=== PATIENT | female | born 1945 | race Caucasian/White ===

== ENCOUNTER 2021-01-19 08:58 | Outpatient (REF) | payer MEDICARE, SELFPAY ==
[2021-01-19 11:37] LABS: Alanine Aminotransferase 19 U/L (0-31); Anion Gap 16 (12-20); Aspartate Amino Transferase 21 U/L (5-31); Blood Urea Nitrogen 33 mg/dL (9-16); Calcium 9.5 mg/dL (8.4-10.2); Carbon Dioxide 26 mmol/L (22-29); Chloride 104 mmol/L (96-108); Cholesterol 214 mg/dL; Estimated Glomerular Filt Rate 30; Glucose Fasting 103 mg/dL (60-99); HDL Cholesterol 69 mg/dL; LDL Cholesterol Calculated 123 mg/dl; Phosphorus 3.3 mg/dL (2.7-4.5); Potassium 4.9 mmol/L (3.3-5.1); Sodium 141 mmol/L (135-145); Triglycerides 113 mg/dL
[2021-01-19 11:58] LABS: Vitamin D 25-OH Total 41.7 ng/mL (>30)
== END 2021-01-19 08:59 | disposition home or self-care (01) ==
LOC: HO.HMGCLDS 08:58
PROVIDERS: Absent Provider Internal Medicine; Visit Provider Internal Medicine Nephrology
DX: E78.5 Hyperlipidemia, unspecified (principal); I10 Essential (primary) hypertension; Z78.0 Asymptomatic menopausal state
CPT/HCPCS: 36415; 80048; 80061; 82306; 84100; 84450; 84460

== ENCOUNTER 2021-03-31 12:32 | Outpatient (REF) | payer MEDICARE, SELFPAY ==
--- NOTE | ~2021-03-31 | MM_ITS ---
EXAMINATION: BONE DENSITOMETRY CLINICAL INDICATION: Other specified disorders of bone density and structure. COMPARISON: Baseline BD dated 02/19/2019. Lumbar radiographs 02/06/2019. TECHNIQUE: Using a [employer] DXA System (software version: 13.1) manufactured by [employer], dual-energy x-ray absorptiometry was performed of the lumbar spine and left hip. The images are of good technical quality. Summary results are attached. FINDINGS: AP SPINE L1-L4: There are degenerative changes lumbar spine which may cause overestimation lumbar bone mineral density. Current: BMD 1.558 g/cm2, Z-score 3.8, T-score 3.1, normal, 5.6% increase from baseline (<5% change is not significant). Baseline: BMD 1.476 g/cm2. LEFT FEMUR, NECK: Current: BMD 0.756 g/cm2, Z-score -0.8, T-score -2.0, osteopenia. Baseline: BMD 0.815 g/cm2. LEFT FEMUR, TOTAL: Current: BMD 0.922 g/cm2, Z-score 0.3, T-score -0.7, normal, 5.1% decrease from baseline (<5% change is not significant). Baseline: BMD 0.972 g/cm2. IDENTIFIED RISK FACTORS: Height loss, menopause, renal. HISTORY OF FRACTURE: None listed. MEDICATIONS: Calcium supplements or multivitamin, vitamin D. MM/XR DEXA axial skeleton IMPRESSION: 1. DIAGNOSIS: Osteopenia based on the lowest T-score value of -2.0 in the femoral neck applying World Health Organization criteria. 2. 10-YEAR FRACTURE RISK PREDICTION, FRAX: Major osteoporotic fracture (clinical spine, forearm, hip or shoulder) 11.6%. Hip fracture 2.8%. 3. Treatment Recommendations: NOF guidelines recommend consideration for treatment in postmenopausal women and men age 50 and older presenting with the following: -A hip or vertebral (clinical or morphometric) fracture. -T-score less than or equal to -2.5 at the femoral neck or spine after appropriate evaluation to exclude secondary causes. -Low bone mass at the hip or spine and a 10-year fracture probability by FRAX of greater than or equal to 3% for hip fracture or greater than or equal to 20% for major osteoporotic fracture based on the [place] adapted WHO algorithm. 4. Other Recommendations: All treatment decisions require clinical judgment and consideration of individual patient factors, including patient preferences, comorbidities, previous drug use, risk factors not captured in the FRAX model (e.g. frailty, falls, vitamin D deficiency, increased bone turnover, interval significant decline in bone density) and possible under or overestimation of fracture risk by FRAX. Additional medical evaluation for secondary cause of low bone mineral density may be appropriate. FUTURE SCAN RECOMMENDATION: People with diagnosed cases of osteoporosis or at high risk for fracture should have regular bone mineral density tests. For patients eligible for Medicare, routine testing is allowed once every 2 years. The testing frequency can be increased to one year for patients who have rapidly progressing disease, those who are receiving or discontinuing medical therapy to restore bone mass, or have additional risk factors.
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
== END 2021-03-31 12:33 | disposition home or self-care (01) ==
LOC: HO.MAMMO 12:32
PROVIDERS: Visit Provider Internal Medicine
DX: Z12.31 Encounter for screening mammogram for malignant neoplasm of breast (principal); Z13.820 Encounter for screening for osteoporosis; M85.852 Other specified disorders of bone density and structure, left thigh; R29.890 Loss of height; Z78.0 Asymptomatic menopausal state
CPT/HCPCS: 77063; 77067; 77080

== ENCOUNTER 2021-08-03 09:15 | Outpatient (REF) | payer MEDICARE, SELFPAY ==
[2021-08-03 11:43] LABS: MANUAL DIFF FLAG NO
[2021-08-03 11:51] LABS: Basophils Absolute Auto 0.1 X10*3/uL (0.0-0.2); Basophils Percent Auto 1.1 % (0-2); Eosinophils Absolute Auto 0.2 X10*3/uL (0.0-0.4); Eosinophils Percent Auto 3.3 % (0-4); Hematocrit 39.8 % (37-47); Hemoglobin 12.7 g/dl (12.0-16.0); Imm Gran Abs Auto 0.02 X10*3/uL (0.00-0.03); Imm Gran Pct Auto 0.3 % (0.0-0.4); Lymphocytes Absolute Auto 1.2 X10*3/uL (1.2-4.9); Lymphocytes Percent Auto 17.1 % (20-40); Mean Corpuscular HGB Conc 31.9 g/dl (31.0-35.0); Mean Corpuscular Hemoglobin 30.5 pg (27.0-33.0); Mean Corpuscular Volume 95.4 fL (80-98); Mean Platelet Volume 11.3 fL (9.4-12.3); Monocytes Absolute Auto 0.5 X10*3/uL (0.1-1.2); Monocytes Percent Auto 7.2 % (2-11); Platelet Count 172 X10*3/uL (160-400); Red Blood Count 4.17 X10*6/uL (4.20-5.50); Red Cell Distribution Width 13.4 % (11.0-16.0); White Blood Count 7.1 X10*3/uL (4.8-10.8)
[2021-08-03 12:15] LABS: Anion Gap 17 (12-20); Blood Urea Nitrogen 30 mg/dL (9-16); Calcium 9.6 mg/dL (8.4-10.2); Carbon Dioxide 22 mmol/L (22-29); Chloride 106 mmol/L (96-108); Estimated Glomerular Filt Rate 35; Phosphorus 3.2 mg/dL (2.7-4.5); Potassium 4.6 mmol/L (3.3-5.1); Sodium 140 mmol/L (135-145)
[2021-08-03 12:18] LABS: Vitamin D 25-OH Total 44.7 ng/mL (>30)
[2021-08-03 12:21] LABS: Alanine Aminotransferase 12 U/L (0-31); Anion Gap 15 (12-20); Aspartate Amino Transferase 17 U/L (5-31); Blood Urea Nitrogen 30 mg/dL (9-16); Calcium 9.9 mg/dL (8.4-10.2); Carbon Dioxide 24 mmol/L (22-29); Chloride 107 mmol/L (96-108); Cholesterol 191 mg/dL; Estimated Glomerular Filt Rate 34; Glucose Fasting 102 mg/dL (60-99); HDL Cholesterol 61 mg/dL; LDL Cholesterol Calculated 109 mg/dl; Potassium 4.9 mmol/L (3.3-5.1); Sodium 141 mmol/L (135-145); Triglycerides 106 mg/dL
[2021-08-03 12:42] LABS: Vitamin D 25-OH Total 45.2 ng/mL (>30)
[2021-08-03 14:35] LABS: Creatinine Urine 275.58 mg/dL; Protein/Creatinine Ratio, Ur 0.19 (<0.2); Total Protein Urine Random 52 mg/dL (<12)
[2021-08-05 15:37] LABS: Calcium (PTHI) 9.7 mg/dL (8.6-10.4); PTHI 89 pg/mL (14-64)
== END 2021-08-03 09:16 | disposition home or self-care (01) ==
LOC: HO.HMGCLDS 09:15
PROVIDERS: PCP Internal Medicine; Visit Provider Internal Medicine Nephrology
DX: E78.5 Hyperlipidemia, unspecified (principal); M85.852 Other specified disorders of bone density and structure, left thigh; R73.01 Impaired fasting glucose; I12.9 Hypertensive chronic kidney disease with stage 1 through stage 4 chronic kidney disease, or unspecified chronic kidney disease; N18.31 Chronic kidney disease, stage 3a; R42 Dizziness and giddiness; Z78.0 Asymptomatic menopausal state
CPT/HCPCS: 36415; 80048; 80051; 80061; 82306; 82310; 82565; 83970; 84100; 84156; 84450; 84460; 84520; 84550; 85025

== ENCOUNTER → 2021-08-30 08:48 | Outpatient (BNVA) | payer MEDICARE, SELFPAY | PROVIDERS: PCP Internal Medicine; Visit Provider Nurse Practitioner Family | DX: M17.0 Bilateral primary osteoarthritis of knee (principal); M47.816 Spondylosis without myelopathy or radiculopathy, lumbar region | CPT/HCPCS: 99212 ==

== ENCOUNTER 2021-10-21 11:00 | Outpatient (RCR) | payer MEDICARE, SELFPAY ==
--- NOTE | 2021-09-20 16:41 | MHC.PT.EP ---
[facility] [place] [facility] [place] [facility] [place] [facility] [address] Norman Lund [address] [phone] F: [phone] F: [phone] F: [phone] F: [phone] Physical Therapy Plan of Care Date of Evaluation: Date of Surgery: Diagnosis: Lumbago, B knee pain. Assessment: Pt is a 76 y/o female referred to PT for eval and treat of lumbar spondylosis and B knee OA pain who presents with lumbar and LE dysfinction resulting in decreased tolerance for walking even short distances, standing short duration, performing heavy HH chores, negotiating stairs and curbs as well as performing squatting activities and HH chores secondary to decreased B hip and knee strength, decreased core strength, increased lumbar tissue tension, decreased posture, gait abnormality, and pain. Pt is deemed an appropriate candidate to receive skilled PT in order to address her physical limitations to improve her functional ability. Frequency and Duration: The patient will be seen 2 x/ wk x 5 wks. Short Term Goals: Initiate HEP with evidence of compliance. Improve baseline pain to < 3/10; initial 5/10. 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 Pt will be able to walk 2 blocks with at most moderate difficulty; initial: extreme difficulty or unable (LEFI) Pt will be able to stand > 30 min with managed back pain; initial: I avoid standing because it increased my pain right away. Treatment Plan: Modalities to reduce pain, spasms and effusion. Manual therapy to restore motion and function. Therapeutic exercise to improve strength and flexibility. Neuromuscular re-education for posture and balance. Therapeutic activities to return to functional activities of daily living. Electronically signed by: Jong Lagunas PT. Please sign and return to therapist. Thank you for your referral.
--- NOTE | 2021-10-21 15:55 | MHC.PT.DC ---
[facility] [place] Office [place] Office [place] Office [address] Norman Lund [address] [phone] F: [phone] F: [phone] F: [phone] F: [phone] Physical Therapy Discharge Report Diagnosis: Lumbago, B knee pain. Date of Surgery: Date of Evaluation: 09/20/21 Date of Discharge: 10/21/21 Treatments to Date: 8 Cancellations to Date: No Shows to Date: Discharge Status: Independent with HEP Recommend MD Follow-up Discharge Summary: [place] has been an active participant in her therapy in and out of the clinic, She is I with a basic home program which she reports does not cause her pain though reports she is not much improving with exercise though reports she will continue her program which she has been compliant in. In her last 3 sessions [place] has reported significant LBP relief with E-stim and states she is going to purchase one for self management and was encouraged to f/u with her MD. Electronically signed by: Jong Lagunas PT. Please sign and return to therapist. Thank you for your referral.
== END 2021-10-21 15:55 | disposition home or self-care (01) ==
LOC: HO.PTCHIC 11:00
PROVIDERS: PCP Internal Medicine; Visit Provider Nurse Practitioner Family
DX: M47.816 Spondylosis without myelopathy or radiculopathy, lumbar region (principal); M17.0 Bilateral primary osteoarthritis of knee
CPT/HCPCS: 97014; 97110; 97162

== ENCOUNTER 2022-02-03 08:33 | Outpatient (REF) | payer MEDICARE, SELFPAY ==
[2022-02-03 11:33] LABS: Anion Gap 14 (12-20); Blood Urea Nitrogen 28 mg/dL (9-16); Calcium 9.6 mg/dL (8.4-10.2); Carbon Dioxide 25 mmol/L (22-29); Chloride 104 mmol/L (96-108); Estimated Glomerular Filt Rate 37; Potassium 4.7 mmol/L (3.3-5.1); Sodium 138 mmol/L (135-145)
== END 2022-02-03 08:34 | disposition home or self-care (01) ==
LOC: HO.HMGCLDS 08:33
PROVIDERS: PCP Internal Medicine; Visit Provider Internal Medicine Nephrology
DX: I12.9 Hypertensive chronic kidney disease with stage 1 through stage 4 chronic kidney disease, or unspecified chronic kidney disease (principal); N18.31 Chronic kidney disease, stage 3a
CPT/HCPCS: 36415; 80051; 82310; 82565; 84520

== ENCOUNTER 2022-02-16 07:46 | Outpatient (REF) | payer MEDICARE, SELFPAY ==
[2022-02-16 11:15] LABS: MANUAL DIFF FLAG NO
[2022-02-16 11:28] LABS: Basophils Absolute Auto 0.1 X10*3/uL (0.0-0.2); Basophils Percent Auto 0.8 % (0-2); Eosinophils Absolute Auto 0.2 X10*3/uL (0.0-0.4); Eosinophils Percent Auto 2.5 % (0-4); Hematocrit 39.7 % (37.0-47.0); Hemoglobin 12.5 g/dl (12.0-16.0); Imm Gran Abs Auto 0.02 X10*3/uL (0.00-0.03); Imm Gran Pct Auto 0.3 % (0.0-0.4); Lymphocytes Absolute Auto 1.5 X10*3/uL (1.2-4.9); Lymphocytes Percent Auto 19.6 % (20-40); Mean Corpuscular HGB Conc 31.5 g/dl (31.0-35.0); Mean Corpuscular Volume 98.5 fL (80.0-98.0); Mean Platelet Volume 9.5 fL (9.4-12.3); Monocytes Absolute Auto 0.7 X10*3/uL (0.1-1.2); Monocytes Percent Auto 8.8 % (2-11); Neutrophils Absolute Auto 5.2 x10*3/uL (2.0-8.3); Platelet Count 272 X10*3/uL (160-400); Red Blood Count 4.03 X10*6/uL (4.20-5.50); Red Cell Distribution Width 13.2 % (11.0-16.0); White Blood Count 7.6 X10*3/uL (4.8-10.8)
[2022-02-16 11:41] LABS: Alanine Aminotransferase 12 U/L (0-31); Aspartate Amino Transferase 20 U/L (5-31); Cholesterol 215 mg/dL; Glucose Fasting 103 mg/dL (60-99); HDL Cholesterol 71 mg/dL; LDL Cholesterol Calculated 129 mg/dl; Triglycerides 76 mg/dL
[2022-02-16 12:07] LABS: Vitamin D 25-OH Total 45.5 ng/mL (>30)
[2022-02-16 12:15] LABS: Folate 4.8 ng/mL (> or = 4.0); Vitamin B12 547 pg/mL (200-900)
[2022-02-16 13:09] LABS: Free T4 (Free Thyroxine) 1.16 ng/dL (0.71-1.85)
== END 2022-02-16 07:47 | disposition home or self-care (01) ==
LOC: HO.HMGCLDS 07:46
PROVIDERS: Visit Provider Internal Medicine
DX: E78.5 Hyperlipidemia, unspecified (principal); M85.852 Other specified disorders of bone density and structure, left thigh; I10 Essential (primary) hypertension; R42 Dizziness and giddiness; Z78.0 Asymptomatic menopausal state
CPT/HCPCS: 36415; 80061; 82306; 82607; 82746; 82947; 84439; 84443; 84450; 84460; 85025

== ENCOUNTER → 2022-04-11 13:18 | Outpatient (BNVA) | payer MEDICARE, SELFPAY | PROVIDERS: PCP Internal Medicine; Visit Provider Nurse Practitioner Family | DX: M17.0 Bilateral primary osteoarthritis of knee (principal); M47.816 Spondylosis without myelopathy or radiculopathy, lumbar region; M54.50 Low back pain, unspecified | CPT/HCPCS: 99212 ==

== ENCOUNTER 2022-04-21 09:59 | Outpatient (REF) | payer MEDICARE, SELFPAY ==
--- NOTE | ~2022-04-21 | XR_ITS ---
EXAMINATION: XR LUMBAR SPINE XR BILATERAL KNEE, RIGHT XR BILATERAL KNEE LEFT CLINICAL INFORMATION: Primary osteoarthritis. Bilateral knee pain and low back pain. COMPARISON: None. TECHNIQUE: 3 views each knee. Lumbar spine 3 views. FINDINGS: LUMBAR SPINE: There is normal lumbar lordosis. Grade 1 anterolisthesis L5 n S1 and grade 1 retrolisthesis L2 on L3 is noted. There is mild loss of L1-L2, L2-L3 and L5-S1 disc heights with mild ventral spondylosis. There is bilateral L4-L5 and L5-S1 moderate facet joint arthropathy. The paravertebral soft tissues are normal. RIGHT KNEE: There is severe loss of medial and patellofemoral compartment joint space with moderate periarticular spurring. No acute fracture or lytic process seen. The soft tissues are normal. LEFT KNEE: There is severe loss of medial and moderate loss of patellofemoral and lateral compartment joint space. There is moderate periarticular spurring medial compartment. There are no loose bodies or bony erosive changes. There is mild suprapatellar joint effusion. There is moderate soft tissue calcification anterior and medial to the left knee joint likely varicose veins. XR/XR knee RT 3V IMPRESSION: Degenerative disc disease L1-L2 and L2-L3 disc level with ventral spondylosis. Grade 1 anterolisthesis L4-L5 and grade 1 retrolisthesis L2 on L3. No acute fracture seen. There is facet joint arthropathy as described above. Severe degenerative changes essentially involving the medial and patellofemoral compartments of both knees and lateral compartment of the left knee. There is mild suprapatellar joint effusion in the left knee but no visible acute fracture or dislocation seen in either knee joints. There is moderate soft tissue calcification anterior to the left knee joint.
--- NOTE | ~2022-04-21 | XR_ITS ---
EXAMINATION: XR LUMBAR SPINE XR BILATERAL KNEE, RIGHT XR BILATERAL KNEE LEFT CLINICAL INFORMATION: Primary osteoarthritis. Bilateral knee pain and low back pain. COMPARISON: None. TECHNIQUE: 3 views each knee. Lumbar spine 3 views. FINDINGS: LUMBAR SPINE: There is normal lumbar lordosis. Grade 1 anterolisthesis L5 n S1 and grade 1 retrolisthesis L2 on L3 is noted. There is mild loss of L1-L2, L2-L3 and L5-S1 disc heights with mild ventral spondylosis. There is bilateral L4-L5 and L5-S1 moderate facet joint arthropathy. The paravertebral soft tissues are normal. RIGHT KNEE: There is severe loss of medial and patellofemoral compartment joint space with moderate periarticular spurring. No acute fracture or lytic process seen. The soft tissues are normal. LEFT KNEE: There is severe loss of medial and moderate loss of patellofemoral and lateral compartment joint space. There is moderate periarticular spurring medial compartment. There are no loose bodies or bony erosive changes. There is mild suprapatellar joint effusion. There is moderate soft tissue calcification anterior and medial to the left knee joint likely varicose veins. XR/XR lumbar spine 2-3V IMPRESSION: Degenerative disc disease L1-L2 and L2-L3 disc level with ventral spondylosis. Grade 1 anterolisthesis L4-L5 and grade 1 retrolisthesis L2 on L3. No acute fracture seen. There is facet joint arthropathy as described above. Severe degenerative changes essentially involving the medial and patellofemoral compartments of both knees and lateral compartment of the left knee. There is mild suprapatellar joint effusion in the left knee but no visible acute fracture or dislocation seen in either knee joints. There is moderate soft tissue calcification anterior to the left knee joint.
--- NOTE | ~2022-04-21 | XR_ITS ---
EXAMINATION: XR LUMBAR SPINE XR BILATERAL KNEE, RIGHT XR BILATERAL KNEE LEFT CLINICAL INFORMATION: Primary osteoarthritis. Bilateral knee pain and low back pain. COMPARISON: None. TECHNIQUE: 3 views each knee. Lumbar spine 3 views. FINDINGS: LUMBAR SPINE: There is normal lumbar lordosis. Grade 1 anterolisthesis L5 n S1 and grade 1 retrolisthesis L2 on L3 is noted. There is mild loss of L1-L2, L2-L3 and L5-S1 disc heights with mild ventral spondylosis. There is bilateral L4-L5 and L5-S1 moderate facet joint arthropathy. The paravertebral soft tissues are normal. RIGHT KNEE: There is severe loss of medial and patellofemoral compartment joint space with moderate periarticular spurring. No acute fracture or lytic process seen. The soft tissues are normal. LEFT KNEE: There is severe loss of medial and moderate loss of patellofemoral and lateral compartment joint space. There is moderate periarticular spurring medial compartment. There are no loose bodies or bony erosive changes. There is mild suprapatellar joint effusion. There is moderate soft tissue calcification anterior and medial to the left knee joint likely varicose veins. XR/XR knee LT 3V IMPRESSION: Degenerative disc disease L1-L2 and L2-L3 disc level with ventral spondylosis. Grade 1 anterolisthesis L4-L5 and grade 1 retrolisthesis L2 on L3. No acute fracture seen. There is facet joint arthropathy as described above. Severe degenerative changes essentially involving the medial and patellofemoral compartments of both knees and lateral compartment of the left knee. There is mild suprapatellar joint effusion in the left knee but no visible acute fracture or dislocation seen in either knee joints. There is moderate soft tissue calcification anterior to the left knee joint.
== END 2022-04-21 10:00 | disposition home or self-care (01) ==
LOC: HO.XRAY 09:59
PROVIDERS: PCP Internal Medicine; Visit Provider Nurse Practitioner Family
DX: M54.50 Low back pain, unspecified (principal); M17.0 Bilateral primary osteoarthritis of knee
CPT/HCPCS: 72100; 73562

== ENCOUNTER → 2022-05-24 08:54 | Outpatient (BNVA) | payer MEDICARE, SELFPAY | PROVIDERS: PCP Internal Medicine; Visit Provider Nurse Practitioner Family | DX: M47.26 Other spondylosis with radiculopathy, lumbar region (principal); M17.0 Bilateral primary osteoarthritis of knee; M25.561 Pain in right knee; M25.562 Pain in left knee | CPT/HCPCS: 99202 ==

== ENCOUNTER 2022-05-26 08:33 | Outpatient (REF) | payer MEDICARE, SELFPAY ==
--- NOTE | ~2022-05-26 | XR_ITS ---
EXAMINATION: XR knee standing BI CLINICAL INFORMATION: Reason for Exam M25.569 - Pain in unspecified knee COMPARISON: Knee radiographs 04/21/2022 TECHNIQUE: One view of the bilateral knees standing XR/XR knee standing BI FINDINGS/IMPRESSION: * No acute fracture or dislocation. * Advanced degenerative changes of the right knee with [id number] articulation involving the medial compartment and large medial compartment osteophytes and with valgus angulation of the knee. * Advanced degenerative changes of the left knee involving the medial and lateral compartments with complete or near complete loss of joint space and large osteophytes with varus angulation of the knee. 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
== END 2022-05-26 08:34 | disposition home or self-care (01) ==
LOC: HO.HOSX 08:33
PROVIDERS: Visit Provider Orthopaedic Surgery
DX: M17.0 Bilateral primary osteoarthritis of knee (principal)
CPT/HCPCS: 20610; 73565; 99202; J1100

== ENCOUNTER 2022-08-11 08:10 | Outpatient (REF) | payer MEDICARE, SELFPAY ==
[2022-08-11 11:33] LABS: Anion Gap 16 (12-20); Blood Urea Nitrogen 30 mg/dL (9-16); Calcium 9.6 mg/dL (8.4-10.2); Carbon Dioxide 23 mmol/L (22-29); Chloride 104 mmol/L (96-108); Estimated Glomerular Filt Rate 32; Potassium 4.4 mmol/L (3.3-5.1); Sodium 139 mmol/L (135-145)
== END 2022-08-11 08:11 | disposition home or self-care (01) ==
LOC: HO.HMGCLDS 08:10
PROVIDERS: PCP Internal Medicine; Visit Provider Internal Medicine Nephrology
DX: I12.9 Hypertensive chronic kidney disease with stage 1 through stage 4 chronic kidney disease, or unspecified chronic kidney disease (principal); N18.31 Chronic kidney disease, stage 3a
CPT/HCPCS: 36415; 80051; 82310; 82565; 84520

== ENCOUNTER → 2022-09-12 08:58 | Outpatient (BNVA) | payer MEDICARE, SELFPAY | PROVIDERS: PCP Internal Medicine; Referring Provider Internal Medicine; Visit Provider Nurse Practitioner Family | DX: M17.11 Unilateral primary osteoarthritis, right knee (principal); M17.12 Unilateral primary osteoarthritis, left knee; M47.816 Spondylosis without myelopathy or radiculopathy, lumbar region | CPT/HCPCS: 99212 ==

== ENCOUNTER 2022-12-23 08:04 | Outpatient (REF) | payer MEDICARE, SELFPAY ==
[2022-12-23 12:24] LABS: Estimated Average Glucose 111 mg/dL; Hemoglobin A1c % 5.5 %
[2022-12-23 12:39] LABS: Alanine Aminotransferase 16 U/L (0-31); Aspartate Amino Transferase 20 U/L (5-31); Cholesterol 185 mg/dL; Glucose Fasting 98 mg/dL (60-99); HDL Cholesterol 69 mg/dL; LDL Cholesterol Calculated 99 mg/dl; Triglycerides 88 mg/dL; Vitamin D 25-OH Total 39.5 ng/mL (>30)
== END 2022-12-23 08:05 | disposition home or self-care (01) ==
LOC: HO.HMGCLDS 08:04
PROVIDERS: PCP Internal Medicine; Visit Provider Internal Medicine
DX: E78.5 Hyperlipidemia, unspecified (principal); M85.852 Other specified disorders of bone density and structure, left thigh; I12.9 Hypertensive chronic kidney disease with stage 1 through stage 4 chronic kidney disease, or unspecified chronic kidney disease; N18.9 Chronic kidney disease, unspecified; R73.01 Impaired fasting glucose; Z53.20 Procedure and treatment not carried out because of patient's decision for unspecified reasons
CPT/HCPCS: 36415; 80061; 82306; 82947; 83036; 84450; 84460

== ENCOUNTER → 2023-01-10 07:26 | Outpatient (BNVA) | payer MEDICARE, SELFPAY | PROVIDERS: PCP Internal Medicine; Visit Provider Nurse Practitioner Family | DX: M17.11 Unilateral primary osteoarthritis, right knee (principal); M17.12 Unilateral primary osteoarthritis, left knee; M47.816 Spondylosis without myelopathy or radiculopathy, lumbar region | CPT/HCPCS: 99212 ==

== ENCOUNTER 2023-04-11 12:46 | Outpatient (REF) | payer MEDICARE, SELFPAY ==
--- NOTE | ~2023-04-11 | MM_ITS ---
EXAMINATION: BONE DENSITOMETRY CLINICAL INDICATION: Screening. COMPARISON: Previous BD dated 03/31/2021 and baseline BD dated 02/19/2019. TECHNIQUE: Using a [employer] DXA System (software version: 13.1) manufactured by [employer], dual-energy x-ray absorptiometry was performed of the lumbar spine and left hip. The images are of good technical quality. Summary results are attached. FINDINGS: LEFT FEMUR, NECK: Current: BMD 0.813 g/cm2, Z-score -0.2, T-score -1.6, osteopenia. Prior: BMD 0.756 g/cm2. Baseline: BMD 0.815 g/cm2. LEFT FEMUR, TOTAL: Current: BMD 0.887 g/cm2, Z-score 0.2, T-score -1.0, normal, 3.8% decrease from previous, 8.7% decrease from baseline (<5% change is not significant). Prior: BMD 0.922 g/cm2. Baseline: BMD 0.972 g/cm2. AP SPINE L1-L4 (excluding L2): The data of L1-L4 has been changed to exclude the L2 vertebral body, because degenerative changes at this level may cause overestimation of lumbar spine density. Current: BMD 1.488 g/cm2, Z-score 3.5, T-score 2.6, normal, 1.2% decrease from previous, 2.1% increase from baseline (<5% change is not significant). Prior: BMD 1.506 g/cm2. Baseline: BMD 1.458 g/cm2. IDENTIFIED RISK FACTORS: Menopause, height loss, renal. HISTORY OF FRACTURE: None listed. MEDICATIONS: Calcium, vitamin D. MM/XR DEXA axial skeleton IMPRESSION: 1. DIAGNOSIS: Osteopenia based on the lowest T-score value of -1.6 in the femoral neck applying World Health Organization criteria. 2. 10-YEAR FRACTURE RISK PREDICTION, FRAX: Major osteoporotic fracture (clinical spine, forearm, hip or shoulder) 11.3%. Hip fracture 2.4%. 3. Treatment Recommendations: NOF guidelines recommend consideration for treatment in postmenopausal women and men age 50 and older presenting with the following: -A hip or vertebral (clinical or morphometric) fracture. -T-score less than or equal to -2.5 at the femoral neck or spine after appropriate evaluation to exclude secondary causes. -Low bone mass at the hip or spine and a 10-year fracture probability by FRAX of greater than or equal to 3% for hip fracture or greater than or equal to 20% for major osteoporotic fracture based on the [place] adapted WHO algorithm. 4. Other Recommendations: All treatment decisions require clinical judgment and consideration of individual patient factors, including patient preferences, comorbidities, previous drug use, risk factors not captured in the FRAX model (e.g. frailty, falls, vitamin D deficiency, increased bone turnover, interval significant decline in bone density) and possible under or overestimation of fracture risk by FRAX. Additional medical evaluation for secondary cause of low bone mineral density may be appropriate. FUTURE SCAN RECOMMENDATION: People with diagnosed cases of osteoporosis or at high risk for fracture should have regular bone mineral density tests. For patients eligible for Medicare, routine testing is allowed once every 2 years. The testing frequency can be increased to one year for patients who have rapidly progressing disease, those who are receiving or discontinuing medical therapy to restore bone mass, or have additional risk factors.
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
== END 2023-04-11 12:47 | disposition home or self-care (01) ==
LOC: HO.MAMMO 12:46
PROVIDERS: PCP Internal Medicine; Visit Provider Internal Medicine
DX: Z12.31 Encounter for screening mammogram for malignant neoplasm of breast (principal); Z13.820 Encounter for screening for osteoporosis; Z78.0 Asymptomatic menopausal state; M85.852 Other specified disorders of bone density and structure, left thigh
CPT/HCPCS: 77063; 77067; 77080

== ENCOUNTER 2023-05-01 09:07 | Outpatient (REF) | payer MEDICARE, SELFPAY ==
[2023-05-01 12:38] LABS: Anion Gap 15 (12-20); Blood Urea Nitrogen 28 mg/dL (9-16); Calcium 9.6 mg/dL (8.4-10.2); Carbon Dioxide 24 mmol/L (22-29); Chloride 105 mmol/L (96-108); Estimated Glomerular Filt Rate 36; Potassium 4.7 mmol/L (3.3-5.1); Sodium 139 mmol/L (135-145)
[2023-05-01 13:35] LABS: Creatinine Urine 119.44 mg/dL; Protein/Creatinine Ratio, Ur 0.24 (<0.2); Total Protein Urine Random 29 mg/dL (<12)
== END 2023-05-01 09:08 | disposition home or self-care (01) ==
LOC: HO.HMGCLDS 09:07
PROVIDERS: PCP Internal Medicine; Visit Provider Internal Medicine Nephrology
DX: I12.9 Hypertensive chronic kidney disease with stage 1 through stage 4 chronic kidney disease, or unspecified chronic kidney disease (principal); N18.31 Chronic kidney disease, stage 3a
CPT/HCPCS: 36415; 80051; 82310; 82565; 84156; 84520

== ENCOUNTER 2023-06-15 10:14 | Outpatient (AMB) | payer MEDICARE, SELFPAY ==
[2023-06-15 10:16] VITALS: BMI 40.2
--- NOTE | 2023-06-15 10:16 | MHC.OFFVIS ---
Intake Vital Signs 06/15/23 10:16 Height 5 ft Weight 206 lb BMI 40.2 Intake Visit Reasons: ov- Bilateral Knee OA Intake Note: [place] is a 78 year old female who presents today for a follow up of her bilateral knee pain. Last seen for bilateral knee injections that were done on 05/26/22. Patient reports that she is unsure if these injections were helpful. She explains that the knees have been killing her. She has been taking tylenol for her pain which helps mildly. She has kidney disease so she must avoid NSAIDS. She used topical creams which also give mild relief. Allergies GALILEO Inhibitors Allergy (Severe, Verified 06/15/23 10:19) Cough HPI ov- Bilateral Knee OA HPI Details [place] is a 78 year old woman with bilateral knee OA. She was last seen, and injected, on 05/26/22, and is unsure if this helped her. She says her knees have been very painful recently with daily activity, worse with prolonged walking or using stairs. She walks using a cane and occasionally uses a walker when out for prolonged periods. Her right knee gives way on her occasionally. She also has some pain in her hips and lower back. She says her LBP is her primary pain generator and limiting factor at this time. She does not want to consider surgery as she feels too limited by her LBP and is worried she will not recover well. She uses a topical cream and Tylenol, with mild relief. She reports having CKD and says she is unable to take NSAIDs. She has lumbar DDD & spondylosis and follows with Rheumatology. She denies any numbness or tingling. [facility] Medical History Bifascicular block Bilateral knee pain Chronic kidney disease (CKD) Colonoscopy refused Dyslipidemia Essential hypertension Impaired fasting glucose Intermittent lightheadedness Osteoarthritis Osteopenia of left femoral neck Postmenopausal Sinus bradycardia Surgical History History of cataract surgery Family History Father HTN (hypertension) Mother CKD (chronic kidney disease) HTN (hypertension) Heart disease Family/Other Hialey's thyroiditis Social History Housing: House Alcohol intake: never Patient Tobacco Use Status: Former Tobacco user Years Smoked: 35 yrs e-Cigarette/Vaping Use: Never Used Current occupational status: retired Cognitive needs: No Hearing needs: No Vision needs: Yes Review of Systems Const All systems reviewed & are unremarkable except as noted in HPI and below Physical Exam Vital Signs: BMI result Body Mass Index 40.2 Const General: no acute distress, alert and awake Orientation/consciousness: patient oriented x3 HEENT Head: Yes normocephalic and Yes atraumatic Eyes EOM: EOMs intact bilaterally Resp Effort & Inspection: normal respiratory effort and able to speak in complete sentences Cardio Jugular venous distension: no JVD Skin General skin exam: turgor normal Rashes: no rashes Neuro General: patient oriented x3 Extrem Other: Bilateral Knees: Severe gait antalgia Varus thrust bilaterally, R>L Psych Appearance: grossly normal Affect: normal affect Attitude: cooperative Office Procedures Joint Injection/Drain Joint Injection/Drain Details: Injected 1 mL of Decadron and 3 mL 1% lidocaine and 3 mL of 0.25% Marcaine. Site was prepped using aseptic technique. Patient tolerated the procedure well. Primary Site: right knee Secondary Site: left knee Approach Used: anterolateral Coding - Large joint - Glenohumeral/Tronchanteric Bursa/Intraarticular Procedure code (CPT) selection complete Results Reviewed Results Reviewed: 06/15/23 10:33 BUPivacaine MPF 0.25 % [Sensorcaine-MPF 0.25% 10 ML] 10 ml .ROUTE .STK-MED ONE Lidocaine HCl 1 % [Xylocaine 1 %] 2 ml .ROUTE .STK-MED ONE Lidocaine HCl 2 % MPF [Xylocaine 2 % MPF] 5 ml .ROUTE .STK-MED ONE dexAMETHasone sod phosphate [Decadron] 4 mg .ROUTE .STK-MED ONE I personally reviewed relevant radiographs. Severe tricompartmental OA bilaterally. Severe varus on the right Assessment & Plan Assessment & Plan (1) Arthritis of both knees: Code(s): M17.0 - Bilateral primary osteoarthritis of knee Plan: [place] is a 78 year old woman with severe tricompartmental bilateral knee OA, with varus thrust, R>L. She has pain with daily activity, worse with using stairs or prolonged ambulation. She ambulates with assistive devices and feels her right knee give way on her occasionally. She was last injected bilaterally on 05/26/22 and is unsure if this helped her. She is unable to use NSAIDs due to CKD and finds minimal relief from Tylenol and OTC topical creams. I discussed her diagnosis and treatment options, including a referral to our colleagues in pain management. She is very opposed to the idea of surgical intervention due to her comorbidities. I injected her bilateral knees today, which she tolerated well. She can follow up prn. If her symptoms persist or worsen we can discuss a referral to Pain Management. Plan Scribed for Celestine Ramos MD by Van Keith, director of medical services, on 06/15/23 at 10:35 AM, EST. Coding Level of Care Code Est Pt Level 4 (70458) Diagnoses Arthritis of both knees M17.0 CPT Codes Coding - 12514 Large joint: 55879 - Large joint ([id number]) Coding - Joint 7: 39715 - Glenohumeral/Tronchanteric Bursa/Intraarticular ([id number])
== END 2023-06-15 11:01 | disposition home or self-care (01) ==
PROVIDERS: PCP Internal Medicine; Visit Provider Orthopaedic Surgery
DX: M17.0 Bilateral primary osteoarthritis of knee (principal)
CPT/HCPCS: 20610; 99214

== ENCOUNTER → 2023-06-15 10:14 | Outpatient (BNVA) | payer MEDICARE, SELFPAY | PROVIDERS: PCP Internal Medicine; Visit Provider Orthopaedic Surgery | DX: M17.0 Bilateral primary osteoarthritis of knee (principal) | CPT/HCPCS: 20610; 99212; J1100 ==

== ENCOUNTER 2023-07-03 09:12 | Outpatient (AMB) | payer MEDICARE, SELFPAY ==
[2023-07-03 09:23] VITALS: BP 114/62; PULSE 66; TEMP 36.2; O2SAT 97; BMI 41.8
--- NOTE | 2023-07-03 09:23 | A.OFFVIS_ITS ---
Intake Vital Signs 07/03/23 09:23 Height 5 ft Weight 214 lb 4.629 oz BMI 41.8 BP 114/62 Blood Pressure Location Lt brachial Position Sitting Pulse 66 Pulse Source Pulse Oximeter Temp 97.2 F Temp Source Skin Pulse Oximetry (%) 97 Oxygen Delivery Method Room Air Intake Visit Reasons: OA Online Facilitator Required: No Accompanied by: Self / Same As Patient Allergies GALILEO Inhibitors Allergy (Severe, Verified 07/03/23 09:32) Cough Medication List - Last Reconciled 07/03/23 by Gomez Arredondo MD acetaminophen ER (Tylenol Arthritis Pain) 650 mg PO Q8H amlodipine 5 mg PO DAILY aspirin (Adult Aspirin Regimen) 81 mg PO DAILY atorvastatin 10 mg PO DAILY [id number] 600 mg calcium- 800 unit-50 mg (Caltrate 600-D Plus Minerals) 1 tab PO BID losartan 50 mg PO DAILY metoprolol tartrate 50 mg PO DAILY HPI HPI Comments History of Present Illness Details The patient presents for evaluation of multiple areas of pain. This primarily includes the shoulders, lower back, and knees. Last week she received bilateral knee injections with corticosteroids for osteoarthritis but she does not think it has helped much. The patient also has back pain that comes on with standing up from bed. This causes so much discomfort that she chooses to sleep in a recliner most nights. There has been some ankle swelling because of that recently. She gets neck pain that is worse when she 1st gets up in the mornings. She had a recent bone density test as well. She takes acetaminophen for symptoms, up to about 2 g a day but does not think it helps a whole lot. Her daughter lives in her neighborhood so helps out with housekeeping and grocery shopping. The patient says she has not been in a grocery store now for 3 years. She has no history of fractures. She does have a walker and cane at home but often chooses not to use them. Today she is here with her walker. [facility] Medical History (Updated 07/03/23 @ 10:36 by Gomez Arredondo MD) Sinus bradycardia Bifascicular block Intermittent lightheadedness Bilateral knee pain Impaired fasting glucose Osteopenia of left femoral neck Colonoscopy refused Postmenopausal Osteoarthritis Dyslipidemia Essential hypertension Chronic kidney disease (CKD) Surgical History History of cataract surgery Family History Father HTN (hypertension) Mother CKD (chronic kidney disease) HTN (hypertension) Heart disease Family/Other Hailey's thyroiditis Social History Housing: House Alcohol intake: never Patient Tobacco Use Status: Former Tobacco user Years Smoked: 35 yrs e-Cigarette/Vaping Use: Never Used Current occupational status: retired Cognitive needs: No Hearing needs: No Vision needs: Yes Review of Systems Const Details: Low stamina. Negative for appetite change, weight change, fever, chills, malaise Eyes Details: Negative for vision change, dry eyes,headaches and dizziness ENT Details: Negative for hearing change, tinnitus, oral ulcer, nose bleeds and oral dryness. Card Details: Negative chest pain, edema and syncope Resp Details: Negative for SOB, cough and wheezing GI Details: Negative indigestion/heartburn, nausea, abdominal pain, bowel changes, diarrhea, constipation and bloody stool. Neuro Details: Negative for epilepsy, palsy, stroke, changes in speech, tingling and weakness Victorino/Lymph Details: Negative for excessive bruising or bleeding. Physical Exam Vital Signs: Last Vital Signs Temp 97.2 F 07/03/23 09:23 Pulse 66 07/03/23 09:23 BP 114/62 07/03/23 09:23 Pulse Ox 97 07/03/23 09:23 Oxygen Delivery Method Room Air 07/03/23 09:23 BMI result Body Mass Index 41.8 APPEARANCE: Patient in no acute distress EYES no redness, pupils equal and reactive to light, eyelids normal. No temporal artery tenderness, redness or swelling. EXTREMITIES: Trace ankle and pedal edema. no calf tenderness, normal peripheral pulses. NEURO: Oriented and alert x3. No focal weakness. Reflexes symmetric. Gait slow in somewhat unsteady. SKIN: No inflammatory or neoplastic lesions. Normal color and turgor JOINT EXAM: Cervical Spine:? Mild to moderate pain with lateral flexion at 10 degrees or rotation at 45 degrees. There is some paraspinal muscle tenderness. Thoracic Spine: No tenderness. Lumbar Spine:? Alignment normal.? Full range of motion, mild to moderate pain with flexion beyond 45 degrees. There is some bilateral paraspinal muscle tenderness. No tenderness directly over the spinous processes. Hands:? Normal pain-free range of motion without tenderness, swelling, increased warmth or erythema. Able to make a full fist and has a good manager machine strength. Wrists: Normal pain-free range of motion without tenderness, swelling, increased warmth or erythema. Elbows: Normal pain-free range of motion without tenderness, swelling, increased warmth or erythema. Shoulders:?? Right: There is pain with abduction 120 degrees or with extremes of rotation. Mild anterior tenderness without adenopathy, swelling, or weakness. Left: Mild to moderate pain with abduction at 75 degrees or with more than 20 degrees of internal or external rotation. There is mild anterior and subacromial tenderness with questionable abductor weakness but no swelling or adenopathy. Hips: Full range of motion with lumbar pain at the extremes. No groin pain with motion. Hip bursa:? No tenderness. Knees:??LEFT: Mild pain with more than 45 degrees of flexion or extension. There is [id number]-nb-tdphraup tenderness to palpation of the medial joint line, slight tenderness to palpation of the lateral joint line. No swelling, increased warmth or erythema.? There is no effusion or crepitation. RIGHT: Mild to moderate pain with extremes of normal flexion and extension. Tenderness to palpation of the medial joint line, slight tenderness to palpation of the lateral joint line. No swelling, increased warmth or erythema.? There is no effusion or crepitation Ankles:? She has bilateral valgus deformity and mild medial tenderness. There is no redness or warmth. Feet:? There is severe flatfoot deformity bilaterally with tenderness in the instep, across the MTP joints without soft tissue swelling although she does have some edema. There is no break in the skin, redness or warmth. Tender points:.? Mild tenderness to digital palpation at the trapezius, knees, greater trochanter the l area bilaterally. ? Results Reviewed Results Reviewed: [address] [address] XRay Report Signed Patient: [place] Cline MR#: [id number] : 1945 Acct:[id number] Age/Sex: 77 / F ADM Date: 04/21/[address]: Yecenia Kaye NP Ordering Physician: Yecenia Kaye NP Date of Service: 04/21/22 Procedure(s): XR lumbar spine 2-3V Accession Number(s): [id number] cc: Yecenia Kaye NP~ EXAMINATION: XR LUMBAR SPINE XR BILATERAL KNEE, RIGHT XR BILATERAL KNEE LEFT CLINICAL INFORMATION: Primary osteoarthritis. Bilateral knee pain and low back pain. COMPARISON: None. TECHNIQUE: 3 views each knee. Lumbar spine 3 views. FINDINGS: LUMBAR SPINE: There is normal lumbar lordosis. Grade 1 anterolisthesis L5 n S1 and grade 1 retrolisthesis L2 on L3 is noted. There is mild loss of L1-L2, L2-L3 and L5-S1 disc heights with mild ventral spondylosis. There is bilateral L4-L5 and L5-S1 moderate facet joint arthropathy. The paravertebral soft tissues are normal. RIGHT KNEE: There is severe loss of medial and patellofemoral compartment joint space with moderate periarticular spurring. No acute fracture or lytic process seen. The soft tissues are normal. LEFT KNEE: There is severe loss of medial and moderate loss of patellofemoral and lateral compartment joint space. There is moderate periarticular spurring medial compartment. There are no loose bodies or bony erosive changes. There is mild suprapatellar joint effusion. There is moderate soft tissue calcification anterior and medial to the left knee joint likely varicose veins. XR/XR lumbar spine 2-3V IMPRESSION: Degenerative disc disease L1-L2 and L2-L3 disc level with ventral spondylosis. Grade 1 anterolisthesis L4-L5 and grade 1 retrolisthesis L2 on L3. No acute fracture seen. There is facet joint arthropathy as described above. Severe degenerative changes essentially involving the medial and patellofemoral compartments of both knees and lateral compartment of the left knee. There is mild suprapatellar joint effusion in the left knee but no visible acute fracture or dislocation seen in either knee joints. There is moderate soft tissue calcification anterior to the left knee joint. Dictated By: Marcelo Kruse MD [address] [place] [address] [place] [id number] Mammography Report Signed Patient: Florida Cline MR#: [id number] : 1945 Acct:[id number] Age/Sex: 78 / F ADM Date: 04/11/[address]: Shyla Fregoso MD Ordering Physician: Shyla Fregoso MD Results: Date of Service: 04/11/23 Follow Up: Procedure(s): XR DEXA axial skeleton Accession Number(s): [id number] cc: Shyla Fregoso MD~ EXAMINATION: BONE DENSITOMETRY CLINICAL INDICATION: Screening. COMPARISON: Previous BD dated 03/31/2021 and baseline BD dated 02/19/2019. TECHNIQUE: Using a [employer] DXA System (software version: 13.1) manufactured by [employer], dual-energy x-ray absorptiometry was performed of the lumbar spine and left hip. The images are of good technical quality. Summary results are attached. FINDINGS: LEFT FEMUR, NECK: Current: BMD 0.813 g/cm2, Z-score -0.2, T-score -1.6, osteopenia. Prior: BMD 0.756 g/cm2. Baseline: BMD 0.815 g/cm2. LEFT FEMUR, TOTAL: Current: BMD 0.887 g/cm2, Z-score 0.2, T-score -1.0, normal, 3.8% decrease from previous, 8.7% decrease from baseline (<5% change is not significant). Prior: BMD 0.922 g/cm2. Baseline: BMD 0.972 g/cm2. AP SPINE L1-L4 (excluding L2): The data of L1-L4 has been changed to exclude the L2 vertebral body, because degenerative changes at this level may cause overestimation of lumbar spine density. Current: BMD 1.488 g/cm2, Z-score 3.5, T-score 2.6, normal, 1.2% decrease from previous, 2.1% increase from baseline (<5% change is not significant). Prior: BMD 1.506 g/cm2. Baseline: BMD 1.458 g/cm2. IDENTIFIED RISK FACTORS: Menopause, height loss, renal. HISTORY OF FRACTURE: None listed. MEDICATIONS: Calcium, vitamin D. MM/XR DEXA axial skeleton IMPRESSION: 1. DIAGNOSIS: Osteopenia based on the lowest T-score value of -1.6 in the femoral neck applying World Health Organization criteria. 2. 10-YEAR FRACTURE RISK PREDICTION, FRAX: Major osteoporotic fracture (clinical spine, forearm, hip or shoulder) 11.3%. Hip fracture 2.4%. 3. Treatment Recommendations: NOF guidelines recommend consideration for treatment in postmenopausal women and men age 50 and older presenting with the following: -A hip or vertebral (clinical or morphometric) fracture. -T-score less than or equal to -2.5 at the femoral neck or spine after appropriate evaluation to exclude secondary causes. -Low bone mass at the hip or spine and a 10-year fracture probability by FRAX of greater than or equal to 3% for hip fracture or greater than or equal to 20% for major osteoporotic fracture based on the [place] adapted WHO algorithm. 4. Other Recommendations: All treatment decisions require clinical judgment and consideration of individual patient factors, including patient preferences, comorbidities, previous drug use, risk factors not captured in the FRAX model (e.g. frailty, falls, vitamin D deficiency, increased bone turnover, interval significant decline in bone density) and possible under or overestimation of fracture risk by FRAX. Additional medical evaluation for secondary cause of low bone mineral density may be appropriate. FUTURE SCAN RECOMMENDATION: People with diagnosed cases of osteoporosis or at high risk for fracture should have regular bone mineral density tests. For patients eligible for Medicare, routine testing is allowed once every 2 years. The testing frequency can be increased to one year for patients who have rapidly progressing disease, those who are receiving or discontinuing medical therapy to restore bone mass, or have additional risk factors. Dictated By: Jogre Parra MD Signed By: <Electronically signed by Jorge Parra MD in OV> 04/12/23 0710 Assessment & Plan Assessment & Plan (1) Osteoarthritis of knees, bilateral: Code(s): M17.0 - Bilateral primary osteoarthritis of knee (2) Osteopenia of left femoral neck: Comment: 03/2023 T scores: fem neck -1,6, femur -1.0, LS spine 2.6 Code(s): M85.852 - Other specified disorders of bone density and structure, left thigh (3) Lumbar spondylosis: Code(s): M47.816 - Spondylosis without myelopathy or radiculopathy, lumbar region (4) Cervical osteoarthritis: Code(s): M47.812 - Spondylosis without myelopathy or radiculopathy, cervical region (5) Bilateral shoulder pain: Code(s): M25.511 - Pain in right shoulder; M25.512 - Pain in left shoulder Plan Patient appears to have severe osteoarthritis in the knees limiting her walking. Unfortunately she also has severe OA in the lumbar spine which makes it difficult to maneuver, evening just getting out of a chair. She is not a candidate for NSAIDs because of CKD. There is an outside chance she could have a PMR like picture but the gradual and progressive onset of symptoms makes it more likely this is osteoarthritis. I will check some shoulder films, ESR and CRP. I think it is reasonable she pursue the course with pain management to consider some stimulator procedures that might help with pain. She might benefit from a corticosteroid injection if there is no significant inflammatory disease and not a lot of structural problems in the shoulders. I will get back to her with the results of those studies. She has osteopenia but not an unfavorable enough FRAX score recommend bisphosphonate treatment at this stage. I encouraged her to try to remain ambulatory with her walker at home as it would be safer for her. The cervical spine is also uncomfortable for her so we will check x-rays in that region. Orders: Orders Erythrocyte Sedimentation Rate Today M25.511 - Pain in right shoulder, M25.512 - Pain in left shoulder, M47.812 - Spondylosis without myelopathy or radiculopathy, cervical region C Reactive Protein Today M25.511 - Pain in right shoulder, M25.512 - Pain in left shoulder, M47.812 - Spondylosis without myelopathy or radiculopathy, cervical region XR shoulder LT min 2V Today M25.511 - Pain in right shoulder, M25.512 - Pain in left shoulder XR shoulder RT min 2V Today M25.511 - Pain in right shoulder, M25.512 - Pain in left shoulder XR cervical spine 3V Today M47.812 - Spondylosis without myelopathy or radiculopathy, cervical region Coding Level of Care Code Est Pt Level 4 (42578) Diagnoses Osteoarthritis of knees, bilateral M17.0 Osteopenia of left femoral neck M85.852 Lumbar spondylosis M47.816 Cervical osteoarthritis M47.812 Bilateral shoulder pain M25.511; M25.512
== END 2023-07-03 10:41 | disposition home or self-care (01) ==
PROVIDERS: PCP Internal Medicine; Visit Provider Internal Medicine Rheumatology
DX: M17.0 Bilateral primary osteoarthritis of knee (principal); M85.852 Other specified disorders of bone density and structure, left thigh; M47.816 Spondylosis without myelopathy or radiculopathy, lumbar region; M47.812 Spondylosis without myelopathy or radiculopathy, cervical region; M25.511 Pain in right shoulder; M25.512 Pain in left shoulder
CPT/HCPCS: 99214

== ENCOUNTER → 2023-07-03 09:12 | Outpatient (BNVA) | payer MEDICARE, SELFPAY | PROVIDERS: PCP Internal Medicine; Visit Provider Internal Medicine Rheumatology | DX: M17.0 Bilateral primary osteoarthritis of knee (principal); M85.852 Other specified disorders of bone density and structure, left thigh; M47.816 Spondylosis without myelopathy or radiculopathy, lumbar region; M47.812 Spondylosis without myelopathy or radiculopathy, cervical region; M25.511 Pain in right shoulder; M25.512 Pain in left shoulder | CPT/HCPCS: 99212 ==

== ENCOUNTER 2023-07-03 11:16 | Outpatient (REF) | payer MEDICARE, SELFPAY ==
--- NOTE | ~2023-07-03 | XR_ITS ---
EXAMINATION: XR CERVICAL SPINE XR SHOULDER, RIGHT XR SHOULDER, LEFT CLINICAL INFORMATION: Bilateral shoulder pain, neck pain, spondylosis cervical region. COMPARISON: None available. TECHNIQUE: 3 views of each shoulder. 3 views of the cervical spine. CERVICAL SPINE: The bones are diffusely demineralized. Mild anterolisthesis of C3 on C4. Multilevel cervical spondylosis with moderate loss of disc space height at C5-C6 and C6-C7. C7 obscured by overlying soft tissues. Mild loss of disc space height at C4-C5. RIGHT SHOULDER: Moderate degenerative changes in the acromioclavicular joint with joint space narrowing. The bones are diffusely demineralized. Amorphous soft tissue calcifications identified adjacent to the humeral head. There is subacromial spur formation suggesting narrowing of the subacromial space. Mild degenerative changes in the glenohumeral joint. LEFT SHOULDER: Moderate degenerative changes in the acromioclavicular joint with joint space narrowing. The bones are diffusely demineralized. Amorphous soft tissue calcifications identified adjacent to the proximal shaft of the humerus and superior to the acromion. There is subacromial spur formation suggesting narrowing of the subacromial space. Mild degenerative changes in the glenohumeral joint. XR/XR shoulder LT min 2V IMPRESSION: 1. Multilevel cervical spondylosis. 2. Moderate degenerative changes in the bilateral shoulders as detailed above. 3. Additional imaging with CT scan or MRI should be considered for better visualization as these modalities are much more sensitive for detection of fracture or other underlying pathology.
--- NOTE | ~2023-07-03 | XR_ITS ---
EXAMINATION: XR CERVICAL SPINE XR SHOULDER, RIGHT XR SHOULDER, LEFT CLINICAL INFORMATION: Bilateral shoulder pain, neck pain, spondylosis cervical region. COMPARISON: None available. TECHNIQUE: 3 views of each shoulder. 3 views of the cervical spine. CERVICAL SPINE: The bones are diffusely demineralized. Mild anterolisthesis of C3 on C4. Multilevel cervical spondylosis with moderate loss of disc space height at C5-C6 and C6-C7. C7 obscured by overlying soft tissues. Mild loss of disc space height at C4-C5. RIGHT SHOULDER: Moderate degenerative changes in the acromioclavicular joint with joint space narrowing. The bones are diffusely demineralized. Amorphous soft tissue calcifications identified adjacent to the humeral head. There is subacromial spur formation suggesting narrowing of the subacromial space. Mild degenerative changes in the glenohumeral joint. LEFT SHOULDER: Moderate degenerative changes in the acromioclavicular joint with joint space narrowing. The bones are diffusely demineralized. Amorphous soft tissue calcifications identified adjacent to the proximal shaft of the humerus and superior to the acromion. There is subacromial spur formation suggesting narrowing of the subacromial space. Mild degenerative changes in the glenohumeral joint. XR/XR shoulder RT min 2V IMPRESSION: 1. Multilevel cervical spondylosis. 2. Moderate degenerative changes in the bilateral shoulders as detailed above. 3. Additional imaging with CT scan or MRI should be considered for better visualization as these modalities are much more sensitive for detection of fracture or other underlying pathology.
--- NOTE | ~2023-07-03 | XR_ITS ---
EXAMINATION: XR CERVICAL SPINE XR SHOULDER, RIGHT XR SHOULDER, LEFT CLINICAL INFORMATION: Bilateral shoulder pain, neck pain, spondylosis cervical region. COMPARISON: None available. TECHNIQUE: 3 views of each shoulder. 3 views of the cervical spine. CERVICAL SPINE: The bones are diffusely demineralized. Mild anterolisthesis of C3 on C4. Multilevel cervical spondylosis with moderate loss of disc space height at C5-C6 and C6-C7. C7 obscured by overlying soft tissues. Mild loss of disc space height at C4-C5. RIGHT SHOULDER: Moderate degenerative changes in the acromioclavicular joint with joint space narrowing. The bones are diffusely demineralized. Amorphous soft tissue calcifications identified adjacent to the humeral head. There is subacromial spur formation suggesting narrowing of the subacromial space. Mild degenerative changes in the glenohumeral joint. LEFT SHOULDER: Moderate degenerative changes in the acromioclavicular joint with joint space narrowing. The bones are diffusely demineralized. Amorphous soft tissue calcifications identified adjacent to the proximal shaft of the humerus and superior to the acromion. There is subacromial spur formation suggesting narrowing of the subacromial space. Mild degenerative changes in the glenohumeral joint. XR/XR cervical spine 3V IMPRESSION: 1. Multilevel cervical spondylosis. 2. Moderate degenerative changes in the bilateral shoulders as detailed above. 3. Additional imaging with CT scan or MRI should be considered for better visualization as these modalities are much more sensitive for detection of fracture or other underlying pathology.
[2023-07-03 14:30] LABS: C Reactive Protein 0.33 mg/dL (< or = 0.50)
[2023-07-03 15:10] LABS: Erythrocyte Sedimentation Rate 52 MM/HR (0-20)
== END 2023-07-03 11:17 | disposition home or self-care (01) ==
LOC: HO.HMGCX 11:16
PROVIDERS: PCP Internal Medicine; Visit Provider Internal Medicine Rheumatology
DX: M25.511 Pain in right shoulder (principal); M25.512 Pain in left shoulder; M47.812 Spondylosis without myelopathy or radiculopathy, cervical region
CPT/HCPCS: 36415; 72040; 73030; 85652; 86140

== ENCOUNTER 2023-07-31 07:45 | Outpatient (AMB) | payer MEDICARE, SELFPAY ==
[2023-07-31 07:52] VITALS: BP 104/80; PULSE 55; TEMP 36.2; O2SAT 98; BMI 40.0
--- NOTE | 2023-07-31 07:52 | A.OFFVIS_ITS ---
Intake Vital Signs 07/31/23 07:52 Height 5 ft Weight 205 lb 0.478 oz BMI 40.0 BP 104/80 Blood Pressure Location Lt brachial Position Sitting Pulse 55 Pulse Source Pulse Oximeter Temp 97.2 F Temp Source Skin Pulse Oximetry (%) 98 Oxygen Delivery Method Room Air Intake Visit Reasons: Shoulder cortisone injection Intake Note: Patient presents today for shoulder injections. 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 by: Self / Same As Patient Allergies GALILEO Inhibitors Allergy (Severe, Verified 07/31/23 07:57) Cough Medication List - Last Reconciled 07/31/23 by Gomez Arredondo MD acetaminophen ER (Tylenol Arthritis Pain) 650 mg PO Q8H amlodipine 5 mg PO DAILY aspirin (Adult Aspirin Regimen) 81 mg PO DAILY atorvastatin 10 mg PO DAILY [id number] 600 mg calcium- 800 unit-50 mg (Caltrate 600-D Plus Minerals) 1 tab PO BID losartan 50 mg PO DAILY metoprolol tartrate 50 mg PO DAILY HPI HPI Comments History of Present Illness Details The patient returns today for evaluation of her neck and shoulder pains. X-rays did confirm osteoarthritis in the cervical spine. She has known lumbar osteoarthritis as well. The shoulders had mild osteoarthritis. We discussed possible corticosteroid injections as she seems interested in those today. She is on acetaminophen for pain. She says she has had physical therapy for these areas before. The OA in her knees also was treated with a corticosteroid injection but unfortunately she did get much benefit. Pain in the shoulders is worse with movement of the shoulders and at night. Pain is located over the top of the shoulders and into the deltoids. There are no hand paresthesias. [facility] Medical History (Updated 07/31/23 @ 08:01 by Gomez Arredondo MD) Sinus bradycardia Bifascicular block Intermittent lightheadedness Bilateral knee pain Impaired fasting glucose Osteopenia of left femoral neck Colonoscopy refused Postmenopausal Osteoarthritis Dyslipidemia Essential hypertension Chronic kidney disease (CKD) Surgical History History of cataract surgery Family History Father HTN (hypertension) Mother CKD (chronic kidney disease) HTN (hypertension) Heart disease Family/Other Hailey's thyroiditis Social History Housing: House Alcohol intake: never Patient Tobacco Use Status: Former Tobacco user Years Smoked: 35 yrs e-Cigarette/Vaping Use: Never Used Current occupational status: retired Cognitive needs: No Hearing needs: No Vision needs: Yes Review of Systems Const Details: Negative for appetite change, weight change, fever, chills, malaise and fatigue Card Details: Negative chest pain, edema and syncope Resp Details: Negative for SOB, cough and wheezing GI Details: Negative indigestion/heartburn, nausea, abdominal pain, bowel changes, diarrhea, constipation and bloody stool. Endo Details: Negative for polyuria and polydypsia Victorino/Lymph Details: Negative for excessive bruising or bleeding. Physical Exam Vital Signs: Last Vital Signs Temp 97.2 F 07/31/23 07:52 Pulse 55 07/31/23 07:52 BP 104/80 07/31/23 07:52 Pulse Ox 98 07/31/23 07:52 Oxygen Delivery Method Room Air 07/31/23 07:52 BMI result Body Mass Index 40.0 APPEARANCE: Patient in no acute distress EXTREMITIES: No edema, no calf tenderness, normal peripheral pulses. JOINT EXAM:?? Cervical Spine:.? Mild pain with lateral rotation at 30 degrees to either side or lateral flexion at 15 degrees. Mild cervical muscle tenderness. Thoracic Spine: No tenderness. Lumbar Spine:? Alignment normal.? Full range of motion, mild to moderate pain with flexion beyond 45 degrees. There is some bilateral paraspinal muscle tenderness. No tenderness directly over the spinous processes. Hands:? Normal pain-free range of motion without tenderness, swelling, increased warmth or erythema. Able to make a full fist and has a good student life dean strength. Wrists: Normal pain-free range of motion without tenderness, swelling, increased warmth or erythema. Elbows: Normal pain-free range of motion without tenderness, swelling, increased warmth or erythema. Shoulders:?? Right: There is pain with abduction 135 degrees or with extremes of rotation. Mild anterior tenderness without adenopathy, swelling, or weakness. Left: Mild to moderate pain with abduction at 75 degrees or with more than 20 degrees of internal or external rotation. There is mild anterior and subacromial tenderness with questionable abductor weakness but no swelling or adenopathy. Office Procedures Joint Injection/Drain Joint Injection/Drain Primary Site: left shoulder Secondary Site: right shoulder Injected: 80 mg of, with 3 mL of and 1% plain lidocaine Coding Details: The right shoulder was prepped ChloraPrep and alcohol. The subacromial space was injected with 40 mg of triamcinolone and 1 cc of lidocaine. Patient tolerated the procedure well no apparent immediate side effects. With the patient's consent the left shoulder was prepped with ChloraPrep and alcohol. Under a topical ethyl chloride spray the left subacromial space was injected with 40 mg of triamcinolone and 1 cc of 1% lidocaine. The patient t olerated the procedure without any acute adverse effects. 94613 - Large joint Procedure code (CPT) selection complete Results Reviewed Results Reviewed: [facility] [place] [address] XRay Report Signed Patient: [place] Cline MR#: [id number] : 1945 Acct:[id number] Age/Sex: 78 / F ADM Date: 07/03/[address]: Gomez Arredondo MD Ordering Physician: Gomez Arredondo MD Date of Service: 07/03/23 Procedure(s): XR shoulder LT min 2V Accession Number(s): [id number] cc: Shyla Fregoso MD; Gomez Arredondo MD~ EXAMINATION: XR CERVICAL SPINE XR SHOULDER, RIGHT XR SHOULDER, LEFT CLINICAL INFORMATION: Bilateral shoulder pain, neck pain, spondylosis cervical region. COMPARISON: None available. TECHNIQUE: 3 views of each shoulder. 3 views of the cervical spine. CERVICAL SPINE: The bones are diffusely demineralized. Mild anterolisthesis of C3 on C4. Multilevel cervical spondylosis with moderate loss of disc space height at C5-C6 and C6-C7. C7 obscured by overlying soft tissues. Mild loss of disc space height at C4-C5. RIGHT SHOULDER: Moderate degenerative changes in the acromioclavicular joint with joint space narrowing. The bones are diffusely demineralized. Amorphous soft tissue calcifications identified adjacent to the humeral head. There is subacromial spur formation suggesting narrowing of the subacromial space. Mild degenerative changes in the glenohumeral joint. LEFT SHOULDER: Moderate degenerative changes in the acromioclavicular joint with joint space narrowing. The bones are diffusely demineralized. Amorphous soft tissue calcifications identified adjacent to the proximal shaft of the humerus and superior to the acromion. There is subacromial spur formation suggesting narrowing of the subacromial space. Mild degenerative changes in the glenohumeral joint. XR/XR shoulder LT min 2V IMPRESSION: 1. Multilevel cervical spondylosis. 2. Moderate degenerative changes in the bilateral shoulders as detailed above. 3. Additional imaging with CT scan or MRI should be considered for better visualization as these modalities are much more sensitive for detection of fracture or other underlying pathology. Dictated By: Anita Swann MD Signed By: <Electronically signed by Anita Swann MD in OV> Laboratory Tests 07/03/23 11:25 ESR 52 H C-Reactive Protein 0.33 Assessment & Plan Assessment & Plan (1) Cervical osteoarthritis: Code(s): M47.812 - Spondylosis without myelopathy or radiculopathy, cervical region (2) Osteoarthritis of glenohumeral joints, bilateral: Code(s): M19.011 - Primary osteoarthritis, right shoulder; M19.012 - Primary osteoarthritis, left shoulder Plan She continues to have bilateral shoulder pain, with more limitation of motion on the left. I suspect the shoulder symptoms are due to the osteoarthritis that is visible on x-rays and that is secondary to rotator cuff damage. She is not a candidate for NSAIDs because of CKD. We could consider occasional corticost eroid injection and she wants to try them today. We reviewed potential side effects with the injections. The right shoulder was prepped ChloraPrep and alcohol. The subacromial space was injected with 40 mg of triamcinolone and 1 cc of lidocaine. With the patient's consent the left shoulder was prepped with ChloraPrep and alcohol. Under a topical ethyl chloride spray the left subacromial space was injected with 40 mg of triamcinolone and 1 cc of 1% lidocaine. The patient tolerated the procedures without any acute adverse effects. She will see how these help over the next 4-5 months. If there is some improvement then we could consider repeating them in November or December next year. She asked about the neck which of course has rather severe osteoarthritis. She might benefit from some evaluation in pain management wants to think about that option further. Orders: Orders AMB Joint Injection/Aspiration Today M19.011 - Primary osteoarthritis, right shoulder, M19.012 - Primary osteoarthritis, left shoulder Coding Level of Care Code Est Pt Level 3 (72124) Diagnoses Cervical osteoarthritis M47.812 Osteoarthritis of glenohumeral joints, bilateral M19.011; M19.012 CPT Codes Coding - 00260 Large joint: 84681 - Large joint ([id number])
== END 2023-07-31 08:21 | disposition home or self-care (01) ==
PROVIDERS: PCP Internal Medicine; Visit Provider Internal Medicine Rheumatology
DX: M47.812 Spondylosis without myelopathy or radiculopathy, cervical region (principal); M19.011 Primary osteoarthritis, right shoulder; M19.012 Primary osteoarthritis, left shoulder
CPT/HCPCS: 20610; 99213

== ENCOUNTER → 2023-07-31 07:45 | Outpatient (BNVA) | payer MEDICARE, SELFPAY | PROVIDERS: PCP Internal Medicine; Visit Provider Internal Medicine Rheumatology | DX: M47.812 Spondylosis without myelopathy or radiculopathy, cervical region (principal); M19.011 Primary osteoarthritis, right shoulder; M19.012 Primary osteoarthritis, left shoulder | CPT/HCPCS: 20610; 99212 ==

== ENCOUNTER 2023-09-04 14:19 | Outpatient (AMB) | payer MEDICARE, SELFPAY ==
--- NOTE | 2023-09-04 14:23 | MHC.OFFVIS ---
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 She also has bilateral knee pain. Denies any recent trauma, injury or falls. She ambulates slowly, in forward flexed posture, with antalgic gait and uses walker. Patient reports neck pain has been most bothersome lately and unrelieved with gentle stretching, heat therapy or Tylenol Arthritis. We discussed interventional treatments last years for neck, back and knee and she was hesitant. Patient reports she have been advertisement on TV for arthritic pain and is not sure why no one can prescribe her pain medication. I have informed patient that our office does not offer opioid medication. She is interested in arthritic pain medication for her chronic joint pain. She cannot take NSAIDs due to CKD. She reports previous cortisone injections in her shoulder or knee provided minimal pain relief. We returned to topic of undergoing diagnostic injections for potential Sprint PNS trial vs RFA. Patient reports she will consider these for neck pain but not this year. She has completed physical therapy in the past with no improvement in her function or pain symptoms. Denies any fever, weight loss, abdominal or groin pain, bladder or bowel dysfunction or saddle anesthesia. PRIOR 05/24/22: Patient is a pleasant 77 years old female who presents today for initial evaluation of chronic back pain and attributes this to arthritis and osteopenia. She also experiences neck pain at times and finds herself walking hunched over due to pain. Her back pain is mostly axial, without radiation, and no numbness or tingling. Patient also has severe tricompartmental bilateral knee osteoarthritis and has orthopedic evaluation in 2 days. She reports cortisone injections in her knees [address] Leach. Patient reports back pain is worsened with flexion and extension as well as with climbing stairs or changing her position from sitting to standing. She has trouble walking due to knee and back pain and generalized weakness. Her pain interferes with her daily activities, functioning, sleep, social activities, and quality of life. Patient has completed PT early this year with minimal improvement in her symptoms. She has been managing her pain with rest, Tylenol, Bengay, Aleve, diclofenac gel, Aspercreme, and short term on tramadol which was stopped due to its ineffectiveness. She cannot take NSAIDs due to chronic kidney disease. She rates her pain at 6/10. Denies any fever, chills, malaise, abdominal or groin pain, bowel or bladder incontinence, or saddle anesthesia. Lumbar spine xray showed on 04/21/22 degenerative disc disease L1-L2 and L2-L3 disc level with ventral spondylosis. Grade 1 anterolisthesis L4-L5 and grade 1 retrolisthesis L2 on L3 and facet joint arthropathy. Patient is hesitant towards any surgical interventions but is open to therapeutic injections. We also discussed neuromodulation, RFA and diagnostic injections. [facility] Medical History (Updated 09/04/23 @ 14:56 by VU Griffith) Sinus bradycardia Bifascicular block Intermittent lightheadedness Bilateral knee pain Impaired fasting glucose Osteopenia of left femoral neck Colonoscopy refused Postmenopausal Osteoarthritis Dyslipidemia Essential hypertension Chronic kidney disease (CKD) Surgical History History of cataract surgery Family History Father HTN (hypertension) Mother CKD (chronic kidney disease) HTN (hypertension) Heart disease Family/Other Hailey's thyroiditis Social History Housing: House Alcohol intake: never Patient Tobacco Use Status: Former Tobacco user Years Smoked: 35 yrs e-Cigarette/Vaping Use: Never Used Current occupational status: retired Cognitive needs: No Hearing needs: No Vision needs: Yes Review of Systems Const All systems reviewed & are unremarkable except as noted in HPI and below Physical Exam Vital Signs: Last Vital Signs Pulse 78 09/04/23 14:28 BP 110/54 L 09/04/23 14:28 Pulse Ox 99 09/04/23 14:28 Oxygen Delivery Method Room Air 09/04/23 14:28 BMI result Body Mass Index 40.1 General: Appears afebrile. No acute distress. Alert and oriented. Pleasant. Mood and affect appropriate. Follows and participates in conversation appropriately. Respiratory effort is unlabored. No cough. Able to transition from sit to stand unassisted. Uses walker with seat with ambulation. Ambulates with bilaterally normal heel strike and toe off. Neck Neck: Yes no lymphadenopathy, Yes supple, No anterior neck swelling, Yes no JVD and Yes prominent dorsocervical fat pad Back/Spine/Pelvis Cervical Spine: cervical muscular tenderness, pain with cervical ROM, No Cervical spine scars present and No Cervical spine tenderness Thoracic/Lumbar Spine: thoracic and lumbar spine normal to inspection, No Thoracic/lumbar spine scar(s), Lasegue's sign negative, straight leg raise negative bilaterally, pain with thoraco-lumbar ROM, paraspinal muscle tenderness, thoraco-lumbar ROM limited, No thoracic spinal tenderness and lumbar spinal tenderness at L4 and at L5 Pelvis: buttock tenderness bilaterally Sacroiliac joints: bilaterally tender to palpation Results Reviewed Results Reviewed: XR CERVICAL SPINE XR SHOULDER, RIGHT XR SHOULDER, LEFT 07/03/23 CLINICAL INFORMATION: Bilateral shoulder pain, neck pain, spondylosis cervical region. COMPARISON: None available. TECHNIQUE: 3 views of each shoulder. 3 views of the cervical spine. CERVICAL SPINE: The bones are diffusely demineralized. Mild anterolisthesis of C3 on C4. Multilevel cervical spondylosis with moderate loss of disc space height at C5-C6 and C6-C7. C7 obscured by overlying soft tissues. Mild loss of disc space height at C4-C5. RIGHT SHOULDER: Moderate degenerative changes in the acromioclavicular joint with joint space narrowing. The bones are diffusely demineralized. Amorphous soft tissue calcifications identified adjacent to the humeral head. There is subacromial spur formation suggesting narrowing of the subacromial space. Mild degenerative changes in the glenohumeral joint. LEFT SHOULDER: Moderate degenerative changes in the acromioclavicular joint with joint space narrowing. The bones are diffusely demineralized. Amorphous soft tissue calcifications identified adjacent to the proximal shaft of the humerus and superior to the acromion. There is subacromial spur formation suggesting narrowing of the subacromial space. Mild degenerative changes in the glenohumeral joint. IMPRESSION: 1. Multilevel cervical spondylosis. 2. Moderate degenerative changes in the bilateral shoulders as detailed above. 3. Additional imaging with CT scan or MRI should be considered for better visualization as these modalities are much more sensitive for detection of fracture or other underlying pathology. Assessment & Plan Assessment & Plan (1) Cervical osteoarthritis: Code(s): M47.812 - Spondylosis without myelopathy or radiculopathy, cervical region (2) Osteoarthritis of knees, bilateral: Code(s): M17.0 - Bilateral primary osteoarthritis of knee (3) Lumbar degenerative disc disease: Code(s): M51.36 - Other intervertebral disc degeneration, lumbar region (4) Lumbar spondylosis: Code(s): M47.816 - Spondylosis without myelopathy or radiculopathy, lumbar region (5) Polyarthralgia: Code(s): M25.50 - Pain in unspecified joint Plan Discussed interventional treatments for chronic neck and low back pain generators consistent with multilevel degenerative changes of the spine. Patient is willing to trial diagnostic cervical medial branch blocks at C4-C5-C6 levels with local and fluoroscopy in the early next year. She is hesitant towards injections as therapeutic injections for her shoulder and knee pain were not long-lasting. We discussed stimulative and ablative treatments if she has positive response to diagnostic injections. Informational pamphlet provided. Continue Tylenol Arthritis for pain, heating pad, lidocaine patches and topical applications. All questions and concerns have been answered and patient agreed with the plan. Follow up as needed. Coding Level of Care Code Est Pt Level 3 (79420) Diagnoses Cervical osteoarthritis M47.812 Osteoarthritis of knees, bilateral M17.0 Lumbar degenerative disc disease M51.36 Lumbar spondylosis M47.816 Polyarthralgia M25.50
[2023-09-04 14:28] VITALS: BP 110/54; PULSE 78; O2SAT 99; BMI 40.1
== END 2023-09-04 14:48 | disposition home or self-care (01) ==
PROVIDERS: PCP Internal Medicine; Visit Provider Nurse Practitioner Family
DX: M47.812 Spondylosis without myelopathy or radiculopathy, cervical region (principal); M17.0 Bilateral primary osteoarthritis of knee; M51.36 Other intervertebral disc degeneration, lumbar region; M47.816 Spondylosis without myelopathy or radiculopathy, lumbar region; M25.50 Pain in unspecified joint
CPT/HCPCS: 99213

== ENCOUNTER → 2023-09-04 14:19 | Outpatient (BNVA) | payer MEDICARE, SELFPAY | PROVIDERS: PCP Internal Medicine; Visit Provider Nurse Practitioner Family | DX: M47.812 Spondylosis without myelopathy or radiculopathy, cervical region (principal); M17.0 Bilateral primary osteoarthritis of knee; M51.36 Other intervertebral disc degeneration, lumbar region; M47.816 Spondylosis without myelopathy or radiculopathy, lumbar region; M25.50 Pain in unspecified joint | CPT/HCPCS: 99212 ==

== ENCOUNTER 2023-09-06 09:20 | Outpatient (AMB) | payer MEDICARE, SELFPAY ==
[2023-09-06 09:26] VITALS: BP 128/60; PULSE 65; O2SAT 99; BMI 40.3
--- NOTE | 2023-09-06 09:26 | HO.NEPHOV_ITS ---
HPI HPI Comments History of Present Illness Details I had the privilege of seeing [place] in follow-up for chronic kidney disease and hypertension. She has been having disabling osteoarthritis in all her joints. She had intra-articular injections in her shoulders as well as hips. She has seen grant coordinator, orthopedics daigle and pain management. She had been trying to avoid nonsteroidal anti-inflammatory medications. She takes Tylenol with no benefit. She did not find tramadol helping her. she is feeling that the pain is affecting quality of her life. She has been having mild pedal edema ever since she has been started on amlodipine. She denies any chest pain, shortness of breath, nausea, vomiting or diarrhea. She cannot lie down in her bed due to pain. She sleeps in a recliner. She feels she has overactive bladder. She has no hematuria, fever, suprapubic pain, chills or rigors. Her renal functions had been stable. [facility] Medical History (Updated 09/06/23 @ 09:47 by Emil Foote MD) Sinus bradycardia Bifascicular block Intermittent lightheadedness Bilateral knee pain Impaired fasting glucose Osteopenia of left femoral neck Colonoscopy refused Postmenopausal Osteoarthritis Dyslipidemia Essential hypertension Chronic kidney disease (CKD) Surgical History History of cataract surgery Family History Father HTN (hypertension) Mother CKD (chronic kidney disease) HTN (hypertension) Heart disease Family/Other Hailey's thyroiditis Housing: House Alcohol intake: never Patient Tobacco Use Status: Former Tobacco user Years Smoked: 35 yrs e-Cigarette/Vaping Use: Never Used Current occupational status: retired Cognitive needs: No Hearing needs: No Vision needs: Yes Vital Signs 09/06/23 09:26 Height 5 ft Weight 206 lb 8 oz BMI 40.3 BP 128/60 Blood Pressure Location Lt brachial Position Sitting Pulse 65 Pulse Source Pulse Oximeter Pulse Oximetry (%) 99 Oxygen Delivery Method Room Air Physical Exam Vital Signs: Last Vital Signs Pulse 65 09/06/23 09:26 BP 128/60 09/06/23 09:26 Pulse Ox 99 09/06/23 09:26 Oxygen Delivery Method Room Air 09/06/23 09:26 BMI result Body Mass Index 40.3 Const General: comfortable and no acute distress Orientation/consciousness: patient oriented x3 HEENT Head: Yes normocephalic Mouth: Normal oral and palatal mucosa present Eyes EOM: EOMs intact bilaterally Neck Neck: Yes supple Resp Auscultation: clear to auscultation bilaterally Cardio Jugular venous distension: no JVD Rate: regular rate GI Palpation (GI): Soft to palpation Auscultation: normal bowel sounds General: Yes no CVA tenderness Back/Spine/Pelvis Back: no CVA tenderness Skin General skin exam: no rashes or lesions noted Neuro General: patient oriented x3 and moves all extremities Extrem General: Yes edema Assessment & Plan Assessment & Plan (1) CKD (chronic kidney disease) stage 3, GFR 30-59 ml/min: Code(s): N18.30 - Chronic kidney disease, stage 3 unspecified (2) Essential hypertension: Code(s): I10 - Essential (primary) hypertension Plan [place] has stage III CKD for long time. Her blood pressure is well controlled. She is on angiotensin receptor [place] in addition to other medications. She avoids nonsteroidal anti-inflammatory medications for over 10 years. Given her joint pains are affecting her quality of life, after a long discussion, we agreed to try meloxicam at a low dose every 72 hours. She is going to repeat her blood work and urine studies. Her blood pressure is currently at goal. She should be on a low-sodium diet and should remain well hydrated. All questions were answered. She needs to follow-up with her grant coordinator and primary care physician. Time spent during encounter, documentation and retrieval of data 29 minutes. Orders: Orders Creatinine Today I10 - Essential (primary) hypertension, N18.30 - Chronic kidney disease, stage 3 unspecified Protein Creatinine Ratio, Ur Today I10 - Essential (primary) hypertension, N18.30 - Chronic kidney disease, stage 3 unspecified Electrolytes Today I10 - Essential (primary) hypertension, N18.30 - Chronic kidney disease, stage 3 unspecified Blood Urea Nitrogen Today I10 - Essential (primary) hypertension, N18.30 - Chronic kidney disease, stage 3 unspecified Calcium Today I10 - Essential (primary) hypertension, N18.30 - Chronic kidney disease, stage 3 unspecified Medications: New meloxicam 7.5 mg PO .every 72 hours 30 days 14 tabs 3RF Coding Level of Care Code Est Pt Level 4 (10574) Diagnoses CKD (chronic kidney disease) stage 3, GFR 30-59 ml/min N18.30 Essential hypertension I10
== END 2023-09-06 09:53 | disposition home or self-care (01) ==
PROVIDERS: PCP Internal Medicine; Visit Provider Internal Medicine Nephrology
DX: N18.30 Chronic kidney disease, stage 3 unspecified (principal); I12.9 Hypertensive chronic kidney disease with stage 1 through stage 4 chronic kidney disease, or unspecified chronic kidney disease
CPT/HCPCS: 99214

== ENCOUNTER → 2023-09-06 09:20 | Outpatient (BNVA) | payer MEDICARE, SELFPAY | PROVIDERS: PCP Internal Medicine; Visit Provider Internal Medicine Nephrology | DX: I12.9 Hypertensive chronic kidney disease with stage 1 through stage 4 chronic kidney disease, or unspecified chronic kidney disease (principal); N18.30 Chronic kidney disease, stage 3 unspecified | CPT/HCPCS: 99212 ==

== ENCOUNTER 2023-10-06 10:00 | Outpatient (REF) | payer MEDICARE, SELFPAY ==
[2023-10-06 13:20] LABS: MANUAL DIFF FLAG NO
[2023-10-06 13:32] LABS: Basophils Absolute Auto 0.1 X10*3/uL (0.0-0.2); Basophils Percent Auto 1.3 % (0-2); Eosinophils Absolute Auto 0.3 X10*3/uL (0.0-0.4); Eosinophils Percent Auto 3.1 % (0-4); Hematocrit 36.6 % (37.0-47.0); Hemoglobin 11.7 g/dl (12.0-16.0); Imm Gran Abs Auto 0.06 X10*3/uL (0.00-0.03); Imm Gran Pct Auto 0.6 % (0.0-0.4); Lymphocytes Absolute Auto 1.5 X10*3/uL (1.2-4.9); Lymphocytes Percent Auto 15.5 % (20-40); Mean Corpuscular Hemoglobin 32.9 pg (27.0-33.0); Mean Corpuscular Volume 102.8 fL (80.0-98.0); Mean Platelet Volume 9.7 fL (9.4-12.3); Monocytes Absolute Auto 0.8 X10*3/uL (0.1-1.2); Monocytes Percent Auto 8.2 % (2-11); Neutrophils Absolute Auto 7.1 x10*3/uL (2.0-8.3); Neutrophils Percent Auto 71.3 % (45-73); Platelet Count 286 X10*3/uL (160-400); Red Blood Count 3.56 X10*6/uL (4.20-5.50); White Blood Count 9.9 X10*3/uL (4.8-10.8)
[2023-10-06 13:54] LABS: Estimated Average Glucose 111 mg/dL; Hemoglobin A1c % 5.5 % (<6.0)
[2023-10-06 14:07] LABS: Alanine Aminotransferase 13 U/L (0-31); Anion Gap 17 (12-20); Aspartate Amino Transferase 19 U/L (5-31); Blood Urea Nitrogen 31 mg/dL (9-16); Calcium 9.8 mg/dL (8.4-10.2); Carbon Dioxide 21 mmol/L (22-29); Chloride 104 mmol/L (96-108); Cholesterol 185 mg/dL (<200); Estimated Glomerular Filt Rate 32; Glucose Fasting 110 mg/dL (60-99); HDL Cholesterol 69 mg/dL (>40); LDL Cholesterol Calculated 95 mg/dL (<100); Potassium 4.9 mmol/L (3.3-5.1); Sodium 137 mmol/L (135-145); Triglycerides 109 mg/dL (<150)
[2023-10-06 14:13] LABS: Total Protein Urine Random 87 mg/dL (<12)
[2023-10-06 14:22] LABS: Vitamin D 25-OH Total 53.8 ng/mL (>30)
== END 2023-10-06 10:01 | disposition home or self-care (01) ==
LOC: HO.HMGCLDS 10:00
PROVIDERS: PCP Internal Medicine; Referring Provider Internal Medicine Nephrology; Visit Provider Internal Medicine
DX: I12.9 Hypertensive chronic kidney disease with stage 1 through stage 4 chronic kidney disease, or unspecified chronic kidney disease (principal); N18.30 Chronic kidney disease, stage 3 unspecified; R42 Dizziness and giddiness; M17.11 Unilateral primary osteoarthritis, right knee; R73.01 Impaired fasting glucose; M85.852 Other specified disorders of bone density and structure, left thigh; E78.5 Hyperlipidemia, unspecified; Z78.0 Asymptomatic menopausal state
CPT/HCPCS: 36415; 80048; 80061; 82306; 82570; 83036; 84156; 84450; 84460; 85025

== ENCOUNTER 2023-10-13 13:22 | Outpatient (AMB) | payer MEDICARE, SELFPAY ==
--- NOTE | 2023-10-13 13:25 | A.OFFPC_ITS ---
Vital Signs 10/13/23 13:30 Height 5 ft Weight 206 lb BMI 40.2 BP 120/60 Blood Pressure Location Rt brachial Position Sitting Pulse 61 Pulse Source Pulse Oximeter Pulse Oximetry (%) 97 Oxygen Delivery Method Room Air Intake Visit Reasons: PE Intake Note: Pt is here today for her PE Allergies GALILEO Inhibitors Allergy (Severe, Verified 10/13/23 13:50) Cough Medication List - Last Reconciled 10/13/23 by Shyla Fregoso MD acetaminophen ER (Tylenol Arthritis Pain) 650 mg PO Q8H amlodipine 5 mg PO DAILY aspirin (Adult Aspirin Regimen) 81 mg PO DAILY atorvastatin 10 mg PO DAILY [id number] 600 mg calcium- 800 unit-50 mg (Caltrate 600-D Plus Minerals) 1 tab PO BID losartan 50 mg PO DAILY meloxicam 7.5 mg PO .every 72 hours 30 days metoprolol tartrate 50 mg PO DAILY Tobacco use date assessed: 10/13/23 Fall risk assessment: No Falls in past year Last assessed Fall Risk: 10/13/23 Dental Screening Dental Screen Date: 10/13/23 Did you have a dental visit in the last 12 months?: No Was dental information given to patient?: No HPI PE HPI Details 78-year-old lady with chronic kidney disease, followed by oncology, has hypertension, polyarthralgia with osteoarthritis in multiple sites followed by Rheumatology, impaired fasting glucose and osteopenia of left femoral neck, here today for physical exam. She is up-to-date with all her adult vaccinations. Up-to-date with her screening mammogram and bone density scan. No longer gets colonoscopy screenings, patient declined getting any colon cancer screening, even Cologuard. She had recent fasting labs done which showed presence of mild anemia, normal lipids, fasting glucose, and renal function is decreasing as compared to last check. Complains of feeling tired all the time and aching all over, having a hard time getting in and out of her car and getting out of bed , taking this is up from driller hand wipes her out. She was given a prescription for meloxicam 7.5 mg to take every 3 days by her derrick follower as Tylenol has not been helping anymore with her joint pain. Patient states that initially it was helping but no longer affording any relief. Complains of frequent bruising all over and has been having swelling in both lower extremities a left more than the right present now for the last week. Denies any pain, increased redness or increased warmth in lower extremities. [facility] Medical History (Updated 10/13/23 @ 15:10 by Shyla Fregoso MD) Anemia in chronic kidney disease Localized swelling of both lower legs Sinus bradycardia Bifascicular block Intermittent lightheadedness Bilateral knee pain Impaired fasting glucose Osteopenia of left femoral neck Colonoscopy refused Postmenopausal Osteoarthritis Dyslipidemia Essential hypertension Chronic kidney disease (CKD) Surgical History History of cataract surgery Family History Father HTN (hypertension) Mother CKD (chronic kidney disease) HTN (hypertension) Heart disease Family/Other Hailey's thyroiditis Social History Housing: House Alcohol intake: never Patient Tobacco Use Status: Former Tobacco user Years Smoked: 35 yrs e-Cigarette/Vaping Use: Never Used Current occupational status: retired Cognitive needs: No Hearing needs: No Vision needs: Yes Questionnaire Thrive Questionnaire Date Thrive assessed: 10/13/23 I am a: Patient What is your living situation today?: I have a steady place to live Within the past 12 months, did the food you bought not last and you didn't have the money to get more?: Never true Within the past 12 months, did you worry whether your food would run out before you got money to buy more?: Never true Do you have trouble paying for medicines?: No Do you have trouble getting transportation to medical appointments?: No Do you have trouble paying your heating and electricity bill?: No Do you have trouble taking care of your child, family member or friend?: No Do you have trouble with day-to-day activities such as bathing, preparing meals, shopping, managing finances, etc.?: No Are you currently unemployed and looking for a job?: No Are you interested in more education?: No Please select the resources that you would like help with: None AUDIT C Alcohol Use Questionnaire (AUDIT-C) 1. How often do you have a drink containing alcohol?: Never Total Score: 0 KIANA-7 AMB Questionnaire KIANA-7 Date KIANA - 7 assessed: 12/30/22 Source: Developed by Drs. Hoang Marie, [place] Pete, Jed Strauss and colleagues, with an educational esteban from [employer]. Review of Systems Const Details: Feels tired as she has not been able to rest well during the night due to joint pains. Negative for appetite change, weight change, fever, chills. Denies fever(s), Denies headache(s) and Denies weakness Eyes Details: Sees Dr. Farooq Denies change in vision ENT Denies headache(s), Denies nasal congestion, Denies nasal discharge and Denies sore throat Card Details: Negative chest pain, edema and syncope Denies chest pain, Denies palpitations and Denies dyspnea Resp Details: Negative for SOB, cough and wheezing Denies chest congestion, Denies cough, Denies dyspnea and Denies wheezing GI Details: Negative indigestion/heartburn, nausea, abdominal pain, bowel changes, diarrhea, constipation and bloody stool. Denies abdominal pain, Denies change in bowel habits and Denies heartburn Details: Negative for dysuria, hematuria. Denies urinary frequency, Denies dysuria, Reports urinary incontinence (Occasional leakage when holding urine too long) and Denies urinary urgency Musc Reports back pain (Posterior neck and lower back) and Reports arthralgias (Knees, shoulder, hip) Skin/Breast Details: Negative for itching, rash, hives, Raynaud's symptoms, sun sensitivity. Denies rash and Reports unusual bruising Neuro Details: Negative for epilepsy, palsy, stroke, changes in speech, tingling and weakness Denies headache(s) and Denies weakness Psych Reports no additional complaints Endo Denies polydipsia, Denies polyuria and Denies palpitations Victorino/Lymph Reports easy bruising Aller/Immun Denies seasonal rhinorrhea and Denies wheezing Physical exam (Primary Care) Vital Signs: Last Vital Signs Pulse 61 10/13/23 13:30 BP 120/60 10/13/23 13:30 Pulse Ox 97 10/13/23 13:30 Oxygen Delivery Method Room Air 10/13/23 13:30 BMI result Body Mass Index 40.2 Tobacco/Smoking Status: Tobacco use Status Tobacco use date assessed 10/13/23 10/13/23 13:35 Patient Tobacco Use Status Former Tobacco user 10/13/23 13:27 e-Cigarette/Vaping Use Never Used 10/13/23 13:27 Thrive Assessment: Date of Thrive Assessment Date Thrive assessed 12/30/22 10/13/23 13:27 Advance Care Planning discussion: On file, no changes Date of discussion: 10/13/23 Forms completed: Health Care Proxy and MOLST Time spent: 1-15 minutes, on File Actual minutes spent: 15 Const General: comfortable, no acute distress and alert Nutritional Appearance: obese Orientation/consciousness: patient oriented x3 Limitations: ambulation with cane HENMT Ears: external ears normal, TM's normal bilaterally and EAC's normal General nose exam: Normal external nose present and No nasal discharge present Mouth: Normal oral and palatal mucosa present, oropharynx normal and moist mucous membranes Eyes General: appearance normal, both eyes and all related structures Pupils: Equal, round and reactive pupils present Neck Neck: Yes full ROM, Yes no lymphadenopathy and Yes supple Resp Effort & Inspection: normal respiratory effort and able to speak in complete sentences Auscultation: clear to auscultation bilaterally Cardio Rhythm: regular rhythm Heart sounds: S1 normal heart sound present and S2 normal heart sound present GI Palpation (GI): Soft to palpation, nontender and no masses Auscultation: normal bowel sounds Back/Spine/Pelvis Cervical Spine: cervical muscular tenderness Thoracic/Lumbar Spine: paraspinal muscle tenderness bilaterally in the mid lumbar Skin Other: Scattered ecchymosis on forearms and lower extremity Neuro General: patient oriented x3, tone normal, moves all extremities, Normal light touch and pain sensation and no focal motor deficits Cranial nerves: Yes CN's II-XII intact bilaterally and Yes Equal, round and reactive pupils present Cognition (Neuro): normal cognition Gait exam (Neuro): Assisted gait required Gait assisted method: walking stick Extrem Other: 2+ nonpitting edema in lower extremities the left more than the right, no calf tenderness, no erythema or increased warmth in lower extremity General: Yes full ROM, Yes no joint enlargement and Yes no calf tenderness Psych Appearance: grossly normal and well kempt Mental Status: mental status grossly normal Speech and movement: Normal speech and movement present Affect: normal affect Attitude: cooperative Thought process: Normal thought process present Thought content: Normal thought content present Results Reviewed Results Reviewed: Name: [place] Cline Age/Sex: 78/F : 1945 Unit#: [id number] Attend Dr: Shyla Fregoso MD Re10/06/23 Status: DEP REF Location: [facility] Disch: SPEC : [id number] MARILYN: 10/06/23 STATUS: COMP REQ : [id number] RECD: 10/06/[address]: Shyla Fregoso MD COMP: 10/06/23 ENTERED: 10/06/[address]: ORDERED: CBC Auto Diff Test Result Flag Reference Site WBC 9.9 4.8-10.8 X10*3/uL RBC 3.56 L 4.20-5.50 X10*6/uL HGB 11.7 L 12.0-16.0 g/dl HCT 36.6 L 37.0-47.0 % MCV 102.8 H 80.0-98.0 fL MCH 32.9 27.0-33.0 pg MCHC 32.0 31.0-35.0 g/dl RDW 14.0 11.0-16.0 % PLT 286 160-400 X10*3/uL MPV 9.7 9.4-12.3 fL Neut Pct Auto 71.3 45-73 % ImGran Pct Auto 0.6 H 0.0-0.4 % Lymp Pct Auto 15.5 L 20-40 % Moffat Pct Auto 8.2 2-11 % Eos Pct Auto 3.1 0-4 % Baso Pct Auto 1.3 0-2 % Name: [place] Cline Age/Sex: 78/F : 1945 Unit#: [id number] Attend Dr: Shyla Fregoso MD Re10/06/23 Status: DEP REF Location: [facility] Disch: SPEC : [id number] MARILYN: 10/06/23 STATUS: COMP REQ : [id number] RECD: 10/06/[address]: Emil Foote MD COMP: 10/06/23 ENTERED: 10/06/23 [facility] DR: Shyla Fregoso MD ORDERED: Met Prof Fast, AST, ALT, Lipid Panel Test Result Flag Reference Site Sodium 137 135-145 mmol/L Potassium 4.9 3.3-5.1 mmol/L CL 104 96-108 mmol/L CO2 21 L 22-29 mmol/L Gap 17 12-20 BUN 31 H 9-16 mg/dL Creat 1.58 H 0.5-1.4 mg/dL EGFR 32 NOTE: For -[place] individuals, multiply the result by 1.210. Chronic Kidney Disease: Estimated GFR < 60 mL/min/1.73m2 Severe Kidney Disease: Estimated GFR < 15 mL/min/1.73m2 FBS 110 H 60-99 mg/dL A fasting glucose from 100-125 mg/dl is considered impaired (pre-diabetes). CA 9.8 8.4-10.2 mg/dL AST (GOT) 19 5-31 U/L ALT (GPT) 13 0-31 U/L Triglyceride 109 <150 mg/dL Desirable Triglyceride: less than 150 mg/dL Borderline High Triglyceride 150-199 mg/dL High Triglyceride: 200-499 mg/dL Very High Triglyceride: greater than or equal to 5OO mg/dL Cholesterol 185 <200 mg/dL Desirable Cholesterol: less than 200 mg/dL Borderline High Cholesterol: 200-239 mg/dL High Cholesterol: greater than 239 mg/dL LDL Calculated 95 <100 mg/dL Desirable LDL: less than 100 mg/dL Near Optimal/Above Optimal LDL: 110-129 mg/dL Borderline High LDL: 130-159 mg/dL High LDL: 160-189 mg/dL Very High LDL: greater than or equal to 190 mg/dL HDL 69 >40 mg/dL Desirable HDL: greater than 40 mg/dL Note: This HDL assay may give artificially low results in patients with liver disease. Assessment and Plan Assessment & Plan (1) Annual visit for general adult medical examination with abnormal findings: Code(s): Z00.01 - Encounter for general adult medical examination with abnormal findings Plan: Reviewed recent fasting labs with patient Recommended dental visit every 6 months and regular eye exams, at least every 2 years. Take adequate calcium in diet and vitamin-D 3 at 2000 IU per cap once a day, in addition to weight- bearing exercises to help maintain good muscle tone and weight control. Instructed to do self-breast exam, and recommended to get yearly mammogram, starting at age 40. Immunization information provided: Yearly flu vaccine, shingles vaccine starting at age 50, at age 65 to start getting Prevnar 13 followed 1 year later by Pneumovax 23. Colonoscopy (2) CKD (chronic kidney disease) stage 3, GFR 30-59 ml/min: Comment: ff'd by Dr Foote Code(s): N18.30 - Chronic kidney disease, stage 3 unspecified Plan: Followed by Dr. Foote has an appointment for follow-up with him 11/01/2023. (3) Polyarthralgia: Code(s): M25.50 - Pain in unspecified joint Plan: Followed by Rheumatology, advised to stop meloxicam if not helping (4) Impaired fasting glucose: Code(s): R73.01 - Impaired fasting glucose Plan: Your fasting blood sugars elevated above 100 mg/dL. Impaired glucose metabolism O2 at risk for developing diabetes mellitus type 2, as well as heart attack and stroke later on. Lifestyle changes at just weight loss, healthy eating habits, and regular exercise are important, and can prevent the progression to diabetes (5) Osteopenia of left femoral neck: Comment: 03/2023 T scores: fem neck -1,6, femur -1.0, LS spine 2.6 Code(s): M85.852 - Other specified disorders of bone density and structure, left thigh Plan: Continue taking vitamin-D 3 supplements and calcium, encouraged to stay active, up-to-date with her bone density scan (6) Colonoscopy refused: Code(s): Z53.20 - Procedure and treatment not carried out because of patient's decision for unspecified reasons (7) Dyslipidemia: Code(s): E78.5 - Hyperlipidemia, unspecified Plan: Fasting lipid panel are within normal limits, continue with atorvastatin 10 mg daily (8) Essential hypertension: Code(s): I10 - Essential (primary) hypertension Plan: Blood pressure at goal of less than 130/80. Continue with current medication. Reinforced importance of following a low sodium diet, getting regular exercise, and lowering stress levels. (9) Localized swelling of both lower legs: Code(s): R22.43 - Localized swelling, mass and lump, lower limb, bilateral Plan: Likely dependent edema, prescription sent for furosemide 20 mg per tablet to take 1 tablet in a.m. only as needed for swelling in lower extremities, do not keep taking on a regular basis, continue low-salt diet, elevate legs as much as possible. Return to the clinic if any worsening of swelling reported especially if accompanied by pain, redness, increased warmth in lower extremities (10) Lumbar degenerative disc disease: Code(s): M51.36 - Other intervertebral disc degeneration, lumbar region Plan: Currently followed by [facility] (11) Anemia in chronic kidney disease: Code(s): N18.9 - Chronic kidney disease, unspecified; D63.1 - Anemia in chronic kidney disease (12) Abnormal bruising: Code(s): R23.3 - Spontaneous ecchymoses Plan: Discontinue aspirin 81 mg daily Medications: New furosemide 20 mg PO QAM PRN 5 tabs 0RF LEG SWELLING Coding Level of Care Code Est Pt Prev Care >65y(25070) Diagnoses Annual visit for general adult medical examination with abnormal findings Z00.01 CKD (chronic kidney disease) stage 3, GFR 30-59 ml/min N18.30 Polyarthralgia M25.50 Impaired fasting glucose R73.01 Osteopenia of left femoral neck M85.852 Colonoscopy refused Z53.20 Dyslipidemia E78.5 Essential hypertension I10 Localized swelling of both lower legs R22.43 Lumbar degenerative disc disease M51.36 Anemia in chronic kidney disease N18.9; D63.1 Abnormal bruising R23.3 Additional Codes Vital Signs *Quality* - Advance Care Planning discussion: On file, no changes ([id number]) Vital Signs *Quality* - Time spent: 1-15 minutes, on File ([id number])
[2023-10-13 13:30] VITALS: BP 120/60; PULSE 61; O2SAT 97; BMI 40.2
== END 2023-10-13 14:58 | disposition home or self-care (01) ==
LOC: HO.HMGC 13:22
PROVIDERS: PCP Internal Medicine; Visit Provider Internal Medicine
DX: Z00.00 Encounter for general adult medical examination without abnormal findings (principal)
CPT/HCPCS: 1123F; 99397

== ENCOUNTER 2023-11-01 13:33 | Outpatient (AMB) | payer MEDICARE, SELFPAY ==
[2023-11-01 13:47] VITALS: BP 110/60; PULSE 69; O2SAT 98; BMI 39.7
--- NOTE | 2023-11-01 13:47 | HO.NEPHOV ---
HPI HPI Comments History of Present Illness Details I had the privilege of seeing [place] in follow-up for chronic kidney disease and hypertension. She has been having disabling osteoarthritis in all her joints. She had intra-articular injections in her shoulders as well as hips. She has seen net technical architect, orthopedics [place] and pain management. She has taken some meloxicam but has been having some swelling in her lower extremities after that. Her primary care physician also felt that her serum creatinine showed some fluctuations with meloxicam and hence it was discontinued. She takes Tylenol with no benefit. She did not find tramadol helping her. she is feeling that the pain is affecting quality of her life. She has been having mild pedal edema ever since she has been started on amlodipine. She denies any chest pain, shortness of breath, nausea, vomiting or diarrhea. She cannot lie down in her bed due to pain. She sleeps in a recliner. She feels she has overactive bladder. She has no hematuria, fever, suprapubic pain, chills or rigors. [facility] Medical History (Updated 11/01/23 @ 14:05 by Emil Foote MD) Anemia in chronic kidney disease Localized swelling of both lower legs Sinus bradycardia Bifascicular block Intermittent lightheadedness Bilateral knee pain Impaired fasting glucose Osteopenia of left femoral neck Colonoscopy refused Postmenopausal Osteoarthritis Dyslipidemia Essential hypertension Chronic kidney disease (CKD) Surgical History History of cataract surgery Family History Father HTN (hypertension) Mother CKD (chronic kidney disease) HTN (hypertension) Heart disease Family/Other Hailey's thyroiditis Social History Housing: House Alcohol intake: never Patient Tobacco Use Status: Former Tobacco user Years Smoked: 35 yrs e-Cigarette/Vaping Use: Never Used Current occupational status: retired Cognitive needs: No Hearing needs: No Vision needs: Yes Vital Signs 11/01/23 13:47 Height 5 ft Weight 203 lb 4 oz BMI 39.7 BP 110/60 Blood Pressure Location Lt brachial Position Sitting Pulse 69 Pulse Source Pulse Oximeter Pulse Oximetry (%) 98 Oxygen Delivery Method Room Air Physical Exam Vital Signs: Last Vital Signs Pulse 69 11/01/23 13:47 BP 110/60 11/01/23 13:47 Pulse Ox 98 11/01/23 13:47 Oxygen Delivery Method Room Air 11/01/23 13:47 BMI result Body Mass Index 39.7 Const General: comfortable and no acute distress Orientation/consciousness: patient oriented x3 HEENT Head: Yes normocephalic Mouth: Normal oral and palatal mucosa present Eyes EOM: EOMs intact bilaterally Neck Neck: Yes supple Resp Auscultation: clear to auscultation bilaterally Cardio Jugular venous distension: no JVD Rate: regular rate GI Palpation (GI): Soft to palpation Auscultation: normal bowel sounds General: Yes no CVA tenderness Back/Spine/Pelvis Back: no CVA tenderness Skin General skin exam: no rashes or lesions noted Neuro General: patient oriented x3 and moves all extremities Extrem General: Yes edema Assessment & Plan Assessment & Plan (1) CKD (chronic kidney disease) stage 3, GFR 30-59 ml/min: Comment: ff'd by Dr Foote Code(s): N18.30 - Chronic kidney disease, stage 3 unspecified Qualifiers: Chronic kidney disease stage 3 subtype: stage 3a (GFR 45-59) Qualified Code(s): N18.31 - Chronic kidney disease, stage 3a (2) Localized swelling of both lower legs: Code(s): R22.43 - Localized swelling, mass and lump, lower limb, bilateral (3) Essential hypertension: Code(s): I10 - Essential (primary) hypertension Plan [place] has stage III CKD for long time. Her blood pressure is well controlled. She is on angiotensin receptor [place] in addition to other medications. She avoids nonsteroidal anti-inflammatory medications for over 10 years. She is off meloxicam now. I have prescribed her furosemide 40 mg to take every other day for 14 days. She is going to repeat her blood work and urine studies including proBNP, serum albumin, liver function and repeat renal function. Her blood pressure is currently at goal. She should be on a low-sodium diet and should remain well hydrated. All questions were answered. She needs to follow-up with her net technical architect. Follow-up given Orders: Orders Electrolytes Today N18.30 - Chronic kidney disease, stage 3 unspecified, R22.43 - Localized swelling, mass and lump, lower limb, bilateral Creatinine Today N18.30 - Chronic kidney disease, stage 3 unspecified, R22.43 - Localized swelling, mass and lump, lower limb, bilateral Protein Creatinine Ratio, Ur Today N18.30 - Chronic kidney disease, stage 3 unspecified, R22.43 - Localized swelling, mass and lump, lower limb, bilateral Albumin Level Today N18.30 - Chronic kidney disease, stage 3 unspecified, R22.43 - Localized swelling, mass and lump, lower limb, bilateral Blood Urea Nitrogen Today N18.30 - Chronic kidney disease, stage 3 unspecified, R22.43 - Localized swelling, mass and lump, lower limb, bilateral NT-proBNP Today N18.30 - Chronic kidney disease, stage 3 unspecified, R22.43 - Localized swelling, mass and lump, lower limb, bilateral Alanine Aminotransferase Today N18.30 - Chronic kidney disease, stage 3 unspecified, R22.43 - Localized swelling, mass and lump, lower limb, bilateral Aspartate Amino Transferase Today N18.30 - Chronic kidney disease, stage 3 unspecified, R22.43 - Localized swelling, mass and lump, lower limb, bilateral Medications: New furosemide 40 mg PO Q OTHER DAY 14 tabs 0RF Coding Level of Care Code Est Pt Level 4 (60633) Diagnoses Stage 3a chronic kidney disease N18.31 Chronic kidney disease stage 3 subtype: stage 3a (GFR 45-59) Localized swelling of both lower legs R22.43 Essential hypertension I10 Results Reviewed Nephrology Results: Hgb 11.7 g/dl (12.0-16.0) L 10/06/23 WBC 9.9 X10*3/uL (4.8-10.8) 10/06/23 Plt Count 286 X10*3/uL (160-400) 10/06/23 Sodium 137 mmol/L (135-145) 10/06/23 Potassium 4.9 mmol/L (3.3-5.1) 10/06/23 Chloride 104 mmol/L (96-108) 10/06/23 Carbon Dioxide 21 mmol/L (22-29) L 10/06/23 BUN 31 mg/dL (9-16) H 10/06/23 Creatinine 1.58 mg/dL (0.5-1.4) H 10/06/23 Calcium 9.8 mg/dL (8.4-10.2) 10/06/23 Urine Creatinine 175.20 mg/dL 10/06/23 Protein/Creatinin Ratio 0.50 (<0.2) H 10/06/23
== END 2023-11-01 14:13 | disposition home or self-care (01) ==
PROVIDERS: PCP Internal Medicine; Visit Provider Internal Medicine Nephrology
DX: N18.31 Chronic kidney disease, stage 3a (principal); R22.43 Localized swelling, mass and lump, lower limb, bilateral; I10 Essential (primary) hypertension
CPT/HCPCS: 99214

== ENCOUNTER → 2023-11-01 13:33 | Outpatient (BNVA) | payer MEDICARE, SELFPAY | PROVIDERS: PCP Internal Medicine; Visit Provider Internal Medicine Nephrology | DX: I12.9 Hypertensive chronic kidney disease with stage 1 through stage 4 chronic kidney disease, or unspecified chronic kidney disease (principal); N18.31 Chronic kidney disease, stage 3a; R22.43 Localized swelling, mass and lump, lower limb, bilateral | CPT/HCPCS: 99212 ==

== ENCOUNTER 2023-11-30 10:36 | Outpatient (REF) | payer MEDICARE, SELFPAY ==
[2023-11-30 13:38] LABS: Alanine Aminotransferase 12 U/L (0-31); Albumin Level 3.8 g/dL (3.5-5.0); Anion Gap 17 (12-20); Aspartate Amino Transferase 19 U/L (5-31); Blood Urea Nitrogen 24 mg/dL (9-16); Calcium 9.7 mg/dL (8.4-10.2); Carbon Dioxide 20 mmol/L (22-29); Chloride 106 mmol/L (96-108); Estimated Glomerular Filt Rate 32; Sodium 139 mmol/L (135-145)
[2023-11-30 13:56] LABS: Creatinine Urine 144.54 mg/dL; Protein/Creatinine Ratio, Ur 0.19 (<0.2); Total Protein Urine Random 28 mg/dL (<12)
[2023-12-06 15:07] LABS: NT-proBNP 16542 pg/mL (<450)
== END 2023-11-30 10:37 | disposition home or self-care (01) ==
LOC: HO.HMGCLDS 10:36
PROVIDERS: PCP Internal Medicine; Visit Provider Internal Medicine Nephrology
DX: R22.43 Localized swelling, mass and lump, lower limb, bilateral (principal); I12.9 Hypertensive chronic kidney disease with stage 1 through stage 4 chronic kidney disease, or unspecified chronic kidney disease; N18.30 Chronic kidney disease, stage 3 unspecified
CPT/HCPCS: 36415; 80051; 82040; 82310; 82565; 82570; 83880; 84156; 84450; 84460; 84520

== ENCOUNTER 2023-12-06 10:13 | Outpatient (AMB) | payer MEDICARE, SELFPAY ==
[2023-12-06 10:30] VITALS: BP 90/50; PULSE 61; O2SAT 98; BMI 39.3
--- NOTE | 2023-12-06 10:30 | HO.NEPHOV ---
HPI HPI Comments History of Present Illness Details I had the privilege of seeing [place] in follow-up for chronic kidney disease and hypertension. She has been having disabling osteoarthritis in all her joints. She had intra-articular injections in her shoulders as well as hips. She has seen hod carrier, orthopedics daigle and pain management. She has taken some meloxicam but has been having some swelling in her lower extremities after that. Her primary care physician also felt that her serum creatinine showed some fluctuations with meloxicam and hence it was discontinued. She takes Tylenol with no benefit. She did not find tramadol helping her. she is feeling that the pain is affecting quality of her life. She has been having mild pedal edema ever since she has been started on amlodipine. She was started on lasix with improvement in swelling. She denies any chest pain, shortness of breath, nausea, vomiting or diarrhea. She cannot lie down in her bed due to pain. She sleeps in a recliner. She feels she has overactive bladder. She has no hematuria, fever, suprapubic pain, chills or rigors. [facility] Medical History (Updated 12/06/23 @ 10:42 by Emil Foote MD) Anemia in chronic kidney disease Localized swelling of both lower legs Sinus bradycardia Bifascicular block Intermittent lightheadedness Bilateral knee pain Impaired fasting glucose Osteopenia of left femoral neck Colonoscopy refused Postmenopausal Osteoarthritis Dyslipidemia Essential hypertension Chronic kidney disease (CKD) Surgical History History of cataract surgery Family History Father HTN (hypertension) Mother CKD (chronic kidney disease) HTN (hypertension) Heart disease Family/Other Hailey's thyroiditis Social History Housing: House Alcohol intake: never Patient Tobacco Use Status: Former Tobacco user Years Smoked: 35 yrs e-Cigarette/Vaping Use: Never Used Current occupational status: retired Cognitive needs: No Hearing needs: No Vision needs: Yes Vital Signs 12/06/23 10:30 Height 5 ft Weight 201 lb BMI 39.3 BP 90/50 L Blood Pressure Location Rt brachial Position Sitting Pulse 61 Pulse Source Pulse Oximeter Pulse Oximetry (%) 98 Oxygen Delivery Method Room Air Physical Exam Vital Signs: Last Vital Signs Pulse 61 12/06/23 10:30 BP 90/50 L 12/06/23 10:30 Pulse Ox 98 12/06/23 10:30 Oxygen Delivery Method Room Air 12/06/23 10:30 BMI result Body Mass Index 39.3 Const General: comfortable and no acute distress Orientation/consciousness: patient oriented x3 HEENT Head: Yes normocephalic Mouth: Normal oral and palatal mucosa present Eyes EOM: EOMs intact bilaterally Neck Neck: Yes supple Resp Auscultation: clear to auscultation bilaterally Cardio Jugular venous distension: no JVD Rate: regular rate GI Palpation (GI): Soft to palpation Auscultation: normal bowel sounds General: Yes no CVA tenderness Back/Spine/Pelvis Back: no CVA tenderness Skin General skin exam: no rashes or lesions noted Neuro General: patient oriented x3 and moves all extremities Extrem General: Yes edema Assessment & Plan Assessment & Plan (1) Anemia in chronic kidney disease: Code(s): N18.9 - Chronic kidney disease, unspecified; D63.1 - Anemia in chronic kidney disease Qualifiers: Chronic kidney disease stage: stage 3 (moderate) Chronic kidney disease stage 3 subtype: stage 3a (GFR 45-59) Qualified Code(s): N18.31 - Chronic kidney disease, stage 3a; D63.1 - Anemia in chronic kidney disease (2) CKD (chronic kidney disease) stage 3, GFR 30-59 ml/min: Comment: ff'd by Dr Foote Code(s): N18.30 - Chronic kidney disease, stage 3 unspecified Qualifiers: Chronic kidney disease stage 3 subtype: stage 3a (GFR 45-59) Qualified Code(s): N18.31 - Chronic kidney disease, stage 3a (3) Localized swelling of both lower legs: Code(s): R22.43 - Localized swelling, mass and lump, lower limb, bilateral (4) Essential hypertension: Code(s): I10 - Essential (primary) hypertension Plan [place] has stage III CKD for long time. Her blood pressure is well controlled. She is on angiotensin receptor [place] in addition to other medications. She avoids nonsteroidal anti-inflammatory medications for over 10 years. She is off meloxicam now. I have prescribed her furosemide 40 mg daily until edema resolves and then cut it to every other day . She is going to repeat renal function. Her blood pressure is currently at goal. She should be on a low-sodium diet and should remain well hydrated. All questions were answered. She needs to follow-up with her hod carrier. Follow-up given Orders: Orders Blood Urea Nitrogen Today D63.1 - Anemia in chronic kidney disease, N18.30 - Chronic kidney disease, stage 3 unspecified, N18.9 - Chronic kidney disease, unspecified, R22.43 - Localized swelling, mass and lump, lower limb, bilateral Electrolytes Today D63.1 - Anemia in chronic kidney disease, N18.30 - Chronic kidney disease, stage 3 unspecified, N18.9 - Chronic kidney disease, unspecified, R22.43 - Localized swelling, mass and lump, lower limb, bilateral Creatinine Today D63.1 - Anemia in chronic kidney disease, N18.30 - Chronic kidney disease, stage 3 unspecified, N18.9 - Chronic kidney disease, unspecified, R22.43 - Localized swelling, mass and lump, lower limb, bilateral Medications: Changed From furosemide 40 mg PO Q OTHER DAY 14 tabs 0RF To furosemide 40 mg PO DAILY 30 tabs 3RF 30 days Discontinued furosemide Discontinued Reason: Duplicate 20 mg PO QAM PRN 5 tabs 0RF LEG SWELLING Coding Level of Care Code Est Pt Level 4 (46046) Diagnoses Anemia in stage 3a chronic kidney disease N18.31; D63.1 Chronic kidney disease stage: stage 3 (moderate) Chronic kidney disease stage 3 subtype: stage 3a (GFR 45-59) Stage 3a chronic kidney disease N18.31 Chronic kidney disease stage 3 subtype: stage 3a (GFR 45-59) Localized swelling of both lower legs R22.43 Essential hypertension I10 Results Reviewed Nephrology Results: Hgb 11.7 g/dl (12.0-16.0) L 10/06/23 WBC 9.9 X10*3/uL (4.8-10.8) 10/06/23 Plt Count 286 X10*3/uL (160-400) 10/06/23 Sodium 139 mmol/L (135-145) 11/30/23 Potassium 4.0 mmol/L (3.3-5.1) 11/30/23 Chloride 106 mmol/L (96-108) 11/30/23 Carbon Dioxide 20 mmol/L (22-29) L 11/30/23 BUN 24 mg/dL (9-16) H 11/30/23 Creatinine 1.58 mg/dL (0.5-1.4) H 11/30/23 Calcium 9.7 mg/dL (8.4-10.2) 11/30/23 Urine Creatinine 144.54 mg/dL 11/30/23 Protein/Creatinin Ratio 0.19 (<0.2) 11/30/23
== END 2023-12-06 10:52 | disposition home or self-care (01) ==
PROVIDERS: PCP Internal Medicine; Visit Provider Internal Medicine Nephrology
DX: N18.31 Chronic kidney disease, stage 3a (principal); D63.1 Anemia in chronic kidney disease; R22.43 Localized swelling, mass and lump, lower limb, bilateral; I10 Essential (primary) hypertension
CPT/HCPCS: 99214

== ENCOUNTER → 2023-12-06 10:13 | Outpatient (BNVA) | payer MEDICARE, SELFPAY | PROVIDERS: PCP Internal Medicine; Visit Provider Internal Medicine Nephrology | DX: I12.9 Hypertensive chronic kidney disease with stage 1 through stage 4 chronic kidney disease, or unspecified chronic kidney disease (principal); N18.31 Chronic kidney disease, stage 3a; D63.1 Anemia in chronic kidney disease; R22.43 Localized swelling, mass and lump, lower limb, bilateral | CPT/HCPCS: 99212 ==

== ENCOUNTER 2024-02-09 07:53 | Outpatient (REF) | payer MEDICARE, SELFPAY ==
[2024-02-09 10:51] LABS: Anion Gap 16 (12-20); Blood Urea Nitrogen 32 mg/dL (9-16); Carbon Dioxide 19 mmol/L (22-29); Chloride 106 mmol/L (96-108); Estimated Glomerular Filt Rate 37; Potassium 4.2 mmol/L (3.3-5.1); Sodium 137 mmol/L (135-145)
== END 2024-02-09 07:54 | disposition home or self-care (01) ==
LOC: HO.HMGCLDS 07:53
PROVIDERS: PCP Internal Medicine; Visit Provider Internal Medicine Nephrology
DX: I12.9 Hypertensive chronic kidney disease with stage 1 through stage 4 chronic kidney disease, or unspecified chronic kidney disease (principal); R22.43 Localized swelling, mass and lump, lower limb, bilateral; N18.30 Chronic kidney disease, stage 3 unspecified; D63.1 Anemia in chronic kidney disease
CPT/HCPCS: 36415; 80051; 82565; 84520

== ENCOUNTER 2024-02-13 13:40 | Outpatient (AMB) | payer MEDICARE, SELFPAY ==
--- NOTE | 2024-02-13 13:45 | HO.NEPHOV ---
Vital Signs 02/13/24 13:46 Height 5 ft Weight 191 lb 2 oz BMI 37.3 BP 130/68 Blood Pressure Location Rt brachial Position Sitting Pulse 61 Pulse Source Pulse Oximeter Pulse Oximetry (%) 99 Oxygen Delivery Method Room Air Intake Visit Reasons: CKD/ 2 MO FU/ Confirmed Automotive Product Specialist Required: No Accompanied by: Self / Same As Patient Allergies GALILEO Inhibitors Allergy (Severe, Verified 02/13/24 13:50) Cough HPI Comments Details: I had the privilege of seeing [place] in follow-up for chronic kidney disease and hypertension. She has been having disabling osteoarthritis in all her joints. She had intra-articular injections in her shoulders as well as hips. She has seen sand mill operator, orthopedics daigle and pain management. She has taken some meloxicam but has been having some swelling in her lower extremities after that. Her primary care physician also felt that her serum creatinine showed some fluctuations with meloxicam and hence it was discontinued. She takes Tylenol with no benefit. She did not find tramadol helping her. she is feeling that the pain is affecting quality of her life. She has been having mild pedal edema ever since she has been started on amlodipine. She was started on lasix with improvement in swelling. She denies any chest pain, shortness of breath, nausea, vomiting or diarrhea. She cannot lie down in her bed due to pain. She sleeps in a recliner. She feels she has overactive bladder. She has no hematuria, fever, suprapubic pain, chills or rigors [facility] Medical History (Updated 12/06/23 @ 10:42 by Emil Foote MD) Anemia in chronic kidney disease Localized swelling of both lower legs Sinus bradycardia Bifascicular block Intermittent lightheadedness Bilateral knee pain Impaired fasting glucose Osteopenia of left femoral neck Colonoscopy refused Postmenopausal Osteoarthritis Dyslipidemia Essential hypertension Chronic kidney disease (CKD) Surgical History History of cataract surgery Family History Father HTN (hypertension) Mother CKD (chronic kidney disease) HTN (hypertension) Heart disease Family/Other Hailey's thyroiditis Social History Housing: House Alcohol intake: never Patient Tobacco Use Status: Former Tobacco user Years Smoked: 35 yrs e-Cigarette/Vaping Use: Never Used Current occupational status: retired Cognitive needs: No Hearing needs: No Vision needs: Yes Physical Exam Vital Signs: Last Vital Signs Pulse 61 02/13/24 13:46 BP 130/68 02/13/24 13:46 Pulse Ox 99 02/13/24 13:46 Oxygen Delivery Method Room Air 02/13/24 13:46 BMI result Body Mass Index 37.3 Const General: comfortable and no acute distress Orientation/consciousness: patient oriented x3 HEENT Head: Yes normocephalic Mouth: Normal oral and palatal mucosa present Eyes EOM: EOMs intact bilaterally Neck Neck: Yes supple Resp Auscultation: clear to auscultation bilaterally Cardio Jugular venous distension: no JVD Rate: regular rate GI Palpation (GI): Soft to palpation Auscultation: normal bowel sounds General: Yes no CVA tenderness Back/Spine/Pelvis Back: no CVA tenderness Skin General skin exam: no rashes or lesions noted Neuro General: patient oriented x3 and moves all extremities Extrem General: Yes no pedal edema Results Reviewed Nephrology Results: Hgb 11.7 g/dl (12.0-16.0) L 10/06/23 WBC 9.9 X10*3/uL (4.8-10.8) 10/06/23 Plt Count 286 X10*3/uL (160-400) 10/06/23 Sodium 137 mmol/L (135-145) 02/09/24 Potassium 4.2 mmol/L (3.3-5.1) 02/09/24 Chloride 106 mmol/L (96-108) 02/09/24 Carbon Dioxide 19 mmol/L (22-29) L 02/09/24 BUN 32 mg/dL (9-16) H 02/09/24 Creatinine 1.38 mg/dL (0.5-1.4) 02/09/24 Calcium 9.7 mg/dL (8.4-10.2) 11/30/23 Urine Creatinine 144.54 mg/dL 11/30/23 Protein/Creatinin Ratio 0.19 (<0.2) 11/30/23 Assessment & Plan Assessment & Plan (1) CKD (chronic kidney disease) stage 3, GFR 30-59 ml/min: Comment: ff'd by Dr Foote Code(s): N18.30 - Chronic kidney disease, stage 3 unspecified Category: Medical Qualifiers: Chronic kidney disease stage 3 subtype: stage 3a (GFR 45-59) Qualified Code(s): N18.31 - Chronic kidney disease, stage 3a (2) Anemia in chronic kidney disease: Code(s): N18.9 - Chronic kidney disease, unspecified; D63.1 - Anemia in chronic kidney disease Category: Medical Qualifiers: Chronic kidney disease stage: stage 3 (moderate) Chronic kidney disease stage 3 subtype: stage 3a (GFR 45-59) Qualified Code(s): N18.31 - Chronic kidney disease, stage 3a; D63.1 - Anemia in chronic kidney disease (3) Essential hypertension: Code(s): I10 - Essential (primary) hypertension Category: Medical Plan [place] has stage III CKD for long time. Her blood pressure is well controlled. She is on angiotensin receptor [place] in addition to other medications. She avoids nonsteroidal anti-inflammatory medications for over 10 years. She is off meloxicam now. She can continue furosemide 40 mg daily as on a needed basis . I discontinued her Amlodipine. Her blood pressure is currently at goal. She should be on a low-sodium diet and should remain well hydrated. All questions were answered. She needs to follow-up with her sand mill operator. Follow-up given Orders: Orders Creatinine Today D63.1 - Anemia in chronic kidney disease, I10 - Essential (primary) hypertension, N18.31 - Chronic kidney disease, stage 3a Blood Urea Nitrogen Today D63.1 - Anemia in chronic kidney disease, I10 - Essential (primary) hypertension, N18.31 - Chronic kidney disease, stage 3a Electrolytes Today D63.1 - Anemia in chronic kidney disease, I10 - Essential (primary) hypertension, N18.31 - Chronic kidney disease, stage 3a Calcium Today D63.1 - Anemia in chronic kidney disease, I10 - Essential (primary) hypertension, N18.31 - Chronic kidney disease, stage 3a Medications: Discontinued amlodipine Discontinued Reason: Doctor's Order 5 mg PO DAILY 30 tabs 1RF Coding Level of Care Code Est Pt Level 4 (84414) Diagnoses Stage 3a chronic kidney disease N18.31 Chronic kidney disease stage 3 subtype: stage 3a (GFR 45-59) Anemia in stage 3a chronic kidney disease N18.31; D63.1 Chronic kidney disease stage: stage 3 (moderate) Chronic kidney disease stage 3 subtype: stage 3a (GFR 45-59) Essential hypertension I10
[2024-02-13 13:46] VITALS: BP 130/68; PULSE 61; O2SAT 99; BMI 37.3
== END 2024-02-13 14:04 | disposition home or self-care (01) ==
PROVIDERS: PCP Internal Medicine; Visit Provider Internal Medicine Nephrology
DX: N18.31 Chronic kidney disease, stage 3a (principal); D63.1 Anemia in chronic kidney disease; I10 Essential (primary) hypertension
CPT/HCPCS: 99214

== ENCOUNTER → 2024-02-13 13:40 | Outpatient (BNVA) | payer MEDICARE, SELFPAY | PROVIDERS: PCP Internal Medicine; Visit Provider Internal Medicine Nephrology | DX: I12.9 Hypertensive chronic kidney disease with stage 1 through stage 4 chronic kidney disease, or unspecified chronic kidney disease (principal); N18.31 Chronic kidney disease, stage 3a; D63.1 Anemia in chronic kidney disease | CPT/HCPCS: 99212 ==

== ENCOUNTER 2024-02-21 12:21 | Inpatient (IN) | payer MEDICARE, SELFPAY ==
[2024-02-21] VITALS (7 sets, daily range): BP systolic 105–147; BP diastolic 48–72; PULSE 54–75; RESP 14–16; TEMP 36.1–36.5; O2SAT 94–100; BMI 35.2
--- NOTE | ~2024-02-21 | CT_ITS ---
EXAMINATION: CT HEAD WITHOUT CONTRAST CLINICAL INFORMATION: Pain post fall. COMPARISON: None available. TECHNIQUE: Contiguous axial imaging was performed from the skull base to vertex without intravenous administration of contrast. This CT examination was performed using dose optimization techniques as appropriate, variously including the following: *Automated exposure control *Adjustment of mA and/or kV according to patient size (this includes techniques or standardized protocols for targeted exams where dose is matched to indication/reason for exam; i.e. extremities or head) *Use of iterative reconstruction technique DLP: 664 mGy-cm FINDINGS: There is no evidence of an extra-axial collection. There is no evidence of intra-axial or extra-axial hemorrhage. The ventricles and extra-axial CSF spaces are prominent suggestive of generalized atrophy. There is nonspecific periventricular white matter disease. No mass, mass effect or infarct is seen. No skull fracture is seen. There is a large scalp hematoma over the posterior vertex. CT/CT head/brain wo IV con IMPRESSION: No acute findings. Generalized atrophy and nonspecific periventricular white matter disease. Large scalp hematoma over the posterior vertex.
--- NOTE | ~2024-02-21 | CT_ITS ---
EXAMINATION: CT CERVICAL SPINE WITHOUT CONTRAST CLINICAL INFORMATION: Head trauma COMPARISON: Previous cervical spine x-ray June 2023 TECHNIQUE: Axial images through the cervical spine without IV contrast. Sagittal and coronal reconstructions. This CT examination was performed using dose optimization techniques as appropriate, variously including the following: *Automated exposure control *Adjustment of mA and/or kV according to patient size (this includes techniques or standardized protocols for targeted exams where dose is matched to indication/reason for exam; i.e. extremities or head) *Use of iterative reconstruction technique DLP: 255 mGy-cm FINDINGS: Bone alignment is normal. No fracture or dislocation. There is multilevel degenerative spondylosis and degenerative disc disease greatest at C5-C6 and C6-C7. There is bilateral facet arthritis. Prevertebral soft tissues are normal. Bilateral carotid calcification. Visualized lung apices are clear. CT/CT cervical spine wo IV con IMPRESSION: Degenerative changes. No fracture or dislocation. Fleischner guidelines were followed.
--- NOTE | 2024-02-21 12:45 | ECG_ITS ---
Test Reason : FALL Blood Pressure : / mmHG Vent. Rate : 056 BPM Atrial Rate : 056 BPM P-R Int : 174 ms QRS Dur : 150 ms QT Int : 484 ms P-R-T Axes : 029 -61 108 degrees QTc Int : 467 ms Sinus bradycardia Right bundle branch block Left anterior fascicular block Bifascicular block Left ventricular hypertrophy with repolarization abnormality ( R in aVL , Romhilt-Briseno ) Cannot rule out Anterolateral infarct (cited on or before 21-FEB-2024) Abnormal ECG When compared with ECG of 26-JUL-2013 10:19, Serial changes of Anterolateral infarct Present Referred By: Angélica Luis Electronically Signed By:Jason Her
[2024-02-21 13:13] LABS: MANUAL DIFF FLAG NO
[2024-02-21 13:18] LABS: Basophils Absolute Auto 0.1 X10*3/uL (0.0-0.2); Basophils Percent Auto 0.6 % (0-2); Eosinophils Absolute Auto 0.2 X10*3/uL (0.0-0.4); Eosinophils Percent Auto 1.5 % (0-4); Hemoglobin 11.2 g/dl (12.0-16.0); Imm Gran Abs Auto 0.08 X10*3/uL (0.00-0.03); Imm Gran Pct Auto 0.6 % (0.0-0.4); Lymphocytes Absolute Auto 0.9 X10*3/uL (1.2-4.9); Lymphocytes Percent Auto 6.8 % (20-40); Mean Corpuscular HGB Conc 32.9 g/dl (31.0-35.0); Mean Corpuscular Hemoglobin 32.2 pg (27.0-33.0); Mean Corpuscular Volume 97.7 fL (80.0-98.0); Mean Platelet Volume 9.7 fL (9.4-12.3); Monocytes Absolute Auto 0.9 X10*3/uL (0.1-1.2); Monocytes Percent Auto 6.7 % (2-11); Neutrophils Absolute Auto 11.1 x10*3/uL (2.0-8.3); Neutrophils Percent Auto 83.8 % (45-73); Platelet Count 193 X10*3/uL (160-400); Red Blood Count 3.48 X10*6/uL (4.20-5.50); Red Cell Distribution Width 13.5 % (11.0-16.0); White Blood Count 13.2 X10*3/uL (4.8-10.8)
--- NOTE | 2024-02-21 13:22 | ED_ITS ---
HPI - Fall General Chief Complaint: Fall Stated Complaint: FALL,HEAD LACS,BLEEDING CONTROLLED,+CCOLLA PER EMS Time Seen by Provider: 02/21/24 12:23 Source: patient and family Mode of arrival: EMS Limitations: no limitations History of Present Illness HPI Narrative: 79 yo female with PMH significant for but not limited to HTN, CKD, dyslipidemia, osteoarthritis, and anemia in CKD, who presents via EMS post-fall, with head pain and laceration. The patient explains she was getting her hair done at home by her chpdlzme-bj-qgu, sitting for a prolonged period of time. After her vfpfgqvn-ge-rng left, she states she stood up and was walking to her kitchen to turn the light off when she felt lightheaded and fell, hitting her head on the tile floor of her kitchen. She denies tripping over any objects. She is unable to recall specific details of the event and if she lost consciousness or not. She was unable to stand after fall, but reached the phone to call her [id number] for help. Patient ambulates with cane at baseline for short distances and walker for longer distances. Was using cane at the time of fall. She denies blurred vision, chest pain, SOB, abdominal pain, N/V/D, and extremity pain. Rates her head pain as a 7/10. She is not on blood thinners. The patient's daughter is at bedside, who provided additional information that patient frequently feels dizzy when getting her hair done, which is why she now does it at home. They report 2 recent falls at the end of 2022, unable to recall dates. She recalls feeling lightheaded prior to these falls as well. The patient lives alone. MD complaint: fall Onset (ago): hour(s) Fall from: standing Fall witnessed: no Place fall occurred: home Loss of consciousness: unsure Symptoms prior to fall: lightheadedness Location of injury: head Associated symptoms (after fall): denies (Denies dizziness ) and headache Related Data Home Medications ?Medication ?Instructions ?Recorded ?Confirmed acetaminophen 650 mg 650 mg PO Q8H 08/03/20 07/31/23 tablet,extended release (Tylenol Arthritis Pain) calcium 600 mg-D3 800 unit-mag11 1 tab PO BID 08/03/20 07/31/23 50 ez-caly-xnbfmm-oksana-s.borat tablet (Caltrate 600-D Plus Minerals) metoprolol tartrate 50 mg tablet 50 mg PO DAILY 08/03/20 07/31/23 meloxicam 7.5 mg tablet 7.5 mg PO DAILY PRN 02/13/24 Previous Rx's ?Medication ?Instructions ?Recorded atorvastatin 10 mg tablet 10 mg PO DAILY #90 tabs 09/02/23 furosemide 40 mg tablet 40 mg PO DAILY 30 days #30 tabs 12/06/23 losartan 50 mg tablet 50 mg PO DAILY #90 tabs 01/24/24 cefuroxime axetil 250 mg tablet 250 mg PO BID 7 days #14 tabs 02/21/24 Allergies Allergy/AdvReac Type Severity Reaction Status Date / Time GALILEO Inhibitors Allergy Severe Cough Verified 02/21/24 12:35 Review of Systems 2 Review of Systems: Yes all other systems are reviewed and are negative [facility] Past Medical History Medical History (Updated 02/21/24 @ 16:19 by IVONNE Gómez) Anemia in chronic kidney disease Localized swelling of both lower legs Sinus bradycardia Bifascicular block Intermittent lightheadedness Bilateral knee pain Impaired fasting glucose Osteopenia of left femoral neck Colonoscopy refused Postmenopausal Osteoarthritis Dyslipidemia Essential hypertension Chronic kidney disease (CKD) Surgical History History of cataract surgery Family History Family History Father HTN (hypertension) Mother CKD (chronic kidney disease) HTN (hypertension) Heart disease Family/Other Hailey's thyroiditis Social History Social History Housing: House Alcohol intake: never Patient Tobacco Use Status: Former Tobacco user Years Smoked: 35 yrs Smoked in Last 30 Days: No e-Cigarette/Vaping Use: Never Used Use of substances other than those prescribed or required for medical reasons: No Advance Directives: Yes Advance Directives on File: Yes Advance Directives Date on File: 08/19/22 Current occupational status: retired Cognitive needs: No Hearing needs: No Vision needs: Yes Physical Exam 2 Vital Signs: Vital Signs: Last Vital Signs Temp 97.7 F 02/21/24 15:36 Pulse 63 02/21/24 16:00 Resp 16 05/08/24 15:36 BP 136/49 L 05/08/24 16:00 Pulse Ox 98 02/21/24 15:36 O2 Del Method Room Air 02/21/24 15:36 BMI result Body Mass Index 35.2 Appearance: Alert. Oriented X3. No acute distress. Head: Large traumatic, laceration to posterior portion of head. see photos Eyes: Pupils equal, round and reactive to light. No raccoon eyes ENT: Pharynx normal. Neck: Normal inspection. Neck supple. No midline tenderness CVS: Regular rhythm, bradycardic rate. Pulses normal. Respiratory: No respiratory distress. Lungs CTAB Abdomen: Soft and nontender. Skin: Skin warm and dry. Normal skin color. Normal skin turgor. No rashes. Large amount of blood from posterior head laceration. Extremities: Bilateral lower extremity edema. Neuro/psych: Oriented X 3. No motor deficit. No sensory deficit. Normal speech and cognition. Course Reevaluation(s) Reevaluation #1: Orthostatic vital signs lying and sitting were stable. However when patient was standing she felt very dizzy, was visibly weak and unable to stand. She was sat back down in bed by the tech. She feels weak and dizzy, very sore. will plan to admit for further management. Time: 16:10 Medications Administered Discontinued Medications Generic Name Dose Route Start Last Admin Trade Name Catarina PRN Reason Stop Dose Admin Acetaminophen 975 mg 02/21/24 13:47 02/21/24 14:36 Acetaminophen 325 Mg Tablet PO 02/21/24 13:48 975 mg ONCE ONE Administration Lidocaine/Epinephrine 10 ml 02/21/24 14:32 02/21/24 14:38 Lidocaine Hcl 1%/Epi 1:100,000 10 Ml Vial INFILTRATI 02/21/24 14:33 10 ml ONCE ONE Administration Procedures Laceration Laceration 1: Site: scalp Size (cm): 13 Description: flap and irregular Depth: involves muscle layer Local Anesthetic: lidocaine 1% and with epi Amount of anesthesia used (mL): 8 Pre-repair: wound explored, irrigated extensively and extensive debridement Skin layer closed with: other (lauren x23) Medical Decision Making Medical Decision Making MDM Narrative: 79 yo female with PMH significant for but not limited to HTN, CKD, dyslipidemia, osteoarthritis, and anemia in CKD, who presents via EMS post-fall, with head pain and posterior head laceration. Describes lightheadedness prior to fall. Lightheadedness has since resolved. ROS largely unremarkable, except for 7/10 posterior head pain. Labs reveal leukocytosis of 13.2 and worsening anemia. BUN 35 and Cr 1.64. Random glucose 122. High sensitivity troponin elevated 41.6. Repeat troponin pending. UA remarkable for UTI. Urine culture pending. EKG revealed sinus bradycardia, RBBB, and left anterior fascicular block. Anterolateral infarct cannot be ruled out based on EKG. Appears largely unchanged from prior EKG in 2013. Orthostatics unable to be performed due to significant dizziness and weakness upon standing. Patient is not safe for discharge home. Head CT revealed no acute findings, large scalp hematoma over the posterior vertex. Cervical spine CT revealed degenerative changes, but no fracture or dislocation. Wound closed using lauren. See procedure section for more detail. Patient dizzy and weak. She has a UTI. Will plan to admit the patient for further evaluation and treatment. Differential Diagnosis Differential Diagnoses: The differential diagnosis associated with the presentation includes Myocardial infarction, intracranial hemorrhage, c-spine fracture, syncope, UTI, anemia of chronic disease, bradycardia, CVA Admission/Observation Consideration of admission/observation: Escalation of care including admission/observation considered Consult Healthcare Provider Management of the patient was discussed with: Hospitalist Dr. De Jesus accepts admission Lab Data MDM Lab Attestation statement: I reviewed the patient's lab results. Leukocytosis, mildly worsening anemia, mildly worsening renal function from baseline. Elevated high-sensitivity troponin. +UTI. 02/21/24 13:09 02/21/24 13:09 Labs: Lab Results 02/21/24 02/21/24 02/21/24 Range/Units 13:09 14:17 15:51 WBC 13.2 H (4.8-10.8) X10*3/uL RBC 3.48 L (4.20-5.50) X10*6/uL Hgb 11.2 L (12.0-16.0) g/dl Hct 34.0 L (37.0-47.0) % MCV 97.7 (80.0-98.0) fL MCH 32.2 (27.0-33.0) pg MCHC 32.9 (31.0-35.0) g/dl RDW 13.5 (11.0-16.0) % Plt Count 193 D (160-400) X10*3/uL MPV 9.7 (9.4-12.3) fL Immature Gran % (Auto) 0.6 H (0.0-0.4) % Neut % (Auto) 83.8 H (45-73) % Lymph % (Auto) 6.8 L (20-40) % [place] % (Auto) 6.7 (2-11) % Eos % (Auto) 1.5 (0-4) % Baso % (Auto) 0.6 (0-2) % Lymph # (Auto) 0.9 L (1.2-4.9) X10*3/uL [place] # (Auto) 0.9 (0.1-1.2) X10*3/uL Eos # (Auto) 0.2 (0.0-0.4) X10*3/uL Baso # (Auto) 0.1 (0.0-0.2) X10*3/uL Abs Immat Gran (auto) 0.08 H (0.00-0.03) X10*3/uL Absolute Neuts (auto) 11.1 H (2.0-8.3) x10*3/uL Absolute Nucleated RBC 0.000 (0.0-0.012) X10*3/uL Nucleated RBC % (auto) 0.0 (0.0-0.2) /100WBC Sodium 137 (135-145) mmol/L Potassium 4.6 (3.3-5.1) mmol/L Chloride 107 (96-108) mmol/L Carbon Dioxide 19 L (22-29) mmol/L Anion Gap 16 (12-20) BUN 35 H (9-16) mg/dL Creatinine 1.64 H (0.5-1.4) mg/dL Estim Creat Clear Calc 26.7 Estimated GFR 30 Random Glucose 122 H (60-115) mg/dL Calcium 9.9 (8.4-10.2) mg/dL Magnesium 2.0 (1.6-2.6) mg/dL Total Bilirubin 0.8 (0.0-1.0) mg/dL Direct Bilirubin 0.3 (0.0-0.5) mg/dL AST 20 (5-31) U/L ALT 15 (0-31) U/L Alkaline Phosphatase 47 (39-117) U/L Troponin I High Sens 41.6 H 43.2 H (<3.5-17.0) ng/L Total Protein 6.9 (6.5-8.0) g/dL Albumin 3.7 (3.5-5.0) g/dL Urine Color Yellow Urine Appearance Cloudy Urine pH 5.0 (5.0-9.0) Ur Specific [place] 1.025 (1.005-1.025) Urine Protein 30 (1+) H (Neg-Trace) mg/dL Urine Glucose (UA) Negative (Negative) mg/dL Urine Ketones Negative (Negative) mg/dL Urine Blood Moderate (2+) H (Negative) Urine Nitrite Positive H (Negative) Ur Leukocyte Esterase Moderate (2+) H (Negative) Urine RBC 6-10 H (0-2) /HPF Urine WBC >50 H (0-5) /HPF Ur Squamous Epith Cells 6-10 (0-2) /HPF Urine Bacteria 4+ (None Seen) Hyaline Casts 3-5 (0-2) /LPF Independent Interpretation I performed an independent interpretation of an: EKG and CT Scan Interpretation: EKG showed sinus bradycardia, RBBB, and left anterior fascicular block. Rate of 56 bpm. RI interval 174 ms. QT interval [address] scan without any acute intracranial bleed or edema, agree with radiology read Radiology Impression Discussion of test interpretation with radiology: I have reviewed the radiologist's reading. Radiologist Impression: EXAMINATION: CT HEAD WITHOUT CONTRAST CLINICAL INFORMATION: Pain post fall. COMPARISON: None available. TECHNIQUE: Contiguous axial imaging was performed from the skull base to vertex without intravenous administration of contrast. This CT examination was performed using dose optimization techniques as appropriate, variously including the following: *Automated exposure control *Adjustment of mA and/or kV according to patient size (this includes techniques or standardized protocols for targeted exams where dose is matched to indication/reason for exam; i.e. extremities or head) *Use of iterative reconstruction technique DLP: 664 mGy-cm FINDINGS: There is no evidence of an extra-axial collection. There is no evidence of intra-axial or extra-axial hemorrhage. The ventricles and extra-axial CSF spaces are prominent suggestive of generalized atrophy. There is nonspecific periventricular white matter disease. No mass, mass effect or infarct is seen. No skull fracture is seen. There is a large scalp hematoma over the posterior vertex. CT/CT head/brain wo IV con IMPRESSION: No acute findings. Generalized atrophy and nonspecific periventricular white matter disease. Large scalp hematoma over the posterior vertex. EXAMINATION: CT CERVICAL SPINE WITHOUT CONTRAST CLINICAL INFORMATION: Head trauma COMPARISON: Previous cervical spine x-ray June 2023 TECHNIQUE: Axial images through the cervical spine without IV contrast. Sagittal and coronal reconstructions. This CT examination was performed using dose optimization techniques as appropriate, variously including the following: *Automated exposure control *Adjustment of mA and/or kV according to patient size (this includes techniques or standardized protocols for targeted exams where dose is matched to indication/reason for exam; i.e. extremities or head) *Use of iterative reconstruction technique DLP: 255 mGy-cm FINDINGS: Bone alignment is normal. No fracture or dislocation. There is multilevel degenerative spondylosis and degenerative disc disease greatest at C5-C6 and C6-C7. There is bilateral facet arthritis. Prevertebral soft tissues are normal. Bilateral carotid calcification. Visualized lung apices are clear. CT/CT cervical spine wo IV con IMPRESSION: Degenerative changes. No fracture or dislocation. Fleischner guidelines were followed. Independent Historian Clinical information obtained from an independent historian. History obtained from or confirmed by: Other (Daughter) External Record Review External record reviewed: Inpatient record, Outpatient record and Prior outpatient labs Prescription Management I considered prescription management with: Pain Medication Chronic Conditions Patient?s care impacted by: Hypertension and Other (CKD, anemia in CKD, osteoarthritis, sinus bradycardia, dyslipidemia ) Critical Care Time Critical Care Time Critical Care Time: Yes Total Critical Care Time: 36 Attestation: I have personally provided critical care time exclusive of time spent on separately billable procedures. Time includes review of lab data, radiology results, discussion with consultants, and monitoring for potential decompensation. Intervention performed as documented. Discharge Plan Discharge Clinical Impression: Complex laceration of scalp, Acute UTI, Dizziness Patient Disposition: Admitted As Inpatient Additional Instructions: Your CT scan today did not show any fractures or bleeding in the brain. There was a large hematoma Print Language: British
[2024-02-21 13:36] LABS: Alanine Aminotransferase 15 U/L (0-31); Albumin Level 3.7 g/dL (3.5-5.0); Alkaline Phosphatase 47 U/L (39-117); Anion Gap 16 (12-20); Aspartate Amino Transferase 20 U/L (5-31); Bilirubin Direct 0.3 mg/dL (0.0-0.5); Bilirubin Total 0.8 mg/dL (0.0-1.0); Blood Urea Nitrogen 35 mg/dL (9-16); Calcium 9.9 mg/dL (8.4-10.2); Carbon Dioxide 19 mmol/L (22-29); Chloride 107 mmol/L (96-108); Creatinine Clr Calc Pharmacy 26.7; Estimated Glomerular Filt Rate 30; Glucose Random 122 mg/dL (60-115); Potassium 4.6 mmol/L (3.3-5.1); Sodium 137 mmol/L (135-145); Total Protein 6.9 g/dL (6.5-8.0)
[2024-02-21 13:45] LABS: Troponin-I High Sensitivity 41.6 ng/L (<3.5-17.0)
[2024-02-21 14:28] LABS: Appearance Urine Cloudy; Color Urine Yellow; Glucose Urine UA Negative (Negative); Leukocyte Esterase Urine Moderate (2+) (Negative); Nitrite Urine Positive (Negative); Specific Gravity - Urine 1.025 (1.005-1.025); UMIC TRIGGER UACC YES; Urine Blood Moderate (2+) (Negative); Urine Ketones Negative (Negative); Urine Protein 30 (1+) mg/dL (Neg-Trace)
[2024-02-21 14:33] LABS: Bacteria Urine 4+ (None Seen); UACC Culture Trigger YES; WBC Urine >50 /HPF (0-5)
[2024-02-21] MEDS: Acetaminophen 325 MG TABLET 975 MG PO (14:36)
[2024-02-21] MEDS: Lidocaine HCl 1%/Epi 1:100,000 10 ML VIAL INFILTRATI (14:38)
--- NOTE | 2024-02-21 15:26 | MHC.EDTECH ---
Pt cleaned up post procedure with [employer]ICE PRESIDENT UNDERWRITING, warm blanket give, bottom sheets will be changed after [employer]IT[employer] reassesses in 15 min
[2024-02-21 16:21] LABS: Troponin-I High Sensitivity 43.2 ng/L (<3.5-17.0)
--- NOTE | 2024-02-21 16:43 | PC.NURSE ---
iv antibiotics ordered by nain roe. this rn confirmed need for blood cultures with yamil. per yamil no cultures needed
--- NOTE | 2024-02-21 16:50 | P.HPHOSP_ITS ---
History of Present Illness Date of Service: 02/21/24 Chief Complaint: syncope, head strike 79F H htn, CKD III, hyperlipidemia, presented with syncope and fall. Patient reports feeling dizzy and lightheaded and falling back and hitting her head, unclear if she fully lost consciousness. In ED had large laceration to posterior scalp, had clots evacuated, stapled, CT trauma workup unremarkable otherwise. Patient recently taken off amlodipine for low normal blood pressures, has been recently started on furosemide for lower extremity edema, currently taking as needed. Creatinine significant at 1.64, elevated from previous of 1.38. Was unable to tolerate orthostatics. Noted to have positive UA, denies symptoms other than weakness. Review of Systems 2 Review of Systems: Yes all other systems are reviewed and are negative [facility], [facility] Medical History Anemia in chronic kidney disease Localized swelling of both lower legs Sinus bradycardia Bifascicular block Intermittent lightheadedness Bilateral knee pain Impaired fasting glucose Osteopenia of left femoral neck Colonoscopy refused Postmenopausal Osteoarthritis Dyslipidemia Essential hypertension Chronic kidney disease (CKD) Family History Father HTN (hypertension) Mother CKD (chronic kidney disease) HTN (hypertension) Heart disease Family/Other Hailey's thyroiditis Surgical History History of cataract surgery Social History Housing: House Alcohol intake: never Patient Tobacco Use Status: Former Tobacco user Years Smoked: 35 yrs Smoked in Last 30 Days: No e-Cigarette/Vaping Use: Never Used Use of substances other than those prescribed or required for medical reasons: No Advance Directives: Yes Advance Directives on File: Yes Advance Directives Date on File: 08/19/22 Current occupational status: retired Cognitive needs: No Hearing needs: No Vision needs: Yes Meds Allergies Allergy/AdvReac Type Severity Reaction Status Date / Time GALILEO Inhibitors Allergy Severe Cough Verified 02/21/24 12:35 Home Medications ?Medication ?Instructions ?Recorded ?Confirmed ?Last Taken ?Type acetaminophen 650 mg 650 mg PO Q8H 08/03/20 07/31/23 Unknown History tablet,extended release (Tylenol Arthritis Pain) calcium 600 mg-D3 800 unit-mag11 1 tab PO BID 08/03/20 07/31/23 Unknown History 50 ol-goyg-tuhbnr-oksana-s.borat tablet (Caltrate 600-D Plus Minerals) metoprolol tartrate 50 mg tablet 50 mg PO DAILY 08/03/20 07/31/23 Unknown History meloxicam 7.5 mg tablet 7.5 mg PO DAILY PRN 02/13/24 Unknown History Physical Exam 2 Vital Signs and Narrative: Vital Signs: Last Vital Signs Temp 97.7 F 02/21/24 15:36 Pulse 63 02/21/24 16:00 Resp 16 02/21/24 15:36 BP 136/49 L 02/21/24 16:00 Pulse Ox 98 02/21/24 15:36 O2 Del Method Room Air 02/21/24 15:36 BMI result Body Mass Index 35.2 General: AO X 3, no acute distress posterior head laceration lauren Resp: CTA bilateral, no accessory muscles used CVS: S1,S2,RRR, murmur, 3+ bilateral edema GI: soft, non tender, non distended Neuro: motor grossly intact, alert Psych: appropriate affect, appropriate insight Results Labs 02/21/24 13:09 02/21/24 13:09 Labs: Laboratory Results - last 24 hr 02/21/24 02/21/24 02/21/24 13:09 14:17 15:51 MCV 97.7 MCH 32.2 MCHC 32.9 RDW 13.5 Plt Count 193 D MPV 9.7 Immature Gran % (Auto) 0.6 H Neut % (Auto) 83.8 H Lymph % (Auto) 6.8 L [place] % (Auto) 6.7 Eos % (Auto) 1.5 Baso % (Auto) 0.6 Lymph # (Auto) 0.9 L [place] # (Auto) 0.9 Eos # (Auto) 0.2 Baso # (Auto) 0.1 Abs Immat Gran (auto) 0.08 H Absolute Neuts (auto) 11.1 H Absolute Nucleated RBC 0.000 Nucleated RBC % (auto) 0.0 Anion Gap 16 Estim Creat Clear Calc 26.7 Estimated GFR 30 Random Glucose 122 H Calcium 9.9 Magnesium 2.0 Total Bilirubin 0.8 Direct Bilirubin 0.3 AST 20 ALT 15 Alkaline Phosphatase 47 Troponin I High Sens 41.6 H 43.2 H Total Protein 6.9 Albumin 3.7 Urine Color Yellow Urine Appearance Cloudy Urine pH 5.0 Ur Specific [place] 1.025 Urine Protein 30 (1+) H Urine Glucose (UA) Negative Urine Ketones Negative Urine Blood Moderate (2+) H Urine Nitrite Positive H Ur Leukocyte Esterase Moderate (2+) H Urine RBC 6-10 H Urine WBC >50 H Ur Squamous Epith Cells 6-10 Urine Bacteria 4+ Hyaline Casts 3-5 Imaging Radiologist's Impressions: Impressions Cervical Spine CT 02/21/24 13:09 IMPRESSION: Degenerative changes. No fracture or dislocation. Fleischner guidelines were followed. Head CT 02/21/24 13:09 IMPRESSION: No acute findings. Generalized atrophy and nonspecific periventricular white matter disease. Large scalp hematoma over the posterior vertex. Assessment and Plan (1) Dizziness: Status: Acute Plan 79F PMH htn, CKD III, hyperlipidemia, presented with syncope and fall, found to have arnold on ckd 3, positive ua Syncope Likely orthostatic Check orthostatics when able Monitor on telemetry Check echo Will hold antihypertensives for now, gentle hydration PT eval Posterior scalp laceration Status post stapling in ED Can remove lauren in 10 days Urinary tract infection Ceftriaxone, follow-up cultures ARNOLD on CKD 3 Gentle hydration, monitor BMP DVT prophylaxis-mechanical for now due to large laceration Full code Patient with acute kidney injury on CKD 3 requiring IV hydration close monitoring, given advanced age and frailty at risk for further decompensation, likely require at least 2 midnights inpatient Quality Stroke Does the patient have a stroke diagnosis?: No VTE Prior VTE?: No VTE Risk Level:: Medical - moderate - high VTE Device Contraindication: N/A - Device Ordered VTE Drug Contraindication: Treatment Not Tolerated
[2024-02-21] MEDS: cefTRIAXone sodium 1 GM in 0.9 % Sodium Chloride 50 ML IV (17:00)
--- NOTE | 2024-02-21 17:24 | PHA.MEDREC ---
Pharmacy Consult ? Medication Reconciliation Pharmacy has completed the medication reconciliation. Spoke to patient and confirmed medication list. She takes 2 tablets of tylenol arthritis daily, only takes furosemide prn edema and rarely takes meloxicam prn pain (doctor says it's not good for her kidney). She stopped taking amlodipine on 02/14/24.
[2024-02-21] MEDS: 0.9 % Sodium Chloride 1,000 ML 75 ML IVCONT (17:33)
[2024-02-21] MEDS: Acetaminophen 325 MG TABLET 650 MG PO (22:30)
[2024-02-22] VITALS (7 sets, daily range): BP systolic 87–121; BP diastolic 41–69; PULSE 69–87; RESP 16–18; TEMP 36–36.6; O2SAT 96–99; BMI 37.8
[2024-02-22] MEDS: Acetaminophen 325 MG TABLET 650 MG PO (06:16)
[2024-02-22] MEDS: 0.9 % Sodium Chloride 1,000 ML 75 ML IVCONT (06:18)
--- NOTE | 2024-02-22 07:00 | CA_ITS ---
Transthoracic Echocardiogram Patient (Last, First, Middle): [place] Cline D Gender: Female Date of : 1945 Age: 79 Procedure Date: 02/22/2024 Procedure Type: Transthoracic Echocardiogram Location: [place] Height: 152. cm Weight: 81.65 kg BSA: 1.78 m2 Heart Rate: bpm BP: 120 / 56 mmHg Traffic Signal Technician: JOVANA Referring MD: Lacho De Jesus MD Symptoms: sycnope, mumur Study Quality: Technically Difficult Conclusions: - Mildly increased left ventricular cavity size. There is mildly increased left ventricular wall thickness. The left ventricular systolic function is severely decreased. The visually estimated ejection fraction is between 20-25%. - The inferior wall and mid anterior segment are hypokinetic. - The apex, apical anterior, apical lateral, apical septum, mid anterolateral, mid inferoseptal, and mid anteroseptal segments are akinetic. - LV apical thrombus present. - The left atrium is moderately dilated. Findings Procedure Information Contrast agent, definity, is being given per protocol without apparent complications. Left Ventricle Mildly increased left ventricular cavity size. There is mildly increased left ventricular wall thickness. The left ventricular systolic function is severely decreased. The visually estimated ejection fraction is between 20 25%. There is evidence of regional wall motion abnormalities. Abnormal diastolic function is noted. Spectral Doppler is indicative of an impaired relaxation filling pattern. Elevated filling pressures. LV apical thrombus present. Wall Motion Rest Echo Findings The inferior wall and mid anterior segment are hypokinetic. The apex, apical anterior, apical lateral, apical septum, mid anterolateral, mid inferoseptal, and mid anteroseptal segments are akinetic. Right Ventricle Normal right ventricular cavity size and systolic function. Atria The left atrium is moderately dilated. The right atrium is normal in size. Aortic Valve The aortic valve was not well visualized. There is mild thickening of the aortic valve. There is no aortic valve stenosis. There is no aortic valve regurgitation. Mitral Valve The mitral valve appears normal. There is trace mitral valve regurgitation. There is no mitral valve stenosis. Pulmonic Valve The pulmonic valve is likely normal. Tricuspid Valve Normal tricuspid valve structure. There is no tricuspid valve regurgitation. Normal right atrial pressure. There is no evidence of pulmonary hypertension. Great Vessels All visible segments of the aorta are normal in size. Venous The inferior vena cava is normal in size and collapses greater than 50% with inspiration. Pericardium/Pleural There is no evidence of pericardial effusion. Prior Study Comparison No prior study available for comparison. Measurements 2D Linear Measurements IVSd: 1.25 0.6-0.9/0.6-1.0 cm LVIDd: 5.77 3.9-5.3/4.2-5.9 cm LVIDd Index: 3.24 2.4-3.2/2.2-3.1 cm/m2 LVIDs: 4.48 2.0-3.6 cm LVPWd: 1.13 0.7-1.1 cm Ao Root: 3.20 2.1-3.5 cm LA Diam: 3.20 2.7-3.8/3.0-4.0 cm LAIDs Index: 1.80 1.5-2.3 cm/m2 LV Mass: 363.21 67-162/88-224 g LV Mass Index: 204.05 43-95/49-115 g/m2 LVOT Diam: 2.10 3.0+(-)1.3 cm 2D Systolic Function EF 4C: 23.00 >55% EF 2C: 17.50 >55% EF BiP: 21.70 >55% Mitral Valve MV Pk E: 0.84 MV PK A: 1.27 MV Decel Time: 218.00 E/A: 0.70 E'Lateral: 4.24 E'Medial: 5.22 E/E' Med: 16.10 E/E' Lat: 19.90 PHT: 64.00 MVA PHT: 3.44 Decel Coal: 3.87 Aortic Valve AoV Pk Raul: 1.78 AoV Mn Raul: 1.16 AoV VTI: 0.36 AoV Pk Grad: 13.00 Aov Mn Grad: 6.00 HELADIO Cont.VTI: 3.01 LVOT LVOT Pk Raul: 1.56 LVOT Mn Raul: 1.06 LVOT VTI: 0.31 LVOT Pk Grad: 10.00 LVOT Mn Grad: 5.00 LVOT Diam: 2.10 LVOT Area: 3.46 Diastolic Function MV Pk E: 0.84 MV Pk A: 1.27 E/A: 0.70 E'Medial: 5.22 E/E' Med: 16.10 E' Laterial: 4.24 E/E' Lat: 19.90 Right Ventricle TAPSE (mm): 17.30 TVS' Raul: 10.40 Tricuspid Valve TR Pk Raul: 2.52 TR Pk Grad: 25.00 RA Press: 3.00 RVSP: 28.00 Great Vessels Aorta Ao Root-2D: 3.20 2.0-3.7 cm Ao Asc: 3.10 2.1-3.4 cm Pulmonary Valve PV Pk Raul: 1.03 Peak PV Grad: 4.00 Updated in Other Vendor System with Status of Final Jason Her MD electronically signed on 02/22/2024 3:59:23 PM with status of Final
[2024-02-22 07:42] LABS: Hematocrit 27.1 % (37.0-47.0); Hemoglobin 8.9 g/dl (12.0-16.0); Mean Corpuscular HGB Conc 32.8 g/dl (31.0-35.0); Mean Corpuscular Hemoglobin 31.8 pg (27.0-33.0); Mean Corpuscular Volume 96.8 fL (80.0-98.0); Mean Platelet Volume 9.8 fL (9.4-12.3); Platelet Count 178 X10*3/uL (160-400); Red Cell Distribution Width 13.3 % (11.0-16.0); White Blood Count 8.1 X10*3/uL (4.8-10.8)
[2024-02-22 07:51] LABS: Anion Gap 15 (12-20); Blood Urea Nitrogen 29 mg/dL (9-16); Calcium 9.1 mg/dL (8.4-10.2); Carbon Dioxide 20 mmol/L (22-29); Chloride 106 mmol/L (96-108); Estimated Glomerular Filt Rate 40; Glucose Fasting 97 mg/dL (60-99); Magnesium 1.9 mg/dL (1.6-2.6); Potassium 4.4 mmol/L (3.3-5.1); Sodium 137 mmol/L (135-145)
[2024-02-22] MEDS: 0.9 % Sodium Chloride Flush 3 ML SYRINGE IVFLUSH ×3 (09:24→20:34)
--- NOTE | 2024-02-22 09:25 | MHC.CM.PN ---
CM met with Patient at bedside and addressed IMM with her, providing Patient with the original and a copy has been placed on the chart. Patient lives alone in a house and she uses a cane & walker to assist with mobility. Patient may benefit from a PT Eval to assist with disposition. CM has initiated and will follow for dc planning. PCP is Dr. Shyla Fregoso and the HCP is Daughter/Triny.
[2024-02-22] MEDS: Atorvastatin Calcium 10 MG TABLET PO (09:28)
--- NOTE | 2024-02-22 10:16 | P.PNIM_ITS ---
Subjective Subjective Date of Service: 02/22/24 Interval History: headahche Physical Exam 2 Vital Signs: Vital Signs: Last Vital Signs Temp 97.4 F 02/22/24 07:09 Pulse 83 02/22/24 07:09 Resp 18 02/22/24 07:09 BP 120/56 L 02/22/24 07:09 Pulse Ox 99 02/22/24 07:09 O2 Del Method Room Air 02/22/24 07:09 O2 Flow Rate 2 02/22/24 04:00 BMI result Body Mass Index 35.2 General: AO X 3, no acute distress, clean laceration with lauren on back of head Resp: CTA bilateral, no accessory muscles used CVS: S1,S2,RRR, murmur GI: soft, non tender, non distended Neuro: motor grossly intact, alert Psych: appropriate affect, appropriate insight Objective Data Active Medications Acetaminophen (Acetaminophen 325 Mg Tablet) 650 mg PO Q6H PRN PRN Reason: Pain, Mild (Pain Scale 1-3) Last Admin: 02/22/24 06:16 Dose: 650 mg Documented By: TERRA Atorvastatin Calcium (Atorvastatin Calcium 10 Mg Tablet) 10 mg PO DAILY [facility] Last Admin: 02/22/24 09:28 Dose: 10 mg Documented By: VISH Ceftriaxone Sodium 1 gm/ (Sodium Chloride) 50 mls @ 100 mls/hr IV Q24H [facility] Sodium Chloride (Ns) 1,000 mls @ 75 mls/hr IVCONT .[id number] [facility] Last Admin: 02/22/24 06:18 Dose: 75 mls/hr Documented By: TERRA Melatonin (Melatonin 3 Mg Tablet) 3 mg PO BEDTIME PRN PRN Reason: Insomnia Oxycodone HCl (Oxycodone Hcl Immed Release 5 Mg Tablet) 5 mg PO Q6H PRN PRN Reason: moderate pain Sodium Chloride (0.9 % Sodium Chloride Flush 3 Ml Syringe) 3 ml IVFLUSH QSHIFT [facility] Last Admin: 02/22/24 09:24 Dose: 3 ml Documented By: VISH Labs 02/22/24 07:05 02/22/24 07:05 Labs: Laboratory Results - last 24 hr 02/21/24 02/21/24 02/21/24 13:09 14:17 15:51 MCV 97.7 MCH 32.2 MCHC 32.9 RDW 13.5 Plt Count 193 D MPV 9.7 Immature Gran % (Auto) 0.6 H Neut % (Auto) 83.8 H Lymph % (Auto) 6.8 L [place] % (Auto) 6.7 Eos % (Auto) 1.5 Baso % (Auto) 0.6 Lymph # (Auto) 0.9 L [place] # (Auto) 0.9 Eos # (Auto) 0.2 Baso # (Auto) 0.1 Abs Immat Gran (auto) 0.08 H Absolute Neuts (auto) 11.1 H Absolute Nucleated RBC 0.000 Nucleated RBC % (auto) 0.0 Anion Gap 16 Estim Creat Clear Calc 26.7 Estimated GFR 30 Random Glucose 122 H Fasting Glucose Calcium 9.9 Magnesium 2.0 Total Bilirubin 0.8 Direct Bilirubin 0.3 AST 20 ALT 15 Alkaline Phosphatase 47 Troponin I High Sens 41.6 H 43.2 H Total Protein 6.9 Albumin 3.7 Urine Color Yellow Urine Appearance Cloudy Urine pH 5.0 Ur Specific [place] 1.025 Urine Protein 30 (1+) H Urine Glucose (UA) Negative Urine Ketones Negative Urine Blood Moderate (2+) H Urine Nitrite Positive H Ur Leukocyte Esterase Moderate (2+) H Urine RBC 6-10 H Urine WBC >50 H Ur Squamous Epith Cells 6-10 Urine Bacteria 4+ Hyaline Casts 3-5 02/22/24 07:05 MCV 96.8 MCH 31.8 MCHC 32.8 RDW 13.3 Plt Count 178 MPV 9.8 Immature Gran % (Auto) Neut % (Auto) Lymph % (Auto) [place] % (Auto) Eos % (Auto) Baso % (Auto) Lymph # (Auto) [place] # (Auto) Eos # (Auto) Baso # (Auto) Abs Immat Gran (auto) Absolute Neuts (auto) Absolute Nucleated RBC 0.000 Nucleated RBC % (auto) 0.0 Anion Gap 15 Estim Creat Clear Calc 34.0 Estimated GFR 40 Random Glucose Fasting Glucose 97 Calcium 9.1 D Magnesium 1.9 Total Bilirubin Direct Bilirubin AST ALT Alkaline Phosphatase Troponin I High Sens Total Protein Albumin Urine Color Urine Appearance Urine pH Ur Specific [place] Urine Protein Urine Glucose (UA) Urine Ketones Urine Blood Urine Nitrite Ur Leukocyte Esterase Urine RBC Urine WBC Ur Squamous Epith Cells Urine Bacteria Hyaline Casts Microbiology Microbiology Results: Microbiology 02/21/24 Unknown Urine Culture - Final Urine clean catch - Urine christiansen top Assessment and Plan (1) Acute UTI: Status: Acute Plan 79F PMH htn, CKD III, hyperlipidemia, presented with syncope and fall, found to have stephen on ckd 3, positive ua Syncope Likely orthostatic Check orthostatics when able Monitor on telemetry - no events, old bifasicular block Check echo Will hold antihypertensives for now, gentle hydration PT eval Posterior scalp laceration Status post stapling in ED Can remove lauren in 10 days Urinary tract infection Ceftriaxone, culture with mixed arnaldo STEPHEN on CKD 3 Gentle hydration, back to baseline DVT prophylaxis-mechanical for now due to large laceration Full code reason for continued hospitalization: awaiting echo, pt eval Quality Stroke Does the patient have a stroke diagnosis?: No VTE Prior VTE?: No VTE Risk Level:: Medical - moderate - high VTE Device Contraindication: N/A - Device Ordered VTE Drug Contraindication: Treatment Not Tolerated
[2024-02-22] MEDS: oxyCODONE HCl Immed Release 5 MG TABLET PO ×2 (10:34→20:29)
--- NOTE | 2024-02-22 11:40 | HO.WOUND ---
Wound Consult: Initial 79yr old?female admitted to [facility] on 02[place]21/24 - See progress notes and H&P for detailed history.? Wound consult placed for Buttock wound POA.? Patient agreeable to assessment and photo documentation.? The patient reports she has had this wound for some time she is not able to quantify a timeline. She reports they are from sitting at home . She denies incontinence but there is evident to suggest she has chronic MASD (Moisture Associated Skin Damage ) - she current;y is using the Purewick for incontinence. When pressed she reports she does not always make it to the bathroom and does wear brief at home. We dicsussed barrier cream and changing briefs when home once wet - she reports understanding. Of note the purewick was not capturing all of the urine - I assessed placement and adjusted. If Purewick is not concisitently working consider discontinuing and use dry flow pads and or commode next to bed. Sacrum Etiology: Right Buttock Stage 2 Pressure Injury ??Present on Admission Wound Bed: red moist clean wound bed - partial thickness tissue loss Drainage / Odor: none Edges: ? attached Salma wound: MASD?red pink macerated blanchable tissue - No Induration, Fluctuance or Warmth noted - Bruising noted to right upper sacrum - not consistent with DTI Pain: tenderness reported Goals of Treatment: ? Off Load Pressure and Triad to protect from friction and moisture Etiology: Left Buttock Deep Tissue Injury ??Present on Admission Wound Bed: intact light purple nonblanchable / slow to john tissue - evidence of previous injury some scar tissue noted Drainage / Odor: none Edges: ? attached Salma wound: MASD?red pink macerated blanchable tissue - No Induration, Fluctuance or Warmth noted Pain: tenderness reported Goals of Treatment: ? Off Load Pressure and Triad to protect from friction and moisture Of note with the patients fall at home she hit her head and the occiput laceration was stabled closed in the ED - on her pillow there is a considerable amount of red pink oozing that remains. Assessed - staple line intact and well approximated - no active oozing noted - likely related to wound being on pillow with friction and movement. I recommend gently cleansing hair to remove dried blood and debris then covering with ABD pad and dry gauze wrap while the site continues to ooze. Recommendations: 1. Turn and Reposition every 2 hours and as needed for patient comfort.? Use pillows or wedges to support off loading positions. 2. Off Load all bony prominences with use of pillows and heel boots if needed.? Apply Preventative foams where needed. ? 3. Monitor for incontinence and moisture control, use barrier creams when needed for prevention and treatment. 4. Provide adequate and supplemental nutrition.? 5. Order or Continue low air loss mattress. 6. When applicable maintain blood glucose levels per Providers order. 7. Back of Head - Gently cleanse, pat dry. Cover staple line with ABd pad and dry gauze wrap. Change every other day and PRN. 8. Buttock - Cleanse with PH balance spray or wipes, pat dry. ?Apply thin layer of Triad to wound bed. Do not remove all of paste between applications as this may cause further skin damage.? Cover with foam dressing to aid in off loading and protection from friction. Re-consult wound care Nurse for wound deterioration or wound changes.
--- NOTE | 2024-02-22 11:54 | PM.EVENT ---
Event Note Date of Service: 02/22/24 Event Note: echo reports with reduced EF, lv dysfunction and apical thrombus, probably infarcted lad recently. cardio eval will start iv heparin and monitor closely for bleeding, at this point risks of stroke outweigh risks of bleed Time Spent With Patient Time: Total time managing care of this patient today ____ minutes.
[2024-02-22 12:32] LABS: Hematocrit 28.4 % (37.0-47.0); Hemoglobin 9.4 g/dl (12.0-16.0); Mean Corpuscular HGB Conc 33.1 g/dl (31.0-35.0); Mean Corpuscular Hemoglobin 32.2 pg (27.0-33.0); Mean Corpuscular Volume 97.3 fL (80.0-98.0); Mean Platelet Volume 9.7 fL (9.4-12.3); Platelet Count 174 X10*3/uL (160-400); Red Blood Count 2.92 X10*6/uL (4.20-5.50); Red Cell Distribution Width 13.4 % (11.0-16.0)
[2024-02-22 12:38] LABS: INTERNATIONAL NORM RATIO 0.9 (0.9-1.1); Prothrombin Time 11.2 SEC (11.1-13.3)
[2024-02-22 12:41] LABS: PTT Heparin Drip 24.6 SEC (53-77.9)
[2024-02-22] MEDS: Heparin Sodium,Porcine/1/2NS 25,000 UNIT/250 ML IV.SOLN 12.29 UNIT IVCONT (13:15)
--- NOTE | 2024-02-22 14:35 | P.CONCA_ITS ---
History of Present Illness History of Present Illness Date of Service: 02/22/24 Requesting physician: Lacho De Jesus Chief complaint: Cardiomyopathy, apical thrombus Narrative: 79-year-old female who had echocardiography done for syncope/dizziness which showed cardiomyopathy and apical mural thrombus. We have been asked to see her for this indication. She said she was feeling dizzy and fell hitting her head. She had no palpitations, chest discomfort shortness of breath. Denies any similar symptoms in the past. No sweating episodes or indigestion like discomfort in her chest or abdomen at any stage. She had a complex laceration which was staged and is stable. Given syncope she had an echocardiogram performed which is showing severe LV dysfunction with LAD territory wall motion/akinesis with apical thrombus. Other than the laceration site no other bleeding in the past. In particular no GI or blood loss. She was not taking any anticoagulation at home. She was taking losartan 50 mg and metoprolol tartrate 50 mg daily. Currently denying any other issues. Detailed discussion done with the patient and her daughter at bedside and echocardiography findings were discussed with them. [facility] Past Medical History Medical History Anemia in chronic kidney disease Localized swelling of both lower legs Sinus bradycardia Bifascicular block Intermittent lightheadedness Bilateral knee pain Impaired fasting glucose Osteopenia of left femoral neck Colonoscopy refused Postmenopausal Osteoarthritis Dyslipidemia Essential hypertension Chronic kidney disease (CKD) Family History Family History Father HTN (hypertension) Mother CKD (chronic kidney disease) HTN (hypertension) Heart disease Family/Other Hailey's thyroiditis Surgical History Surgical History History of cataract surgery Social History Social History Household Members: None Housing: House Alcohol intake: never Patient Tobacco Use Status: Former Tobacco user Years Smoked: 35 yrs e-Cigarette/Vaping Use: Never Used Advance Directives Date on File: 08/19/22 service: No Current occupational status: retired Cognitive needs: No Hearing needs: No Vision needs: Yes Meds Allergies Allergy/AdvReac Type Severity Reaction Status Date / Time GALILEO Inhibitors Allergy Severe Cough Verified 02/21/24 12:35 Active Medications: Current Medications Acetaminophen (Acetaminophen 325 Mg Tablet) 650 mg PO Q6H PRN PRN Reason: Pain, Mild (Pain Scale 1-3) Last Admin: 02/22/24 06:16 Dose: 650 mg Atorvastatin Calcium (Atorvastatin Calcium 10 Mg Tablet) 10 mg PO DAILY [facility] Last Admin: 02/22/24 09:28 Dose: 10 mg Heparin Sodium (Porcine) (Heparin Sodium,Porcine 5,000 Unit/Ml Vial) 3,500 unit 40 unit/kg (3500 unit) IVPUSH PROTOCOL BOLUS PRN; Protocol PRN Reason: 40 unit/kg - Heparin Protocol Heparin Sodium (Porcine) (Heparin Sodium,Porcine 5,000 Unit/Ml Vial) 7,000 unit 80 unit/kg (7000 unit) IVPUSH PROTOCOL BOLUS PRN; Protocol PRN Reason: 80 unit/kg - Heparin Protocol Ceftriaxone Sodium 1 gm/ (Sodium Chloride) 50 mls @ 100 mls/hr IV Q24H [facility] Heparin Sodium/Sodium Chloride (Heparin Sodium,Porcine/1/2ns) 25,000 unit in 250 mls @ 0 mls/hr IVCONT .Q0M [facility]; Protocol Last Admin: 02/22/24 13:15 Dose: 14 units/kg/hr, 12.29 mls/hr Losartan Potassium (Losartan Potassium 50 Mg Tablet) 50 mg PO DAILY [facility]; Protocol Melatonin (Melatonin 3 Mg Tablet) 3 mg PO BEDTIME PRN PRN Reason: Insomnia Oxycodone HCl (Oxycodone Hcl Immed Release 5 Mg Tablet) 5 mg PO Q6H PRN PRN Reason: moderate pain Last Admin: 02/22/24 10:34 Dose: 5 mg Sodium Chloride (0.9 % Sodium Chloride Flush 3 Ml Syringe) 3 ml IVFLUSH QSHIFT [facility] Last Admin: 02/22/24 09:24 Dose: 3 ml Home Medications ?Medication ?Instructions ?Recorded ?Confirmed ?Last Taken ?Type acetaminophen 650 mg 1,300 mg PO DAILY 08/03/20 02/21/24 02/21/24 History tablet,extended release (Tylenol Arthritis Pain) calcium 600 mg-D3 800 unit-mag11 1 tab PO BID 08/03/20 02/21/24 02/21/24 History 50 [id number]-qfdicz-oksana-s.borat tablet (Caltrate 600-D Plus Minerals) metoprolol tartrate 50 mg tablet 50 mg PO DAILY 08/03/20 02/21/24 02/21/24 History furosemide 40 mg tablet 40 mg PO DAILY PRN Edema 02/21/24 02/21/24 Unknown History Physical Exam 2 Vital Signs: Vital Signs: Last Vital Signs Temp 97.0 F 02/22/24 11:07 Pulse 74 02/22/24 11:07 Resp 18 02/22/24 11:07 BP 111/56 L 02/22/24 11:07 Pulse Ox 99 02/22/24 11:07 O2 Del Method Room Air 02/22/24 11:07 O2 Flow Rate 2 02/22/24 04:00 BMI result Body Mass Index 37.8 GENERAL APPEARANCE: in no acute distress, pleasant. NECK: no carotid bruit, no jugular venous distention. SKIN: Right-sided scalp laceration, dressed. HEART: no murmurs, regular rate and rhythm. LUNGS: clear to auscultation bilaterally. ABDOMEN: soft, nontender. EXTREMITIES: no edema. PERIPHERAL PULSES: equal. NEUROLOGIC: No gross deficits, AAO X 3 Objective Labs and Meds 02/22/24 12:19 02/22/24 07:05 Lab results: Laboratory Results - last 24 hr 02/21/24 02/21/24 02/22/24 14:17 15:51 07:05 WBC 8.1 RBC 2.80 L Hgb 8.9 L D Hct 27.1 L D MCV 96.8 MCH 31.8 MCHC 32.8 RDW 13.3 Plt Count 178 MPV 9.8 Absolute Nucleated RBC 0.000 Nucleated RBC % (auto) 0.0 PT INR aPTT Heparin Protocol Sodium 137 Potassium 4.4 Chloride 106 Carbon Dioxide 20 L Anion Gap 15 BUN 29 H Creatinine 1.29 Estim Creat Clear Calc 34.0 Estimated GFR 40 Fasting Glucose 97 Calcium 9.1 D Magnesium 1.9 Troponin I High Sens 43.2 H Urine Color Yellow Urine Appearance Cloudy Urine pH 5.0 Ur Specific [place] 1.025 Urine Protein 30 (1+) H Urine Glucose (UA) Negative Urine Ketones Negative Urine Blood Moderate (2+) H Urine Nitrite Positive H Ur Leukocyte Esterase Moderate (2+) H Urine RBC 6-10 H Urine WBC >50 H Ur Squamous Epith Cells 6-10 Urine Bacteria 4+ Hyaline Casts 3-5 02/22/24 12:19 WBC 10.0 RBC 2.92 L Hgb 9.4 L Hct 28.4 L MCV 97.3 MCH 32.2 MCHC 33.1 RDW 13.4 Plt Count 174 MPV 9.7 Absolute Nucleated RBC 0.000 Nucleated RBC % (auto) 0.0 PT 11.2 INR 0.9 aPTT Heparin Protocol 24.6 L Sodium Potassium Chloride Carbon Dioxide Anion Gap BUN Creatinine Estim Creat Clear Calc Estimated GFR Fasting Glucose Calcium Magnesium Troponin I High Sens Urine Color Urine Appearance Urine pH Ur Specific [place] Urine Protein Urine Glucose (UA) Urine Ketones Urine Blood Urine Nitrite Ur Leukocyte Esterase Urine RBC Urine WBC Ur Squamous Epith Cells Urine Bacteria Hyaline Casts Assessment and Plan (1) CKD (chronic kidney disease) stage 3, GFR 30-59 ml/min: Qualifiers: Chronic kidney disease stage 3 subtype: stage 3a (GFR 45-59) Qualified Code(s): N18.31 - Chronic kidney disease, stage 3a Status: Acute (2) Anemia in chronic kidney disease: Qualifiers: Chronic kidney disease stage: stage 3 (moderate) Chronic kidney disease stage 3 subtype: stage 3a (GFR 45-59) Qualified Code(s): N18.31 - Chronic kidney disease, stage 3a; D63.1 - Anemia in chronic kidney disease Status: Acute (3) Ischemic cardiomyopathy: Status: Acute (4) Apical mural thrombus following OK: Status: Acute Plan Pleasant 79-year-old female who presented for dizziness and fall hitting her head with scalp laceration which was staged and is stable. She had echocardiography performed for same indication which has shown severe cardiomyopathy with LAD territory wall motion abnormality and apical mural thrombus. EKGs showing evolved anterolateral OK. No symptoms recently and denying any symptoms in the past. Clinically compensated. Troponin 41.6 and 43.2. Starting her on anticoagulation for the mural thrombus. She is on heparin drip. If no significant ooze from the scalp side then we will transitioned to Eliquis. She had STPEHEN and losartan is held and probably can be resumed as creatinine improves. She has bifascicular block and was on metoprolol tartrate 50 mg daily. I think she can be resumed at Toprol-XL 25 mg daily. We will follow along with you. Thank you for allowing me to participate in the care of your patient. Please feel free to contact me if you have any questions. Procedures Date of Service Date of Service: 02/22/24
[2024-02-22] MEDS: cefTRIAXone sodium 1 GM in 0.9 % Sodium Chloride 50 ML IV (17:33)
[2024-02-22 19:45] LABS: PTT Heparin Drip 84.8 SEC (53-77.9)
[2024-02-22] MEDS: ondansetron HCL 4 MG/2 ML VIAL IVPUSH (20:28)
[2024-02-22] MEDS: Melatonin 3 MG TABLET PO (20:29)
[2024-02-23 02:37] LABS: PTT Heparin Drip 95.4 SEC (53-77.9)
[2024-02-23 03:17] VITALS: BP 92/53; PULSE 89; RESP 19; TEMP 36.7
[2024-02-23] MEDS: oxyCODONE HCl Immed Release 5 MG TABLET PO (03:26)
[2024-02-23 05:50] LABS: Hematocrit 25.2 % (37.0-47.0); Hemoglobin 8.3 g/dl (12.0-16.0); Mean Corpuscular HGB Conc 32.9 g/dl (31.0-35.0); Mean Corpuscular Hemoglobin 32.5 pg (27.0-33.0); Mean Corpuscular Volume 98.8 fL (80.0-98.0); Mean Platelet Volume 10.1 fL (9.4-12.3); Platelet Count 159 X10*3/uL (160-400); Red Blood Count 2.55 X10*6/uL (4.20-5.50); Red Cell Distribution Width 13.5 % (11.0-16.0); White Blood Count 9.6 X10*3/uL (4.8-10.8)
[2024-02-23 06:16] LABS: Anion Gap 13 (12-20); Blood Urea Nitrogen 22 mg/dL (9-16); Calcium 8.9 mg/dL (8.4-10.2); Carbon Dioxide 19 mmol/L (22-29); Chloride 108 mmol/L (96-108); Creatinine Clr Calc Pharmacy 31.3; Estimated Glomerular Filt Rate 35; Glucose Fasting 100 mg/dL (60-99); Potassium 4.1 mmol/L (3.3-5.1); Sodium 136 mmol/L (135-145)
[2024-02-23 07:28] VITALS: BP 112/56; PULSE 88; RESP 18; TEMP 36.4; O2SAT 99
[2024-02-23] MEDS: Atorvastatin Calcium 10 MG TABLET PO (09:07)
[2024-02-23] MEDS: 0.9 % Sodium Chloride Flush 3 ML SYRINGE IVFLUSH (09:07)
--- NOTE | 2024-02-23 09:49 | P.DS_ITS ---
DS: Providers Provider Date of Service: 02/23/24 Date of admission: 02/21/24 16:49 Primary care physician: Shyla Fregoso MD Consults: 02/21/24 21:27 Consult to Wound Care Routine Reason for consultation: small open area to right buttocks 02/22/24 14:26 Consult to Cardiology Routine Consulting Provider: [facility] Cardiovascular Services Reason for consultation: lv dysfunction DS: Diagnosis Discharge Diagnosis (1) CKD (chronic kidney disease) stage 3, GFR 30-59 ml/min: Status: Acute (2) Anemia in chronic kidney disease: Status: Acute (3) Ischemic cardiomyopathy: Status: Acute (4) Apical mural thrombus following [place]: Status: Acute DS: Summary Hospital Course Hospital Course: from initial hpi: 79F PMH htn, CKD III, hyperlipidemia, presented with syncope and fall. Patient reports feeling dizzy and lightheaded and falling back and hitting her head, unclear if she fully lost consciousness. In ED had large laceration to posterior scalp, had clots evacuated, stapled, CT trauma workup unremarkable otherwise. Patient recently taken off amlodipine for low normal blood pressures, has been recently started on furosemide for lower extremity edema, currently taking as needed. Creatinine significant at 1.64, elevated from previous of 1.38. Was unable to tolerate orthostatics. Noted to have positive UA, denies symptoms other than weakness. hospital course: Patient was admitted for syncope. Likely due to hypotension. Echocardiogram was done which revealed ischemic cardiomyopathy and LV thrombus which likely contributed to the hypotension. She was started on IV heparin and tolerated well despite her large laceration. Cardiology recommended transfer to [facility] for cardiac catheterization. Due to hypotension patient was not able to tolerate any neural hormonal Center antihypertensives were discontinued. For her posterior scalp laceration complicated by acute blood loss anemia she underwent stapling in the ER, bleeding has mostly subsided. Ya can be removed in about 10 days. For urinary tract infection patient received 3 days of ceftriaxone, culture grew mixed arnaldo. For STEPHEN on CKD 3 her creatinine improved with gentle hydration. Time Attestation Discharge Coordination Time (in mins): 35 Quality: Safe Use of Opioids Does Pt have an Active Cancer Diagnosis on the Problem List?: No Quality: Stroke Does the patient have a stroke diagnosis?: No Physical Exam Vital Signs: Vital Signs: Last Vital Signs Temp 97.6 F 02/23/24 07:28 Pulse 88 02/23/24 07:28 Resp 18 02/23/24 07:28 BP 112/56 L 02/23/24 07:28 Pulse Ox 99 02/23/24 07:28 O2 Del Method Room Air 02/23/24 07:28 O2 Flow Rate 2 02/22/24 04:00 FiO2 96 02/23/24 03:17 BMI result Body Mass Index 37.8 GENERAL APPEARANCE: in no acute distress, pleasant. NECK: no carotid bruit, no jugular venous distention. SKIN: Right-sided scalp laceration, dressed. HEART: no murmurs, regular rate and rhythm. LUNGS: clear to auscultation bilaterally. ABDOMEN: soft, nontender. EXTREMITIES: no edema. PERIPHERAL PULSES: equal. NEUROLOGIC: No gross deficits, AAO X 3 DS: Data Data Completed and Pending Labs on day of discharge: Laboratory Results - last 24 hr 02/22/24 02/22/24 02/23/24 12:19 19:18 02:24 WBC 10.0 RBC 2.92 L Hgb 9.4 L Hct 28.4 L MCV 97.3 MCH 32.2 MCHC 33.1 RDW 13.4 Plt Count 174 MPV 9.7 Absolute Nucleated RBC 0.000 Nucleated RBC % (auto) 0.0 PT 11.2 INR 0.9 aPTT Heparin Protocol 24.6 L 84.8 H D 95.4 H Sodium Potassium Chloride Carbon Dioxide Anion Gap BUN Creatinine Estim Creat Clear Calc Estimated GFR Fasting Glucose Calcium 02/23/24 05:24 WBC 9.6 RBC 2.55 L Hgb 8.3 L Hct 25.2 L MCV 98.8 H MCH 32.5 MCHC 32.9 RDW 13.5 Plt Count 159 L MPV 10.1 Absolute Nucleated RBC 0.000 Nucleated RBC % (auto) 0.0 PT 12.0 INR 1.0 aPTT Heparin Protocol Sodium 136 Potassium 4.1 Chloride 108 Carbon Dioxide 19 L Anion Gap 13 BUN 22 H Creatinine 1.46 H Estim Creat Clear Calc 31.3 Estimated GFR 35 Fasting Glucose 100 H Calcium 8.9 Discharge Plan Discharge Anticipated Discharge Date/Time: 02/23/24 09:42 Patient Disposition: Xfer Acute Care Hospital Discharge Diagnosis: fall, laceration, cardiomyopathy, lv thrombus Referrals: Shyla Fregoso MD [Primary Care Provider] - 1 Week Discharge Medications: New heparin(porcine) in 0.45% NaCl 25,000 unit/250 mL Parenteral Solution 25,000 unit continuous IV infusion .Q0M Qty: 0 0RF heparin (porcine) 5,000 unit/mL Solution 3,500 unit IVPUSH PROTOCOL BOLUS PRN (Reason: 40 Unit/Kg - Heparin Protocol) Qty: 0 0RF heparin (porcine) 5,000 unit/mL Solution 7,000 unit IVPUSH PROTOCOL BOLUS PRN (Reason: 80 Unit/Kg - Heparin Protocol) Qty: 0 0RF Continued meloxicam 7.5 mg tablet 7.5 mg PO Q3D Qty: 10 5RF atorvastatin 10 mg tablet 10 mg PO DAILY Qty: 90 1RF furosemide 40 mg tablet 40 mg PO DAILY PRN (Reason: Edema) acetaminophen [Tylenol Arthritis Pain] 650 mg tablet extended release 1,300 mg PO DAILY Caltrate 600-D Plus Minerals 600 mg calcium- 800 unit-50 mg tablet 1 tab PO BID Rx Instructions: give with meal/snack Discontinued losartan 50 mg tablet 50 mg PO DAILY Qty: 90 4RF metoprolol tartrate 50 mg tablet 50 mg PO DAILY Discharge Orders: Discharge Order (Routine); Ordered 02/23/24 Ordered By: Lacho De Jesus Diet: Advance to usual diet Activity on Discharge: As tolerated Stand Alone Forms: Patient Portal Discharge page Print Language: Romanian Care Plan Goals: manage cardiomyopathy, laceration Health Concerns: cardiomyopathy, lv thrombus, laceration Plan of Treatment: transfer to [facility] for cardiac cath, ya to be removed in about 10 days, continue anticoagulation for lv thrombus, bp meds/neurohormonals held for low bps Assessment: see above
--- NOTE | 2024-02-23 10:11 | MHC.CM.PN ---
Patient will be transferred to [facility].
[2024-02-23 10:40] LABS: PTT Heparin Drip 60.1 SEC (53-77.9)
--- NOTE | 2024-02-23 11:05 | PM.PNCARD ---
Subjective Subjective Date of Service: 02/23/24 Interval history: Seen examined at bedside. No bleeding from scalp. On heparin drip. Detailed discussion with the patient and daughter about potential transfer for cardiac catheterization and maybe assessment by electrophysiology for pacemaker given bifascicular block and syncope. The patient is agreeable. Physical Exam Vital Signs: Last Vital Signs Temp 97.6 F 02/23/24 07:28 Pulse 88 02/23/24 07:28 Resp 18 02/23/24 07:28 BP 112/56 L 02/23/24 07:28 Pulse Ox 99 02/23/24 07:28 O2 Del Method Room Air 02/23/24 07:28 O2 Flow Rate 2 02/22/24 04:00 FiO2 96 02/23/24 03:17 BMI result Body Mass Index 37.8 GENERAL APPEARANCE: in no acute distress, pleasant. NECK: no carotid bruit, no jugular venous distention. SKIN: Right-sided scalp laceration, dressed. HEART: no murmurs, regular rate and rhythm. LUNGS: clear to auscultation bilaterally. ABDOMEN: soft, nontender. EXTREMITIES: no edema. PERIPHERAL PULSES: equal. NEUROLOGIC: No gross deficits, AAO X 3 Objective Labs and Meds 02/23/24 05:24 02/23/24 05:24 Lab results: Laboratory Results - last 24 hr 02/22/24 02/22/24 02/23/24 12:19 19:18 02:24 WBC 10.0 RBC 2.92 L Hgb 9.4 L Hct 28.4 L MCV 97.3 MCH 32.2 MCHC 33.1 RDW 13.4 Plt Count 174 MPV 9.7 Absolute Nucleated RBC 0.000 Nucleated RBC % (auto) 0.0 PT 11.2 INR 0.9 aPTT Heparin Protocol 24.6 L 84.8 H D 95.4 H Sodium Potassium Chloride Carbon Dioxide Anion Gap BUN Creatinine Estim Creat Clear Calc Estimated GFR Fasting Glucose Calcium 02/23/24 02/23/24 05:24 10:11 WBC 9.6 RBC 2.55 L Hgb 8.3 L Hct 25.2 L MCV 98.8 H MCH 32.5 MCHC 32.9 RDW 13.5 Plt Count 159 L MPV 10.1 Absolute Nucleated RBC 0.000 Nucleated RBC % (auto) 0.0 PT 12.0 INR 1.0 aPTT Heparin Protocol 60.1 D Sodium 136 Potassium 4.1 Chloride 108 Carbon Dioxide 19 L Anion Gap 13 BUN 22 H Creatinine 1.46 H Estim Creat Clear Calc 31.3 Estimated GFR 35 Fasting Glucose 100 H Calcium 8.9 Progress Note: A&P Assessment and plan (1) Apical mural thrombus following [place]: Status: Acute (2) Ischemic cardiomyopathy: Status: Acute (3) Syncope: Status: Acute Plan Pleasant 79-year-old female who is presenting with syncope. EKG showed anterolateral infarct and ECHO has shown severe LV dysfunction with apical thrombus. She has been started on heparin drip. EKG previously has shown bifascicular block and given the fact that she became dizzy and passed out question about advanced heart block versus arrhythmia from LV dysfunction are potential causes for syncope. We discussed yesterday about angiography but she was not clear but today after discussion she is agreeable. We will transferred to [facility] and do diagnostic angiogram. Based on that revascularization strategy will be decided. She will probably need viability assessment and based on echocardiography and overall assessment I think she had infarct and likely nonviable myocardium is there. Given bifascicular block on EKG and syncope, she needs discussion for pacemaker-we will involve electrophysiology at [facility]. Keep NPO. Thank you for allowing me to participate in the care of your patient. Please feel free to contact me if you have any questions. Time Spent With Patient Time: Total time managing care of this patient today ____ minutes. Progress Note: Quality Stroke Does the patient have a stroke diagnosis?: No Procedures Date of Service Date of Service: 02/23/24
[2024-02-23 11:19] VITALS: BP 117/60; PULSE 78; RESP 18; TEMP 36.7
[2024-02-23] MEDS: Heparin Sodium,Porcine/1/2NS 25,000 UNIT/250 ML IV.SOLN 7.9 UNIT IVCONT (12:34)
[2024-02-23 15:26] VITALS: BP 119/56; PULSE 88; RESP 18; TEMP 36.4; O2SAT 96
== END 2024-02-23 16:51 | disposition short-term general hospital (02) | DRG 312 ==
LOC: HO.ED 16:32 → HO.EDOVER 16:52 → HO.IMC 18:12
PROVIDERS: Physician Assistant; Student in an Organized Health Care Education/Training Program; Admitting Provider Internal Medicine; Emergency Provider Emergency Medicine; PCP Internal Medicine; Visit Provider Internal Medicine
DX: I95.1 Orthostatic hypotension (principal); I23.6 Thrombosis of atrium, auricular appendage, 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; N17.9 Acute kidney failure, unspecified; N39.0 Urinary tract infection, site not specified; I45.2 Bifascicular block; I25.5 Ischemic cardiomyopathy; N18.31 Chronic kidney disease, stage 3a; I12.9 Hypertensive chronic kidney disease with stage 1 through stage 4 chronic kidney disease, or unspecified chronic kidney disease; S01.01XA Laceration without foreign body of scalp, initial encounter; W19.XXXA Unspecified fall, initial encounter; E78.5 Hyperlipidemia, unspecified; D64.9 Anemia, unspecified; Z87.891 Personal history of nicotine dependence; Z79.899 Other long term (current) drug therapy
CPT/HCPCS: 36415; 70450; 72125; 80048; 80076; 81001; 83735; 84484; 85025; 85027; 85610; 85730; 87086; 93005; 93306; 97162; 99285; J0696; J1644; J2405; Q9957

== ENCOUNTER → 2024-02-21 12:45 | Outpatient (BNV) | payer MEDICARE, SELFPAY | PROVIDERS: Emergency Provider Emergency Medicine; PCP Internal Medicine; Visit Provider Internal Medicine Cardiovascular Disease | DX: I45.2 Bifascicular block (principal) | CPT/HCPCS: 93010 ==

== ENCOUNTER 2024-02-21 16:49 | Outpatient (BNV) | payer MEDICARE, SELFPAY | END 2024-02-22 07:00 | PROVIDERS: Admitting Provider Internal Medicine; Emergency Provider Emergency Medicine; PCP Internal Medicine; Visit Provider Internal Medicine Cardiovascular Disease | DX: I42.9 Cardiomyopathy, unspecified (principal) | CPT/HCPCS: 93306 ==

== ENCOUNTER → 2024-02-21 16:49 | Outpatient (BNV) | payer MEDICARE, SELFPAY | PROVIDERS: Admitting Provider Internal Medicine; Emergency Provider Emergency Medicine; PCP Internal Medicine; Visit Provider Internal Medicine Cardiovascular Disease | DX: I23.6 Thrombosis of atrium, auricular appendage, 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 (principal); I25.5 Ischemic cardiomyopathy; R55 Syncope and collapse | CPT/HCPCS: 99223; 99233 ==

== ENCOUNTER → 2024-02-21 16:49 | Outpatient (BNV) | payer MEDICARE, SELFPAY | PROVIDERS: Admitting Provider Internal Medicine; Emergency Provider Emergency Medicine; PCP Internal Medicine; Visit Provider Internal Medicine | DX: N18.31 Chronic kidney disease, stage 3a (principal); I23.6 Thrombosis of atrium, auricular appendage, 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; D63.1 Anemia in chronic kidney disease; I25.5 Ischemic cardiomyopathy | CPT/HCPCS: 99223; 99232; 99239; 99499 ==

== ENCOUNTER → 2024-02-26 23:59 | Outpatient (BNV) | payer MEDICARE, SELFPAY | PROVIDERS: PCP Internal Medicine; Visit Provider Internal Medicine Cardiovascular Disease | DX: I42.9 Cardiomyopathy, unspecified (principal) | CPT/HCPCS: 93454; 99152 ==

== ENCOUNTER 2024-03-18 13:38 | Outpatient (AMB) | payer MEDICARE, SELFPAY ==
[2024-03-18 13:43] VITALS: BP 110/52; PULSE 70; O2SAT 98; BMI 37.3
--- NOTE | 2024-03-18 13:43 | MHC.OFFVIS ---
Vital Signs 03/18/24 13:43 Height 5 ft Weight 191 lb BMI 37.3 BP 110/52 L Blood Pressure Location Rt brachial Position Sitting Pulse 70 Pulse Source Pulse Oximeter Pulse Oximetry (%) 98 Intake Visit Reasons: bmc dc/ cath fu appt re: meds Honey Producer Required: No Accompanied by: Daughter Allergies GALILEO Inhibitors Allergy (Severe, Verified 02/21/24 12:35) Cough Medication List - Last Reconciled 03/18/24 by Jason Her MD acetaminophen ER (Tylenol Arthritis Pain) 325 mg PO DAILY apixaban 5 mg PO BID ascorbic acid (vitamin C) 250 mg PO DAILY atorvastatin 40 mg PO DAILY 90 days [id number] 600 mg calcium- 800 unit-50 mg (Caltrate 600-D Plus Minerals) 1 tab PO BID ferrous sulfate (FeroSul) 325 mg PO DAILY furosemide 20 mg PO DAILY metoprolol tartrate 12.5 mg PO BID pantoprazole DR (Protonix) 40 mg PO DAILY valsartan 20 mg (1/2 x 40 mg) PO DAILY warfarin 1 mg PO DAILY HPI Comments Details: 79-year-old female who is here for follow-up. She was seen while she was inpatient in 03/04/2024 at [facility]. She came with syncope and hit her head. She had a big scalp laceration which was staged and subsequent echocardiography showed LV dysfunction with apical thrombus. She did have bifascicular block on the EKG. She was transferred to [facility] after discussion underwent cardiac catheterization which showed severe right coronary artery stenosis with heavy calcification with [id number] collaterals as well as mid LAD 95% stenosis with ART 2 flow as well as heavy calcification and calcific nodule proximally. Given lack of symptoms we decided to treat her medically and referred her for pacemaker placement given bifascicular block and syncope. She had a dual-chamber Clark, MRI conditional ICD placement. She was subsequently discharged home. 03/18/24: She is here for follow-up. She was in rehab after hospital admission and came home 1 week ago. She is saying she is feeling little weak but otherwise no other complaints. No chest discomfort shortness of breath. No orthopnea or PND. She has peripheral edema which the daughter is saying has been chronic. Interestingly she is on Coumadin currently and is following with Coumadin clinic. Our plan was to give her NOAC due to ease of use but she was started on Coumadin at [facility]. [facility] Medical History (Updated 03/18/24 @ 13:52 by Hannah Mendez [facility]) Cardiac defibrillator in place Anemia in chronic kidney disease Localized swelling of both lower legs Sinus bradycardia Bifascicular block Intermittent lightheadedness Bilateral knee pain Impaired fasting glucose Osteopenia of left femoral neck Colonoscopy refused Postmenopausal Osteoarthritis Dyslipidemia Essential hypertension Chronic kidney disease (CKD) Surgical History History of cataract surgery Family History Father HTN (hypertension) Mother CKD (chronic kidney disease) HTN (hypertension) Heart disease Family/Other Hailey's thyroiditis Social History Household Members: None Housing: House Alcohol intake: never Patient Tobacco Use Status: Former Tobacco user Years Smoked: 35 yrs e-Cigarette/Vaping Use: Never Used Advance Directives Date on File: 08/19/22 service: No Current occupational status: retired Cognitive needs: No Hearing needs: No Vision needs: Yes Review of Systems Const Denies chills, Denies fatigue, Denies fever(s), Denies frequent falls, Denies weakness, Denies weight gain and Denies weight loss ENT Denies dizziness Card Denies chest pain, Denies leg edema, Denies lightheadedness, Denies palpitations, Denies dyspnea and Denies dyspnea on exertion Resp Denies cough, Denies dyspnea and Denies dyspnea on exertion GI Denies hematochezia Musc Denies abnormal gait, Denies muscle weakness, Denies numbness, Denies radiating pain into limb and Denies tingling Neuro Denies abnormal gait, Denies dizziness, Denies frequent falls, Denies numbness, Denies tingling and Denies weakness Endo Denies fatigue and Denies palpitations Physical Exam Vital Signs: Last Vital Signs Pulse 70 03/18/24 13:43 BP 110/52 L 03/18/24 13:43 Pulse Ox 98 03/18/24 13:43 BMI result Body Mass Index 37.3 GENERAL APPEARANCE: in no acute distress, pleasant. NECK: no carotid bruit, no significant jugular venous distention. SKIN: no suspicious lesions, warm and dry. HEART: Holosystolic murmur at the apex, regular rate and rhythm. LUNGS: clear to auscultation bilaterally. ABDOMEN: soft, nontender. EXTREMITIES: 2+ edema. PERIPHERAL PULSES: equal. NEUROLOGIC: No gross deficits, AAO X 3 Results Reviewed Results Reviewed: 02/22/24: - Mildly increased left ventricular cavity size. There is mildly increased left ventricular wall thickness. The left ventricular systolic function is severely decreased. The visually estimated ejection fraction is between 20-25%. - The inferior wall and mid anterior segment are hypokinetic. - The apex, apical anterior, apical lateral, apical septum, mid anterolateral, mid inferoseptal, and mid anteroseptal segments are akinetic. - LV apical thrombus present. - The left atrium is moderately dilated. Assessment & Plan Assessment & Plan (1) Syncope: Code(s): R55 - Syncope and collapse Category: Medical (2) Apical mural thrombus following [place]: Code(s): I23.6 - Thrombosis of atrium, auricular appendage, 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 Category: Medical (3) Ischemic cardiomyopathy: Code(s): I25.5 - Ischemic cardiomyopathy Category: Medical Plan Pleasant 79-year-old female with complex medical issues. She recently got admitted to [facility] with syncope an EKG showed bifascicular block and evolved anterior infarct. Troponins were negative. Echo showed EF 20 25% with LAD territory wall motion and apical thrombus. She was started on a heparin drip and after discussion she was transferred to [facility] to undergo cardiac catheterization. Cardiac catheterization showed 95% mid LAD stenosis as well as proximal 70-80% heavily calcified stenosis as well as subtotally occluded right coronary artery with heavy calcification. Given lack of symptoms from coronary disease and presented with syncope and bifascicular block we discussed with electrophysiology and she underwent dual-chamber ICD placement. She was subsequently discharged back home. She has been doing okay since then and has no symptoms as before. She has some peripheral edema but the daughter is saying this is chronic. Would transition her to Eliquis. I am sending a script and they will check whether it is affordable. If it is affordable then will transition to Eliquis and stop the Coumadin. Adding low-dose valsartan 20 mg once a day. She does have apical systolic murmur which sounds like mitral regurgitation which was not present before. We will repeat echocardiography before next visit. In terms of revascularization we had a detailed discussion. She has heavily calcified vessels and will require atherectomy and has currently no symptoms and it is questionable whether the apical LAD is or alive. I have explained to the patient that we may have to consider MRI to assess viability in case she wishes to undergo any revascularization. She has options of PCI versus coronary artery bypass surgery but has no significant symptoms currently. We shall we discussed this on follow-up. She is anemic after significant blood loss from head laceration. Hemoglobin should be monitor closely. Thank you for allowing me to participate in the care of your patient. Please feel free to contact me if you have any questions. Orders: Orders CA echo transthoracic complete 1 Month I23.6 - Thrombosis of atrium, auricular appendage, 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 Medications: New apixaban 5 mg PO BID 60 tabs 6RF I23.6 - Thrombosis of atrium, auricular appendage, 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 valsartan 20 mg (1/2 x 40 mg) PO DAILY 60 tabs 3RF I23.6 - Thrombosis of atrium, auricular appendage, 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 Coding Level of Care Code Est Pt Level 5 (98759) Diagnoses Syncope R55 Apical mural thrombus following [place] I23.6 Ischemic cardiomyopathy I25.5
== END 2024-03-18 14:53 | disposition home or self-care (01) ==
PROVIDERS: PCP Internal Medicine; Visit Provider Internal Medicine Cardiovascular Disease
DX: R55 Syncope and collapse (principal); I23.6 Thrombosis of atrium, auricular appendage, 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; I25.5 Ischemic cardiomyopathy
CPT/HCPCS: 99214

== ENCOUNTER → 2024-03-18 13:38 | Outpatient (BNVA) | payer MEDICARE, SELFPAY | PROVIDERS: PCP Internal Medicine; Visit Provider Internal Medicine Cardiovascular Disease | DX: R55 Syncope and collapse (principal); I45.2 Bifascicular block; I25.5 Ischemic cardiomyopathy; I23.6 Thrombosis of atrium, auricular appendage, 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; Z95.810 Presence of automatic (implantable) cardiac defibrillator | CPT/HCPCS: 99212 ==

== ENCOUNTER 2024-03-27 09:22 | Outpatient (AMB) | payer MEDICARE, SELFPAY ==
[2024-03-27 09:52] VITALS: BP 96/64; PULSE 65; O2SAT 97; BMI 36.9
--- NOTE | 2024-03-27 09:52 | MHC.PC.OV ---
Vital Signs 03/27/24 09:52 Height 5 ft Weight 189 lb BMI 36.9 BP 96/64 Blood Pressure Location Rt brachial Position Sitting Pulse 65 Pulse Source Pulse Oximeter Pulse Oximetry (%) 97 Oxygen Delivery Method Room Air Intake Visit Reasons: HDF ~ Post hospital discharge FU Intake Note: Pt is here today for hospital follow up visit. Allergies GALILEO Inhibitors Allergy (Severe, Verified 04/11/24 00:43) Cough Medication List - Last Reconciled 04/11/24 by Shyla Fregoso MD acetaminophen ER (Tylenol Arthritis Pain) 325 mg PO DAILY ascorbic acid (vitamin C) 250 mg PO DAILY atorvastatin 40 mg PO DAILY 90 days [id number] 600 mg calcium- 800 unit-50 mg (Caltrate 600-D Plus Minerals) 1 tab PO BID ferrous sulfate (FeroSul) 325 mg PO DAILY furosemide (Lasix) 20 mg PO DAILY metoprolol tartrate 25 mg PO BID pantoprazole DR (Protonix) 40 mg PO DAILY torsemide 5 mg PO QAM valsartan 20 mg (1/2 x 40 mg) PO DAILY warfarin 2 mg PO DAILY Tobacco use date assessed: 03/27/24 Fall risk assessment: 1 Fall in past year Last assessed Fall Risk: 03/27/24 Dental Screening Dental Screen Date: 10/13/23 Did you have a dental visit in the last 12 months?: No Did you have a dental problem in the last 6 months where you did not have access to dental care?: No Was dental information given to patient?: Patient declined HPI HDF ~ Post hospital discharge FU HPI Details 79-year-old lady with chronic kidney disease stage 3, osteoarthritis, lumbar degenerative disc disease, impaired fasting glucose, osteopenia, dyslipidemia, hypertension, here today for hospital discharge follow-up. She initially presented to the ER complaining of syncope, hit her head and sustained a big scalp laceration . She had an echocardiogram, which showed LV dysfunction with apical thrombus, and a bifascicular block on the EKG. She was transferred to [facility], had cardiac catheterization which showed severe 95% mid LAD stenosis as well as proximal 70-80% heavily calcified stenosis as well as subtotally occluded right coronary artery with heavy calcification. . Given lack of symptoms, she was treated medically and dual-chamber ICD pacemaker placed. Underwent rehab, after discharge. She states feeling a little weak, but otherwise no other complaints. Denies chest discomfort , shortness of breath, lightheadedness, nausea, She has some swelling in her lower extremity, more than usual. She is currently on Coumadin, to be followed at the Coumadin clinic and supposed to be switched to NOAC due to ease of use, but patient states that the medication was very expensive and is staying on Coumadin. [facility] Medical History (Updated 03/27/24 @ 11:02 by Shyla Fregoso MD) History of syncope Cardiac defibrillator in place Anemia in chronic kidney disease Localized swelling of both lower legs Sinus bradycardia Bifascicular block Intermittent lightheadedness Bilateral knee pain Impaired fasting glucose Osteopenia of left femoral neck Colonoscopy refused Postmenopausal Osteoarthritis Dyslipidemia Essential hypertension Chronic kidney disease (CKD) Surgical History History of cataract surgery Family History Father HTN (hypertension) Mother CKD (chronic kidney disease) HTN (hypertension) Heart disease Family/Other Hailey's thyroiditis Social History Household Members: None Housing: House Alcohol intake: never Patient Tobacco Use Status: Former Tobacco user Years Smoked: 35 yrs e-Cigarette/Vaping Use: Never Used Advance Directives Date on File: 08/19/22 service: No Current occupational status: retired Cognitive needs: No Hearing needs: No Vision needs: Yes Questionnaire PHQ-9 Over the last 2 weeks, how often have you been bothered by any of the following problems? 1. Little interest or pleasure in doing things: not at all 2. Feeling down, depressed, or hopeless: not at all 3. Trouble falling or staying asleep, or sleeping too much: several days 4. Feeling tired or having little energy: several days 5. Poor appetite or overeating: not at all 6. Feeling bad about yourself - or that you are a failure or have let yourself or your family down: not at all 7. Trouble concentrating on things, such as reading the newspaper or watching television: not at all 8. Moving or speaking so slowly that other people could have noticed. Or the opposite - being so fidgety or restless that you have been moving around a lot more than usual: not at all 9. Thoughts that you would be better off or of hurting yourself in some way: not at all Total score: 2 Depression Screening Interpretation: Negative Depression Screening Done: Yes 42694 - PHQ-9 Billing: Yes Source: Developed by Drs. Hoang Marie, [place] Pete, Jed Strauss and colleagues, with an educational esteban from [employer]. Thrive Questionnaire Date Thrive assessed: 02/22/24 AUDIT C Alcohol Use Questionnaire (AUDIT-C) 1. How often do you have a drink containing alcohol?: Never 3. How often do you have six or more drinks on one occasion?: Never Total Score: 0 KIANA-7 AMB Questionnaire KIANA-7 Date KIANA - 7 assessed: 03/27/24 Feeling nervous, anxious, or on edge: 0 = Not at all Not being able to stop or control worryin = Not at all Worrying too much about different things: 0 = Not at all Trouble relaxin = Not at all Being so restless that it is hard to sit still: 0 = Not at all Becoming easily annoyed or irritable: 0 = Not at all Feeling afraid as if something awful might happen: 0 = Not at all Total KIANA-7 score (0-4 normal; 5-9 mild; 10-14 moderate; 15-21 severe): 0 Source: Developed by Drs. Hoang Marie, [place] Pete, Jed Strauss and colleagues, with an educational esteban from [employer]. KIANA-7 Assessment Billing KIANA-7 Assessment Tool: KIANA-7 Assessment 89364 Review of Systems Const Reports as per HPI, Denies chills, Denies fever(s), Denies frequent falls, Denies headache(s) and Denies weight gain Eyes Denies change in vision ENT Denies dizziness and Denies headache(s) Card Denies chest pain, Denies lightheadedness, Denies palpitations, Denies dyspnea and Denies dyspnea on exertion Resp Denies cough, Denies dyspnea and Denies dyspnea on exertion GI Denies abdominal pain, Denies hematochezia, Denies change in bowel habits, Denies change in stool character and Denies heartburn Reports no additional complaints Musc Denies abnormal gait, Denies muscle weakness, Denies numbness, Denies radiating pain into limb and Denies tingling Skin/Breast Denies rash Neuro Denies abnormal gait, Denies dizziness, Denies frequent falls, Denies headache(s), Denies numbness and Denies tingling Psych Reports no additional complaints Endo Denies palpitations Victorino/Lymph Denies easy bleeding and Denies easy bruising Aller/Immun Reports no additional complaints Physical exam (Primary Care) Vital Signs: Last Vital Signs Pulse 65 03/27/24 09:52 BP 96/64 03/27/24 09:52 Pulse Ox 97 03/27/24 09:52 Oxygen Delivery Method Room Air 03/27/24 09:52 BMI result Body Mass Index 36.9 Tobacco/Smoking Status: Tobacco use Status Tobacco use date assessed 03/27/24 03/27/24 10:11 Patient Tobacco Use Status Former Tobacco user 03/27/24 09:52 e-Cigarette/Vaping Use Never Used 03/27/24 09:52 Depression Screening Interpretation: Negative Thrive Assessment: Date of Thrive Assessment Date Thrive assessed 02/22/24 03/27/24 09:52 Const General: comfortable, no acute distress and alert Nutritional Appearance: obese Orientation/consciousness: patient oriented x3 Limitations: ambulation with cane HENMT Ears: external ears normal, TM's normal bilaterally and EAC's normal General nose exam: Normal external nose present and No nasal discharge present Mouth: Normal oral and palatal mucosa present, oropharynx normal and moist mucous membranes Eyes General: appearance normal, both eyes and all related structures Pupils: Equal, round and reactive pupils present Neck Neck: Yes full ROM, Yes no lymphadenopathy and Yes supple Resp Effort & Inspection: normal respiratory effort and able to speak in complete sentences Auscultation: clear to auscultation bilaterally Cardio Rhythm: regular rhythm Heart sounds: S1 normal heart sound present and S2 normal heart sound present GI Palpation (GI): Soft to palpation, nontender and no masses Auscultation: normal bowel sounds Skin General skin exam: no rashes or lesions noted Neuro General: patient oriented x3, tone normal, moves all extremities, Normal light touch and pain sensation and no focal motor deficits Cranial nerves: Yes CN's II-XII intact bilaterally and Yes Equal, round and reactive pupils present Cognition (Neuro): normal cognition Gait exam (Neuro): Assisted gait required Gait assisted method: walking stick Extrem Other: 2+ nonpitting edema in lower extremities the left more than the right, no calf tenderness, no erythema or increased warmth in lower extremity General: Yes full ROM, Yes no joint enlargement and Yes no calf tenderness Psych Appearance: grossly normal and well kempt Mental Status: mental status grossly normal Speech and movement: Normal speech and movement present Affect: normal affect Attitude: cooperative Thought process: Normal thought process present Assessment and Plan Assessment & Plan (1) Anemia in chronic kidney disease: Code(s): N18.9 - Chronic kidney disease, unspecified; D63.1 - Anemia in chronic kidney disease Qualifiers: Chronic kidney disease stage: stage 3 (moderate) Chronic kidney disease stage 3 subtype: stage 3a (GFR 45-59) Qualified Code(s): N18.31 - Chronic kidney disease, stage 3a; D63.1 - Anemia in chronic kidney disease Plan: had significant blood loss from head laceration. Ordered CBC and iron profile level, currently on ferrous sulfate supplements (2) Elevated brain natriuretic peptide (BNP) level: Code(s): R79.89 - Other specified abnormal findings of blood chemistry (3) Apical mural thrombus following OH: Code(s): I23.6 - Thrombosis of atrium, auricular appendage, 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 Plan: A followed by cardiology, currently on Coumadin , referred to [facility]madin Clinic (4) CKD (chronic kidney disease) stage 3, GFR 30-59 ml/min: Comment: ff'd by Dr Foote Code(s): N18.30 - Chronic kidney disease, stage 3 unspecified Qualifiers: Chronic kidney disease stage 3 subtype: stage 3a (GFR 45-59) Qualified Code(s): N18.31 - Chronic kidney disease, stage 3a Plan: Followed by Nephrology, currently on valsartan (5) Ischemic cardiomyopathy: Code(s): I25.5 - Ischemic cardiomyopathy Plan: Followed by cardiology currently on valsartan, furosemide and metoprolol tartrate, repeat echocardiogram ordered by Cardiology Orders: Orders Vitamin D 25-OH Total 03/27/24 N18.31 - Chronic kidney disease, stage 3a, D63.1 - Anemia in chronic kidney disease, R53.83 - Other fatigue, R79.89 - Other specified abnormal findings of blood chemistry IRON PROFILE 03/27/24 N18.31 - Chronic kidney disease, stage 3a, D63.1 - Anemia in chronic kidney disease, R53.83 - Other fatigue, R79.89 - Other specified abnormal findings of blood chemistry Vitamin B12 and Folate 03/27/24 N18.31 - Chronic kidney disease, stage 3a, D63.1 - Anemia in chronic kidney disease, R53.83 - Other fatigue, R79.89 - Other specified abnormal findings of blood chemistry Coding Level of Care Code Est Pt Level 4 (41618) Complex EM visit Add On G2211 Diagnoses Anemia in stage 3a chronic kidney disease N18.31; D63.1 Chronic kidney disease stage: stage 3 (moderate) Chronic kidney disease stage 3 subtype: stage 3a (GFR 45-59) Elevated brain natriuretic peptide (BNP) level R79.89 Apical mural thrombus following OH I23.6 Stage 3a chronic kidney disease N18.31 Chronic kidney disease stage 3 subtype: stage 3a (GFR 45-59) Ischemic cardiomyopathy I25.5 Additional Codes KIANA-7 Assessment Billing - KIANA-7 Assessment Tool: KIANA-7 Assessment 64609 ([id number])
== END 2024-03-27 13:23 | disposition home or self-care (01) ==
PROVIDERS: PCP Internal Medicine; Visit Provider Internal Medicine
DX: N18.31 Chronic kidney disease, stage 3a (principal); I23.6 Thrombosis of atrium, auricular appendage, 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; D63.1 Anemia in chronic kidney disease; R79.89 Other specified abnormal findings of blood chemistry; I25.5 Ischemic cardiomyopathy
CPT/HCPCS: 99214; G2211

== ENCOUNTER 2024-03-27 10:52 | Outpatient (REF) | payer MEDICARE, SELFPAY ==
[2024-03-27 13:57] LABS: Anion Gap 13 (12-20); Blood Urea Nitrogen 36 mg/dL (9-16); Calcium 9.7 mg/dL (8.4-10.2); Carbon Dioxide 26 mmol/L (22-29); Chloride 106 mmol/L (96-108); Estimated Glomerular Filt Rate 26; Iron 78 mcg/dL (30-160); Percent Iron Saturation 33 % (15-50); Potassium 4.7 mmol/L (3.3-5.1); Sodium 140 mmol/L (135-145); Total Iron Binding Capacity 234 mcg/dL (228-428); Unsaturated Iron Binding 156 ug/dL
[2024-03-27 14:22] LABS: Folate 4.9 ng/mL (> or = 4.0); Vitamin B12 423 pg/mL (200-900)
[2024-03-27 14:29] LABS: B Type Natriuretic Peptide 1706 pg/mL (<100)
== END 2024-03-27 10:53 | disposition home or self-care (01) ==
LOC: HO.HMGCLDS 10:52
PROVIDERS: Internal Medicine Nephrology; PCP Internal Medicine; Visit Provider Internal Medicine
DX: R22.43 Localized swelling, mass and lump, lower limb, bilateral (principal); I12.9 Hypertensive chronic kidney disease with stage 1 through stage 4 chronic kidney disease, or unspecified chronic kidney disease; N18.31 Chronic kidney disease, stage 3a; D63.1 Anemia in chronic kidney disease; R53.83 Other fatigue; R79.89 Other specified abnormal findings of blood chemistry
CPT/HCPCS: 36415; 80051; 82306; 82310; 82565; 82607; 82746; 83540; 83880; 84520

== ENCOUNTER → 2024-04-09 23:59 | Outpatient (BNV) | payer MEDICARE, SELFPAY ==
--- NOTE | 2024-04-13 21:21 | MHC.OFFVIS ---
Intake Visit Reasons: Remote ICD device ck-[facility] Allergies GALILEO Inhibitors Allergy (Severe, Verified 04/11/24 00:43) Cough PFSH Medical History (Updated 03/27/24 @ 11:02 by Shyla Fregoso MD) History of syncope Cardiac defibrillator in place Anemia in chronic kidney disease Localized swelling of both lower legs Sinus bradycardia Bifascicular block Intermittent lightheadedness Bilateral knee pain Impaired fasting glucose Osteopenia of left femoral neck Colonoscopy refused Postmenopausal Osteoarthritis Dyslipidemia Essential hypertension Chronic kidney disease (CKD) Surgical History History of cataract surgery Family History Father HTN (hypertension) Mother CKD (chronic kidney disease) HTN (hypertension) Heart disease Family/Other Hailey's thyroiditis Social History Household Members: None Housing: House Alcohol intake: never Patient Tobacco Use Status: Former Tobacco user Years Smoked: 35 yrs e-Cigarette/Vaping Use: Never Used Advance Directives Date on File: 08/19/22 service: No Current occupational status: retired Cognitive needs: No Hearing needs: No Vision needs: Yes Office Procedures Cardiac Device Check Cardiac Device Check Details: ICD Good battery FIRER DIESEL LOCOMOTIVE <1% No VT/VF Episode of atrial tachycardia. 06266-GG Cardiac Device Check, multi lead implantable defibrillator Procedure code (CPT) selection complete Assessment & Plan Assessment & Plan (1) Ischemic cardiomyopathy: Code(s): I25.5 - Ischemic cardiomyopathy Category: Medical Plan Orders: Orders AMB Cardiac Device Follow-up 04/09/24 I25.5 - Ischemic cardiomyopathy Medications: Discontinued torsemide Discontinued Reason: Patient no longer taking 5 mg PO QAM 14 tabs 0RF valsartan Discontinued Reason: Patient no longer taking 20 mg (1/2 x 40 mg) PO DAILY 60 tabs 3RF I23.6 - Thrombosis of atrium, auricular appendage, 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 Coding Level of Care Code Procedure Only Diagnoses Ischemic cardiomyopathy I25.5 CPT Codes Cardiac Device Check - Cardiac Device 6: 05283-DP Cardiac Device Check, multi lead implantable defibrillator ([id number])
== END ==
PROVIDERS: PCP Internal Medicine; Visit Provider Internal Medicine Cardiovascular Disease
DX: I25.5 Ischemic cardiomyopathy (principal); Z95.810 Presence of automatic (implantable) cardiac defibrillator
CPT/HCPCS: 93295

== ENCOUNTER → 2024-04-10 12:38 | Outpatient (REF) | payer MEDICARE, SELFPAY ==
--- NOTE | 2024-04-10 12:42 | CA_ITS ---
Transthoracic Echocardiogram Patient (Last, First, Middle): [place] Cline D Gender: Female Date of : 1945 Age: 79 Procedure Date: 04/10/2024 Procedure Type: Transthoracic Echocardiogram Location: OP Height: 152.4 cm Weight: 87.09 kg BSA: 1.83 m2 Heart Rate: bpm BP: 115 / 70 mmHg Chronic Care Nurse: YAZMIN Referring MD: Jason Her MD Sound Technician Supervisor: Jason Her MD Symptoms: I23.6 - Thrombosis of atrium, auricular appendage, and ventricle as curr... Study Quality: Adequate w contrast Conclusions: - Normal left ventricular cavity size. There is mildly increased left ventricular wall thickness. The left ventricular systolic function is severely decreased. The visually estimated ejection fraction is between 20-25%. - There is a small apical thrombus in the left ventricle. - Normal right ventricular cavity size and systolic function. There is a pacemaker wire seen in the right ventricle. - The left atrium is severely dilated. - Significantly elevated right atrial pressure. Severe pulmonary hypertension is present. - The inferior vena cava is dilated and does not collapse with inspiration. Findings Procedure Information Contrast agent, definity, is being given per protocol without apparent complications. Left Ventricle Normal left ventricular cavity size. There is mildly increased left ventricular wall thickness. The left ventricular systolic function is severely decreased. The visually estimated ejection fraction is between 20 25%. There is evidence of regional wall motion abnormalities. Diastolic function is indeterminate on the basis of available data. There is a small apical thrombus in the left ventricle. Wall Motion Rest Echo Findings The mid anterior and apical lateral segments are hypokinetic. The apex, apical anterior, apical septum, and mid anteroseptal segments are akinetic. Right Ventricle Normal right ventricular cavity size and systolic function. There is a pacemaker wire seen in the right ventricle. Atria The left atrium is severely dilated. Aortic Valve There is a normal trileaflet aortic valve. There is mild thickening of the aortic valve. There is no aortic valve stenosis. There is no aortic valve regurgitation. Mitral Valve Likely normal mitral valve structure and function. There is trace mitral valve regurgitation. There is no mitral valve stenosis. Pulmonic Valve The pulmonic valve is likely normal. Tricuspid Valve Normal tricuspid valve structure. There is mild tricuspid valve regurgitation. The right ventricular systolic pressure is 70 mmHg. Significantly elevated right atrial pressure. Severe pulmonary hypertension is present. Venous The inferior vena cava is dilated and does not collapse with inspiration. Pericardium/Pleural There is no evidence of pericardial effusion. Prior Study Comparison Changes noted compared to prior study dated: 02/22/2024. Severe LA dilation, severe pulm HTN and severely elevated RA pressure. Measurements 2D Linear Measurements IVSd: 1.26 0.6-0.9/0.6-1.0 cm LVIDd: 4.95 3.9-5.3/4.2-5.9 cm LVIDd Index: 2.70 2.4-3.2/2.2-3.1 cm/m2 LVIDs: 4.39 2.0-3.6 cm LVPWd: 1.13 0.7-1.1 cm LA Diam: 4.50 2.7-3.8/3.0-4.0 cm LAIDs Index: 2.46 1.5-2.3 cm/m2 LV Mass: 285.13 67-162/88-224 g LV Mass Index: 155.81 43-95/49-115 g/m2 LVOT Diam: 2.00 3.0+(-)1.3 cm 2D Systolic Function EF 4C: 27.70 >55% EF 2C: 12.90 >55% EF BiP: 22.80 >55% Mitral Valve MV Pk E: 1.07 MV PK A: 0.87 MV Decel Time: 154.00 E/A: 1.20 E'Lateral: 5.00 E'Medial: 4.79 E/E' Med: 22.30 E/E' Lat: 21.40 PHT: 45.00 MVA PHT: 4.89 Decel Wilcox: 6.94 Aortic Valve AoV Pk Raul: 1.48 AoV Mn Raul: 1.05 AoV VTI: 0.35 AoV Pk Grad: 9.00 Aov Mn Grad: 5.00 HELADIO Cont.VTI: 1.95 LVOT LVOT Pk Raul: 0.89 LVOT Mn Raul: 0.58 LVOT VTI: 0.22 LVOT Pk Grad: 3.00 LVOT Mn Grad: 2.00 LVOT Diam: 2.00 LVOT Area: 3.14 Diastolic Function MV Pk E: 1.07 MV Pk A: 0.87 E/A: 1.20 E'Medial: 4.79 E/E' Med: 22.30 E' Laterial: 5.00 E/E' Lat: 21.40 Right Ventricle TAPSE (mm): 23.40 TVS' Ralu: 11.00 Tricuspid Valve TR Pk Raul: 3.70 TR Pk Grad: 55.00 RA Press: 15.00 RVSP: 70.00 Great Vessels Aorta Sinus of Valsalva: 3.06 2.0-3.5 cm Ao Asc: 3.20 2.1-3.4 cm Updated in Other Vendor System with Status of Final Jason Her MD electronically signed on 04/10/2024 9:44:48 PM with status of Final
== END ==
LOC: HO.CARD 12:38
PROVIDERS: PCP Internal Medicine; Visit Provider Internal Medicine Cardiovascular Disease
DX: I23.6 Thrombosis of atrium, auricular appendage, 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 (principal)
CPT/HCPCS: 93306; Q9957

== ENCOUNTER → 2024-04-10 12:42 | Outpatient (BNV) | payer MEDICARE, SELFPAY | PROVIDERS: PCP Internal Medicine; Visit Provider Internal Medicine Cardiovascular Disease | DX: I36.1 Nonrheumatic tricuspid (valve) insufficiency (principal); I23.6 Thrombosis of atrium, auricular appendage, 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 | CPT/HCPCS: 93306 ==

== ENCOUNTER 2024-04-15 14:48 | Outpatient (AMB) | payer MEDICARE, SELFPAY ==
[2024-04-15 15:14] VITALS: BP 130/64; PULSE 68; BMI 37.9
--- NOTE | 2024-04-15 15:14 | MHC.OFFVIS ---
Vital Signs 04/15/24 15:14 Height 5 ft Weight 194 lb BMI 37.9 BP 130/64 Blood Pressure Location Rt brachial Position Sitting Pulse 68 Pulse Source Pulse Oximeter Intake Visit Reasons: 6 wk w/ [facility] ck Culture Manager Required: No Accompanied by: Self / Same As Patient Allergies GALILEO Inhibitors Allergy (Severe, Verified 04/11/24 00:43) Cough Medication List - Last Reconciled 04/15/24 by Jason Her MD acetaminophen ER (Tylenol Arthritis Pain) 325 mg PO DAILY ascorbic acid (vitamin C) 250 mg PO DAILY atorvastatin 40 mg PO DAILY 90 days [id number] 600 mg calcium- 800 unit-50 mg (Caltrate 600-D Plus Minerals) 1 tab PO BID cholecalciferol (vitamin D3) 50 mcg PO DAILY furosemide (Lasix) 40 mg PO DAILY mecobalamin (vitamin B12) 1,000 mcg PO DAILY metoprolol tartrate 25 mg PO BID valsartan 20 mg (1/2 x 40 mg) PO DAILY warfarin 2 mg PO DAILY HPI Comments Details: 79-year-old female who is here for follow-up. She was seen while she was inpatient in 03/04/2024 at [facility]. She came with syncope and hit her head. She had a big scalp laceration which was staged and subsequent echocardiography showed LV dysfunction with apical thrombus. She did have bifascicular block on the EKG. She was transferred to [facility] after discussion underwent cardiac catheterization which showed severe right coronary artery stenosis with heavy calcification with [id number] collaterals as well as mid LAD 95% stenosis with ART 2 flow as well as heavy calcification and calcific nodule proximally. Given lack of symptoms we decided to treat her medically and referred her for pacemaker placement given bifascicular block and syncope. She had a dual-chamber Clark, MRI conditional ICD placement. She was subsequently discharged home. 03/18/24: She is here for follow-up. She was in rehab after hospital admission and came home 1 week ago. She is saying she is feeling little weak but otherwise no other complaints. No chest discomfort shortness of breath. No orthopnea or PND. She has peripheral edema which the daughter is saying has been chronic. Interestingly she is on Coumadin currently and is following with Coumadin clinic. Our plan was to give her NOAC due to ease of use but she was started on Coumadin at [facility]. 04/15/2024: She is here for follow-up. On 04/10/2024 she had repeat echocardiography performed which is showing EF of 20 25% with small apical thrombus in the left ventricle, significantly elevated right atrial and pulmonary pressures were also noted. She was advised to increase the Lasix to 40 mg daily from 20 mg. She returns today and has significant peripheral edema. She has been sleeping in recliner chronically so it is hard to know whether she has any orthopnea or PND episodes but she has noticed that her weight has been going ups consistently over the last week. She has gained approximately 3-5 lb. She is denying any chest discomfort or shortness of breath but is not active in day-to-day life. [facility] Medical History (Updated 04/15/24 @ 15:19 by Hannah Mendez, [facility]) Pacemaker History of syncope Cardiac defibrillator in place Anemia in chronic kidney disease Localized swelling of both lower legs Sinus bradycardia Bifascicular block Intermittent lightheadedness Bilateral knee pain Impaired fasting glucose Osteopenia of left femoral neck Colonoscopy refused Postmenopausal Osteoarthritis Dyslipidemia Essential hypertension Chronic kidney disease (CKD) Surgical History History of cataract surgery Family History Father HTN (hypertension) Mother CKD (chronic kidney disease) HTN (hypertension) Heart disease Family/Other Hailey's thyroiditis Social History Household Members: None Housing: House Alcohol intake: never Patient Tobacco Use Status: Former Tobacco user Years Smoked: 35 yrs e-Cigarette/Vaping Use: Never Used Advance Directives Date on File: 08/19/22 service: No Current occupational status: retired Cognitive needs: No Hearing needs: No Vision needs: Yes Review of Systems Const Denies chills, Denies fatigue, Denies fever(s), Denies frequent falls, Denies weakness, Denies weight gain and Denies weight loss ENT Denies dizziness Card Denies chest pain, Denies leg edema, Denies lightheadedness, Denies palpitations, Denies dyspnea and Denies dyspnea on exertion Resp Denies cough, Denies dyspnea and Denies dyspnea on exertion GI Denies hematochezia Musc Denies abnormal gait, Denies muscle weakness, Denies numbness, Denies radiating pain into limb and Denies tingling Neuro Denies abnormal gait, Denies dizziness, Denies frequent falls, Denies numbness, Denies tingling and Denies weakness Endo Denies fatigue and Denies palpitations Physical Exam Vital Signs: BMI result Body Mass Index 37.9 GENERAL APPEARANCE: in no acute distress, pleasant. NECK: no carotid bruit, + jugular venous distention. SKIN: Bruising around the eyes and forehead. HEART: Holosystolic murmur at the apex and left sternal border, regular rate and rhythm. LUNGS: clear to auscultation bilaterally. ABDOMEN: soft, nontender. EXTREMITIES: 2+ edema. PERIPHERAL PULSES: equal. NEUROLOGIC: No gross deficits, AAO X 3 Office Procedures Cardiac Device Check Cardiac Device Check Details: [employer] ICD, DDD mode. Battery life 7.28.6 years. One episode of acute mode switching lasting 12 seconds. Likely due to atrial fibrillation. 20715-TE Cardiac Device Check, dual lead implantable defibrillator Procedure code (CPT) selection complete Assessment & Plan Assessment & Plan (1) Ischemic cardiomyopathy: Code(s): I25.5 - Ischemic cardiomyopathy Category: Medical Plan 79-year-old female who recently presented to [facility] with syncope and was found to have apical thrombus on echocardiography with LAD territory wall motion abnormality. She underwent cardiac catheterization which showed subtotally occluded LAD with heavy calcification in the proximal LAD as well as severe mid right coronary artery stenosis. She is quite frail and deconditioned and does not do any significant activities. She also unfortunately fell last night after tripping and hit her face and has significant bruising on her forehead and around her eyes. Echocardiography has shown that her PA pressures are significantly elevated with significantly elevated right atrial pressure. She has peripheral edema which is worsening and she has been gaining weight. I have advised him to increase the Lasix to 40 mg twice a day. She will check her weight over the next few days and then reach out to us if she has not losing weight. In that instance I would recommend increasing the Lasix to 80 mg twice a day. I have also discussed with the patient and her daughter that we may have to revascularize her heart to hope for some recovery in the future. Given her frailty and deconditioning I feel that surgery may not be a good option for her from postop recovery viewpoint. I have discussed with them that as she improves with diuretics we will discuss further whether we should consider taking her back for cardiac catheterization to treat the LAD. She will see us back next week. Thank you for allowing me to participate in the care of your patient. Please feel free to contact me if you have any questions. Orders: Orders AMB Cardiac Device Follow-up Today I25.5 - Ischemic cardiomyopathy Medications: New furosemide (Lasix) 40 mg PO BID 180 tabs 3RF edema Coding Level of Care Code Est Pt Level 5 (15514) Diagnoses Ischemic cardiomyopathy I25.5 CPT Codes Cardiac Device Check - Cardiac Device 5: 63830-UZ Cardiac Device Check, dual lead implantable defibrillator ([id number])
== END 2024-04-15 15:53 | disposition home or self-care (01) ==
PROVIDERS: PCP Internal Medicine; Visit Provider Internal Medicine Cardiovascular Disease
DX: I25.5 Ischemic cardiomyopathy (principal)
CPT/HCPCS: 93283; 99214

== ENCOUNTER → 2024-04-15 14:48 | Outpatient (BNVA) | payer MEDICARE, SELFPAY | PROVIDERS: PCP Internal Medicine; Visit Provider Internal Medicine Cardiovascular Disease | DX: I25.5 Ischemic cardiomyopathy (principal); R60.9 Edema, unspecified; Z45.02 Encounter for adjustment and management of automatic implantable cardiac defibrillator; Z79.899 Other long term (current) drug therapy | CPT/HCPCS: 99212 ==

== ENCOUNTER 2024-05-01 14:42 | Outpatient (REF) | payer MEDICARE, SELFPAY ==
[2024-05-01 16:28] LABS: MANUAL DIFF FLAG NO
[2024-05-01 17:31] LABS: Basophils Absolute Auto 0.1 X10*3/uL (0.0-0.2); Eosinophils Absolute Auto 0.3 X10*3/uL (0.0-0.4); Eosinophils Percent Auto 2.6 % (0-4); Hematocrit 34.6 % (37.0-47.0); Hemoglobin 11.1 g/dl (12.0-16.0); Imm Gran Abs Auto 0.04 X10*3/uL (0.00-0.03); Imm Gran Pct Auto 0.4 % (0.0-0.4); Lymphocytes Absolute Auto 1.1 X10*3/uL (1.2-4.9); Lymphocytes Percent Auto 11.3 % (20-40); Mean Corpuscular HGB Conc 32.1 g/dl (31.0-35.0); Mean Corpuscular Hemoglobin 32.3 pg (27.0-33.0); Mean Corpuscular Volume 100.6 fL (80.0-98.0); Mean Platelet Volume 10.2 fL (9.4-12.3); Monocytes Absolute Auto 1.1 X10*3/uL (0.1-1.2); Monocytes Percent Auto 10.6 % (2-11); Neutrophils Absolute Auto 7.3 x10*3/uL (2.0-8.3); Neutrophils Percent Auto 74.1 % (45-73); Platelet Count 247 X10*3/uL (160-400); Red Blood Count 3.44 X10*6/uL (4.20-5.50); Red Cell Distribution Width 13.2 % (11.0-16.0); White Blood Count 9.9 X10*3/uL (4.8-10.8)
[2024-05-01 17:34] LABS: Hematocrit 34.5 % (37.0-47.0); Hemoglobin 11.2 g/dl (12.0-16.0); Mean Corpuscular HGB Conc 32.5 g/dl (31.0-35.0); Mean Corpuscular Hemoglobin 32.7 pg (27.0-33.0); Mean Corpuscular Volume 100.6 fL (80.0-98.0); Platelet Count 245 X10*3/uL (160-400); Red Blood Count 3.43 X10*6/uL (4.20-5.50); Red Cell Distribution Width 13.2 % (11.0-16.0); White Blood Count 9.9 X10*3/uL (4.8-10.8)
[2024-05-01 18:12] LABS: B Type Natriuretic Peptide 873 pg/mL (<100)
[2024-05-01 18:17] LABS: Anion Gap 18 (12-20); Anion Gap 20 (12-20); Blood Urea Nitrogen 48 mg/dL (9-16); Blood Urea Nitrogen 49 mg/dL (9-16); Calcium 10.3 mg/dL (8.4-10.2); Carbon Dioxide 22 mmol/L (22-29); Carbon Dioxide 24 mmol/L (22-29); Chloride 99 mmol/L (96-108); Estimated Glomerular Filt Rate 28; Glucose Random 103 mg/dL (60-115); Iron 41 mcg/dL (30-160); Percent Iron Saturation 17 % (15-50); Potassium 3.9 mmol/L (3.3-5.1); Potassium 4.3 mmol/L (3.3-5.1); Sodium 137 mmol/L (135-145); Total Iron Binding Capacity 235 mcg/dL (228-428); Total Iron Binding Capacity 236 mcg/dL (228-428); Unsaturated Iron Binding 194 ug/dL; Unsaturated Iron Binding 195 ug/dL
[2024-05-01 18:27] LABS: Ferritin 299 ng/mL (10-250)
[2024-05-02 17:18] LABS: Transferrin 217 mg/dL (188-341)
== END 2024-05-01 14:43 | disposition home or self-care (01) ==
LOC: HO.LAB 14:42
PROVIDERS: Internal Medicine Nephrology; PCP Internal Medicine; Visit Provider Internal Medicine Cardiovascular Disease
DX: I25.5 Ischemic cardiomyopathy (principal); I12.9 Hypertensive chronic kidney disease with stage 1 through stage 4 chronic kidney disease, or unspecified chronic kidney disease; N18.31 Chronic kidney disease, stage 3a; D63.1 Anemia in chronic kidney disease; R22.43 Localized swelling, mass and lump, lower limb, bilateral; I23.6 Thrombosis of atrium, auricular appendage, 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; I45.2 Bifascicular block
CPT/HCPCS: 36415; 80048; 80051; 82565; 82728; 83540; 83880; 84466; 84520; 85025; 85027; 99212

== ENCOUNTER 2024-05-01 14:42 | Outpatient (AMB) | payer MEDICARE, SELFPAY ==
[2024-05-01 15:01] VITALS: BP 124/70; PULSE 71; BMI 35.2
--- NOTE | 2024-05-01 15:01 | MHC.OFFVIS ---
Vital Signs 05/01/24 15:01 Height 5 ft Weight 180 lb BMI 35.2 BP 124/70 Blood Pressure Location Rt brachial Position Sitting Pulse 71 Pulse Source Pulse Oximeter Intake Visit Reasons: 2 wk f/up per KM Intake Note: 2wk f/up pt is feeling fine. Trimming Machine Set Up Operator Required: No Accompanied by: Daughter Allergies GALILEO Inhibitors Allergy (Severe, Verified 04/11/24 00:43) Cough Medication List - Last Reconciled 05/01/24 by Jason eHr MD acetaminophen ER (Tylenol Arthritis Pain) 325 mg PO DAILY ascorbic acid (vitamin C) 250 mg PO DAILY atorvastatin 40 mg PO DAILY 90 days [id number] 600 mg calcium- 800 unit-50 mg (Caltrate 600-D Plus Minerals) 1 tab PO BID cholecalciferol (vitamin D3) 50 mcg PO DAILY furosemide (Lasix) 40 mg PO BID mecobalamin (vitamin B12) 1,000 mcg PO DAILY metoprolol tartrate 25 mg PO BID warfarin 2 mg PO DAILY HPI Comments Details: 79-year-old female who is here for follow-up. She was seen while she was inpatient in 03/04/2024 at [facility]. She came with syncope and hit her head. She had a big scalp laceration which was staged and subsequent echocardiography showed LV dysfunction with apical thrombus. She did have bifascicular block on the EKG. She was transferred to [facility] after discussion underwent cardiac catheterization which showed severe right coronary artery stenosis with heavy calcification with [id number]-vy-[id number] collaterals as well as mid LAD 95% stenosis with ART 2 flow as well as heavy calcification and calcific nodule proximally. Given lack of symptoms we decided to treat her medically and referred her for pacemaker placement given bifascicular block and syncope. She had a dual-chamber Clark, MRI conditional ICD placement. She was subsequently discharged home. 03/18/24: She is here for follow-up. She was in rehab after hospital admission and came home 1 week ago. She is saying she is feeling little weak but otherwise no other complaints. No chest discomfort shortness of breath. No orthopnea or PND. She has peripheral edema which the daughter is saying has been chronic. Interestingly she is on Coumadin currently and is following with Coumadin clinic. Our plan was to give her NOAC due to ease of use but she was started on Coumadin at [facility]. 04/15/2024: She is here for follow-up. On 04/10/2024 she had repeat echocardiography performed which is showing EF of 20 25% with small apical thrombus in the left ventricle, significantly elevated right atrial and pulmonary pressures were also noted. She was advised to increase the Lasix to 40 mg daily from 20 mg. She returns today and has significant peripheral edema. She has been sleeping in recliner chronically so it is hard to know whether she has any orthopnea or PND episodes but she has noticed that her weight has been going ups consistently over the last week. She has gained approximately 3-5 lb. She is denying any chest discomfort or shortness of breath but is not active in day-to-day life. 05/01/24: She is here for follow-up. She was started on higher dose Lasix 40 mg twice a day because she has significant peripheral edema and shortness of breath on last visit. She has done significantly well since then and appears to be more or less euvolemic at this point. She has some chronic lower extremity edema. Blood pressure is 140/70 today. I am starting her on losartan 25 mg daily. Denying any chest discomfort as before. She continues to have significant bruising on her face and forehead hematoma from mechanical fall a few weeks ago. [facility] Medical History (Updated 05/01/24 @ 15:31 by Jason Her MD) Pacemaker History of syncope Cardiac defibrillator in place Anemia in chronic kidney disease Localized swelling of both lower legs Sinus bradycardia Bifascicular block Intermittent lightheadedness Bilateral knee pain Impaired fasting glucose Osteopenia of left femoral neck Colonoscopy refused Postmenopausal Osteoarthritis Dyslipidemia Essential hypertension Chronic kidney disease (CKD) Surgical History History of cataract surgery Family History Father HTN (hypertension) Mother CKD (chronic kidney disease) HTN (hypertension) Heart disease Family/Other Hailey's thyroiditis Social History Household Members: None Housing: House Alcohol intake: never Patient Tobacco Use Status: Former Tobacco user Years Smoked: 35 yrs e-Cigarette/Vaping Use: Never Used Advance Directives Date on File: 08/19/22 service: No Current occupational status: retired Cognitive needs: No Hearing needs: No Vision needs: Yes Review of Systems Const Denies chills, Denies fatigue, Denies fever(s), Denies frequent falls, Denies weakness, Denies weight gain and Denies weight loss ENT Denies dizziness Card Denies chest pain, Denies leg edema, Denies lightheadedness, Denies palpitations, Denies dyspnea and Denies dyspnea on exertion Resp Denies cough, Denies dyspnea and Denies dyspnea on exertion GI Denies hematochezia Musc Denies abnormal gait, Denies muscle weakness, Denies numbness, Denies radiating pain into limb and Denies tingling Neuro Denies abnormal gait, Denies dizziness, Denies frequent falls, Denies numbness, Denies tingling and Denies weakness Endo Denies fatigue and Denies palpitations Physical Exam Vital Signs: Last Vital Signs Pulse 71 05/01/24 15:01 BP 124/70 05/01/24 15:01 BMI result Body Mass Index 35.2 GENERAL APPEARANCE: in no acute distress, pleasant. NECK: no carotid bruit,no jugular venous distention. SKIN: Bruising over the forehead, hematoma right side of forehead. HEART: No murmur/gallop, regular rate and rhythm. LUNGS: clear to auscultation bilaterally. ABDOMEN: soft, nontender. EXTREMITIES: 1+ edema. PERIPHERAL PULSES: equal. NEUROLOGIC: No gross deficits, AAO X 3 Assessment & Plan Assessment & Plan (1) Apical mural thrombus following DE: Code(s): I23.6 - Thrombosis of atrium, auricular appendage, 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 Category: Medical (2) Ischemic cardiomyopathy: Code(s): I25.5 - Ischemic cardiomyopathy Category: Medical (3) Bifascicular block: Code(s): I45.2 - Bifascicular block Category: Medical (4) CKD (chronic kidney disease) stage 3, GFR 30-59 ml/min: Code(s): N18.30 - Chronic kidney disease, stage 3 unspecified Category: Medical Qualifiers: Chronic kidney disease stage 3 subtype: stage 3a (GFR 45-59) Qualified Code(s): N18.31 - Chronic kidney disease, stage 3a Plan Very pleasant 79-year-old female here for follow-up. She recently was at [facility] with syncope and was transferred to [facility] for cardiac catheterization. Her echocardiogram showed apical thrombus with LAD territory wall motion abnormality and severe LV dysfunction. She has a bifascicular block and given the fact that she had a bifascicular block and syncope she had an indication for pacing and underwent device placement. Cardiac catheterization shows severe LAD and RCA stenosis with heavy calcification. Given fact that she had apical thrombus with significant wall motion abnormality or initial plan was to do viability study but due to delays during hospitalization she underwent device placement by EP and was discharged home. Subsequently was seen in the office and appeared quite decompensated and Lasix was doubled. She returns now and is looking much better. I think she can continue Lasix at the same dose of 40 mg twice a day. Blood pressure is 140/70 manually-add losartan 25 mg daily. She is on metoprolol tartrate 25 mg twice a day. If she tolerates this dose well then we will change her to Toprol-XL 50 on next visit. Adding empagliflozin 10 mg daily. The daughter will check whether this is something affordable for them long-term. If they can not afford then the stroke can not be continued going forward. I discussed with the patient and daughter about revascularization and she wishes to try medications to see if she improves. She does not have any anginal symptoms. Overall she is responding to treatment. We will continue discussions in the future. I am also concerned about falls and risk of bleeding as she already fell while on Coumadin and if she got revascularized she will be also on Plavix induration to Coumadin. We will check some blood workup today including iron panel to see if she is anemic due to iron-deficiency because she lost lot of blood from scalp injury when she originally presented with syncope. Thank you for allowing me to participate in the care of your patient. Please feel free to contact me if you have any questions. Orders: Orders Basic Metabolic Panel Today I25.5 - Ischemic cardiomyopathy B Type Natriuretic Peptide Today I25.5 - Ischemic cardiomyopathy Transferrin Today I25.5 - Ischemic cardiomyopathy Complete Blood Count no Diff Today I25.5 - Ischemic cardiomyopathy IRON PROFILE Today I25.5 - Ischemic cardiomyopathy Ferritin Today I25.5 - Ischemic cardiomyopathy Medications: New losartan 25 mg PO DAILY 60 tabs 4RF I25.5 - Ischemic cardiomyopathy empagliflozin 10 mg PO DAILY 30 tabs 6RF I25.5 - Ischemic cardiomyopathy Coding Level of Care Code Est Pt Level 5 (05089) Diagnoses Apical mural thrombus following DE I23.6 Ischemic cardiomyopathy I25.5 Bifascicular block I45.2 Stage 3a chronic kidney disease N18.31 Chronic kidney disease stage 3 subtype: stage 3a (GFR 45-59)
== END 2024-05-01 15:35 | disposition home or self-care (01) ==
PROVIDERS: PCP Internal Medicine; Visit Provider Internal Medicine Cardiovascular Disease
DX: I23.6 Thrombosis of atrium, auricular appendage, 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 (principal); I25.5 Ischemic cardiomyopathy; I45.2 Bifascicular block; N18.31 Chronic kidney disease, stage 3a
CPT/HCPCS: 99214

== ENCOUNTER 2024-05-16 09:31 | Outpatient (AMB) | payer MEDICARE, SELFPAY ==
[2024-05-16 09:44] VITALS: BP 120/60; PULSE 64; O2SAT 98; BMI 34.6
--- NOTE | 2024-05-16 09:44 | HO.NEPHOV_ITS ---
Vital Signs 05/16/24 09:44 Height 5 ft Weight 177 lb 2 oz BMI 34.6 BP 120/60 Blood Pressure Location Lt brachial Position Sitting Pulse 64 Pulse Source Pulse Oximeter Pulse Oximetry (%) 98 Oxygen Delivery Method Room Air Intake Visit Reasons: 3 MO FU / Conf Voice Systems Engineer Required: No Accompanied by: Daughter Allergies GALILEO Inhibitors Allergy (Severe, Verified 05/16/24 09:46) Cough HPI Comments Details: I had the privilege of seeing [place] in follow-up for chronic kidney disease and hypertension. She has been having disabling osteoarthritis in all her joints. She had intra-articular injections in her shoulders as well as hips. She has seen reading intervention teacher, orthopedics daigle and pain management. She has taken some meloxicam but has been having some swelling in her lower extremities after that. Her primary care physician also felt that her serum creatinine showed some fluctuations with meloxicam and hence it was discontinued. She takes Tylenol with no benefit. She did not find tramadol helping her. she is feeling that the pain is affecting quality of her life. She had mild pedal edema on amlodipine which improved on lasix. She denies any chest pain, shortness of breath, nausea, vomiting or diarrhea. She sleeps in a recliner. She feels she has overactive bladder. She has no hematuria, fever, suprapubic pain, chills or rigors. She recently had a fall and further work up including echocardiography showed LV dysfunction with apical thrombus. She did have bifascicular block on the EKG. She was transferred to [facility] after discussion underwent cardiac catheterization which showed severe right coronary artery stenosis with heavy calcification with phdo-ol-kxcuc collaterals as well as mid LAD 95% stenosis with ART 2 flow as well as heavy calcification and calcific nodule proximally. Given lack of symptoms we decided to treat her medically and referred her for pacemaker placement given bifascicular block and syncope. She had a dual-chamber Clark, MRI conditional ICD placement. Her diuretics has been increased and was initiated on losartan by cardiology. [facility] Medical History (Updated 05/16/24 @ 10:21 by Emil Foote MD) Pacemaker History of syncope Cardiac defibrillator in place Anemia in chronic kidney disease Localized swelling of both lower legs Sinus bradycardia Bifascicular block Intermittent lightheadedness Bilateral knee pain Impaired fasting glucose Osteopenia of left femoral neck Colonoscopy refused Postmenopausal Osteoarthritis Dyslipidemia Essential hypertension Chronic kidney disease (CKD) Surgical History History of cataract surgery Family History Father HTN (hypertension) Mother CKD (chronic kidney disease) HTN (hypertension) Heart disease Family/Other Hailey's thyroiditis Social History Household Members: None Housing: House Alcohol intake: never Patient Tobacco Use Status: Former Tobacco user Years Smoked: 35 yrs e-Cigarette/Vaping Use: Never Used Advance Directives Date on File: 08/19/22 service: No Current occupational status: retired Cognitive needs: No Hearing needs: No Vision needs: Yes Review of Systems Const All systems reviewed & are unremarkable except as noted in HPI and below Physical Exam Const General: comfortable and no acute distress Orientation/consciousness: patient oriented x3 HEENT Head: Yes normocephalic Mouth: Normal oral and palatal mucosa present Eyes EOM: EOMs intact bilaterally Neck Neck: Yes supple Resp Auscultation: diminished lung sounds Cardio Jugular venous distension: no JVD Rate: regular rate GI Palpation (GI): Soft to palpation Auscultation: normal bowel sounds General: Yes no CVA tenderness Back/Spine/Pelvis Back: no CVA tenderness Skin General skin exam: no rashes or lesions noted Neuro General: patient oriented x3 and moves all extremities Results Reviewed Nephrology Results: Hgb 11.1 g/dl (12.0-16.0) L 05/01/24 WBC 9.9 X10*3/uL (4.8-10.8) 05/01/24 Plt Count 247 X10*3/uL (160-400) 05/01/24 Sodium 137 mmol/L (135-145) 05/01/24 Potassium 4.3 mmol/L (3.3-5.1) 05/01/24 Chloride 99 mmol/L (96-108) 05/01/24 Carbon Dioxide 24 mmol/L (22-29) 05/01/24 BUN 49 mg/dL (9-16) H 05/01/24 Creatinine 1.76 mg/dL (0.5-1.4) H 05/01/24 Calcium 10.3 mg/dL (8.4-10.2) H 05/01/24 Assessment & Plan Assessment & Plan (1) CKD (chronic kidney disease) stage 3, GFR 30-59 ml/min: Code(s): N18.30 - Chronic kidney disease, stage 3 unspecified Category: Medical Qualifiers: Chronic kidney disease stage 3 subtype: stage 3a (GFR 45-59) Qualified Code(s): N18.31 - Chronic kidney disease, stage 3a (2) STEPHEN (acute kidney injury): Code(s): N17.9 - Acute kidney failure, unspecified Category: Medical (3) Ischemic cardiomyopathy: Code(s): I25.5 - Ischemic cardiomyopathy Category: Medical (4) Hypercalcemia: Code(s): E83.52 - Hypercalcemia Category: Medical Plan [place] has stage III CKD for long time. 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 She can continue current medications but we need to consider switching metoprolol to carvedilol , addition of Imdur and Farxiga. We need to watch her renal function given introduction of ARB. Her blood pressure is well controlled. She avoids nonsteroidal anti-inflammatory medications for over 10 years. She is off meloxicam now. Her blood pressure is currently at goal. She should be on a low- sodium diet and should remain well hydrated. All questions were answered. I also stopped her Vitamin D given hypercalcemia. Time spent for retrieveing data, encounter, documentation 43 mts. Follow-up given Orders: Orders Electrolytes Today E83.52 - Hypercalcemia, I25.5 - Ischemic cardiomyopathy, N17.9 - Acute kidney failure, unspecified, N18.31 - Chronic kidney disease, stage 3a Calcium Today E83.52 - Hypercalcemia, I25.5 - Ischemic cardiomyopathy, N17.9 - Acute kidney failure, unspecified, N18.31 - Chronic kidney disease, stage 3a Creatinine Today E83.52 - Hypercalcemia, I25.5 - Ischemic cardiomyopathy, N17.9 - Acute kidney failure, unspecified, N18.31 - Chronic kidney disease, stage 3a Blood Urea Nitrogen Today E83.52 - Hypercalcemia, I25.5 - Ischemic cardiomyopathy, N17.9 - Acute kidney failure, unspecified, N18.31 - Chronic kidney disease, stage 3a Coding Level of Care Code Est Pt Level 5 (11902) Diagnoses Stage 3a chronic kidney disease N18.31 Chronic kidney disease stage 3 subtype: stage 3a (GFR 45-59) STEPHEN (acute kidney injury) N17.9 Ischemic cardiomyopathy I25.5 Hypercalcemia E83.52
== END 2024-05-16 10:32 | disposition home or self-care (01) ==
PROVIDERS: PCP Internal Medicine; Visit Provider Internal Medicine Nephrology
DX: N17.9 Acute kidney failure, unspecified (principal); N18.31 Chronic kidney disease, stage 3a; I25.5 Ischemic cardiomyopathy; E83.52 Hypercalcemia
CPT/HCPCS: 99215

== ENCOUNTER → 2024-05-16 09:31 | Outpatient (BNVA) | payer MEDICARE, SELFPAY | PROVIDERS: PCP Internal Medicine; Visit Provider Internal Medicine Nephrology | DX: N18.31 Chronic kidney disease, stage 3a (principal); N17.9 Acute kidney failure, unspecified; E83.52 Hypercalcemia; I25.5 Ischemic cardiomyopathy | CPT/HCPCS: 99212 ==

== ENCOUNTER 2024-06-18 09:21 | Outpatient (REF) | payer MEDICARE, SELFPAY ==
[2024-06-18 10:07] LABS: MANUAL DIFF FLAG NO
[2024-06-18 10:17] LABS: Basophils Absolute Auto 0.1 X10*3/uL (0.0-0.2); Basophils Percent Auto 1.2 % (0-2); Eosinophils Absolute Auto 0.4 X10*3/uL (0.0-0.4); Eosinophils Percent Auto 3.8 % (0-4); Hematocrit 35.8 % (37.0-47.0); Hemoglobin 11.4 g/dl (12.0-16.0); Imm Gran Abs Auto 0.04 X10*3/uL (0.00-0.03); Imm Gran Pct Auto 0.4 % (0.0-0.4); Lymphocytes Absolute Auto 1.4 X10*3/uL (1.2-4.9); Lymphocytes Percent Auto 13.6 % (20-40); Mean Corpuscular HGB Conc 31.8 g/dl (31.0-35.0); Mean Corpuscular Hemoglobin 31.7 pg (27.0-33.0); Mean Corpuscular Volume 99.4 fL (80.0-98.0); Mean Platelet Volume 9.7 fL (9.4-12.3); Monocytes Absolute Auto 1.1 X10*3/uL (0.1-1.2); Monocytes Percent Auto 10.4 % (2-11); Neutrophils Absolute Auto 7.2 x10*3/uL (2.0-8.3); Neutrophils Percent Auto 70.6 % (45-73); Platelet Count 261 X10*3/uL (160-400); Red Cell Distribution Width 13.2 % (11.0-16.0); White Blood Count 10.2 X10*3/uL (4.8-10.8)
[2024-06-18 10:26] LABS: Estimated Average Glucose 123 mg/dL; Hemoglobin A1c % 5.9 % (<6.0)
[2024-06-18 10:30] LABS: B Type Natriuretic Peptide 403 pg/mL (<100)
[2024-06-18 10:32] LABS: Alanine Aminotransferase 20 U/L (0-31); Anion Gap 14 (12-20); Aspartate Amino Transferase 24 U/L (5-31); Blood Urea Nitrogen 44 mg/dL (9-16); Carbon Dioxide 22 mmol/L (22-29); Chloride 108 mmol/L (96-108); Cholesterol 164 mg/dL (<200); Estimated Glomerular Filt Rate 22; Glucose Fasting 98 mg/dL (60-99); HDL Cholesterol 51 mg/dL (>40); LDL Cholesterol Calculated 90 mg/dL (<100); Potassium 4.8 mmol/L (3.3-5.1); Sodium 139 mmol/L (135-145); Triglycerides 118 mg/dL (<150)
[2024-06-19 13:43] LABS: Calcium, Ionized 5.3 mg/dL (4.7-5.5)
== END 2024-06-18 09:22 | disposition home or self-care (01) ==
LOC: HO.HMGCLDS 09:21
PROVIDERS: PCP Internal Medicine; Visit Provider Internal Medicine Nephrology
DX: I12.9 Hypertensive chronic kidney disease with stage 1 through stage 4 chronic kidney disease, or unspecified chronic kidney disease (principal); N18.31 Chronic kidney disease, stage 3a; R73.01 Impaired fasting glucose; E83.52 Hypercalcemia; R79.89 Other specified abnormal findings of blood chemistry; I25.5 Ischemic cardiomyopathy; I23.6 Thrombosis of atrium, auricular appendage, 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; D63.1 Anemia in chronic kidney disease; M85.852 Other specified disorders of bone density and structure, left thigh; E78.5 Hyperlipidemia, unspecified
CPT/HCPCS: 36415; 80048; 80061; 82330; 83036; 83880; 84450; 84460; 85025

== ENCOUNTER 2024-06-25 14:33 | Outpatient (AMB) | payer MEDICARE, SELFPAY ==
[2024-06-25 15:07] VITALS: BP 110/62; PULSE 81; O2SAT 97; BMI 33.6
--- NOTE | 2024-06-25 15:07 | HO.NEPHOV ---
Vital Signs 06/25/24 15:07 Height 5 ft Weight 172 lb BMI 33.6 BP 110/62 Blood Pressure Location Lt brachial Position Sitting Pulse 81 Pulse Source Pulse Oximeter Pulse Oximetry (%) 97 Oxygen Delivery Method Room Air Intake Visit Reasons: 5 wks follow up- Conf Library Services Coordinator Required: No Accompanied by: Daughter Allergies GALILEO Inhibitors Allergy (Severe, Verified 06/25/24 15:09) Cough Medication List - Last Reconciled 06/25/24 by Emil Foote MD acetaminophen ER (Tylenol Arthritis Pain) 325 mg PO DAILY ascorbic acid (vitamin C) 250 mg PO DAILY atorvastatin 40 mg PO DAILY 90 days carvedilol 6.25 mg PO BID 90 days cholecalciferol (vitamin D3) 50 mcg PO DAILY cyanocobalamin (vitamin B-12) 1,000 mcg PO DAILY furosemide (Lasix) 40 mg PO BID metoprolol tartrate 25 mg PO DAILY warfarin 2 mg PO DAILY HPI Comments Details: I had the privilege of seeing [place] in follow-up for chronic kidney disease and hypertension. She had mild pedal edema on amlodipine which improved on lasix. She denies any chest pain, shortness of breath, nausea, vomiting or diarrhea. She feels she has overactive bladder. She has no hematuria, fever, suprapubic pain, chills or rigors. She was recently found to have LV dysfunction with apical thrombus. She did have bifascicular block on the EKG. She recently underwent cardiac catheterization which showed severe right coronary artery stenosis with heavy calcification with [id number] collaterals as well as mid LAD 95% stenosis with ART 2 flow as well as heavy calcification and calcific nodule proximally. She had pacemaker placement given bifascicular block and syncope. She had a dual-chamber Clark, MRI conditional ICD placement. Her diuretics were increased and was initiated on losartan by cardiology. Her serum creatinine has gone up significantly. She has been having orthostatic symptoms and reduced metoprolol tartarte to once a day( by herself) [facility] Medical History (Updated 05/16/24 @ 10:21 by Emil Foote MD) Pacemaker History of syncope Cardiac defibrillator in place Anemia in chronic kidney disease Localized swelling of both lower legs Sinus bradycardia Bifascicular block Intermittent lightheadedness Bilateral knee pain Impaired fasting glucose Osteopenia of left femoral neck Colonoscopy refused Postmenopausal Osteoarthritis Dyslipidemia Essential hypertension Chronic kidney disease (CKD) Surgical History History of cataract surgery Family History Father HTN (hypertension) Mother CKD (chronic kidney disease) HTN (hypertension) Heart disease Family/Other Hailey's thyroiditis Social History Household Members: None Housing: House Alcohol intake: never Patient Tobacco Use Status: Former Tobacco user Years Smoked: 35 yrs e-Cigarette/Vaping Use: Never Used Advance Directives Date on File: 08/19/22 service: No Current occupational status: retired Cognitive needs: No Hearing needs: No Vision needs: Yes Review of Systems Const All systems reviewed & are unremarkable except as noted in HPI and below Physical Exam Vital Signs: Last Vital Signs Pulse 81 06/25/24 15:07 BP 110/62 06/25/24 15:07 Pulse Ox 97 06/25/24 15:07 Oxygen Delivery Method Room Air 06/25/24 15:07 BMI result Body Mass Index 33.6 Const General: comfortable and no acute distress Orientation/consciousness: patient oriented x3 HEENT Head: Yes normocephalic Mouth: Normal oral and palatal mucosa present Eyes EOM: EOMs intact bilaterally Neck Neck: Yes supple Resp Auscultation: clear to auscultation bilaterally Cardio Jugular venous distension: no JVD Rate: regular rate GI Palpation (GI): Soft to palpation Auscultation: normal bowel sounds General: Yes no CVA tenderness Back/Spine/Pelvis Back: no CVA tenderness Skin General skin exam: no rashes or lesions noted Neuro General: patient oriented x3 and moves all extremities Extrem General: Yes no pedal edema Results Reviewed Nephrology Results: Hgb 11.4 g/dl (12.0-16.0) L 06/18/24 WBC 10.2 X10*3/uL (4.8-10.8) 06/18/24 Plt Count 261 X10*3/uL (160-400) 06/18/24 Sodium 139 mmol/L (135-145) 06/18/24 Potassium 4.8 mmol/L (3.3-5.1) 06/18/24 Chloride 108 mmol/L (96-108) 06/18/24 Carbon Dioxide 22 mmol/L (22-29) 06/18/24 BUN 44 mg/dL (9-16) H 06/18/24 Creatinine 2.17 mg/dL (0.5-1.4) H 06/18/24 Calcium 10.0 mg/dL (8.4-10.2) 06/18/24 Assessment & Plan Assessment & Plan (1) CKD (chronic kidney disease) stage 3, GFR 30-59 ml/min: Code(s): N18.30 - Chronic kidney disease, stage 3 unspecified Category: Medical Qualifiers: Chronic kidney disease stage 3 subtype: stage 3a (GFR 45-59) Qualified Code(s): N18.31 - Chronic kidney disease, stage 3a (2) STEPHEN (acute kidney injury): Code(s): N17.9 - Acute kidney failure, unspecified Category: Medical (3) Essential hypertension: Code(s): I10 - Essential (primary) hypertension Category: Medical Plan [place] has stage III CKD for long time. She had STEPHEN due to tubular injury. I switched her metoprolol to carvedilol and discontinued her ARB given STEPHEN. We likely need to add Imdur and Farxiga. Her blood pressure is well controlled. She avoids nonsteroidal anti-inflammatory medications for over 10 years. She is off meloxicam now. Her blood pressure is currently at goal. She should be on a low-sodium diet and should remain well hydrated. All questions were answered. Her Vitamin D is on hold given hypercalcemia. Follow-up given Orders: Orders Creatinine Today N17.9 - Acute kidney failure, unspecified, N18.31 - Chronic kidney disease, stage 3a Blood Urea Nitrogen Today N17.9 - Acute kidney failure, unspecified, N18.31 - Chronic kidney disease, stage 3a Electrolytes Today N17.9 - Acute kidney failure, unspecified, N18.31 - Chronic kidney disease, stage 3a Medications: New carvedilol must administer with a meal/food 6.25 mg PO BID 90 days 180 tabs 3RF Discontinued losartan Discontinued Reason: Doctor's Order 25 mg PO DAILY 60 tabs 4RF I25.5 - Ischemic cardiomyopathy metoprolol tartrate Discontinued Reason: Doctor's Order 25 mg PO DAILY Coding Level of Care Code Est Pt Level 4 (19899) Diagnoses Stage 3a chronic kidney disease N18.31 Chronic kidney disease stage 3 subtype: stage 3a (GFR 45-59) STEPHEN (acute kidney injury) N17.9 Essential hypertension I10
== END 2024-06-25 15:46 | disposition home or self-care (01) ==
PROVIDERS: PCP Internal Medicine; Visit Provider Internal Medicine Nephrology
DX: N18.31 Chronic kidney disease, stage 3a (principal); N17.9 Acute kidney failure, unspecified; I10 Essential (primary) hypertension
CPT/HCPCS: 99214

== ENCOUNTER → 2024-06-25 14:33 | Outpatient (BNVA) | payer MEDICARE, SELFPAY | PROVIDERS: PCP Internal Medicine; Visit Provider Internal Medicine Nephrology | DX: I12.9 Hypertensive chronic kidney disease with stage 1 through stage 4 chronic kidney disease, or unspecified chronic kidney disease (principal); N18.31 Chronic kidney disease, stage 3a; N17.9 Acute kidney failure, unspecified | CPT/HCPCS: 99212 ==

== ENCOUNTER 2024-07-01 14:31 | Outpatient (AMB) | payer MEDICARE, SELFPAY ==
[2024-07-01 14:48] VITALS: BP 138/61
--- NOTE | 2024-07-01 14:48 | MHC.OFFVIS ---
Vital Signs 07/01/24 14:48 07/01/24 15:00 Height 5 ft BP 138/61 87/50 L Blood Pressure Location Rt brachial Rt brachial Position Sitting Standing Pulse 74 Intake Visit Reasons: per DC Injection Molder Required: No Talent Acquisition Partner: Talent Acquisition Partner Present Allergies GALILEO Inhibitors Allergy (Severe, Verified 07/01/24 14:52) Cough Medication List - Last Reconciled 07/01/24 by Yazmin Churchill NP-C acetaminophen ER (Tylenol Arthritis Pain) 325 mg PO DAILY ascorbic acid (vitamin C) 250 mg PO DAILY atorvastatin 40 mg PO DAILY 90 days cholecalciferol (vitamin D3) 50 mcg PO DAILY cyanocobalamin (vitamin B-12) 1,000 mcg PO DAILY furosemide (Lasix) 40 mg PO BID warfarin 2 mg PO DAILY HPI HPI per DC: Details: [place] is a 79-year-old female past medical history of hyperlipidemia, hypertension who had admission with syncope with scalp laceration 02/2024. Her EKG showed bifascicular block. She ultimately underwent a dual-chamber ICD placement. Her echocardiogram showed LV dysfunction with apical thrombus, lad territory wall motion abnormality. Cardiac catheterization was done showing severe LAD and RCA stenosis with heavy calcification. She was put on anticoagulation. She initially was on metoprolol then on last visit losartan was added. Today she reports that she was recently seen by Nephrology and her losartan was stopped. Her metoprolol was changed to carvedilol. Last she took the 2 doses of carvedilol and had a fall that evening. Since then she has had 4 more falls. The last 1 was witnessed by her daughter and she states patient was not fully responsive. All of her falls have occurred with her in an upright position. She will notice a feeling of lightheadedness prior to the episodes. She has not had any lightheadedness when she is sitting or laying down. She has been taking the Lasix 40 mg b.i.d. for the last 6 weeks. She is drinking about 30 oz a day. No chest discomfort at rest or with activity. No shortness of breath, PND, orthopnea. She has multiple bruises from her falls but declines ER evaluation at this time. [facility] Medical History (Updated 07/01/24 @ 17:42 by MARISOL KhanC) Pacemaker History of syncope Cardiac defibrillator in place Anemia in chronic kidney disease Localized swelling of both lower legs Sinus bradycardia Bifascicular block Intermittent lightheadedness Bilateral knee pain Impaired fasting glucose Osteopenia of left femoral neck Colonoscopy refused Postmenopausal Osteoarthritis Dyslipidemia Essential hypertension Chronic kidney disease (CKD) Surgical History History of cataract surgery Family History Father HTN (hypertension) Mother CKD (chronic kidney disease) HTN (hypertension) Heart disease Family/Other Hailey's thyroiditis Social History Household Members: None Housing: House Alcohol intake: never Patient Tobacco Use Status: Former Tobacco user Years Smoked: 35 yrs e-Cigarette/Vaping Use: Never Used Advance Directives Date on File: 08/19/22 service: No Current occupational status: retired Cognitive needs: No Hearing needs: No Vision needs: Yes Review of Systems Const All systems reviewed & are unremarkable except as noted in HPI and below Reports frequent falls ENT Details: fainting and falling Reports dizziness Card Denies chest pain, Denies chest pain at rest, Denies chest pain with activity, Denies rapid heart rate, Denies pedal edema, Denies edema, Denies leg edema, Reports lightheadedness, Denies palpitations, Denies dyspnea, Denies dyspnea on exertion and Denies orthopnea Resp Denies cough, Denies dyspnea and Denies dyspnea on exertion GI Denies hematochezia and Denies change in stool character Musc Denies abnormal gait, Denies limited range of motion, Denies muscle cramps, Denies muscle weakness, Denies numbness, Denies radiating pain into limb, Denies stiffness and Denies tingling Neuro Denies abnormal gait, Reports dizziness, Reports frequent falls, Denies numbness and Denies tingling Endo Denies palpitations Physical Exam Vital Signs: Last Vital Signs Pulse 74 07/01/24 15:00 BP 87/50 L 07/01/24 15:00 Const General: cooperative, healthy appearing, comfortable and no acute distress Orientation/consciousness: patient oriented x3 Neck Neck: Yes normal visual inspection Resp Effort & Inspection: normal respiratory effort Auscultation: clear to auscultation bilaterally, no rales, no rhonchi and no wheezes Cardio Jugular venous distension: no JVD Rate: regular rate Rhythm: regular rhythm Heart sounds: S1 normal heart sound present, S2 normal heart sound present, no murmurs and no rubs Skin Other: bruises noted to left side of forehead, bilateral forearms and large ecchimotic area to left upper arm Neuro General: patient oriented x3 Extrem General: Yes normal to inspection, No no pedal edema and No calf tenderness Psych Appearance: grossly normal Mental Status: mental status grossly normal Speech and movement: Normal speech and movement present Office Procedures EKG Details: Today, read by me, normal sinus rhythm, bifascicular block, LVH with repolarization abnormality, rate 72, QTC 479 milliseconds [id number], Complete Assessment & Plan Assessment & Plan (1) Orthostatic hypotension: Code(s): I95.1 - Orthostatic hypotension Category: Medical Plan: Patient reports 4 falls in the last 4 days. Each follows preceded by lightheadedness. Daughter witnessed the last episode and states patient was not responsive. She has bruises on her forehead, arms and a large ecchymotic area to her left humerus region. She denies bruising on her torso or legs. At this time she refuses ER evaluation. EKG done today shows normal sinus rhythm with bifascicular block, no significant change from prior, rate 72. She is connected to remote monitoring and no ICD alerts have come through. Orthostatic vital signs checked today and she is significantly orthostatic in a standing position. Spent time reviewing this finding with her. Will have her reduce Lasix down to once daily. Increase her fluid intake by 8 oz daily. Her daughter has already stopped carvedilol and put her back on metoprolol yesterday. Continue metoprolol at present. Compression stocking use, gave her a pair from our office stock. Use much caution when going sitting to standing. Ambulate with assistive device. Sit down immediately if she feels lightheaded. Emergency care if needed for any fall with injury. She agrees to get a x-ray of her left humerus due to the large ecchymosis that is present. Cardiology follow-up in 1-2 weeks, sooner if needed. (2) Frequent falls: Code(s): R29.6 - Repeated falls Category: Medical Plan: As above (3) Apical mural thrombus following [place]: Code(s): I23.6 - Thrombosis of atrium, auricular appendage, 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 Category: Medical Plan: Noted on echocardiogram. She is on Coumadin for anticoagulation. No recent INRs in our record. This note being completed after patient left the office. Will need to reach out to her to see where her INRs are being checked. INR goal 2-3. She does have an ecchymotic area on the left side of her forehead. She declines ER evaluation. She is fully intact with no neurological deficits, no headaches or vision changes. Bleeding risk with anticoagulation use and falls reviewed with her. She says she will go to the ER if she falls again. (4) Localized swelling of both lower legs: Code(s): R22.43 - Localized swelling, mass and lump, lower limb, bilateral Category: Medical Plan: Edema has improved with the use of Lasix 40 mg b.i.d.. She now has orthostatic hypotension. Will need to cut back the diuretic at least for the time being. (5) Essential hypertension: Code(s): I10 - Essential (primary) hypertension Category: Medical Plan: As above (6) Chronic kidney disease (CKD): Comment: followed by Dr. Foote Code(s): N18.9 - Chronic kidney disease, unspecified Category: Medical Plan: Follows with Nephrology. Last labs done 06/18/2024 showed creatinine 2.17. (7) Cardiac defibrillator in place: Code(s): Z95.810 - Presence of automatic (implantable) cardiac defibrillator Category: Medical Plan: [place] ICD in place. Remote monitoring in use. No recent alerts. (8) Contusion: Code(s): T14.8XXA - Other injury of unspecified body region, initial encounter Category: Medical Plan: As above Plan Time spent on chart review, documentation, interview and assessment Orders: Orders XR humerus LT 07/01/24 R29.6 - Repeated falls, T14.8XXA - Other injury of unspecified body region, initial encounter Coding Level of Care Code Est Pt Level 4 (77379) Diagnoses Orthostatic hypotension I95.1 Frequent falls R29.6 Apical mural thrombus following [place] I23.6 Localized swelling of both lower legs R22.43 Essential hypertension I10 Chronic kidney disease (CKD) N18.[address] Z95.810 Contusion T14.8XXA CPT Codes EKG - CPT: 15593-[id number], Complete ([id number]) Time Spent (min) 30
[2024-07-01 15:00] VITALS: BP 87/50; PULSE 74
== END 2024-07-01 15:40 | disposition home or self-care (01) ==
PROVIDERS: PCP Internal Medicine; Visit Provider Nurse Practitioner Family
DX: I45.2 Bifascicular block (principal)
CPT/HCPCS: 93010; 99214

== ENCOUNTER → 2024-07-01 14:31 | Outpatient (BNVA) | payer MEDICARE, SELFPAY | PROVIDERS: PCP Internal Medicine; Visit Provider Nurse Practitioner Family | DX: I45.2 Bifascicular block (principal); I95.1 Orthostatic hypotension; R29.6 Repeated falls; I23.6 Thrombosis of atrium, auricular appendage, 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; R22.43 Localized swelling, mass and lump, lower limb, bilateral; I12.9 Hypertensive chronic kidney disease with stage 1 through stage 4 chronic kidney disease, or unspecified chronic kidney disease; N18.9 Chronic kidney disease, unspecified; Z95.810 Presence of automatic (implantable) cardiac defibrillator; Z79.01 Long term (current) use of anticoagulants | CPT/HCPCS: 93005; 99212 ==

== ENCOUNTER 2024-07-02 12:34 | Outpatient (REF) | payer MEDICARE, SELFPAY ==
--- NOTE | ~2024-07-02 | XR_ITS ---
EXAMINATION: XR HUMERUS, LEFT CLINICAL INFORMATION: T14.8XXA - Other injury of unspecified body region, initial encounter COMPARISON: Left shoulder radiographs 07/03/2023. TECHNIQUE: AP and lateral views of the left humerus. FINDINGS: No fracture, dislocation, or suspicious focal bony abnormality. Glenohumeral joint appears normally aligned. Mild arthritic spurring of the AC joint noted. Subacromial narrowing. Mild enthesopathy of the medial epicondyles noted. Soft tissues demonstrate a partially imaged pacemaker device. Soft tissues otherwise normal. XR/XR humerus LT IMPRESSION: No acute findings left humerus. Electronically signed by: Porter Epps MD 09/11/2024 01:16 PM [facility]
== END 2024-07-02 12:35 | disposition home or self-care (01) ==
LOC: HO.HMGCX 12:34
PROVIDERS: PCP Internal Medicine; Visit Provider Nurse Practitioner Family
DX: S49.92XD Unspecified injury of left shoulder and upper arm, subsequent encounter (principal); R29.6 Repeated falls
CPT/HCPCS: 73060

== ENCOUNTER → 2024-07-02 13:02 | Outpatient (BNV) | payer MEDICARE, SELFPAY | PROVIDERS: PCP Internal Medicine; Visit Provider Radiology Diagnostic Radiology | DX: M25.512 Pain in left shoulder (principal) | CPT/HCPCS: 73060 ==

== ENCOUNTER → 2024-07-09 23:59 | Outpatient (BNV) | payer MEDICARE, SELFPAY ==
--- NOTE | 2024-07-12 18:08 | MHC.OFFVIS ---
Intake Visit Reasons: Remote ICD device ck-[facility] Allergies GALILEO Inhibitors Allergy (Severe, Verified 07/01/24 14:52) Cough PFSH Medical History (Updated 07/01/24 @ 17:42 by Yazmin Churchill NP-C) Pacemaker History of syncope Cardiac defibrillator in place Anemia in chronic kidney disease Localized swelling of both lower legs Sinus bradycardia Bifascicular block Intermittent lightheadedness Bilateral knee pain Impaired fasting glucose Osteopenia of left femoral neck Colonoscopy refused Postmenopausal Osteoarthritis Dyslipidemia Essential hypertension Chronic kidney disease (CKD) Surgical History History of cataract surgery Family History Father HTN (hypertension) Mother CKD (chronic kidney disease) HTN (hypertension) Heart disease Family/Other Hailey's thyroiditis Social History Household Members: None Housing: House Alcohol intake: never Patient Tobacco Use Status: Former Tobacco user Years Smoked: 35 yrs e-Cigarette/Vaping Use: Never Used Advance Directives Date on File: 08/19/22 service: No Current occupational status: retired Cognitive needs: No Hearing needs: No Vision needs: Yes Office Procedures Cardiac Device Check Cardiac Device Check Details: ICD No new alerts Good battery. [id number] Cardiac Device Check, dual lead implantable defibrillator Procedure code (CPT) selection complete Assessment & Plan Assessment & Plan (1) Cardiac defibrillator in place: Code(s): Z95.810 - Presence of automatic (implantable) cardiac defibrillator Category: Medical Plan: Orders: Orders AMB Cardiac Device Follow-up 07/09/24 Z95.810 - Presence of automatic (implantable) cardiac defibrillator Coding Level of Care Code Procedure Only Diagnoses Cardiac defibrillator in place Z95.810 CPT Codes Cardiac Device Check - Cardiac Device 5: [id number] Cardiac Device Check, dual lead implantable defibrillator ([id number])
== END ==
PROVIDERS: PCP Internal Medicine; Visit Provider Internal Medicine Cardiovascular Disease
DX: Z45.02 Encounter for adjustment and management of automatic implantable cardiac defibrillator (principal)
CPT/HCPCS: 93295

== ENCOUNTER 2024-07-16 13:58 | Outpatient (AMB) | payer MEDICARE, SELFPAY ==
[2024-07-16 14:13] VITALS: BP 120/66; PULSE 66; BMI 33.2
--- NOTE | 2024-07-16 14:13 | MHC.OFFVIS ---
Vital Signs 07/16/24 14:13 Height 5 ft Weight 170 lb BMI 33.2 BP 120/66 Blood Pressure Location Lt brachial Position Sitting Pulse 66 Pulse Source Pulse Oximeter Intake Visit Reasons: 2 wk f/up per DC Intake Note: 2 wk f/up-pt is feeling fine. 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 Accompanied by: Daughter Allergies GALILEO Inhibitors Allergy (Severe, Verified 07/01/24 14:52) Cough Medication List - Last Reconciled 07/16/24 by ABIGAIL Khan acetaminophen ER (Tylenol Arthritis Pain) 325 mg PO DAILY ascorbic acid (vitamin C) 250 mg PO DAILY atorvastatin 40 mg PO DAILY 90 days cholecalciferol (vitamin D3) 50 mcg PO DAILY cyanocobalamin (vitamin B-12) 1,000 mcg PO DAILY furosemide (Lasix) 40 mg PO BID warfarin 2 mg PO DAILY HPI HPI 2 wk f/up per DC: Details: [place] is a 79-year-old female past medical history of hyperlipidemia, hypertension who had admission with syncope with scalp laceration 02/2024. Her EKG showed bifascicular block. She ultimately underwent a dual-chamber ICD placement. Her echocardiogram showed LV dysfunction with apical thrombus, lad territory wall motion abnormality. She was put on anticoagulation. Cardiac catheterization was done showing severe LAD and RCA stenosis with heavy calcification. She was managed medically with plan for viability assessment. She initially was on metoprolol then losartan was added. Nephrology change her metoprolol to carvedilol. She was then having issues with recurrent falls and found to be quite orthostatic on last visit. She was changed back to metoprolol and her diuretic was cut back. She now presents for follow-up. Today she reports that she has been doing much better since her last visit. She has had no recurrent falls since that time. She is using much caution going from sitting to standing and when moving around her house. She uses assistive devices. She continues on metoprolol. She has increased her fluids by 8 oz as directed and is currently drinking less than 48 oz daily. She denies issues with shortness of breath, PND, orthopnea or edema. Her prior leg edema has resolved. She is not having chest discomfort at rest or with activity. No lightheadedness, presyncope or syncope. Daughter is present. She is sitting in a wheelchair. Her prior ecchymotic areas continue to resolve. [facility] Medical History Pacemaker History of syncope Cardiac defibrillator in place Anemia in chronic kidney disease Localized swelling of both lower legs Sinus bradycardia Bifascicular block Intermittent lightheadedness Bilateral knee pain Impaired fasting glucose Osteopenia of left femoral neck Colonoscopy refused Postmenopausal Osteoarthritis Dyslipidemia Essential hypertension Chronic kidney disease (CKD) Surgical History (Updated 07/16/24 @ 16:09 by Yazmin Churchill NP-C) S/P cardiac cath History of cataract surgery Family History Father HTN (hypertension) Mother CKD (chronic kidney disease) HTN (hypertension) Heart disease Family/Other Hailey's thyroiditis Social History Household Members: None Housing: House Alcohol intake: never Patient Tobacco Use Status: Former Tobacco user Years Smoked: 35 yrs e-Cigarette/Vaping Use: Never Used Advance Directives Date on File: 08/19/22 service: No Current occupational status: retired Cognitive needs: No Hearing needs: No Vision needs: Yes Review of Systems Const All systems reviewed & are unremarkable except as noted in HPI and below Denies chills, Denies fatigue, Denies fever(s), Denies frequent falls, Denies weakness, Denies weight gain and Denies weight loss ENT Denies dizziness Card Denies chest pain, Denies leg edema, Denies lightheadedness, Denies palpitations, Denies dyspnea and Denies dyspnea on exertion Resp Denies cough, Denies dyspnea and Denies dyspnea on exertion GI Denies hematochezia Musc Reports abnormal gait (uses assistive device), Denies muscle weakness, Denies numbness, Denies radiating pain into limb and Denies tingling Neuro Reports abnormal gait (uses assistive device), Denies dizziness, Denies frequent falls, Denies numbness, Denies tingling and Denies weakness Endo Denies fatigue and Denies palpitations Physical Exam Vital Signs: Last Vital Signs Pulse 66 07/16/24 14:13 BP 120/66 07/16/24 14:13 BMI result Body Mass Index 33.2 Const Other: sitting in wheelchair General: cooperative, healthy appearing, comfortable and no acute distress Orientation/consciousness: patient oriented x3 Neck Neck: Yes normal visual inspection Resp Effort & Inspection: normal respiratory effort Auscultation: clear to auscultation bilaterally, no rales, no rhonchi and no wheezes Cardio Jugular venous distension: no JVD Rate: regular rate Rhythm: regular rhythm Heart sounds: S1 normal heart sound present, S2 normal heart sound present, no murmurs and no rubs Skin Other: resolving bruises noted to left side of forehead, bilateral forearms and large resolving ecchimotic area to left upper arm Neuro General: patient oriented x3 Extrem General: Yes normal to inspection, No no pedal edema and No calf tenderness Psych Appearance: grossly normal Mental Status: mental status grossly normal Speech and movement: Normal speech and movement present Assessment & Plan Assessment & Plan (1) Orthostatic hypotension: Code(s): I95.1 - Orthostatic hypotension Category: Medical Plan: On last visit she reported 4 falls in the previous 4 days. Each follows preceded by lightheadedness. Daughter witnessed the last episode and states patient was not responsive. She had bruises on her forehead, arms and a large ecchymotic area to her left humerus region. At that time she refused ER evaluation. EKG done last visit shows normal sinus rhythm with bifascicular block, no significant change from prior, rate 72. She is connected to remote monitoring and no ICD alerts have come through. Orthostatic vital signs confirmed significant orthostatic blood pressure drop in a standing position. Her Lasix was reduced to 40 mg daily from b.i.d.. She was instructed to increase her fluid intake by 8 oz daily. Her daughter had already stopped carvedilol and put her back on metoprolol. Today she reports much improvement in how she is feeling. She has not had recurrent falls since last visit. She is still orthostatic on exam today however asymptomatic. Blood pressure/pulse sitting 130/60, 68. Blood pressure/pulse standing, 102/54, 75. She does not want medication changes at this time. She is fearful of having recurrent leg edema. Instructed to continue to use caution when going sitting to standing. Wear compression stockings. Ambulate with assistive device. Sit down immediately if she feels lightheaded. Emergency care if needed for any fall with injury. Cardiology follow-up in 2-3 months, sooner if needed. (2) Apical mural thrombus following NC: Code(s): I23.6 - Thrombosis of atrium, auricular appendage, 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 Category: Medical Plan: Echocardiogram done on 02/22/2024 following syncope. Showed EF 20-25%, evidence of regional wall motion abnormality, LV apical thrombus present. She was put on Coumadin for anticoagulation. She checks her INRs at home and calls them in to her PCP office. She has had no visible bleeding she has ecchymotic areas that are resolving from her recent falls. No falls since last visit. INR goal 2-3. Bleeding risk with anticoagulation use and falls reviewed with her. She says she will go to the ER if she falls again. (3) S/P cardiac cath: Comment: 02/26/24 right dominant circulation, mid RCA 99% stenosis, [id number] collaterals, proximal LAD 99% stenosis with ART 2 flow, calcific nodule proximal to the area of stenosis, small size OM1 with ostial 99% stenosis. Code(s): Z98.890 - Other specified postprocedural states Category: Surgical Plan: Cardiac catheterization completed due to reduced EF and wall motion abnormality. Showing significant RCA, lad and OM1 stenosis. Catheterization notes indicate recommendation for a viability study with MRI. Unclear if this was completed at [facility] when she was admitted. Will try to obtain records. At this time she is on medical management for her CAD and ischemic cardiomyopathy. She is not on aspirin as she is on Coumadin. She is on metoprolol. Continues on Lasix 40 mg daily. She had been on losartan was stopped by Nephrology. Labs done on 06/18/2024 showed creatinine 2.17. Will check with her primary spinner frame regarding further med management and plan of care. (4) Ischemic cardiomyopathy: Code(s): I25.5 - Ischemic cardiomyopathy Category: Medical Plan: Most recent echocardiogram 04/10/2024 showing EF 20-25%, small apical thrombus in the left ventricle, left atrium severely dilated, severe pulmonary hypertension, regional wall motion abnormalities still present. She does not appear fluid overloaded on exam today. Signs and symptoms of heart failure reviewed with her. Continue Lasix. (5) Chronic kidney disease (CKD): Comment: followed by Dr. Foote Code(s): N18.9 - Chronic kidney disease, unspecified Category: Medical Plan: Follows with Nephrology. Last labs done 06/18/2024 showed creatinine 2.17. (6) Essential hypertension: Code(s): I10 - Essential (primary) hypertension Category: Medical Plan: As above (7) Cardiac defibrillator in place: Code(s): Z95.810 - Presence of automatic (implantable) cardiac defibrillator Category: Medical Plan: [place] [facility] ICD in place. Remote monitoring in use. No recent alerts. Will try to arrange for device check next visit. (8) Localized swelling of both lower legs: Code(s): R22.43 - Localized swelling, mass and lump, lower limb, bilateral Category: Medical Plan: Resolved with diuresing. Continues on Lasix once daily. (9) Contusion: Code(s): T14.8XXA - Other injury of unspecified body region, initial encounter Category: Medical Plan: As above- resolving Plan Time spent on chart review, documentation, interview and assessment Coding Level of Care Code Est Pt Level 4 (99836) Diagnoses Orthostatic hypotension I95.1 Apical mural thrombus following NC I23.6 S/P cardiac cath Z98.890 Ischemic cardiomyopathy I25.5 Chronic kidney disease (CKD) N18.9 Essential hypertension I10 Cardiac defibrillator in place Z95.810 Localized swelling of both lower legs R22.43 Contusion T14.8XXA Time Spent (min) 30
== END 2024-07-16 14:47 | disposition home or self-care (01) ==
PROVIDERS: PCP Internal Medicine; Visit Provider Nurse Practitioner Family
DX: I95.1 Orthostatic hypotension (principal); I23.6 Thrombosis of atrium, auricular appendage, 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; Z98.890 Other specified postprocedural states; I25.5 Ischemic cardiomyopathy; I12.9 Hypertensive chronic kidney disease with stage 1 through stage 4 chronic kidney disease, or unspecified chronic kidney disease; N18.9 Chronic kidney disease, unspecified; Z95.810 Presence of automatic (implantable) cardiac defibrillator; R22.43 Localized swelling, mass and lump, lower limb, bilateral; T14.8XXA Other injury of unspecified body region, initial encounter
CPT/HCPCS: 99214

== ENCOUNTER → 2024-07-16 13:58 | Outpatient (BNVA) | payer MEDICARE, SELFPAY | PROVIDERS: PCP Internal Medicine; Visit Provider Nurse Practitioner Family | DX: I95.1 Orthostatic hypotension (principal); I45.2 Bifascicular block; I23.6 Thrombosis of atrium, auricular appendage, 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; I25.5 Ischemic cardiomyopathy; I12.9 Hypertensive chronic kidney disease with stage 1 through stage 4 chronic kidney disease, or unspecified chronic kidney disease; N18.9 Chronic kidney disease, unspecified; R22.43 Localized swelling, mass and lump, lower limb, bilateral; T14.8XXA Other injury of unspecified body region, initial encounter; Z98.890 Other specified postprocedural states; Z95.810 Presence of automatic (implantable) cardiac defibrillator | CPT/HCPCS: 99212 ==

== ENCOUNTER 2024-08-06 13:51 | Outpatient (REF) | payer MEDICARE, SELFPAY ==
[2024-08-06 17:01] LABS: Anion Gap 14 (12-20); Blood Urea Nitrogen 37 mg/dL (9-16); Calcium 9.8 mg/dL (8.4-10.2); Carbon Dioxide 22 mmol/L (22-29); Chloride 110 mmol/L (96-108); Estimated Glomerular Filt Rate 26; Potassium 5.1 mmol/L (3.3-5.1); Sodium 141 mmol/L (135-145)
== END 2024-08-06 13:52 | disposition home or self-care (01) ==
LOC: HO.HMGCLDS 13:51
PROVIDERS: PCP Internal Medicine; Visit Provider Internal Medicine Nephrology
DX: E83.52 Hypercalcemia (principal); N17.9 Acute kidney failure, unspecified; I25.5 Ischemic cardiomyopathy; N18.31 Chronic kidney disease, stage 3a
CPT/HCPCS: 36415; 80051; 82310; 82565; 84520

== ENCOUNTER 2024-08-13 13:57 | Outpatient (AMB) | payer MEDICARE, SELFPAY ==
--- NOTE | 2024-08-13 14:37 | HO.NEPHOV ---
Vital Signs 08/13/24 14:39 Height 5 ft Weight 171 lb 2 oz BMI 33.4 BP 138/70 Blood Pressure Location Lt brachial Position Sitting Pulse 72 Pulse Source Pulse Oximeter Pulse Oximetry (%) 98 Oxygen Delivery Method Room Air Intake Visit Reasons: 6 wks follow up-Conf Chicken Boner Required: No Accompanied by: Daughter Allergies GALILEO Inhibitors Allergy (Severe, Verified 08/13/24 14:41) Cough HPI Comments Details: I had the privilege of seeing [place] in follow-up for chronic kidney disease and hypertension. She denies any chest pain, shortness of breath, nausea, vomiting or diarrhea. She feels she has overactive bladder. She has no hematuria, fever, suprapubic pain, chills or rigors. She was recently found to have LV dysfunction with apical thrombus. She did have bifascicular block on the EKG. She recently underwent cardiac catheterization which showed severe right coronary artery stenosis with heavy calcification with [id number] collaterals as well as mid LAD 95% stenosis with ART 2 flow as well as heavy calcification and calcific nodule proximally. She had pacemaker placement given bifascicular block and syncope. She had a dual-chamber [place], MRI conditional ICD placement. Her serum creatinine has improved. [facility] Medical History Pacemaker History of syncope Cardiac defibrillator in place Anemia in chronic kidney disease Localized swelling of both lower legs Sinus bradycardia Bifascicular block Intermittent lightheadedness Bilateral knee pain Impaired fasting glucose Osteopenia of left femoral neck Colonoscopy refused Postmenopausal Osteoarthritis Dyslipidemia Essential hypertension Chronic kidney disease (CKD) Surgical History S/P cardiac cath History of cataract surgery Family History Father HTN (hypertension) Mother CKD (chronic kidney disease) HTN (hypertension) Heart disease Family/Other Hailey's thyroiditis Social History Household Members: None Housing: House Alcohol intake: never Patient Tobacco Use Status: Former Tobacco user Years Smoked: 35 yrs e-Cigarette/Vaping Use: Never Used Advance Directives Date on File: 08/19/22 service: No Current occupational status: retired Cognitive needs: No Hearing needs: No Vision needs: Yes Review of Systems Const All systems reviewed & are unremarkable except as noted in HPI and below Physical Exam Vital Signs: Last Vital Signs Pulse 72 08/13/24 14:39 BP 138/70 08/13/24 14:39 Pulse Ox 98 08/13/24 14:39 Oxygen Delivery Method Room Air 08/13/24 14:39 BMI result Body Mass Index 33.4 Const General: comfortable and no acute distress Orientation/consciousness: patient oriented x3 HEENT Head: Yes normocephalic Mouth: Normal oral and palatal mucosa present Eyes EOM: EOMs intact bilaterally Neck Neck: Yes supple Resp Auscultation: clear to auscultation bilaterally Cardio Jugular venous distension: no JVD Rate: regular rate GI Palpation (GI): Soft to palpation Auscultation: normal bowel sounds General: Yes no CVA tenderness Back/Spine/Pelvis Back: no CVA tenderness Skin General skin exam: no rashes or lesions noted Neuro General: patient oriented x3 and moves all extremities Results Reviewed Nephrology Results: Hgb 11.4 g/dl (12.0-16.0) L 06/18/24 WBC 10.2 X10*3/uL (4.8-10.8) 06/18/24 Plt Count 261 X10*3/uL (160-400) 06/18/24 Sodium 141 mmol/L (135-145) 08/06/24 Potassium 5.1 mmol/L (3.3-5.1) 08/06/24 Chloride 110 mmol/L (96-108) H 08/06/24 Carbon Dioxide 22 mmol/L (22-29) 08/06/24 BUN 37 mg/dL (9-16) H 08/06/24 Creatinine 1.89 mg/dL (0.5-1.4) H 08/06/24 Calcium 9.8 mg/dL (8.4-10.2) 08/06/24 Assessment & Plan Assessment & Plan (1) CKD (chronic kidney disease) stage 3, GFR 30-59 ml/min: Code(s): N18.30 - Chronic kidney disease, stage 3 unspecified Category: Medical Qualifiers: Chronic kidney disease stage 3 subtype: stage 3a (GFR 45-59) Qualified Code(s): N18.31 - Chronic kidney disease, stage 3a Plan [place] has stage III CKD for long time. She had STEPHEN due to tubular injury which is improving. We likely need to add Farxiga for CKD @ next visit. Her blood pressure is well controlled. She avoids nonsteroidal anti-inflammatory medications for over 10 years. She is off meloxicam now. Her blood pressure is currently at goal. She should be on a low-sodium diet and should remain well hydrated. All questions were answered. Her Vitamin D is on hold given hypercalcemia. Follow-up given Orders: Orders Creatinine 3 Months N18.31 - Chronic kidney disease, stage 3a Electrolytes 3 Months N18.31 - Chronic kidney disease, stage 3a Blood Urea Nitrogen 3 Months N18.31 - Chronic kidney disease, stage 3a Coding Level of Care Code Est Pt Level 4 (76964) Diagnoses Stage 3a chronic kidney disease N18.31 Chronic kidney disease stage 3 subtype: stage 3a (GFR 45-59)
[2024-08-13 14:39] VITALS: BP 138/70; PULSE 72; O2SAT 98; BMI 33.4
== END 2024-08-13 15:18 | disposition home or self-care (01) ==
LOC: HO.HKAS 13:57
PROVIDERS: PCP Internal Medicine; Visit Provider Internal Medicine Nephrology
DX: N18.31 Chronic kidney disease, stage 3a (principal)
CPT/HCPCS: 99214

== ENCOUNTER → 2024-08-13 13:57 | Outpatient (BNVA) | payer MEDICARE, SELFPAY | PROVIDERS: PCP Internal Medicine; Visit Provider Internal Medicine Nephrology | DX: I12.9 Hypertensive chronic kidney disease with stage 1 through stage 4 chronic kidney disease, or unspecified chronic kidney disease (principal); N18.31 Chronic kidney disease, stage 3a | CPT/HCPCS: 99212 ==

== ENCOUNTER → 2024-10-01 13:48 | Outpatient (REF) | payer MEDICARE, SELFPAY ==
--- NOTE | 2024-10-01 13:54 | CA_ITS ---
Transthoracic Echocardiogram Patient (Last, First, Middle): [place] Cline D Gender: Female Date of : 1945 Age: 79 Procedure Date: 10/01/2024 Procedure Type: Transthoracic Echocardiogram Location: OP Height: 152.4 cm Weight: 77.57 kg BSA: 1.75 m2 Heart Rate: bpm BP: 138 / 70 mmHg Docket Specialist: YAZMIN Referring MD: Yazmin Churchill MARKETING AUTOMATION ANALYSTAlina Symptoms: I25.5 - Ischemic cardiomyopathy Study Quality: Fair, contrast ECG Rhythm: Sinus Conclusions: - The left ventricular systolic function is severely decreased. The visually estimated ejection fraction is between 20-25%. - The entire apex and mid anteroseptal segment are akinetic. - No obvious valvular pathology seen on this study. Findings Procedure Information Contrast agent, definity, is being given per protocol without apparent complications. Left Ventricle Normal left ventricular cavity size. The left ventricular systolic function is severely decreased. The visually estimated ejection fraction is between 20-25%. There is evidence of regional wall motion abnormalities. Evidence suggests grade I (mild) diastolic dysfunction. There is mild septal and mild basal asymmetric hypertrophy. Wall Motion Rest Echo Findings The entire apex and mid anteroseptal segment are akinetic. Right Ventricle Normal right ventricular cavity size. There is mildly decreased right ventricular systolic function. There is an ICD wire seen in the right ventricle. Atria The left atrium is moderately dilated. The right atrium is normal in size. Aortic Valve There is a normal trileaflet aortic valve. There is no aortic valve stenosis. There is trace (trivial) aortic valve regurgitation. Mitral Valve The mitral valve appears normal. There is mild mitral valve regurgitation. There is no mitral valve stenosis. Pulmonic Valve The pulmonic valve is likely normal. Tricuspid Valve There is mild tricuspid valve regurgitation. There is no evidence of pulmonary hypertension. Great Vessels The aorta was not well visualized. Venous The inferior vena cava is normal in size and collapses greater than 50% with inspiration. Pericardium/Pleural There is no evidence of pericardial effusion. Prior Study Comparison Changes noted compared to prior study dated: 04/10/2024. No clear evidence of LV thrombus. Recommendations, Care & Conclusions No obvious valvular pathology seen on this study. Measurements 2D Linear Measurements IVSd: 1.24 0.6-0.9/0.6-1.0 cm LVIDd: 4.18 3.9-5.3/4.2-5.9 cm LVIDd Index: 2.39 2.4-3.2/2.2-3.1 cm/m2 LVIDs: 3.78 2.0-3.6 cm LVPWd: 1.00 0.7-1.1 cm LA Diam: 2.60 2.7-3.8/3.0-4.0 cm LAIDs Index: 1.49 1.5-2.3 cm/m2 LV Mass: 199.24 67-162/88-224 g LV Mass Index: 113.85 43-95/49-115 g/m2 LVOT Diam: 2.10 3.0+(-)1.3 cm 2D Systolic Function EF 4C: 39.10 >55% EF 2C: 26.00 >55% EF BiP: 33.20 >55% Mitral Valve MV Pk E: 0.54 MV PK A: 1.37 MV Decel Time: 223.00 E/A: 0.40 E'Lateral: 5.22 E'Medial: 2.72 E/E' Med: 19.70 E/E' Lat: 10.30 PHT: 65.00 MVA PHT: 3.38 Decel Crane: 2.40 Aortic Valve AoV Pk Raul: 1.62 AoV Mn Raul: 1.03 AoV VTI: 0.36 AoV Pk Grad: 10.00 Aov Mn Grad: 5.00 HELADIO Cont.VTI: 2.39 LVOT LVOT Pk Raul: 1.03 LVOT Mn Raul: 0.73 LVOT VTI: 0.25 LVOT Pk Grad: 4.00 LVOT Mn Grad: 2.00 LVOT Diam: 2.10 LVOT Area: 3.46 Diastolic Function MV Pk E: 0.54 MV Pk A: 1.37 E/A: 0.40 E'Medial: 2.72 E/E' Med: 19.70 E' Laterial: 5.22 E/E' Lat: 10.30 Right Ventricle TAPSE (mm): 36.40 TVS' Raul: 6.53 Tricuspid Valve TR Pk Raul: 2.67 TR Pk Grad: 29.00 RA Press: 3.00 RVSP: 32.00 Updated in Other Vendor System with Status of Final Herb King MD electronically signed on 10/02/2024 4:27:47 PM with status of Final
[2024-10-01 15:26] LABS: Anion Gap 15 (12-20); Blood Urea Nitrogen 30 mg/dL (9-16); Carbon Dioxide 22 mmol/L (22-29); Chloride 107 mmol/L (96-108); Estimated Glomerular Filt Rate 27; Potassium 4.9 mmol/L (3.3-5.1); Sodium 139 mmol/L (135-145)
== END ==
LOC: HO.CARD 13:48
PROVIDERS: Absent Provider Internal Medicine Nephrology; PCP Internal Medicine; Visit Provider Nurse Practitioner Family
DX: I25.5 Ischemic cardiomyopathy (principal); E83.52 Hypercalcemia; N18.31 Chronic kidney disease, stage 3a; N17.9 Acute kidney failure, unspecified
CPT/HCPCS: 36415; 80051; 82565; 84520; 93306; Q9957

== ENCOUNTER → 2024-10-01 13:54 | Outpatient (BNV) | payer MEDICARE, SELFPAY | PROVIDERS: Absent Provider Internal Medicine Nephrology; PCP Internal Medicine; Visit Provider Internal Medicine | DX: I25.5 Ischemic cardiomyopathy (principal) | CPT/HCPCS: 93306 ==

== ENCOUNTER → 2024-10-08 23:59 | Outpatient (BNV) | payer MEDICARE, SELFPAY ==
--- NOTE | 2024-10-17 18:44 | MHC.OFFVIS ---
Intake Visit Reasons: Remote ICD device ck-[facility] Allergies GALILEO Inhibitors Allergy (Severe, Verified 08/13/24 14:41) Cough PFSH Medical History Pacemaker History of syncope Cardiac defibrillator in place Anemia in chronic kidney disease Localized swelling of both lower legs Sinus bradycardia Bifascicular block Intermittent lightheadedness Bilateral knee pain Impaired fasting glucose Osteopenia of left femoral neck Colonoscopy refused Postmenopausal Osteoarthritis Dyslipidemia Essential hypertension Chronic kidney disease (CKD) Surgical History S/P cardiac cath History of cataract surgery Family History Father HTN (hypertension) Mother CKD (chronic kidney disease) HTN (hypertension) Heart disease Family/Other Hailey's thyroiditis Social History Household Members: None Housing: House Alcohol intake: never Patient Tobacco Use Status: Former Tobacco user Years Smoked: 35 yrs e-Cigarette/Vaping Use: Never Used Advance Directives Date on File: 08/19/22 service: No Current occupational status: retired Cognitive needs: No Hearing needs: No Vision needs: Yes Office Procedures Cardiac Device Check Cardiac Device Check Details: PPM Good battery life. EDUCATION DIRECTOR<0.1% No new alerts. 10529-[id number] Cardiac Device Check, pacemaker dual lead Procedure code (CPT) selection complete Assessment & Plan Assessment & Plan (1) Ischemic cardiomyopathy: Code(s): I25.5 - Ischemic cardiomyopathy Category: Medical Plan Coding Level of Care Code Procedure Only Diagnoses Ischemic cardiomyopathy I25.5 CPT Codes Cardiac Device Check - Cardiac Device 2: 02098-FF Cardiac Device Check, pacemaker dual lead ([id number])
== END ==
PROVIDERS: PCP Internal Medicine; Visit Provider Internal Medicine Cardiovascular Disease
DX: I25.5 Ischemic cardiomyopathy (principal); Z95.810 Presence of automatic (implantable) cardiac defibrillator
CPT/HCPCS: 93295

== ENCOUNTER 2024-10-21 14:19 | Outpatient (AMB) | payer MEDICARE, SELFPAY ==
--- NOTE | 2024-10-21 14:44 | A.OFFVIS_ITS ---
Vital Signs 10/21/24 14:45 Height 5 ft BP 136/74 Blood Pressure Location Lt brachial Position Sitting Pulse 69 Pulse Source Pulse Oximeter Intake Visit Reasons: f/up w/ [facility] c[facility] Rug Sizer Required: No Director Of Premium Seat Sales: Director Of Premium Seat Sales Present Allergies GALILEO Inhibitors Allergy (Severe, Verified 10/21/24 14:45) Cough Medication List - Last Reconciled 10/21/24 by ABIGAIL Khan acetaminophen ER (Tylenol Arthritis Pain) 325 mg PO DAILY ascorbic acid (vitamin C) 250 mg PO DAILY atorvastatin 40 mg PO DAILY 90 days cyanocobalamin (vitamin B-12) 1,000 mcg PO DAILY furosemide (Lasix) 40 mg PO QAM 90 days metoprolol succinate ER 25 mg PO DAILY 30 days warfarin takes warfarin dose of 3 mg Monday, Monday, , and then 2 mg on monday, Monday , Monday and Monday HPI HPI f/up w/ [facility] ck: Details: [place] is a 79-year-old female past medical history of hyperlipidemia, hypertension who had admission with syncope with scalp laceration 02/2024. Her EKG showed bifascicular block. She ultimately underwent a dual-chamber ICD placement. Her echocardiogram showed LV dysfunction with apical thrombus, lad territory wall motion abnormality. She was put on anticoagulation. Cardiac catheterization was done showing severe LAD and RCA stenosis with heavy calcification. She was managed medically. She was put on Carvedilol and lo sartan. She was then having issues with recurrent falls and found to be quite orthostatic. Her carvedilol was changed to Metoprolol and diuretic reduced, losartan stopped. She recently had echocardiogram and now presents for follow- up. Today she reports that she has been doing generally well since her last visit in July. She does report some fatigue but no lightheadedness or any recurrent f alls. She denies any chest discomfort at rest or with activity. No concerning shortness of breath, PND, orthopnea. She does have leg edema which she says increases during the day. No presyncope, syncope. She tells me she is sitting 90% of the time. She ambulates short distances with her walker. She is not interested in aggressive interventions on her heart. She is asking to cut back her diuretic dose due to frequent urination. She continues on Coumadin and has no bleeding issues. Daughter is present. [facility] Medical History Pacemaker History of syncope Cardiac defibrillator in place Anemia in chronic kidney disease Localized swelling of both lower legs Sinus bradycardia Bifascicular block Intermittent lightheadedness Bilateral knee pain Impaired fasting glucose Osteopenia of left femoral neck Colonoscopy refused Postmenopausal Osteoarthritis Dyslipidemia Essential hypertension Chronic kidney disease (CKD) Surgical History S/P cardiac cath History of cataract surgery Family History Father HTN (hypertension) Mother CKD (chronic kidney disease) HTN (hypertension) Heart disease Family/Other Hailey's thyroiditis Social History Household Members: None Housing: House Alcohol intake: never Patient Tobacco Use Status: Former Tobacco user Years Smoked: 35 yrs e-Cigarette/Vaping Use: Never Used Advance Directives Date on File: 08/19/22 service: No Current occupational status: retired Cognitive needs: No Hearing needs: No Vision needs: Yes Review of Systems Const All systems reviewed & are unremarkable except as noted in HPI and below ENT Denies dizziness Card Denies chest pain, Denies chest pain at rest, Denies chest pain with activity, Denies rapid heart rate, Reports pedal edema, Denies edema, Reports leg edema, Denies lightheadedness, Denies palpitations, Denies dyspnea, Denies dyspnea on exertion and Denies orthopnea Resp Denies cough, Denies dyspnea and Denies dyspnea on exertion GI Denies hematochezia and Denies change in stool character Musc Denies abnormal gait, Denies limited range of motion, Denies muscle cramps, Denies muscle weakness, Denies numbness, Denies radiating pain into limb, Denies stiffness and Denies tingling Neuro Denies abnormal gait, Denies dizziness, Denies numbness and Denies tingling Endo Denies palpitations Physical Exam Vital Signs: Last Vital Signs Pulse 69 10/21/24 14:45 BP 136/74 10/21/24 14:45 Const General: cooperative, healthy appearing, comfortable and no acute distress Orientation/consciousness: patient oriented x3 Neck Neck: Yes normal visual inspection and Yes no JVD Resp Effort & Inspection: normal respiratory effort Auscultation: clear to auscultation bilaterally, no rales, no rhonchi and no wheezes Cardio Rate: regular rate Rhythm: regular rhythm Heart sounds: S1 normal heart sound present, S2 normal heart sound present, no murmurs and no rubs Neuro General: patient oriented x3 Extrem Other: LE with soft nonpitting edema bilaterally Psych Appearance: grossly normal Mental Status: mental status grossly normal Speech and movement: Normal speech and movement present Office Procedures Cardiac Device Check Cardiac Device Check Details: [facility] dual chamber ICD, DDD mode low rate 60, batter 8 years, no alerts, RA threshold 0.6V at 0.5ms, RV threshold 0.7V at 0.5ms 01508-BP Cardiac Device Check, dual lead implantable defibrillator Procedure code (CPT) selection complete Assessment & Plan Assessment & Plan (1) Apical mural thrombus following MA: Code(s): I23.6 - Thrombosis of atrium, auricular appendage, 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 Category: Medical Plan: Echocardiogram done on 02/22/2024 following syncope. Showed EF 20-25%, evidence of regional wall motion abnormality, LV apical thrombus present. She was put on Coumadin for anticoagulation. Repeat echocardiogram done 10/01/2024 shows EF 20-25%, entire apex and mid anterior septal segment akinetic, no clear evidence of LV thrombus. Since she continues to have reduced EF and wall motion abnormality she is at risk for recurrent LV thrombus. Will have her continue on Coumadin. She checks her INRs at home and calls them in to her PCP office. She has had no visible bleeding or falls since her last visit. INR goal 2-3. Bleeding risk with anticoagulation use and falls reviewed with her. She says she will go to the ER if she ever falls again. (2) S/P cardiac cath: Comment: 02/26/24 right dominant circulation, mid RCA 99% stenosis, [id number] collaterals, proximal LAD 99% stenosis with ART 2 flow, calcific nodule proximal to the area of stenosis, small size OM1 with ostial 99% stenosis. Code(s): Z98.890 - Other specified postprocedural states Category: Medical Plan: Cardiac catheterization completed due to reduced EF and wall motion abnormality as seen on echo 02/2024. Catheterization showed significant RCA, lad and OM1 stenosis. Catheterization notes indicate recommendation for a viability study with MRI. MRI was not completed. Case had been discussed with Dr. Her and plan is for conservative management at this time as she has no clear anginal symptoms. She is on medical management for her CAD and ischemic cardiomyopathy. She is not on aspirin as she is on Coumadin. She is on metoprolol. Continues on Lasix 40 mg daily. She had been on losartan was stopped by Nephrology. Labs done on 10/01/2024 showed creatinine 1.83 which is less than prior values. Cardiology follow-up in [address] Her to re-evaluate condition and discuss plan of care. (3) Ischemic cardiomyopathy: Code(s): I25.5 - Ischemic cardiomyopathy Category: Medical Plan: Most recent echocardiogram is still showing EF 20-25%, with wall motion abnormality. She does have some dependent edema in her ankles and lower legs. It is soft and nonpitting. Otherwise she does not appear fluid overloaded on exam. She asked about decreasing her Lasix however I informed her that she will likely have increased edema if she was to do so. Discussed reduction in salt, leg elevation and compression stocking use if able. Signs and symptoms of heart failure reviewed with her. Continue Lasix. (4) Coronary atherosclerosis: Code(s): I25.10 - Atherosclerotic heart disease of [place] coronary artery without angina pectoris Category: Medical Plan: As above (5) Chronic kidney disease (CKD): Comment: followed by Dr. Foote Code(s): N18.9 - Chronic kidney disease, unspecified Category: Medical Plan: Follows with Nephrology. (6) Essential hypertension: Code(s): I10 - Essential (primary) hypertension Category: Medical Plan: Controlled at this time. No med changes made. (7) Cardiac defibrillator in place: Code(s): Z95.810 - Presence of automatic (implantable) cardiac defibrillator Category: Medical Plan: [facility] ICD in place. Office interrogation today shows device is functioning normally. No recent alerts. Remote monitoring in use. Next office interroga tion due in 6 months. (8) Localized swelling of both lower legs: Code(s): R22.43 - Localized swelling, mass and lump, lower limb, bilateral Category: Medical Plan: As above Plan Time spent on chart review, documentation, interview and assessment Coding Level of Care Code Est Pt Level 4 (56086) Complex EM visit Add On G2211 Diagnoses Apical mural thrombus following MA I23.6 S/P cardiac cath Z98.890 Ischemic cardiomyopathy I25.5 Coronary atherosclerosis I25.10 Chronic kidney disease (CKD) N18.9 Essential hypertension I10 Cardiac defibrillator in place Z95.810 Localized swelling of both lower legs R22.43 CPT Codes Cardiac Device Check - Cardiac Device 5: [id number] Cardiac Device Check, dual lead implantable defibrillator ([id number]) Time Spent (min) 30
[2024-10-21 14:45] VITALS: BP 136/74; PULSE 69
== END 2024-10-21 15:26 | disposition home or self-care (01) ==
PROVIDERS: PCP Internal Medicine; Visit Provider Nurse Practitioner Family
DX: I23.6 Thrombosis of atrium, auricular appendage, 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 (principal); Z95.810 Presence of automatic (implantable) cardiac defibrillator
CPT/HCPCS: 93283

== ENCOUNTER → 2024-10-21 14:19 | Outpatient (BNVA) | payer MEDICARE, SELFPAY | PROVIDERS: PCP Internal Medicine; Visit Provider Nurse Practitioner Family | DX: Z45.02 Encounter for adjustment and management of automatic implantable cardiac defibrillator (principal); I23.6 Thrombosis of atrium, auricular appendage, 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; I25.5 Ischemic cardiomyopathy; I25.10 Atherosclerotic heart disease of native coronary artery without angina pectoris; I12.9 Hypertensive chronic kidney disease with stage 1 through stage 4 chronic kidney disease, or unspecified chronic kidney disease; N18.9 Chronic kidney disease, unspecified; R22.43 Localized swelling, mass and lump, lower limb, bilateral | CPT/HCPCS: 99212 ==

== ENCOUNTER 2024-10-30 12:22 | Outpatient (AMB) | payer MEDICARE, SELFPAY ==
[2024-10-30 12:34] VITALS: BP 122/76; PULSE 69; O2SAT 98; BMI 32.6
--- NOTE | 2024-10-30 12:34 | A.OFFPC_ITS ---
Vital Signs 10/30/24 12:34 Height 5 ft Weight 167 lb BMI 32.6 BP 122/76 Blood Pressure Location Lt brachial Position Sitting Pulse 69 Pulse Source Pulse Oximeter Pulse Oximetry (%) 98 Oxygen Delivery Method Room Air Intake Visit Reasons: Annual PE Intake Note: Pt is here today for her PE: Last mammogram 04/11/23, bone density scan 04/11/23 Allergies GALILEO Inhibitors Allergy (Severe, Verified 10/30/24 13:14) Cough Medication List - Last Reconciled 10/30/24 by Shyla Fregoso MD acetaminophen ER (Tylenol Arthritis Pain) 325 mg PO DAILY ascorbic acid (vitamin C) 250 mg PO DAILY atorvastatin 40 mg PO DAILY 90 days cyanocobalamin (vitamin B-12) 1,000 mcg PO DAILY furosemide (Lasix) 40 mg PO QAM 90 days metoprolol succinate ER 25 mg PO DAILY 30 days warfarin takes warfarin dose of 3 mg Monday, Monday, , and then 2 mg on monday, Monday , Monday and Monday Tobacco use date assessed: 10/30/24 Fall risk assessment: 2 + Falls in past year Last assessed Fall Risk: 10/30/24 Dental Screening Dental Screen Date: 10/30/24 Did you have a dental visit in the last 12 months?: No Did you have a dental problem in the last 6 months where you did not have access to dental care?: No Was dental information given to patient?: No HPI Annual PE HPI Details 79-year-old female with past medical hi story of hyperlipidemia, hypertension , hx of bifascicular block, s/p dual-chamber ICD placement, history of apical mural thrombus currently anticoagulated with warfarin and checks her PT INR via [employer]. Cardiac catheterization was done showing severe LAD and RCA stenosis with heavy calcification, managed medically,on Metoprolol and furosemide . Today she reports that she has been doing generally well since her last visit. She does report some fatigue but no lightheadedness or any recurrent falls. She denies any chest discomfort at rest or with activity, no syncopal or presyncopal attacks. No concerning shortness of breath, PND, orthopnea. She does have leg edema which she says increases during the day and improves with elevations of legs. She is most of the time sedentary, sitting 90% of the time. She ambulates short distances with her walker. She is not interested in aggressive interventions on her heart. Latest echocardiogram ordered by her family practice nurse practitioner is still showing EF 20-25%, with wall motion abnormality. She does have some dependent edema in her ankles and lower legs. She asked her family practice nurse practitioner about decreasing her Lasix but was informed her that she will likely have increased edema if she was to do so. Discussed reduction in salt, leg elevation and compression stocking use if able. Continued on current dose of Lasix. [facility] Medical History (Updated 10/30/24 @ 13:37 by Shyla Fregoso MD) Erythema intertrigo Pacemaker History of syncope Cardiac defibrillator in place Anemia in chronic kidney disease Localized swelling of both lower legs Sinus bradycardia Bifascicular block Intermittent lightheadedness Bilateral knee pain Impaired fasting glucose Osteopenia of left femoral neck Colonoscopy refused Postmenopausal Osteoarthritis Dyslipidemia Essential hypertension Chronic kidney disease (CKD) Surgical History S/P cardiac cath History of cataract surgery Family History Father HTN (hypertension) Mother CKD (chronic kidney disease) HTN (hypertension) Heart disease Family/Other Hailey's thyroiditis Social History Household Members: None Housing: House Alcohol intake: never Patient Tobacco Use Status: Former Tobacco user Years Smoked: 35 yrs e-Cigarette/Vaping Use: Never Used Advance Directives Date on File: 08/19/22 service: No Current occupational status: retired Cognitive needs: No Hearing needs: No Vision needs: Yes Questionnaire PHQ-9 Over the last 2 weeks, how often have you been bothered by any of the following problems? 1. Little interest or pleasure in doing things: not at all 2. Feeling down, depressed, or hopeless: not at all 3. Trouble falling or staying asleep, or sleeping too much: not at all 4. Feeling tired or having little energy: more than half the days 5. Poor appetite or overeating: not at all 6. Feeling bad about yourself - or that you are a failure or have let yourself or your family down: not at all 7. Trouble concentrating on things, such as reading the newspaper or watching television: not at all 8. Moving or speaking so slowly that other people could have noticed. Or the opposite - being so fidgety or restless that you have been moving around a lot more than usual: not at all 9. Thoughts that you would be better off or of hurting yourself in some way: not at all Total score: 2 Depression Screening Interpretation: Negative Depression Screening Done: Yes 81482 - PHQ-9 Billing: Yes Source: Developed by Drs. Hoang Marie, [place] Pete, Jed Strauss and colleagues, with an educational esteban from [employer]. Thrive Questionnaire Date Thrive assessed: 10/30/24 I am a: Patient What is your living situation today?: I have a steady place to live Within the past 12 months, did the food you bought not last and you didn't have the money to get more?: Never true Within the past 12 months, did you worry whether your food would run out before you got money to buy more?: Never true Do you have trouble paying for medicines?: No Do you have trouble getting transportation to medical appointments?: I choose not to answer this question Do you have trouble paying your heating and electricity bill?: No Do you have trouble taking care of your child, family member or friend?: No Do you have trouble with day-to-day activities such as bathing, preparing meals, shopping, managing finances, etc.?: No Are you currently unemployed and looking for a job?: No Are you interested in more education?: No Please select the resources that you would like help with: None Currently or been in a relationship where the following occur: No concerns reported THRIVE Score: 0 AUDIT C Alcohol Use Questionnaire (AUDIT-C) 1. How often do you have a drink containing alcohol?: Never Total Score: 0 KIANA-7 AMB Questionnaire KIANA-7 Date KIANA - 7 assessed: 10/30/24 Feeling nervous, anxious, or on edge: 0 = Not at all Not being able to stop or control worryin = Not at all Worrying too much about different things: 0 = Not at all Trouble relaxin = Not at all Being so restless that it is hard to sit still: 0 = Not at all Becoming easily annoyed or irritable: 0 = Not at all Feeling afraid as if something awful might happen: 0 = Not at all Total KIANA-7 score (0-4 normal; 5-9 mild; 10-14 moderate; 15-21 severe): 0 Source: Developed by Drs. Hoang Marie, [place] Pete, Jed Strauss and colleagues, with an educational esteban from [employer]. KIANA-7 Assessment Billing KIANA-7 Assessment Tool: KIANA-7 Assessment 47591 Review of Systems Const All systems reviewed & are unremarkable except as noted in HPI and below Eyes Reports no additional complaints ENT Reports no additional complaints Card Denies chest pain, Denies chest pain at rest, Denies chest pain with activity, Denies rapid heart rate, Denies lightheadedness, Denies palpitations, Denies dyspnea, Denies dyspnea on exertion and Denies orthopnea Resp Denies cough, Denies dyspnea and Denies dyspnea on exertion GI Denies hematochezia and Denies change in stool character Details: Complaining of urinary frequency due to furosemide, denies any dysuria, occasional stress incontinence Musc Denies muscle cramps, Denies muscle weakness, Denies numbness, Denies radiating pain into limb, Reports stiffness and Denies tingling Skin/Breast Denies breast pain, Denies breast mass, Denies lesions and Denies rash Neuro Denies numbness and Denies tingling Psych Reports no additional complaints Endo Denies palpitations Victorino/Lymph Reports easy bruising Aller/Immun Reports no additional complaints Physical exam (Primary Care) Vital Signs: Last Vital Signs Pulse 69 10/30/24 12:34 BP 122/76 10/30/24 12:34 Pulse Ox 98 10/30/24 12:34 Oxygen Delivery Method Room Air 10/30/24 12:34 BMI result Body Mass Index 32.6 Tobacco/Smoking Status: Tobacco use Status Tobacco use date assessed 10/30/24 10/30/24 12:36 Patient Tobacco Use Status Former Tobacco user 10/30/24 12:36 e-Cigarette/Vaping Use Never Used 10/30/24 12:36 PHQ-9: PHQ-9 Score PHQ-9: Total score 2 11/03/24 17:40 Depression Screening Interpretation: Negative Thrive Assessment: Date of Thrive Assessment Date Thrive assessed 10/30/24 10/30/24 12:36 Currently or been in a relationship where the following occur: No concerns reported Const General: comfortable, no acute distress and alert Nutritional Appearance: obese Orientation/consciousness: patient oriented x3 Limitations: ambulation with cane HENMT Ears: external ears normal, TM's normal bilaterally and EAC's normal General nose exam: Normal external nose present and No nasal discharge present Mouth: Normal oral and palatal mucosa present, oropharynx normal and moist mucous membranes Eyes General: appearance normal, both eyes and all related structures Pupils: Equal, round and reactive pupils present Neck Neck: Yes full ROM, Yes no lymphadenopathy and Yes supple Chest Breast/axilla inspection: normal inspection of the breasts Breast/axilla palpation: normal palpation of the breasts Resp Effort & Inspection: normal respiratory effort and able to speak in complete sentences Auscultation: clear to auscultation bilaterally Cardio Rhythm: regular rhythm Heart sounds: S1 normal heart sound present and S2 normal heart sound present GI Palpation (GI): Soft to palpation, nontender and no masses Auscultation: normal bowel sounds General: Yes no CVA tenderness and Yes deferred Back/Spine/Pelvis Back: no CVA tenderness and No back tenderness Skin General skin exam: no rashes or lesions noted Neuro General: patient oriented x3, tone normal, moves all extremities, Normal light touch and pain sensation and no focal motor deficits Cranial nerves: Yes CN's II-XII intact bilaterally and Yes Equal, round and reactive pupils present Cognition (Neuro): normal cognition Gait exam (Neuro): Assisted gait required Gait assisted method: walking stick Extrem Other: 1+ soft, nonpitting edema in lower extremities the left more than the right, no calf tenderness, no erythema or increased warmth in lower extremity General: Yes full ROM, Yes no joint enlargement and Yes no calf tenderness Psych Appearance: grossly normal and well kempt Mental Status: mental status grossly normal Speech and movement: Normal speech and movement present Affect: normal affect Attitude: cooperative Thought process: Normal thought process present Coding Level of Care Code Est Pt Prev Care >65y(57447) Diagnoses Annual visit for general adult medical examination with abnormal findings Z00.01 Osteopenia of left femoral neck M85.852 Essential hypertension I10 Dyslipidemia E78.5 Stage 3a chronic kidney disease N18.31 Chronic kidney disease stage 3 subtype: stage 3a (GFR 45-59) Localized swelling of both lower legs R22.43 Coronary atherosclerosis I25.10 Erythema intertrigo L30.4 Additional Codes PHQ-9 - 91862 - PHQ-9 Billing: Yes ([id number]) KIANA-7 Assessment Billing - KIANA-7 Assessment Tool: KIANA-7 Assessment 32263 ([id number]) Assessment & Plan Assessment & Plan (1) Annual visit for general adult medical examination with abnormal findings: Code(s): Z00.01 - Encounter for general adult medical examination with abnormal findings Plan: Repeat fasting labs ordered to check lipids, liver enzymes, basic metabolic panel and CBC. Ordered bone density scan and screening mammogram to be done together. Up-to-date with her pneumococcal vaccination and shingles vaccine, reminded to get an updated COVID booster and flu vaccine, both of which can be given at the pharmacy (2) Osteopenia of left femoral neck: Comment: 03/2023 T scores: fem neck -1,6, femur -1.0, LS spine 2.6 Code(s): M85.852 - Other specified disorders of bone density and structure, left thigh Category: Medical Plan: Ordered a repeat bone density scan, take [id number] vitamin-D 3 at least 2000 units daily and take adequate calcium from dietary sources (3) Essential hypertension: Code(s): I10 - Essential (primary) hypertension Category: Medical Plan: Blood pressure at goal of less than 130/80. Continue with current medication. Reinforced importance of following a low sodium diet, getting regular exercise, and lowering stress levels. (4) Dyslipidemia: Code(s): E78.5 - Hyperlipidemia, unspecified Category: Medical Plan: Currently on atorvastatin 40 mg daily (5) CKD (chronic kidney disease) stage 3, GFR 30-59 ml/min: Code(s): N18.30 - Chronic kidney disease, stage 3 unspecified Category: Medical Qualifiers: Chronic kidney disease stage 3 subtype: stage 3a (GFR 45-59) Qualified Code(s): N18.31 - Chronic kidney disease, stage 3a Plan: Followed by Nephrology (6) Localized swelling of both lower legs: Code(s): R22.43 - Localized swelling, mass and lump, lower limb, bilateral Category: Medical Plan: Currently on furosemide 40 mg daily in a.m., elevate both legs as much as possible, advised to try wearing travel socks during the day when up and about and remove at night before going to bed (7) Coronary atherosclerosis: Code(s): I25.10 - Atherosclerotic heart disease of lime coronary artery without angina pectoris Category: Medical Plan: Currently on warfarin and metoprolol succinate ER 25 mg daily (8) Erythema intertrigo: Code(s): L30.4 - Erythema intertrigo Category: Medical Plan: Prescription sent for clotrimazole-betamethasone to apply sparingly to affected area under breasts once or twice a day for no more than 10 days at a time, prescription also sent for nystatin powder apply to affected area under both breasts daily for prevention of yeast infection Orders: Orders Lipid Panel 11/16/24 D63.1 - Anemia in chronic kidney disease, E78.5 - Hyperlipidemia, unspecified, I10 - Essential (primary) hypertension, I25.10 - Atherosclerotic heart disease of lime coronary artery without angina pectoris, M85.852 - Other specified disorders of bone density and structure, left thigh, N18.31 - Chronic kidney disease, stage 3a, N18.9 - Chronic kidney disease, unspecified, R22.43 - Localized swelling, mass and lump, lower limb, bilateral, Z78.0 - Asymptomatic menopausal state Aspartate Amino Transferase 11/16/24 D63.1 - Anemia in chronic kidney disease, E78.5 - Hyperlipidemia, unspecified, I10 - Essential (primary) hypertension, I25.10 - Atherosclerotic heart disease of lime coronary artery without angina pectoris, M85.852 - Other specified disorders of bone density and structure, left thigh, N18.31 - Chronic kidney disease, stage 3a, N18.9 - Chronic kidney disease, unspecified, R22.43 - Localized swelling, mass and lump, lower limb, bilateral, Z78.0 - Asymptomatic menopausal state Alanine Aminotransferase 11/16/24 D63.1 - Anemia in chronic kidney disease, E78.5 - Hyperlipidemia, unspecified, I10 - Essential (primary) hypertension, I25.10 - Atherosclerotic heart disease of lime coronary artery without angina pectoris, M85.852 - Other specified disorders of bone density and structure, left thigh, N18.31 - Chronic kidney disease, stage 3a, N18.9 - Chronic kidney disease, unspecified, R22.43 - Localized swelling, mass and lump, lower limb, bilateral, Z78.0 - Asymptomatic menopausal state Complete Blood Count Auto Diff 11/16/24 D63.1 - Anemia in chronic kidney disease, E78.5 - Hyperlipidemia, unspecified, I10 - Essential (primary) hypertension, I25.10 - Atherosclerotic heart disease of lime coronary artery without angina pectoris, M85.852 - Other specified disorders of bone density and structure, left thigh, N18.31 - Chronic kidney disease, stage 3a, N18.9 - Chronic kidney disease, unspecified, R22.43 - Localized swelling, mass and lump, lower limb, bilateral, Z78.0 - Asymptomatic menopausal state XR DEXA axial skeleton 10/30/24 M85.852 - Other specified disorders of bone density and structure, left thigh, Z12.31 - Encounter for screening mammogram for malignant neoplasm of breast MM tomosynthesis screening BI 10/30/24 M85.852 - Other specified disorders of bone density and structure, left thigh, Z12.31 - Encounter for screening mammogram for malignant neoplasm of breast Basic Metabolic Panel Fasting 11/16/24 D63.1 - Anemia in chronic kidney disease, E78.5 - Hyperlipidemia, unspecified, I10 - Essential (primary) hypertension, I25.10 - Atherosclerotic heart disease of lime coronary artery without angina pectoris, M85.852 - Other specified disorders of bone density and structure, left thigh, N18.31 - Chronic kidney disease, stage 3a, N18.9 - Chronic kidney disease, unspecified, R22.43 - Localized swelling, mass and lump, lower limb, bilateral, Z78.0 - Asymptomatic menopausal state Medications: New nystatin 1 appl topical DAILY PRN 30 grams 1RF rash clotrimazole-betamethasone 1-0.05 % 1 appl topical BID PRN 45 grams 2RF rash under breast L30.4 - Erythema intertrigo Changed From acetaminophen ER (Tylenol Arthritis Pain) 2 tablets BID 325 mg PO DAILY To acetaminophen ER (Tylenol Arthritis Pain) 650 mg PO Q12H From warfarin takes warfarin dose of 3 mg Monday, Monday, , and then 2 mg on monday, Monday , Monday and Monday 135 tabs 0RF I23.6 - Thrombosis of atrium, auricular appendage, 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 To warfarin takes warfarin 2 mg once a day 90 tabs 5RF I23.6 - Thrombosis of atrium, auricular appendage, 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
== END 2024-10-30 13:49 | disposition home or self-care (01) ==
PROVIDERS: PCP Internal Medicine; Visit Provider Internal Medicine
DX: Z00.01 Encounter for general adult medical examination with abnormal findings (principal); M85.852 Other specified disorders of bone density and structure, left thigh; I10 Essential (primary) hypertension; E78.5 Hyperlipidemia, unspecified; N18.31 Chronic kidney disease, stage 3a; R22.43 Localized swelling, mass and lump, lower limb, bilateral; I25.10 Atherosclerotic heart disease of native coronary artery without angina pectoris; L30.4 Erythema intertrigo

== ENCOUNTER → 2024-10-30 12:22 | Outpatient (BNVA) | payer MEDICARE, SELFPAY | PROVIDERS: PCP Internal Medicine; Visit Provider Internal Medicine | DX: Z00.01 Encounter for general adult medical examination with abnormal findings (principal); E78.5 Hyperlipidemia, unspecified; M85.852 Other specified disorders of bone density and structure, left thigh; I12.9 Hypertensive chronic kidney disease with stage 1 through stage 4 chronic kidney disease, or unspecified chronic kidney disease; N18.31 Chronic kidney disease, stage 3a; R22.43 Localized swelling, mass and lump, lower limb, bilateral; I25.10 Atherosclerotic heart disease of native coronary artery without angina pectoris; L30.4 Erythema intertrigo; I23.6 Thrombosis of atrium, auricular appendage, 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; Z95.0 Presence of cardiac pacemaker | CPT/HCPCS: 96127; 99397 ==

== ENCOUNTER 2024-11-26 11:36 | Outpatient (AMB) | payer MEDICARE, SELFPAY ==
--- NOTE | 2024-11-26 12:15 | HO.NEPHOV ---
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 She denies any chest pain, shortness of breath, nausea, vomiting or diarrhea. She has no hematuria, fever, suprapubic pain, chills or rigors. She was recently found to have LV dysfunction with apical thrombus. She did have bifascicular block on the EKG. She recently underwent cardiac catheterization which showed severe right coronary artery stenosis with heavy calcification with [id number] collaterals as well as mid LAD 95% stenosis with ART 2 flow as well as heavy calcification and calcific nodule proximally. She had pacemaker placement given bifascicular block and syncope. She had a dual-chamber Clark, MRI conditional ICD placement. Her serum creatinine has improved and stable. [facility] Medical History (Updated 10/30/24 @ 13:37 by Shyla Fregoso MD) Erythema intertrigo Pacemaker History of syncope Cardiac defibrillator in place Anemia in chronic kidney disease Localized swelling of both lower legs Sinus bradycardia Bifascicular block Intermittent lightheadedness Bilateral knee pain Impaired fasting glucose Osteopenia of left femoral neck Colonoscopy refused Postmenopausal Osteoarthritis Dyslipidemia Essential hypertension Chronic kidney disease (CKD) Surgical History S/P cardiac cath History of cataract surgery Family History Father HTN (hypertension) Mother CKD (chronic kidney disease) HTN (hypertension) Heart disease Family/Other Hailey's thyroiditis Social History Household Members: None Housing: House Alcohol intake: never Patient Tobacco Use Status: Former Tobacco user Years Smoked: 35 yrs e-Cigarette/Vaping Use: Never Used Advance Directives Date on File: 08/19/22 service: No Current occupational status: retired Cognitive needs: No Hearing needs: No Vision needs: Yes Review of Systems Const All systems reviewed & are unremarkable except as noted in HPI and below Physical Exam Vital Signs: Last Vital Signs Pulse 82 11/26/24 12:16 BP 130/70 11/26/24 12:16 Pulse Ox 98 11/26/24 12:16 Oxygen Delivery Method Room Air 11/26/24 12:16 BMI result Body Mass Index 32.4 Const General: comfortable and no acute distress Orientation/consciousness: patient oriented x3 HEENT Head: Yes normocephalic Mouth: Normal oral and palatal mucosa present Eyes EOM: EOMs intact bilaterally Neck Neck: Yes supple Resp Auscultation: clear to auscultation bilaterally Cardio Jugular venous distension: no JVD Rate: regular rate GI Palpation (GI): Soft to palpation Auscultation: normal bowel sounds General: Yes no CVA tenderness Back/Spine/Pelvis Back: no CVA tenderness Skin General skin exam: no rashes or lesions noted Neuro General: patient oriented x3 and moves all extremities Extrem General: Yes no pedal edema Results Reviewed Nephrology Results: Sodium 139 mmol/L (135-145) 10/01/24 Potassium 4.9 mmol/L (3.3-5.1) 10/01/24 Chloride 107 mmol/L (96-108) 10/01/24 Carbon Dioxide 22 mmol/L (22-29) 10/01/24 BUN 30 mg/dL (9-16) H 10/01/24 Creatinine 1.83 mg/dL (0.5-1.4) H 10/01/24 Calcium 9.8 mg/dL (8.4-10.2) 08/06/24 Assessment & Plan Assessment & Plan (1) CKD (chronic kidney disease) stage 3, GFR 30-59 ml/min: Code(s): N18.30 - Chronic kidney disease, stage 3 unspecified Category: Medical Qualifiers: Chronic kidney disease stage 3 subtype: stage 3a (GFR 45-59) Qualified Code(s): N18.31 - Chronic kidney disease, stage 3a Plan [place] has stage III CKD for long time. Her renal functions are stable. We likely need to add Farxiga for CKD @ next visit. She avoids nonsteroidal anti-inflammatory medications for over 10 years. She is off meloxicam now. Her blood pressure is currently at goal. She should be on a low-sodium diet and should remain well hydrated. All questions were answered. Her Vitamin D is on hold given hypercalcemia. I did not make any medication changes today. Follow-up given Orders: Orders Creatinine 4 Months N18.31 - Chronic kidney disease, stage 3a Blood Urea Nitrogen 4 Months N18.31 - Chronic kidney disease, stage 3a Electrolytes 4 Months N18.31 - Chronic kidney disease, stage 3a Coding Level of Care Code Est Pt Level 4 (55160) Diagnoses Stage 3a chronic kidney disease N18.31 Chronic kidney disease stage 3 subtype: stage 3a (GFR 45-59)
[2024-11-26 12:16] VITALS: BP 130/70; PULSE 82; O2SAT 98; BMI 32.4
--- OUTSIDE RECORDS SUMMARY | 2024-11-26 13:13 | XMS_ITS | Encounter Summary ---
Author Organization [facility] Address [address] [place] [address] Phone Care Team Providers Care Quality Control Inspector Heading Name Role Phone Vanessa Fregoso MD Primary Care Provider [phone] Reason for Visit * Reason Comments Med Refill Encounter Details Date Type Department Care Team (Late st Contact Info) Description 06/05/2023 Refill [facility] [address] [place] [address] Emil Foote MD Social History Tobacco Use Types Packs/Day Years Used Date Smoking Tobacco: Former Smokeless Tobacco: Never Alcohol Use Standard Drinks/Week Comments No 0 (1 standard drink = 0.6 oz pur e alcohol) Comments Unknown Sex and Gender Information Value Date Recorded Sex Assigned at Not on file Legal Sex Female 5:04 PM EST Gender Identity Not on file Sexual Orientation Not on file documented as of this encounter Plan of Treatment Not on file documented as of this encounter Visit Diagnoses Not on filedocumented in this encounter Care Teams Quality Control Inspector Heading Relationship Specialty Start Date End Date Vanessa Fregoso MD [facility] [place] [address] PCP - General 10/26/20 documented as of this encounter
--- OUTSIDE RECORDS SUMMARY | 2024-11-26 13:13 | XMS_ITS | Clinical Summary ---
Author Organization [facility] Address [address] [facility] [address] [place] [address] Phone Care Team Providers Care Tub Wash Operator Name Role Phone Vanessa Fregoso MD Primary Care Provider +1- [phone] Allergies Active Allergy Reactions Criticality Noted Date Comments Adam Inhibitors Other (see comments) 03/17/2021 Medications * This document contains information received from the source organization and may not represent a complete record from that organization. aspirin (ST YOHANA) 81 MG EC tablet Take 1 tablet by mouth every morning Active atorvastatin (LIPITOR) 10 MG tablet Take 1 tablet by mouth 1 (one) time each day Active Calcium Carbonate-Vitam in D 600-200 MG-UNIT capsule Take 1 capsule by mouth 1 (one) time each day Active Acetaminophen (TYLENOL ARTHRITIS PAIN PO) Take 1 tablet by mouth if needed Active amLODIPine (NORVASC) 5 MG tablet Take 1 tablet (5 mg total) by mouth 1 (one) time each day 30 tablet 3 02/07/2023 Active metoprolol tartrate (LOPRESSOR) 50 MG tablet TAKE 1 TABLET BY MOUTH EVERY DAY 90 tablet 3 05/09/2023 Active losartan (COZAAR) 50 MG tablet Take 1 tablet (50 mg total) by mouth 1 (one) time each day 30 tablet 3 06/05/2023 Active Active Problems Problem Noted Date Diagnosed Date Hypertension 09/15/2021 Stage 3a chronic kidney disease 03/17/2021 Hypertensive chronic kidney disease, unspecified, with chronic kidney disease stage I through stage IV, or unspecified 03/17/2021 Vertigo 03/17/2021 Immunizations Name Administration Dates Next Due Pneumococcal Polysaccharide 10/22/2020 Family History Medical History Relation Comments Cancer Father Heart disease Father Hypertension Father Heart disease Mother Hypertension Mother Kidney disease Mother Relation Status Comments Father Mother Social History Tobacco Use Types Packs/Day Years Used Date Smoking Tobacco: Former Smokeless Tobacco: Never Tobacco Cessation:Counseling Given: Not Answered Alcohol Use Standard Drinks/Week Comments No 0 (1 standard drink = 0.6 oz pur e alcohol) Comments Unknown Sex and Gender Information Value Date Recorded Sex Assigned at Not on file Legal Sex Female 5:04 PM EST Gender Identity Not on file Sexual Orientation Not on file Last Filed Vital Signs Vital Sign Reading Time Taken Comments Blood Pressure 110/60 05/10/2023 3:30 PM EDT Pulse 64 05/10/2023 3:30 PM EDT Temperature - - Respiratory Rate - - Oxygen Saturation 98% 09/15/2021 1:34 PM EST Inhaled Oxygen Concentration - - Weight 95.2 kg (209 lb 12.8 oz) 05/10/2023 3:30 PM EDT Height 162.6 cm (5' 4 ) 07/29/2020 12:0 0 PM EDT Body Mass Index 36.01 07/29/2020 12:00 PM EDT Plan of Treatment Health Maintenance Due Date Last Done Comments Pneumococcal Vaccine: 65+ Ye ars (2 of 2 - PCV) 10/22/2021 10/22/2020 Influenza Vaccine (#1) 2024 Hepatitis B Vaccine Aged Out No longe r eligible based on patient's age to complete this topic Insurance [employer] Care Teams Tub Wash Operator Relationship Specialty Start Date End Date Vanessa Fregoso MD [facility] [place] [address] PCP - General 10/26/20
== END 2024-11-26 12:47 | disposition home or self-care (01) ==
PROVIDERS: PCP Internal Medicine; Visit Provider Internal Medicine Nephrology
DX: N18.31 Chronic kidney disease, stage 3a (principal)
CPT/HCPCS: 99214

== ENCOUNTER → 2024-11-26 11:36 | Outpatient (BNVA) | payer MEDICARE, SELFPAY | PROVIDERS: PCP Internal Medicine; Visit Provider Internal Medicine Nephrology | DX: I12.9 Hypertensive chronic kidney disease with stage 1 through stage 4 chronic kidney disease, or unspecified chronic kidney disease (principal); N18.31 Chronic kidney disease, stage 3a | CPT/HCPCS: 99212 ==

== ENCOUNTER 2024-12-19 08:04 | Outpatient (REF) | payer MEDICARE, SELFPAY ==
--- OUTSIDE RECORDS SUMMARY | 2024-12-19 08:12 | XMS_ITS | Clinical Summary ---
Author Organization [facility] Address [address] [facility] [address] [place] [address] Phone Care Team Providers Care Encapsulator Name Role Phone Vanessa Fregoso MD Primary Care Provider +1- [phone] Allergies Active Allergy Reactions Criticality Noted Date [...] topic Insurance [employer] Care Teams Encapsulator Relationship Specialty Start Date End Date Vanessa Fregoso MD [facility] [place] [address] PCP - General 10/26/20
--- OUTSIDE RECORDS SUMMARY | 2024-12-19 08:12 | XMS_ITS | Encounter Summary ---
Author Organization [facility] Address [address] [place] [address] Phone Care Team Providers Care Career Services Coordinator Name Role Phone Vanessa Fregoso MD Primary Care Provider +1- [phone] Reason for Visit * Reason Comments Med Refill Encounter Details Date Type Department Care Team (Late st Contact Info) Description 06/05/2023 Refill [facility] [address] [place] [address] Emil Foote MD Social History [...] on filedocumented in this encounter Care Teams Career Services Coordinator Relationship Specialty Start Date End Date Vanessa Fregoso MD [facility] [place] [address] PCP - General 10/26/20 documented as of this encounter
[2024-12-19 10:37] LABS: MANUAL DIFF FLAG NO
[2024-12-19 10:53] LABS: Basophils Absolute Auto 0.2 X10*3/uL (0.0-0.2); Basophils Percent Auto 1.4 % (0-2); Eosinophils Absolute Auto 0.4 X10*3/uL (0.0-0.4); Eosinophils Percent Auto 3.9 % (0-4); Hemoglobin 11.7 g/dl (12.0-16.0); Imm Gran Abs Auto 0.04 X10*3/uL (0.00-0.03); Imm Gran Pct Auto 0.4 % (0.0-0.4); Lymphocytes Absolute Auto 1.8 X10*3/uL (1.2-4.9); Lymphocytes Percent Auto 17.1 % (20-40); Mean Corpuscular HGB Conc 31.6 g/dl (31.0-35.0); Mean Corpuscular Volume 101.1 fL (80.0-98.0); Mean Platelet Volume 10.1 fL (9.4-12.3); Monocytes Percent Auto 9.5 % (2-11); Neutrophils Absolute Auto 7.3 x10*3/uL (2.0-8.3); Neutrophils Percent Auto 67.7 % (45-73); Platelet Count 319 X10*3/uL (160-400); Red Blood Count 3.66 X10*6/uL (4.20-5.50); Red Cell Distribution Width 12.9 % (11.0-16.0); White Blood Count 10.7 X10*3/uL (4.8-10.8)
[2024-12-19 11:08] LABS: Alanine Aminotransferase 23 U/L (0-31); Anion Gap 14 (12-20); Blood Urea Nitrogen 27 mg/dL (9-16); Calcium 9.6 mg/dL (8.4-10.2); Carbon Dioxide 22 mmol/L (22-29); Chloride 107 mmol/L (96-108); Cholesterol 150 mg/dL (<200); Estimated Glomerular Filt Rate 28; Glucose Fasting 106 mg/dL (60-99); HDL Cholesterol 60 mg/dL (>40); LDL Cholesterol Calculated 68 mg/dL (<100); Sodium 139 mmol/L (135-145); Triglycerides 114 mg/dL (<150)
[2024-12-19 11:15] LABS: Aspartate Amino Transferase 36 U/L (5-31)
== END 2024-12-19 08:05 | disposition home or self-care (01) ==
LOC: HO.HMGCLDS 08:04
PROVIDERS: PCP Internal Medicine; Referring Provider Internal Medicine Nephrology; Visit Provider Internal Medicine
DX: I12.9 Hypertensive chronic kidney disease with stage 1 through stage 4 chronic kidney disease, or unspecified chronic kidney disease (principal); E78.5 Hyperlipidemia, unspecified; N18.31 Chronic kidney disease, stage 3a; D63.1 Anemia in chronic kidney disease; I25.10 Atherosclerotic heart disease of native coronary artery without angina pectoris; R22.43 Localized swelling, mass and lump, lower limb, bilateral; M85.852 Other specified disorders of bone density and structure, left thigh; Z78.0 Asymptomatic menopausal state
CPT/HCPCS: 36415; 80048; 80061; 84450; 84460; 85025

== ENCOUNTER 2025-01-06 12:53 | Outpatient (AMB) | payer MEDICARE, SELFPAY ==
[2025-01-06 13:16] VITALS: BP 118/80; PULSE 78; TEMP 36.7; O2SAT 98; BMI 30.9
--- NOTE | 2025-01-06 13:16 | A.OFFPC_ITS ---
Vital Signs 01/06/25 13:16 01/06/25 13:54 Height 5 ft Weight 158 lb BMI 30.9 BP 118/80 88/52 L Blood Pressure Location Lt brachial Lt brachial Position Sitting Standing Pulse 78 Pulse Source Pulse Oximeter Temp 98.1 F Temp Source Oral Pulse Oximetry (%) 98 Oxygen Delivery Method Room Air Intake Visit Reasons: dizziness, lightheadiness Intake Note: Pt is here today c/o vertigo/lightheadness: b/p standing went down 88/52 Allergies GALILEO Inhibitors Allergy (Severe, Verified 01/13/25 00:57) Cough Medication List - Last Reconciled 01/13/25 by Shyla Fregoso MD acetaminophen ER (Tylenol Arthritis Pain) 650 mg PO Q12H ascorbic acid (vitamin C) 250 mg PO DAILY atorvastatin 40 mg PO DAILY 90 days clotrimazole-betamethasone 1-0.05 % 1 appl topical BID PRN cyanocobalamin (vitamin B-12) 1,000 mcg PO DAILY furosemide 40 mg PO DAILY metoprolol succinate ER 25 mg PO DAILY nystatin 1 appl topical DAILY PRN warfarin takes warfarin 2 mg once a day Tobacco use date assessed: 01/06/25 Fall risk assessment: 2 + Falls in past year Last assessed Fall Risk: 01/06/25 Dental Screening Dental Screen Date: 01/06/25 HPI dizziness, lightheadiness HPI Details 79-year-old female with past medical hi story of hyperlipidemia, hypertension , hx of bifascicular block, s/p dual-chamber ICD placement, history of apical mural thrombus currently anticoagulated with warfarin and checks her PT INR via [employer]. Cardiac catheterization was done showing severe LAD and RCA stenosis with heavy calcification, managed medically,on Metoprolol and furosemide . Latest echocardiogram ordered by her marine fuel dock attendant is still showing EF 20-25%, with wall motion abnormality. Over the last several weeks however patient has been having sudden onset of lightheadedness especially worse with changing position, and has had several falls but no loss of consciousness. Denies any chest pain or shortness of breath, no swelling in the legs, no change in bowel movements, no palpitations reported. [facility] Medical History Erythema intertrigo Pacemaker History of syncope Cardiac defibrillator in place Anemia in chronic kidney disease Localized swelling of both lower legs Sinus bradycardia Bifascicular block Intermittent lightheadedness Bilateral knee pain Impaired fasting glucose Osteopenia of left femoral neck Colonoscopy refused Postmenopausal Osteoarthritis Dyslipidemia Essential hypertension Chronic kidney disease (CKD) Surgical History S/P cardiac cath History of cataract surgery Family History Father HTN (hypertension) Mother CKD (chronic kidney disease) HTN (hypertension) Heart disease Family/Other Hailey's thyroiditis Social History Household Members: None Housing: House Alcohol intake: never Patient Tobacco Use Status: Former Tobacco user Years Smoked: 35 yrs e-Cigarette/Vaping Use: Never Used Advance Directives Date on File: 08/19/22 service: No Current occupational status: retired Cognitive needs: No Hearing needs: No Vision needs: Yes Questionnaire Thrive Questionnaire Date Thrive assessed: 10/30/24 I am a: Patient What is your living situation today?: I have a steady place to live Within the past 12 months, did the food you bought not last and you didn't have the money to get more?: Never true Within the past 12 months, did you worry whether your food would run out before you got money to buy more?: Never true Do you have trouble paying for medicines?: No Do you have trouble getting transportation to medical appointments?: I choose not to answer this question Do you have trouble paying your heating and electricity bill?: No Do you have trouble taking care of your child, family member or friend?: No Do you have trouble with day-to-day activities such as bathing, preparing meals, shopping, managing finances, etc.?: No Are you currently unemployed and looking for a job?: No Are you interested in more education?: No Please select the resources that you would like help with: None Currently or been in a relationship where the following occur: No concerns reported THRIVE Score: 0 KIANA-7 AMB Questionnaire KIANA-7 Date KIANA - 7 assessed: 10/30/24 Source: Developed by Drs. Hoang Marie, Florida Pete, Jed Strauss and colleagues, with an educational esteban from [email or web address]. Review of Systems Const All systems reviewed & are unremarkable except as noted in HPI and below Physical exam (Primary Care) Vital Signs: Last Vital Signs Temp 98.1 F 01/06/25 13:16 Pulse 78 01/06/25 13:16 BP 88/52 L 01/06/25 13:54 Pulse Ox 98 01/06/25 13:16 Oxygen Delivery Method Room Air 01/06/25 13:16 BMI result Body Mass Index 30.9 Tobacco/Smoking Status: Tobacco use Status Tobacco use date assessed 01/06/25 01/06/25 13:20 Patient Tobacco Use Status Former Tobacco user 01/06/25 13:20 e-Cigarette/Vaping Use Never Used 01/06/25 13:20 Thrive Assessment: Date of Thrive Assessment Date Thrive assessed 10/30/24 01/06/25 13:20 Currently or been in a relationship where the following occur: No concerns reported Const General: comfortable, no acute distress and alert Nutritional Appearance: obese Orientation/consciousness: patient oriented x3 Limitations: ambulation with cane HENMT Ears: external ears normal, TM's normal bilaterally and EAC's normal General nose exam: Normal external nose present and No nasal discharge present Mouth: Normal oral and palatal mucosa present, oropharynx normal and moist mucous membranes Eyes General: appearance normal, both eyes and all related structures Pupils: Equal, round and reactive pupils present Neck Neck: Yes full ROM, Yes no lymphadenopathy and Yes supple Resp Effort & Inspection: normal respiratory effort and able to speak in complete sentences Auscultation: clear to auscultation bilaterally Cardio Rhythm: regular rhythm Heart sounds: S1 normal heart sound present and S2 normal heart sound present GI Palpation (GI): Soft to palpation, nontender and no masses Auscultation: normal bowel sounds General: Yes deferred Neuro General: patient oriented x3, tone normal, moves all extremities, Normal light touch and pain sensation and no focal motor deficits Cranial nerves: Yes CN's II-XII intact bilaterally and Yes Equal, round and reactive pupils present Cognition (Neuro): normal cognition Gait exam (Neuro): Assisted gait required Gait assisted method: walking stick Extrem General: Yes full ROM, Yes no joint enlargement and Yes no calf tenderness Results Reviewed Results Reviewed: Name: Florida Cline Age/Sex: 79/F : 1945 Unit#: [id number] Attend Dr: Shyla Fregoso MD Re12/19/24 Status: DEP REF Location: [facility] Disch: SPEC : [id number] MARILYN: 12/19/24 STATUS: COMP REQ : [id number] RECD: 12/19/24-[address]: Shyla Fregoso MD COMP: 12/19/24 ENTERED: 12/19/[address] [facility] [address]: ORDERED: CBC Auto Diff Test Result Flag Reference WBC 10.7 4.8-10.8 X10*3/uL RBC 3.66 L 4.20-5.50 X10*6/uL HGB 11.7 L 12.0-16.0 g/dl HCT 37.0 37.0-47.0 % MCV 101.1 H 80.0-98.0 fL MCH 32.0 27.0-33.0 pg MCHC 31.6 31.0-35.0 g/dl RDW 12.9 11.0-16.0 % PLT 319 160-400 X10*3/uL MPV 10.1 9.4-12.3 fL Neut Pct Auto 67.7 45-73 % ImGran Pct Auto 0.4 0.0-0.4 % Lymp Pct Auto 17.1 L 20-40 % [place] Pct Auto 9.5 2-11 % Eos Pct Auto 3.9 0-4 % Baso Pct Auto 1.4 0-2 % NRBC Pct Auto 0.0 0.0-0.2 /100WBC ANC Neut Abs # 7.3 2.0-8.3 x10*3/uL ImGran Abs Auto 0.04 H 0.00-0.03 X10*3/uL Lymph Abs Auto 1.8 1.2-4.9 X10*3/uL [place] Abs Auto 1.0 0.1-1.2 X10*3/uL Eos Abs Auto 0.4 0.0-0.4 X10*3/uL Baso Abs Auto 0.2 0.0-0.2 X10*3/uL NRBC Abs Auto 0.000 0.0-0.012 X10*3/uL Name: [place] Cline Age/Sex: 79/F : 1945 Unit#: [id number] Attend Dr: Shyla Fregoso MD Re12/19/24 Status: DEP [facility] Disch: SPEC : [id number] MARILYN: 12/19/24 STATUS: COMP REQ : [id number] RECD: 12/19/24-[address]: Emil Foote MD COMP: 12/19/24 ENTERED: 12/19/[address]: Shyla Fregoso MD ORDERED: Met Prof Fast, AST, ALT, Lipid Panel Test Result Flag Reference Sodium 139 135-145 mmol/L Potassium 4.0 3.3-5.1 mmol/L CL 107 96-108 mmol/L CO2 22 22-29 mmol/L Gap 14 12-20 BUN 27 H 9-16 mg/dL Creat 1.74 H 0.5-1.4 mg/dL eGFR 28 Chronic Kidney Disease: Estimated GFR < 60 mL/min/1.73m2 Severe Kidney Disease: Estimated GFR < 15 mL/min /1.73m2 FBS 106 H 60-99 mg/dL A fasting glucose from 100-125 mg/dl is considered impaired (pre-diabetes). CA 9.6 8.4-10.2 mg/dL AST (GOT) 36 H 5-31 U/L ALT (GPT) 23 0-31 U/L Triglyceride 114 <150 mg/dL Desirable Triglyceride: less than 150 mg/dL Borderline High Triglyceride 150-199 mg/dL High Triglyceride: 200-499 mg/dL Very High Triglyceride: greater than or equal to 5OO mg/dL Cholesterol 150 <200 mg/dL Desirable Cholesterol: less than 200 mg/dL Borderline High Cholesterol: 200-239 mg/dL High Cholesterol: greater than 239 mg/dL LDL Calculated 68 <100 mg/dL Desirable LDL: less than 100 mg/dL Near Optimal/Above Optimal LDL: 110-129 mg/dL Borderline High LDL: 130-159 mg/dL High LDL: 160-189 mg/dL Very High LDL: greater than or equal to 190 mg/dL HDL 60 >40 mg/dL Desirable HDL: greater than 40 mg/dL Note: This HDL assay may give artificially low results in patients with liver disease. Coding Level of Care Code Est Pt Level 5 (18757) Complex EM visit Add On G2211 Diagnoses Orthostatic hypotension I95.1 Apical mural thrombus following GA I23.6 Dyslipidemia E78.5 Chronic kidney disease (CKD) N18.9 Assessment & Plan Assessment & Plan (1) Orthostatic hypotension: Code(s): I95.1 - Orthostatic hypotension Category: Medical Plan: Orthostatic hypotension demonstrated on this visit, with patient having had several episodes of fall at home due to sudden onset of lightheadedness with changes in position. Recent labs showed only presence of mild anemia, electrolytes within normal limits with serum creatinine stable . Patient has an appointment already scheduled today Cardiology, would likely need to be taken off furosemide due to presence of orthostatic hypotension (2) Apical mural thrombus following GA: Code(s): I23.6 - Thrombosis of atrium, auricular appendage, 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 Category: Medical Plan: Continued on warfarin (3) Dyslipidemia: Code(s): E78.5 - Hyperlipidemia, unspecified Category: Medical Plan: Reviewed recent fasting lipid profile with patient with levels within normal limits . Continue atorvastatin 40 mg daily , in addition to adherence to low-cholesterol diet and regular exercise, at least 30 minutes 3 to 4 times a week. Advised patient to make healthy food choices, eat more fruits, vegetables, whole grains, wild caught fish and low-fat dairy. Limit amount of meat and fried or fatty food products, as well as processed foods and fast foods. (4) Chronic kidney disease (CKD): Comment: followed by Dr. Foote Code(s): N18.9 - Chronic kidney disease, unspecified Category: Medical Plan: Followed by Nephrology
[2025-01-06 13:54] VITALS: BP 88/52
== END 2025-01-06 14:21 | disposition home or self-care (01) ==
LOC: HO.HMCC 12:54
PROVIDERS: PCP Internal Medicine; Visit Provider Internal Medicine
DX: I95.1 Orthostatic hypotension (principal); I23.6 Thrombosis of atrium, auricular appendage, 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; E78.5 Hyperlipidemia, unspecified; N18.9 Chronic kidney disease, unspecified

== ENCOUNTER → 2025-01-06 12:53 | Outpatient (BNVA) | payer MEDICARE, SELFPAY | PROVIDERS: PCP Internal Medicine; Visit Provider Internal Medicine | DX: I23.6 Thrombosis of atrium, auricular appendage, 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 (principal); I25.5 Ischemic cardiomyopathy; I45.2 Bifascicular block; N18.31 Chronic kidney disease, stage 3a; I95.1 Orthostatic hypotension; E78.5 Hyperlipidemia, unspecified | CPT/HCPCS: 99212 ==

== ENCOUNTER 2025-01-06 14:35 | Outpatient (AMB) | payer MEDICARE, SELFPAY ==
--- NOTE | 2025-01-06 15:51 | MHC.OFFVIS ---
Vital Signs 01/06/25 15:54 Height 5 ft Weight 157 lb 13.616 oz BMI 30.8 BP 120/64 Blood Pressure Location Rt brachial Position Sitting Pulse 65 Pulse Source Pulse Oximeter Intake Visit Reasons: 2m follow up Intake Note: 2 mmth f/up Senior Assistant Manager Required: No Accompanied by: Daughter Allergies GALILEO Inhibitors Allergy (Severe, Verified 01/06/25 13:17) Cough Medication List - Last Reconciled 01/06/25 by Jason Her MD acetaminophen ER (Tylenol Arthritis Pain) 650 mg PO Q12H ascorbic acid (vitamin C) 250 mg PO DAILY atorvastatin 40 mg PO DAILY 90 days clotrimazole-betamethasone 1-0.05 % 1 appl topical BID PRN cyanocobalamin (vitamin B-12) 1,000 mcg PO DAILY furosemide (Lasix) 40 mg PO QAM 90 days metoprolol succinate ER 25 mg PO DAILY nystatin 1 appl topical DAILY PRN warfarin takes warfarin 2 mg once a day HPI Comments Details: 79-year-old female who is here for follow-up. She was seen while she was inpatient in 03/04/2024 at [facility]. She came with syncope and hit her head. She had a big scalp laceration which was staged and subsequent echocardiography showed LV dysfunction with apical thrombus. She did have bifascicular block on the EKG. She was transferred to [facility] after discussion underwent cardiac catheterization which showed severe right coronary artery stenosis with heavy calcification with [id number] collaterals as well as mid LAD 95% stenosis with ART 2 flow as well as heavy calcification and calcific nodule proximally. Given lack of symptoms we decided to treat her medically and referred her for pacemaker placement given bifascicular block and syncope. She had a dual-chamber Clark, MRI conditional ICD placement. She was subsequently discharged home. 03/18/24: She is here for follow-up. She was in rehab after hospital admission and came home 1 week ago. She is saying she is feeling little weak but otherwise no other complaints. No chest discomfort shortness of breath. No orthopnea or PND. She has peripheral edema which the daughter is saying has been chronic. Interestingly she is on Coumadin currently and is following with Coumadin clinic. Our plan was to give her NOAC due to ease of use but she was started on Coumadin at [facility]. 04/15/2024: She is here for follow-up. On 04/10/2024 she had repeat echocardiography performed which is showing EF of 20 25% with small apical thrombus in the left ventricle, significantly elevated right atrial and pulmonary pressures were also noted. She was advised to increase the Lasix to 40 mg daily from 20 mg. She returns today and has significant peripheral edema. She has been sleeping in recliner chronically so it is hard to know whether she has any orthopnea or PND episodes but she has noticed that her weight has been going ups consistently over the last week. She has gained approximately 3-5 lb. She is denying any chest discomfort or shortness of breath but is not active in day-to-day life. 05/01/24: She is here for follow-up. She was started on higher dose Lasix 40 mg twice a day because she has significant peripheral edema and shortness of breath on last visit. She has done significantly well since then and appears to be more or less euvolemic at this point. She has some chronic lower extremity edema. Blood pressure is 140/70 today. I am starting her on losartan 25 mg daily. Denying any chest discomfort as before. She continues to have significant bruising on her face and forehead hematoma from mechanical fall a few weeks ago. 01/06/2025: she is here for follow-up. She has fallen 3 times over the last couple of months. She is saying that she gets dizzy and then can not stop herself from falling down. There is some bruising of her face. She was at primary care physician's office today way orthostatics were checked and apparently blood pressure drop. She also has lost a lot of muscle mass and has not been eating. Denying any chest discomfort shortness of breath. FORMERLY [facility], [facility]–1983 Medical History (Updated 10/30/24 @ 13:37 by Shyla Fregoso MD) Erythema intertrigo Pacemaker History of syncope Cardiac defibrillator in place Anemia in chronic kidney disease Localized swelling of both lower legs Sinus bradycardia Bifascicular block Intermittent lightheadedness Bilateral knee pain Impaired fasting glucose Osteopenia of left femoral neck Colonoscopy refused Postmenopausal Osteoarthritis Dyslipidemia Essential hypertension Chronic kidney disease (CKD) Surgical History S/P cardiac cath History of cataract surgery Family History Father HTN (hypertension) Mother CKD (chronic kidney disease) HTN (hypertension) Heart disease Family/Other Hailey's thyroiditis Social History Household Members: None Housing: House Alcohol intake: never Patient Tobacco Use Status: Former Tobacco user Years Smoked: 35 yrs e-Cigarette/Vaping Use: Never Used Advance Directives Date on File: 08/19/22 service: No Current occupational status: retired Cognitive needs: No Hearing needs: No Vision needs: Yes Review of Systems Const Denies chills, Denies fatigue, Denies fever(s), Denies frequent falls, Denies weakness, Denies weight gain and Denies weight loss ENT Denies dizziness Card Denies chest pain, Denies leg edema, Denies lightheadedness, Denies palpitations, Denies dyspnea and Denies dyspnea on exertion Resp Denies cough, Denies dyspnea and Denies dyspnea on exertion GI Denies hematochezia Musc Denies abnormal gait, Denies muscle weakness, Denies numbness, Denies radiating pain into limb and Denies tingling Neuro Denies abnormal gait, Denies dizziness, Denies frequent falls, Denies numbness, Denies tingling and Denies weakness Endo Denies fatigue and Denies palpitations Physical Exam Vital Signs: Last Vital Signs Pulse 65 01/06/25 15:54 BP 120/64 01/06/25 15:54 BMI result Body Mass Index 30.8 GENERAL APPEARANCE: in no acute distress, pleasant. NECK: no carotid bruit,no jugular venous distention. SKIN: Bruising over the forehead. HEART: No murmur/gallop, regular rate and rhythm. LUNGS: clear to auscultation bilaterally. ABDOMEN: soft, nontender. EXTREMITIES: no edema. PERIPHERAL PULSES: equal. NEUROLOGIC: No gross deficits, AAO X 3 Assessment & Plan Assessment & Plan (1) Apical mural thrombus following MA: Code(s): I23.6 - Thrombosis of atrium, auricular appendage, 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 Category: Medical (2) Ischemic cardiomyopathy: Code(s): I25.5 - Ischemic cardiomyopathy Category: Medical (3) Bifascicular block: Code(s): I45.2 - Bifascicular block Category: Medical (4) CKD (chronic kidney disease) stage 3, GFR 30-59 ml/min: Code(s): N18.30 - Chronic kidney disease, stage 3 unspecified Category: Medical Qualifiers: Chronic kidney disease stage 3 subtype: stage 3a (GFR 45-59) Qualified Code(s): N18.31 - Chronic kidney disease, stage 3a Plan Very pleasant 79-year-old female here for follow-up. She presented to [facility] with syncope and was transferred to [facility] for cardiac catheterization. Her echocardiogram showed apical thrombus with LAD territory wall motion abnormality and severe LV dysfunction. She has a bifascicular block and given the fact that she had a bifascicular block and syncope she had an indication for pacing and underwent device placement. Cardiac catheterization shows severe LAD and RCA stenosis with heavy calcification. Given fact that she had apical thrombus with significant wall motion abnormality or initial plan was to do viability study but due to delays during hospitalization she underwent device placement by EP and was discharged home. due to deconditioning and frequent falls we decided not to perform any high-risk PCI and she was conservatively managed. She also has no anginal symptoms. Repeat echocardiography has shown severe LV dysfunction. She has not been able to tolerate most of guideline directed medical therapy. She has fallen again in the last month and apparently was orthostatic in the primary care Physician's office. She appears clinically euvolemic and quite compensated. I have advised her to hold the Lasix. She will check her weight and we will monitor it closely and her daughter will send the readings to me through the portal. We will decide about Lasix if she gained significant weight. Currently she appears to be euvolemic/slightly hypovolemic. Thank you for allowing me to participate in the care of your patient. Please feel free to contact me if you have any questions. Medications: Discontinued furosemide (Lasix) Dose reduced (should not need refill yet) Discontinued Reason: Doctor's Order 40 mg PO QAM 90 days 90 tabs 1RF edema Coding Level of Care Code Est Pt Level 4 (23357) Diagnoses Apical mural thrombus following MA I23.6 Ischemic cardiomyopathy I25.5 Bifascicular block I45.2 Stage 3a chronic kidney disease N18.31 Chronic kidney disease stage 3 subtype: stage 3a (GFR 45-59)
[2025-01-06 15:54] VITALS: BP 120/64; PULSE 65; BMI 30.8
--- OUTSIDE RECORDS SUMMARY | 2025-01-06 17:30 | XMS_ITS | Encounter Summary ---
Author Organization [facility] Address [address] [place] [address] Phone Care Team Providers Care Building Equipment Operator Name Role Phone Vanessa Fregoso MD Primary Care Provider [phone]- [phone] Reason for Visit * Reason Comments Med Refill Encounter Details Date Type Department Care Team (Late st Contact Info) Description 06/05/2023 Refill [facility] [address] [place] [address] Emil Foote MD Social History [...] on filedocumented in this encounter Care Teams Building Equipment Operator Relationship Specialty Start Date End Date Vanessa Fregoso MD [facility] [place] [address] PCP - General 10/26/20 documented as of this encounter
--- OUTSIDE RECORDS SUMMARY | 2025-01-06 17:30 | XMS_ITS | Clinical Summary ---
Author Organization [facility] Address [address] [facility] [address] [place] [address] Phone Care Team Providers Care Construction Scheduler Name Role Phone Vanessa Fregoso MD Primary Care Provider +1- [phone] Allergies Active Allergy Reactions Criticality Noted Date [...] topic Insurance [employer] [facility] Care Teams Construction Scheduler Relationship Specialty Start Date End Date Vanessa Fregoso MD [facility] [place] [address] PCP - General 10/26/20
== END 2025-01-06 16:19 ==
PROVIDERS: PCP Internal Medicine; Visit Provider Internal Medicine Cardiovascular Disease
DX: I23.6 Thrombosis of atrium, auricular appendage, 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 (principal); I25.5 Ischemic cardiomyopathy; I45.2 Bifascicular block; N18.31 Chronic kidney disease, stage 3a
CPT/HCPCS: 99214

== ENCOUNTER → 2025-01-07 23:59 | Outpatient (BNV) | payer MEDICARE, SELFPAY ==
--- NOTE | 2025-01-21 12:47 | MHC.OFFVIS ---
Intake Visit Reasons: Remote ICD device ck-St Raymundo Allergies GALILEO Inhibitors Allergy (Severe, Verified 01/13/25 00:57) Cough PFSH Medical History Erythema intertrigo Pacemaker History of syncope Cardiac defibrillator in place Anemia in chronic kidney disease Localized swelling of both lower legs Sinus bradycardia Bifascicular block Intermittent lightheadedness Bilateral knee pain Impaired fasting glucose Osteopenia of left femoral neck Colonoscopy refused Postmenopausal Osteoarthritis Dyslipidemia Essential hypertension Chronic kidney disease (CKD) Surgical History S/P cardiac cath History of cataract surgery Family History Father HTN (hypertension) Mother CKD (chronic kidney disease) HTN (hypertension) Heart disease Family/Other Hailey's thyroiditis Social History Household Members: None Housing: House Alcohol intake: never Patient Tobacco Use Status: Former Tobacco user Years Smoked: 35 yrs e-Cigarette/Vaping Use: Never Used Advance Directives Date on File: 08/19/22 service: No Current occupational status: retired Cognitive needs: No Hearing needs: No Vision needs: Yes Office Procedures Cardiac Device Check Cardiac Device Check Details: Clark ICD. Battery life more than 5 years. A paced 40%. V paced less than 1%. No new alerts or device therapies. [id number] Cardiac Device Interrogation, pacemaker or defibrillator Procedure code (CPT) selection complete Assessment & Plan Assessment & Plan (1) Cardiac defibrillator in place: Code(s): Z95.810 - Presence of automatic (implantable) cardiac defibrillator Category: Medical Plan Coding Level of Care Code Procedure Only Diagnoses Cardiac defibrillator in place Z95.810 CPT Codes Cardiac Device Check - Cardiac Device 14: [id number] Cardiac Device Interrogation, pacemaker or defibrillator ([id number])
== END ==
PROVIDERS: PCP Internal Medicine; Visit Provider Internal Medicine Cardiovascular Disease
DX: Z45.02 Encounter for adjustment and management of automatic implantable cardiac defibrillator (principal)
CPT/HCPCS: 93295

== ENCOUNTER 2025-03-25 07:24 | Outpatient (REF) | payer MEDICARE, SELFPAY ==
--- OUTSIDE RECORDS SUMMARY | 2025-03-25 07:26 | XMS_ITS | Encounter Summary ---
Author Organization [facility] Address [address] [place] [address] Phone Care Team Providers Care Order Booker Name Role Phone Vanessa Fregoso MD Primary Care Provider +1- [phone] Reason for Visit * Reason Comments Med Refill Encounter Details Date Type Department Care Team (Late st Contact Info) Description 06/05/2023 Refill [facility] [address] [place] [address] Emil Foote MD Social History [...] on filedocumented in this encounter Care Teams Order Booker Relationship Specialty Start Date End Date Vanessa Fregoso MD [facility] [place] [address] PCP - General 10/26/20 documented as of this encounter
[2025-03-25 10:42] LABS: Anion Gap 13 (12-20); Blood Urea Nitrogen 21 mg/dL (9-16); Carbon Dioxide 22 mmol/L (22-29); Chloride 110 mmol/L (96-108); Estimated Glomerular Filt Rate 31; Potassium 5.1 mmol/L (3.3-5.1); Sodium 140 mmol/L (135-145)
== END 2025-03-25 07:25 | disposition home or self-care (01) ==
LOC: HO.HMGCLDS 07:24
PROVIDERS: PCP Internal Medicine; Visit Provider Internal Medicine Nephrology
DX: N18.31 Chronic kidney disease, stage 3a (principal)
CPT/HCPCS: 36415; 80051; 82565; 84520

== ENCOUNTER 2025-04-03 11:20 | Outpatient (AMB) | payer MEDICARE, SELFPAY ==
--- NOTE | 2025-04-03 11:49 | HO.NEPHOV ---
Vital Signs 04/03/25 11:50 Height 5 ft Weight 147 lb 6 oz BMI 28.8 BP 110/60 Blood Pressure Location Rt brachial Position Sitting Pulse 83 Pulse Source Pulse Oximeter Pulse Oximetry (%) 98 Oxygen Delivery Method Room Air Intake Visit Reasons: 4 mo follow up-Conf Relationship Specialist Required: No Accompanied by: Daughter Allergies GALILEO Inhibitors Allergy (Severe, Verified 04/03/25 11:50) Cough HPI Comments Details: [place] was seen in follow-up for chronic kidney disease and hypertension. She denies any chest pain, shortness of breath, nausea, vomiting or diarrhea. She has no hematuria, fever, suprapubic pain, chills or rigors. She has LV dysfunction with apical thrombus. She did have bifascicular block on the EKG. She recently underwent cardiac catheterization which showed severe right coronary artery stenosis with heavy calcification with [id number] collaterals as well as mid LAD 95% stenosis with ART 2 flow as well as heavy calcification and calcific nodule proximally. She had pacemaker placement given bifascicular block and syncope. She had a dual-chamber Clark, MRI conditional ICD placement. Her serum creatinine has improved and stable. She has been having tiredness, with poor appetite and weight loss. [facility] Medical History Erythema intertrigo Pacemaker History of syncope Cardiac defibrillator in place Anemia in chronic kidney disease Localized swelling of both lower legs Sinus bradycardia Bifascicular block Intermittent lightheadedness Bilateral knee pain Impaired fasting glucose Osteopenia of left femoral neck Colonoscopy refused Postmenopausal Osteoarthritis Dyslipidemia Essential hypertension Chronic kidney disease (CKD) Surgical History S/P cardiac cath History of cataract surgery Family History Father HTN (hypertension) Mother CKD (chronic kidney disease) HTN (hypertension) Heart disease Family/Other Hailey's thyroiditis Social History Household Members: None Housing: House Alcohol intake: never Patient Tobacco Use Status: Former Tobacco user Years Smoked: 35 yrs e-Cigarette/Vaping Use: Never Used Advance Directives Date on File: 08/19/22 service: No Current occupational status: retired Cognitive needs: No Hearing needs: No Vision needs: Yes Review of Systems Const All systems reviewed & are unremarkable except as noted in HPI and below Physical Exam Vital Signs: Last Vital Signs Pulse 83 04/03/25 11:50 BP 110/60 04/03/25 11:50 Pulse Ox 98 04/03/25 11:50 Oxygen Delivery Method Room Air 04/03/25 11:50 BMI result Body Mass Index 28.8 Const General: comfortable and no acute distress Orientation/consciousness: patient oriented x3 HEENT Head: Yes normocephalic Mouth: Normal oral and palatal mucosa present Eyes EOM: EOMs intact bilaterally Neck Neck: Yes supple Resp Auscultation: clear to auscultation bilaterally Cardio Jugular venous distension: no JVD Rate: regular rate GI Palpation (GI): Soft to palpation Auscultation: normal bowel sounds General: Yes no CVA tenderness Back/Spine/Pelvis Back: no CVA tenderness Skin General skin exam: no rashes or lesions noted Neuro General: patient oriented x3 and moves all extremities Extrem General: Yes no pedal edema Results Reviewed Nephrology Results: Hgb, (12.0-16.0) 11.7 g/dl L 12/19/24 WBC, (4.8-10.8) 10.7 X10*3/uL 12/19/24 Plt Count, (160-400) 319 X10*3/uL 12/19/24 Sodium, (135-145) 140 mmol/L 03/25/25 Potassium, (3.3-5.1) 5.1 mmol/L Δ 03/25/25 Chloride, (96-108) 110 mmol/L H 03/25/25 Carbon Dioxide, (22-29) 22 mmol/L 03/25/25 BUN, (9-16) 21 mg/dL H 03/25/25 Creatinine, (0.5-1.4) 1.61 mg/dL H 03/25/25 Calcium, (8.4-10.2) 9.6 mg/dL 12/19/24 Assessment & Plan Assessment & Plan (1) CKD (chronic kidney disease) stage 3, GFR 30-59 ml/min: Code(s): N18.30 - Chronic kidney disease, stage 3 unspecified Category: Medical Qualifiers: Chronic kidney disease stage 3 subtype: stage 3a (GFR 45-59) Qualified Code(s): N18.31 - Chronic kidney disease, stage 3a (2) Essential hypertension: Code(s): I10 - Essential (primary) hypertension Category: Medical Plan [place] has stage III CKD for long time. Her renal functions are stable. She will benefit [facility] . She avoids nonsteroidal anti-inflammatory medications for over 10 years. She is off meloxicam now. Her blood pressure is currently at goal. She should be on a low-sodium diet and should remain well hydrated. All questions were answered. I did not make any medication changes today. Follow-up given Orders: Orders Blood Urea Nitrogen 3 Months N18.31 - Chronic kidney disease, stage 3a Aspartate Amino Transferase 3 Months N18.31 - Chronic kidney disease, stage 3a Albumin Level 3 Months N18.31 - Chronic kidney disease, stage 3a Creatinine 3 Months N18.31 - Chronic kidney disease, stage 3a Electrolytes 3 Months N18.31 - Chronic kidney disease, stage 3a Alanine Aminotransferase 3 Months N18.31 - Chronic kidney disease, stage 3a Coding Level of Care Code Est Pt Level 4 (68249) Diagnoses Stage 3a chronic kidney disease N18.31 Chronic kidney disease stage 3 subtype: stage 3a (GFR 45-59) Essential hypertension I10
[2025-04-03 11:50] VITALS: BP 110/60; PULSE 83; O2SAT 98; BMI 28.8
--- OUTSIDE RECORDS SUMMARY | 2025-04-03 12:50 | XMS_ITS | Encounter Summary ---
Author Organization [facility] Address [address] [place] [address] Phone Care Team Providers Care Veterinary Assistant Name Role Phone Vanessa Fregoso MD Primary Care Provider +1- [phone] Reason for Visit * Reason Comments Med Refill Encounter Details Date Type Department Care Team (Late st Contact Info) Description 06/05/2023 Refill [facility] [address] [place] [address] Emil Foote MD Social History [...] on filedocumented in this encounter Care Teams Veterinary Assistant Relationship Specialty Start Date End Date Vanessa Fregoso MD [place] [address] PCP - General 10/26/20 documented as of this encounter
== END 2025-04-03 12:32 | disposition home or self-care (01) ==
PROVIDERS: PCP Internal Medicine; Visit Provider Internal Medicine Nephrology
DX: N18.31 Chronic kidney disease, stage 3a (principal); I10 Essential (primary) hypertension
CPT/HCPCS: 99214

== ENCOUNTER → 2025-04-03 11:20 | Outpatient (BNVA) | payer MEDICARE, SELFPAY | PROVIDERS: PCP Internal Medicine; Visit Provider Internal Medicine Nephrology | DX: N18.31 Chronic kidney disease, stage 3a (principal); I10 Essential (primary) hypertension | CPT/HCPCS: 99212 ==

== ENCOUNTER → 2025-04-08 23:59 | Outpatient (BNV) | payer MEDICARE, SELFPAY ==
--- NOTE | 2025-04-09 20:30 | MHC.OFFVIS ---
Intake Visit Reasons: Remote ICD check- [facility] Allergies GALILEO Inhibitors Allergy (Severe, Verified 04/03/25 11:50) Cough PFSH Medical History Erythema intertrigo Pacemaker History of syncope Cardiac defibrillator in place Anemia in chronic kidney disease Localized swelling of both lower legs Sinus bradycardia Bifascicular block Intermittent lightheadedness Bilateral knee pain Impaired fasting glucose Osteopenia of left femoral neck Colonoscopy refused Postmenopausal Osteoarthritis Dyslipidemia Essential hypertension Chronic kidney disease (CKD) Surgical History S/P cardiac cath History of cataract surgery Family History Father HTN (hypertension) Mother CKD (chronic kidney disease) HTN (hypertension) Heart disease Family/Other Hailey's thyroiditis Social History Household Members: None Housing: House Alcohol intake: never Patient Tobacco Use Status: Former Tobacco user Years Smoked: 35 yrs e-Cigarette/Vaping Use: Never Used Advance Directives Date on File: 08/19/22 service: No Current occupational status: retired Cognitive needs: No Hearing needs: No Vision needs: Yes Office Procedures Cardiac Device Check Cardiac Device Check Details: Dual chamber ICD Good battery life. No new alerts. [id number] Cardiac Device Interrogation, pacemaker or defibrillator Procedure code (CPT) selection complete Assessment & Plan Assessment & Plan (1) Ischemic cardiomyopathy: Code(s): I25.5 - Ischemic cardiomyopathy Category: Medical Plan: Coding Level of Care Code Procedure Only Diagnoses Ischemic cardiomyopathy I25.5 CPT Codes Cardiac Device Check - Cardiac Device 14: [id number] Cardiac Device Interrogation, pacemaker or defibrillator ([id number])
== END ==
PROVIDERS: PCP Internal Medicine; Visit Provider Internal Medicine Cardiovascular Disease
DX: I25.5 Ischemic cardiomyopathy (principal); Z95.810 Presence of automatic (implantable) cardiac defibrillator
CPT/HCPCS: 93295

== ENCOUNTER 2025-04-16 14:56 | Outpatient (AMB) | payer MEDICARE, SELFPAY ==
--- NOTE | 2025-04-16 15:17 | MHC.OFFVIS ---
Vital Signs 04/16/25 15:19 Height 5 ft Weight 143 lb BMI 27.9 BP 120/66 Blood Pressure Location Lt brachial Position Sitting Pulse 82 Pulse Source Monitor Intake Visit Reasons: 3 mth fu (rs) Intake Note: 3 mth f/up Heating And Refrigeration Inspector Required: No Accompanied by: Self / Same As Patient Allergies GALILEO Inhibitors Allergy (Severe, Verified 04/03/25 11:50) Cough Medication List - Last Reconciled 04/16/25 by Jason Her MD acetaminophen ER (Tylenol Arthritis Pain) 650 mg PO Q12H ascorbic acid (vitamin C) 250 mg PO DAILY atorvastatin 40 mg PO DAILY 90 days clotrimazole-betamethasone 1-0.05 % 1 appl topical BID PRN cyanocobalamin (vitamin B-12) 1,000 mcg PO DAILY metoprolol succinate ER 25 mg PO DAILY nystatin 1 appl topical DAILY PRN ondansetron HCl 4 mg PO Q8H PRN warfarin takes warfarin 2 mg once a day PFSH Medical History Erythema intertrigo Pacemaker History of syncope Cardiac defibrillator in place Anemia in chronic kidney disease Localized swelling of both lower legs Sinus bradycardia Bifascicular block Intermittent lightheadedness Bilateral knee pain Impaired fasting glucose Osteopenia of left femoral neck Colonoscopy refused Postmenopausal Osteoarthritis Dyslipidemia Essential hypertension Chronic kidney disease (CKD) Surgical History S/P cardiac cath History of cataract surgery Family History Father HTN (hypertension) Mother CKD (chronic kidney disease) HTN (hypertension) Heart disease Family/Other Hailey's thyroiditis Social History Household Members: None Housing: House Alcohol intake: never Patient Tobacco Use Status: Former Tobacco user Years Smoked: 35 yrs e-Cigarette/Vaping Use: Never Used Advance Directives Date on File: 08/19/22 service: No Current occupational status: retired Cognitive needs: No Hearing needs: No Vision needs: Yes Review of Systems Const Denies chills, Denies fatigue, Denies fever(s), Denies frequent falls, Denies weakness, Denies weight gain and Denies weight loss ENT Denies dizziness Card Denies chest pain, Denies leg edema, Denies lightheadedness, Denies palpitations, Denies dyspnea and Denies dyspnea on exertion Resp Denies cough, Denies dyspnea and Denies dyspnea on exertion GI Denies hematochezia Musc Denies abnormal gait, Denies muscle weakness, Denies numbness, Denies radiating pain into limb and Denies tingling Neuro Denies abnormal gait, Denies dizziness, Denies frequent falls, Denies numbness, Denies tingling and Denies weakness Endo Denies fatigue and Denies palpitations Physical Exam Vital Signs: Last Vital Signs Pulse 82 04/16/25 15:19 BP 120/66 04/16/25 15:19 BMI result Body Mass Index 27.9 Office Procedures EKG Details: Sinus rhythm 82 beats per minute, left axis deviation, left ventricular hypertrophy, right bundle-branch block and left anterior fascicular block, QTC 493 milliseconds. [id number], Complete Assessment & Plan Assessment & Plan (1) Essential hypertension: Code(s): I10 - Essential (primary) hypertension Category: Medical (2) Ischemic cardiomyopathy: Code(s): I25.5 - Ischemic cardiomyopathy Category: Medical (3) Weight loss: Code(s): R63.4 - Abnormal weight loss Category: Medical Plan [age] year female with history of syncope when she was diagnosed with cardiomyopathy with LAD territory wall motion abnormality and apical thrombus. She had bifascicular block on EKG and underwent dual lead ICD. Cardiac catheterization showed severe LAD and RCA stenosis with heavy calcification. She had no anginal symptoms. Since then she has fallen and was not doing well in general. We decided to medically treat her as she had no anginal symptoms. Also with apical thrombus present and wall motion abnormality we suspected that the LAD territory is probably infarct is in the past. She is currently not even taking aspirin. I have advised her to start baby aspirin. Her main complaint is weight loss and poor appetite. She does not want to eat anything. These are quite concerning symptoms in someone her age. She is getting a mammogram in June but has never had a colonoscopy in the past. We discussed about utility of this and seeing a director internal control. She is agreeable and we will refer to GI for further assessment. In the meantime I have advised her to hold the atorvastatin also. Thank you for allowing me to participate in the care of your patient. Please feel free to contact me if you have any questions. Orders: Referrals Gastroenterology Referral R63.4 - Abnormal weight loss Medications: New aspirin 81 mg PO DAILY 1 tab 0RF R63.4 - Abnormal weight loss On Hold atorvastatin Hold Comment: Doctor's Order 40 mg PO DAILY 90 tabs 3RF 90 days Coding Level of Care Code Est Pt Level 4 (14373) Diagnoses Essential hypertension I10 Ischemic cardiomyopathy I25.5 Weight loss R63.4 CPT Codes EKG - CPT: 98563-[id number], Complete ([id number])
--- OUTSIDE RECORDS SUMMARY | 2025-04-16 15:18 | XMS_ITS | Encounter Summary ---
Author Organization [facility] Address [address] [place] [address] Phone Care Team Providers Care Easement Man Name Role Phone Vanessa Fregoso MD Primary Care Provider [phone] Reason for Visit * Reason Comments Med Refill Encounter Details Date Type Department Care Team (Late st Contact Info) Description 06/05/2023 Refill [facility] [address] [place] [address] Emil Foote MD Social [...] on filedocumented in this encounter Care Teams Easement Man Relationship Specialty Start Date End Date Vanessa Fregoso MD [facility] [place] [address] PCP - General 10/26/20 documented as of this encounter
[2025-04-16 15:19] VITALS: BP 120/66; PULSE 82; BMI 27.9
== END 2025-04-16 16:07 | disposition home or self-care (01) ==
LOC: HO.HCS 14:56
PROVIDERS: PCP Internal Medicine; Visit Provider Internal Medicine Cardiovascular Disease
DX: I10 Essential (primary) hypertension (principal); I25.5 Ischemic cardiomyopathy; R63.4 Abnormal weight loss
CPT/HCPCS: 93010; 99214

== ENCOUNTER → 2025-04-16 14:56 | Outpatient (BNVA) | payer MEDICARE, SELFPAY | PROVIDERS: PCP Internal Medicine; Visit Provider Internal Medicine Cardiovascular Disease | DX: I10 Essential (primary) hypertension (principal); I25.5 Ischemic cardiomyopathy; R63.4 Abnormal weight loss | CPT/HCPCS: 93005; 99212 ==

== ENCOUNTER 2025-06-02 15:43 | Emergency (ER) | payer MEDICARE, SELFPAY ==
--- NOTE | ~2025-06-02 | CT_ITS ---
CLINICAL HISTORY: fall with head strike, on thinners CT Head Without Contrast: Comparison: 02/21/2024 Findings: Cortical sulci are prominent. Basal ganglia are unremarkable No shift in midline structures No intraparenchymal bleeding or abnormal extra axial blood fluid collections Normal pituitary size. Parasellar carotid athero sclerotic calcification is present. A small air-fluid level is present in the posterior right maxillary sinus. There is mild cloudiness of inferior right mastoid air cells. The middle ear cavities are clear without signs of basilar fracture. Unremarkable orbital structures No depressed fractures. Small extracranial 10 mm soft tissue hematoma over the right frontal bone . Impression: Chronic involutional volume loss, no signs of acute trauma This document has been electronically signed by: Kyle Russo MD on 06/02/2025 18:07:31
--- NOTE | ~2025-06-02 | CT_ITS ---
CLINICAL HISTORY: fall with head strke CT cervical spine without contrast Comparison: CT/CO/SR - CT CERVICAL SPINE WITHOUT IV CONTRAST - 02/21/2024 12:44 PM EDT Findings: Normal limited view of the intracranial contents. There is cloudiness of inferior right mastoid air cells may be related to recent or remote infection. Middle ear cavities are clear. Soft tissues of the neck are normal. Lung apices are clear. Normal vertebral body alignment. No fractures or dislocations. There is mild degenerative narrowing of C5-6 and C6-7 disc spaces. Disc margin osteophytes are present at these levels. There is uncovertebral joint and facet hypertrophy with moderate bilateral foraminal stenosis at C4-5 and C5-6 There is moderate foraminal stenosis at C6-7 on the right. Impression: Degenerative changes with no signs of acute trauma. This document has been electronically signed by: Kyle Russo MD on 06/02/2025 18:00:34
--- NOTE | ~2025-06-02 | XR_ITS ---
EXAMINATION: XR SHOULDER, RIGHT CLINICAL INFORMATION: fall right shoulder pain/ bruising COMPARISON: 07/03/2023. TECHNIQUE: Three views of the right shoulder. FINDINGS: Mild osteopenia. No fracture, dislocation, or suspicious bone lesion. Normal alignment. The glenohumeral joint demonstrates mild degenerative arthritis. The AC joint is intact with minimal spurring. There is no subacromial spurring. The subacromial space is moderately narrowed. Remainder of the soft tissue and bony structures appear normal. XR/XR shoulder RT min 2V IMPRESSION: 1. No acute bony abnormality of the right shoulder. 2. Narrowing of the subacromial space, likely indicating underlying rotator cuff pathology. Electronically signed by: Porter Epps MD 06/02/2025 04:52 PM EDT
--- NOTE | ~2025-06-02 | CT_ITS ---
CLINICAL HISTORY: fall with right facial strike CT maxillofacial without contrast Comparison: None Findings: No fractures. Paranasal sinuses and mastoid air cells are clear except for small air-fluid level in the right maxillary sinus. Orbits normal. No retrobulbar hematoma. Zygomatical temporal arches are unremarkable. Temporomandibular joints intact. Visualized intracranial contents are normal. Soft tissues unremarkable Impression: There is a small soft tissue hematoma over the right frontal bone. There is motion artifact of the mandible. A mandibular fracture could be overlooked on this basis. The facial bones are otherwise unremarkable. This document has been electronically signed by: Kyle Russo MD on 06/02/2025 18:11:27
--- NOTE | 2025-06-02 16:17 | ED.FALL ---
HPI - Fall General Chief Complaint: Fall Stated Complaint: sent by after aida today (on bld thinners) Time Seen by Provider: 06/02/25 21:02 Source: patient and family Mode of arrival: ambulatory Limitations: no limitations History of Present Illness ED Provider: Dr. Jocelynn Perez HPI Narrative: 80-year-old female with extensive past medical history including CKD, hypertension, CAD, CHF on Coumadin presenting with facial trauma and right shoulder pain after a fall that occurred at home 3 days ago. Patient states that she was walking in her home when she felt dizzy and fell to the ground. She hit her face on the carpeted floor. No reported loss of consciousness. She hit her right shoulder. Was able to get up with some assistance from her daughter. She walks with a walker at baseline. Her daughter took some pictures of her injuries, sent them via message to her primary care doctor who reviewed these images today, Monday, and told her to come to the hospital for evaluation. Patient admits that since she had the fall, her vision in her right eye has been more blurry due to the swelling around her eye socket. No painful movements of the eye. Has been having issues with her gait over the last 3 weeks or so. Describes worsening unsteady gait and occasional dizziness and lightheadedness. She has a history of heart failure and this is reportedly why she takes the Coumadin. Unclear if she has had any valve replacement but the goal INR is between 2 and 3. Most recent check of her INR was 2.9 on Monday last week. She denies recent illness including fevers or chills, cough or cold-type symptoms, chest pain, difficulty breathing, abdominal pain, nausea or vomiting, bowel changes or urinary complaints. Admits to decreased urine output secondary to decreased oral intake which has been an issue for her for the last several months. Related Data Home Medications ?Medication ?Instructions ?Recorded ?Confirmed cyanocobalamin (vitamin B-12) 1,000 mcg PO DAILY 05/16/24 04/16/25 1,000 mcg tablet acetaminophen 650 mg 650 mg PO Q12H 10/30/24 04/16/25 tablet,extended release (Tylenol Arthritis Pain) ascorbic acid (vitamin C) 250 mg 250 mg PO DAILY 10/30/24 04/16/25 tablet Previous Rx's ?Medication ?Instructions ?Recorded atorvastatin 40 mg tablet 40 mg PO DAILY 90 days #90 tabs 09/01/24 Held on 04/16/25. Instructions: Doctor's Order clotrimazole-betamethasone 1 1 appl topical BID PRN rash under 10/30/24 %-0.05 % topical cream breast #45 grams nystatin 100,000 unit/gram topical 1 appl topical DAILY PRN rash #30 10/30/24 powder grams warfarin 2 mg tablet 2 mg PO .COMPLEX #90 tabs 10/30/24 metoprolol succinate 25 mg 25 mg PO DAILY #30 tabs 12/23/24 tablet,extended release 24 hr aspirin 81 mg tablet 81 mg PO DAILY #1 tab 04/16/25 megestrol 20 mg tablet 20 mg PO BID #60 tabs 04/16/25 metoclopramide HCl 5 mg tablet 5 mg PO Q8H PRN nausea and 04/16/25 (Reglan) vomiting #20 tabs dronabinol 2.5 mg capsule 2.5 mg PO DAILY #30 caps 04/28/25 cephalexin 500 mg capsule 500 mg PO QID 7 days #28 caps 06/02/25 Allergies Allergy/AdvReac Type Severity Reaction Status Date / Time GALILEO Inhibitors Allergy Severe Cough Verified 06/02/25 16:25 Review of Systems Review of Systems: As per HPI, full review of systems performed and negative but for the above mentioned pertinent positives and negatives. [facility] Past Medical History Medical History Erythema intertrigo Pacemaker History of syncope Cardiac defibrillator in place Anemia in chronic kidney disease Localized swelling of both lower legs Sinus bradycardia Bifascicular block Intermittent lightheadedness Bilateral knee pain Impaired fasting glucose Osteopenia of left femoral neck Colonoscopy refused Postmenopausal Osteoarthritis Dyslipidemia Essential hypertension Chronic kidney disease (CKD) Surgical History S/P cardiac cath History of cataract surgery Family History Family History Father HTN (hypertension) Mother CKD (chronic kidney disease) HTN (hypertension) Heart disease Family/Other Hailey's thyroiditis Social History Social History Household Members: None Housing: House Alcohol intake: never Patient Tobacco Use Status: Former Tobacco user Years Smoked: 35 yrs Smoked in Last 30 Days: No e-Cigarette/Vaping Use: Never Used Use of substances other than those prescribed or required for medical reasons: No Advance Directives: Yes Advance Directives on File: Yes Advance Directives Date on File: 08/19/22 service: No Current occupational status: retired Cognitive needs: No Hearing needs: No Vision needs: Yes Physical Exam Exam: Exam: GENERAL: Chronically ill-appearing, conversant, no acute distress. SKIN: Normal skin color for ethnicity, warm, dry, no rashes noted, abrasion noted over the R zygoma. HEENT: Normocephalic, R facial contusion and ecchymosis overlying the entire temporal region, eyebrow and maxilla, no step-offs, no bogginess to the scalp, no stridor, posterior oropharynx nonerythematous, EOMI, PERRLA. NECK: Soft, supple, full ROM, midline structures nontender, no step-offs, no deformities, no lymphadenopathy. CHEST: Heart regular rate and rhythm, no murmurs, symmetric chest rise and fall. PULMONARY: Clear to auscultation bilaterally, no labored breathing, no wheezes/rhales/ rhonchi. ABDOMINAL: Soft, nondistended, nontender, positive bowel sounds in all quadrants. : Deferred. MUSCULOSKELETAL: Normal tone, limited range of motion in the R shoulder in external rotation, R shoulder contusion with ecchymosis, no peripheral edema, full function of the radial, median and ulnar nerves of the right hand NEURO: Alert and oriented to person, CN II through XII intact, no focal neurologic deficits. PSYCHIATRIC: Flat affect, fluid speech, appropriate demeanor. Vital Signs: Vital Signs: Last Vital Signs Temp 98.6 F 06/02/25 16:18 Pulse 72 06/02/25 22:57 Resp 18 06/02/25 22:57 BP 154/71 H 06/02/25 22:57 Pulse Ox 99 06/02/25 22:57 O2 Del Method Room Air 06/02/25 22:57 BMI result Body Mass Index 22.2 Course Course Course Narrative: This is a Rapid Medical Examination (RME) performed by Yosi Medley PA-C in triage. Full HPI, ROS, assessment and treatment plan per primary provider in the Main ED. Hx: 80 yo F hx HTN, CKD, dyslipidemia, osteoarthritis, and anemia in CKD here w/ daughter for eval s/p fall 4 nights ago. reports getting bouts of light headedness , fell forward, hit the side of her right face and right shoulder. recalls the entire event, denies LOC. on aspirin and warfarin. last INR 2.9 last Monday, goal 2-3. reports intermittent HAs and nausea w/o vomiting since fall, assoc blurred vision. daughter states patient is at her baseline mentation. denies neck pain, facial pressure, nose bleeds, discharge from ears. PE/vitals: noted bruising to right face. EOMs intact. PERRLA Plan: labs, ekg, imaging Medications Administered Discontinued Medications Generic Name Dose Route Start Last Admin Trade Name Freq PRN Reason Stop Dose Admin Cephalexin HCl 500 mg 06/02/25 22:50 06/02/25 23:34 Cephalexin 500 Mg Capsule PO 06/02/25 22:51 500 mg ONCE ONE Administration Warfarin Sodium 2 mg 06/02/25 22:00 06/02/25 23:05 Warfarin Sodium 2 Mg Tablet PO 06/02/25 22:01 2 mg ONCE ONE Administration Medical Decision Making Medical Decision Making MDM Narrative: Patient presents today with a chief complaint of dizziness. Differential diagnosis is extremely broad and includes UTI or other infectious process, posterior circulation deficits causing vestibular basilar symptoms, anemia, hypovolemia, middle or inner ear problems, intracranial abnormality such as stroke bleed or tumor, electrolyte abnormalities, cardiac arrhythmia, among many others. This patient does not have any focal neurological findings at this time. Dizziness has been steadily worsening over weeks. Has not seen her primary care doctor about this yet. Workup today shows no acute traumatic process of the face, head or neck. She does have a probable rotator cuff injury as evidenced by their difficulty with external rotation of the right shoulder as well as x-ray findings of joint space narrowing. She is neurovascularly intact distally. She was placed in a sling for comfort though she does walk with a walker at baseline. After an extensive discussion, using shared decision making with the patient and her daughter, plan will be to discharge home to follow up with the primary care to arrange for physical therapy as an outpatient. She does not want to be hospitalized or to get placed with rehab from the emergency department. I feel that this is a reasonable option. She is steady on her feet as the moment. She does have a urinary tract infection which we will treat with Keflex. Differential Diagnosis Differential Diagnoses: The differential diagnosis associated with the presentation includes (as above) Admission/Observation Consideration of admission/observation: Escalation of care including admission/observation considered Lab Data MDM Lab Attestation statement: I reviewed the patient's lab results. 06/02/25 17:04 06/02/25 17:04 Labs: Lab Results 06/02/25 06/02/25 Range/Units 17:04 22:28 WBC 8.7 (4.8-10.8) X10*3/uL RBC 3.54 L (4.20-5.50) X10*6/uL Hgb 11.6 L (12.0-16.0) g/dl Hct 35.6 L (37.0-47.0) % MCV 100.6 H (80.0-98.0) fL MCH 32.8 (27.0-33.0) pg MCHC 32.6 (31.0-35.0) g/dl RDW 13.6 (11.0-16.0) % Plt Count 280 (160-400) X10*3/uL MPV 9.9 (9.4-12.3) fL Immature Gran % (Auto) 0.5 H (0.0-0.4) % Neut % (Auto) 69.9 (45-73) % Lymph % (Auto) 12.3 L (20-40) % [place] % (Auto) 11.8 H (2-11) % Eos % (Auto) 4.5 H (0-4) % Baso % (Auto) 1.0 (0-2) % Lymph # (Auto) 1.1 L (1.2-4.9) X10*3/uL [place] # (Auto) 1.0 (0.1-1.2) X10*3/uL Eos # (Auto) 0.4 (0.0-0.4) X10*3/uL Baso # (Auto) 0.1 (0.0-0.2) X10*3/uL Abs Immat Gran (auto) 0.04 H (0.00-0.03) X10*3/uL Absolute Neuts (auto) 6.1 (2.0-8.3) x10*3/uL Absolute Nucleated RBC 0.000 (0.0-0.012) X10*3/uL Nucleated RBC % (auto) 0.0 (0.0-0.2) /100WBC PT 33.7 H (10.9-12.4) SEC INR 2.9 H (0.9-1.1) Sodium 140 (135-145) mmol/L Potassium 4.5 (3.3-5.1) mmol/L Chloride 104 (96-108) mmol/L Carbon Dioxide 25 (22-29) mmol/L Anion Gap 16 (12-20) BUN 30 H (9-16) mg/dL Creatinine 2.00 H (0.5-1.4) mg/dL Estim Creat Clear Calc 20.5 Estimated GFR 24 Random Glucose 117 H (60-115) mg/dL Calcium 9.4 (8.4-10.2) mg/dL Magnesium 2.0 (1.6-2.6) mg/dL Total Bilirubin 0.8 (0.0-1.0) mg/dL AST 33 H (5-31) U/L ALT 17 (0-31) U/L Alkaline Phosphatase 49 (39-117) U/L Troponin I High Sens 31.3 H (<3.5-17.0) ng/L Total Protein 6.5 (6.5-8.0) g/dL Albumin 3.7 (3.5-5.0) g/dL Urine Color Yellow Urine Appearance Clear Urine pH 5.0 (5.0-9.0) Ur Specific [place] 1.020 (1.005-1.025) Urine Protein Negative (Neg-Trace) mg/dL Urine Glucose (UA) Negative (Negative) mg/dL Urine Ketones Trace (Negative) mg/dL Urine Blood Negative (Negative) Urine Nitrite Positive H (Negative) Ur Leukocyte Esterase Small (1+) H (Negative) Urine RBC 0-2 (0-2) /HPF Urine WBC 11-20 H (0-5) /HPF Ur Squamous Epith Cells 11-20 (0-2) /HPF Urine Bacteria 4+ (None Seen) Hyaline Casts >20 (0-2) /LPF Radiology Impression Discussion of test interpretation with radiology: I have reviewed the radiologist's reading. Radiologist Impression: CT maxillofacial without contrast Comparison: None Findings: No fractures. Paranasal sinuses and mastoid air cells are clear except for small air-fluid level in the right maxillary sinus. Orbits normal. No retrobulbar hematoma. Zygomatical temporal arches are unremarkable. Temporomandibular joints intact. Visualized intracranial contents are normal. Soft tissues unremarkable Impression: There is a small soft tissue hematoma over the right frontal bone. There is motion artifact of the mandible. A mandibular fracture could be overlooked on this basis. The facial bones are otherwise unremarkable. This document has been electronically signed by: Kyle Russo MD on 06/02/2025 18:11:27 CT Head Without Contrast: Comparison: 02/21/2024 Findings: Cortical sulci are prominent. Basal ganglia are unremarkable No shift in midline structures No intraparenchymal bleeding or abnormal extra axial blood fluid collections Normal pituitary size. Parasellar carotid athero sclerotic calcification is present. A small air-fluid level is present in the posterior right maxillary sinus. There is mild cloudiness of inferior right mastoid air cells. The middle ear cavities are clear without signs of basilar fracture. Unremarkable orbital structures No depressed fractures. Small extracranial 10 mm soft tissue hematoma over the right frontal bone . Impression: Chronic involutional volume loss, no signs of acute trauma This document has been electronically signed by: Kyle Russo MD on 06/02/2025 18:07:31 CT cervical spine without contrast Comparison: CT/ID/SR - CT CERVICAL SPINE WITHOUT IV CONTRAST - 02/21/2024 12:44 PM EDT Findings: Normal limited view of the intracranial contents. There is cloudiness of inferior right mastoid air cells may be related to recent or remote infection. Middle ear cavities are clear. Soft tissues of the neck are normal. Lung apices are clear. Normal vertebral body alignment. No fractures or dislocations. There is mild degenerative narrowing of C5-6 and C6-7 disc spaces. Disc margin osteophytes are present at these levels. There is uncovertebral joint and facet hypertrophy with moderate bilateral foraminal stenosis at C4-5 and C5-6 There is moderate foraminal stenosis at C6-7 on the right. Impression: Degenerative changes with no signs of acute trauma. This document has been electronically signed by: Kyle Russo MD on 06/02/2025 18:00:34 XR SHOULDER, RIGHT CLINICAL INFORMATION: fall right shoulder pain/ bruising COMPARISON: 07/03/2023. TECHNIQUE: Three views of the right shoulder. FINDINGS: Mild osteopenia. No fracture, dislocation, or suspicious bone lesion. Normal alignment. The glenohumeral joint demonstrates mild degenerative arthritis. The AC joint is intact with minimal spurring. There is no subacromial spurring. The subacromial space is moderately narrowed. Remainder of the soft tissue and bony structures appear normal. XR/XR shoulder RT min 2V IMPRESSION: 1. No acute bony abnormality of the right shoulder. 2. Narrowing of the subacromial space, likely indicating underlying rotator cuff pathology. Electronically signed by: Porter Epps MD 06/02/2025 04:52 PM EDT RP Independent Historian Clinical information obtained from an independent historian. History obtained from or confirmed by: Other (daughter) External Record Review External record reviewed: Inpatient record and Outpatient record Prescription Management I considered prescription management with: Antibiotic Chronic Conditions Patient?s care impacted by: Hypertension and Other (CHF) Discharge Plan Discharge Clinical Impression: Injury of right rotator cuff, Fall from ground level, Facial contusion, Unsteady gait, Acute on chronic renal insufficiency, Acute UTI Patient Disposition: Home, Self-Care Instructions: Rotator Cuff Injury (ED), Fall Prevention for Older Adults (ED), Urinary Tract Infection in Older Adults (ED) Additional Instructions: Your imaging did not show any evidence of acute injury in the face, head or neck. You did likely suffer a rotator cuff injury of your right shoulder though. Follow-up with your primary care doctor as soon as possible regarding this injury. You may eventually need to see an orthopedic surgeon. Use your sling as needed for comfort and support of your right shoulder. Your urine tested positive for urinary tract infection. You will be given a course of antibiotics for this. Do not stop this medication early if you start to feel better. You need the entire prescription to kill all of the bacteria. Return to the ER with any new or worsening symptoms including: Worsening pain despite use of the sling or Tylenol for pain, fevers greater than 100?, inability to tolerate your antibiotic, chest pain, difficulty breathing, any new symptom that concerns you. Prescriptions: New cephalexin 500 mg capsule 500 mg PO QID 7 Days Qty: 28 0RF No Action atorvastatin 40 mg tablet 40 mg PO DAILY 90 Days Qty: 90 3RF metoprolol succinate 25 mg tablet extended release 24 hr 25 mg PO DAILY Qty: 30 5RF metoclopramide HCl [Reglan] 5 mg tablet 5 mg PO Q8H PRN (Reason: nausea and vomiting) Qty: 20 0RF megestrol 20 mg tablet 20 mg PO BID Qty: 60 0RF dronabinol 2.5 mg capsule 2.5 mg PO DAILY Qty: 30 0RF Rx Instructions: Start with 1 capsule an hour before breakfast acetaminophen [Tylenol Arthritis Pain] 650 mg tablet extended release 650 mg PO Q12H warfarin 2 mg tablet 2 mg PO .COMPLEX Qty: 90 5RF Rx Instructions: takes warfarin 2 mg once a day clotrimazole-betamethasone 1-0.05 % cream 1 appl topical BID PRN (Reason: rash under breast) Qty: 45 2RF nystatin 100,000 unit/gram powder 1 appl topical DAILY PRN (Reason: rash) Qty: 30 1RF ascorbic acid (vitamin C) 250 mg tablet 250 mg PO DAILY Rx Instructions: M,W, F cyanocobalamin (vitamin B-12) 1,000 mcg tablet 1,000 mcg PO DAILY aspirin 81 mg tablet 81 mg PO DAILY Qty: 1 0RF Referrals: Shyla Fregoso MD [Primary Care Provider, Internal Medicine] Referral Note: Call for an appointment as soon as possible. Print Language: Yoruba
[2025-06-02 16:18] VITALS: BP 125/60; PULSE 81; RESP 20; TEMP 37; O2SAT 99; BMI 22.2
--- NOTE | 2025-06-02 16:21 | ECG_ITS ---
Test Reason : light headed Blood Pressure : */* mmHG Vent. Rate : 83 BPM Atrial Rate : 83 BPM P-R Int : 180 ms QRS Dur : 104 ms QT Int : 388 ms P-R-T Axes : * 246 137 degrees QTcB Int : 455 ms Suspect limb lead reversal, interpretation assumes no reversal Sinus rhythm with occasional Premature ventricular complexes and Premature atrial complexes Right ventricular hypertrophy Inferior infarct , age undetermined Anterolateral infarct Abnormal ECG When compared with ECG of 21-Feb-2024 12:56, Significant changes have occurred Referred By: Matilde Medley Electronically Signed By:
--- NOTE | 2025-06-02 16:26 | MHC.EDTECH ---
Radiology took patient before i could do EKG first
[2025-06-02 17:10] LABS: MANUAL DIFF FLAG NO
[2025-06-02 17:26] LABS: INTERNATIONAL NORM RATIO 2.9 (0.9-1.1); Prothrombin Time 33.7 SEC (10.9-12.4)
[2025-06-02 17:29] LABS: Alanine Aminotransferase 17 U/L (0-31); Albumin Level 3.7 g/dL (3.5-5.0); Alkaline Phosphatase 49 U/L (39-117); Anion Gap 16 (12-20); Aspartate Amino Transferase 33 U/L (5-31); Blood Urea Nitrogen 30 mg/dL (9-16); Calcium 9.4 mg/dL (8.4-10.2); Carbon Dioxide 25 mmol/L (22-29); Chloride 104 mmol/L (96-108); Creatinine Clr Calc Pharmacy 20.5; Estimated Glomerular Filt Rate 24; Magnesium 2.0 mg/dL (1.6-2.6); Potassium 4.5 mmol/L (3.3-5.1); Sodium 140 mmol/L (135-145); Total Protein 6.5 g/dL (6.5-8.0)
[2025-06-02 17:32] LABS: Troponin-I High Sensitivity 31.3 ng/L (<3.5-17.0)
[2025-06-02 17:40] LABS: Hematocrit 35.6 % (37.0-47.0); Hemoglobin 11.6 g/dl (12.0-16.0); Imm Gran Abs Auto 0.04 X10*3/uL (0.00-0.03); Imm Gran Pct Auto 0.5 % (0.0-0.4); Lymphocytes Absolute Auto 1.1 X10*3/uL (1.2-4.9); Mean Corpuscular HGB Conc 32.6 g/dl (31.0-35.0); Mean Corpuscular Hemoglobin 32.8 pg (27.0-33.0); Mean Corpuscular Volume 100.6 fL (80.0-98.0); NRBC Abs Auto 0.000 X10*3/uL (0.0-0.012); NRBC Pct Auto 0.0 /100WBC (0.0-0.2); Platelet Count 280 X10*3/uL (160-400); Red Blood Count 3.54 X10*6/uL (4.20-5.50); White Blood Count 8.7 X10*3/uL (4.8-10.8)
[2025-06-02 22:34] LABS: Appearance Urine Clear; Glucose Urine UA Negative (Negative); PH 5.0 (5.0-9.0); Specific Gravity - Urine 1.020 (1.005-1.025); UMIC TRIGGER UACC YES
[2025-06-02 22:44] LABS: UACC Culture Trigger YES
[2025-06-02 22:57] VITALS: BP 154/71; PULSE 72; RESP 18; O2SAT 99
[2025-06-02 23:47] VITALS: BP 154/71; PULSE 72; RESP 18; TEMP 36.9; O2SAT 99
== END 2025-06-02 23:48 | disposition home or self-care (01) ==
PROVIDERS: Physician Assistant Medical; Emergency Provider Emergency Medicine; PCP Internal Medicine
DX: N39.0 Urinary tract infection, site not specified (principal); S00.83XA Contusion of other part of head, initial encounter; S46.001A Unspecified injury of muscle(s) and tendon(s) of the rotator cuff of right shoulder, initial encounter; W19.XXXA Unspecified fall, initial encounter; Y93.01 Activity, walking, marching and hiking; Y92.009 Unspecified place in unspecified non-institutional (private) residence as the place of occurrence of the external cause; Y99.9 Unspecified external cause status; R42 Dizziness and giddiness; I13.0 Hypertensive heart and chronic kidney disease with heart failure and stage 1 through stage 4 chronic kidney disease, or unspecified chronic kidney disease; N18.9 Chronic kidney disease, unspecified; I50.9 Heart failure, unspecified; Z79.899 Other long term (current) drug therapy
CPT/HCPCS: 36415; 70450; 70486; 72125; 73030; 80053; 81001; 83735; 84484; 85025; 85610; 87086; 87088; 87186; 93005; 99285

== ENCOUNTER → 2025-06-02 16:19 | Outpatient (BNV) | payer MEDICARE, SELFPAY | PROVIDERS: PCP Internal Medicine; Visit Provider Radiology Diagnostic Radiology | DX: S09.90XA Unspecified injury of head, initial encounter (principal); S00.93XA Contusion of unspecified part of head, initial encounter; M25.511 Pain in right shoulder; W19.XXXA Unspecified fall, initial encounter | CPT/HCPCS: 70450; 70486; 72125; 73030 ==

== ENCOUNTER 2025-06-05 15:09 | Outpatient (AMB) | payer MEDICARE, SELFPAY ==
--- OUTSIDE RECORDS SUMMARY | 2025-06-05 15:11 | XMS_ITS | Encounter Summary ---
Author Organization [facility] Address [address] [place] [address] Phone Care Team Providers Care Machine Tool Technology Instructor Name Role Phone Vanessa Fregoso MD Primary Care Provider [phone] Reason for Visit * Reason Comments Med Refill Encounter Details Date Type Department Care Team (Late st Contact Info) Description 06/05/2023 Refill [facility] [address] [place] [address] Emil Foote MD Social History [...] on filedocumented in this encounter Care Teams Machine Tool Technology Instructor Relationship Specialty Start Date End Date Vanessa Fregoso MD [facility] [place] [address] PCP - General 10/26/20 documented as of this encounter
[2025-06-05 15:16] VITALS: BP 118/66; PULSE 77; RESP 16; TEMP 36.9; O2SAT 93; BMI 26.2
--- NOTE | 2025-06-05 15:16 | MHC.PC.OV ---
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 Instructions: Doctor's Order cephalexin 500 mg PO QID 7 days clotrimazole-betamethasone 1-0.05 % 1 appl topical BID PRN cyanocobalamin (vitamin B-12) 1,000 mcg PO DAILY dronabinol 2.5 mg PO DAILY famotidine 40 mg PO DAILY megestrol 20 mg (1/2 x 40 mg) PO BID 30 days metoclopramide HCl (Reglan) 5 mg PO Q8H PRN metoprolol succinate ER 25 mg PO DAILY nystatin 1 appl topical DAILY PRN warfarin takes warfarin 2 mg once a day Tobacco use date assessed: 06/05/25 Fall risk assessment: 2 + Falls in past year Last assessed Fall Risk: 06/05/25 Dental Screening Dental Screen Date: 01/06/25 HPI [facility] ER due to a fall HPI Details 80 year-old female with past medical history of hyperlipidemia, hypertension , hx of bifascicular block, s/p dual-chamber ICD placement, history of apical mural thrombus currently anticoagulated with warfarin and checks her PT INR via [employer], here today for follow-up after recent fall. Patient fell on a carpeted floor at home approximately a week ago and landed on a carpeted floor in her right side, sustaining hematoma on right cheek and arm and complaining of right shoulder pain. Patient states that she was walking in her home when she felt dizzy and fell to the ground. No reported loss of consciousness. She has been having episodes of dizziness especially on sudden changes in position, due to poor intake from lack of appetite. Patient states that she feels full right away and feels nauseated after this is a few bites of her food, admits to not drinking enough water. Have tried send a prescription some Megace, dronabinol but was unable to get any of these due to it being out of stock. Patient also does not want to try taking cannabinoids to help stimulate appetite. Has been supplementing her diet with [place] drink but does not take it all the time, eats eggs mostly She was also started on cephalexin at the ER for of urinary tract infection At present patient still complains of generalized weakness, walks at home with a walker, and still has very poor appetite, no headache, still having nausea with food intake but no abdominal pain or back pain, afebrile with no new complaints at present time. Has lost approximately 30 lb in the last six-months [facility] Medical History Erythema intertrigo Pacemaker History of syncope Cardiac defibrillator in place Anemia in chronic kidney disease Localized swelling of both lower legs Sinus bradycardia Bifascicular block Intermittent lightheadedness Bilateral knee pain Impaired fasting glucose Osteopenia of left femoral neck Colonoscopy refused Postmenopausal Osteoarthritis Dyslipidemia Essential hypertension Chronic kidney disease (CKD) Surgical History S/P cardiac cath History of cataract surgery Family History Father HTN (hypertension) Mother CKD (chronic kidney disease) HTN (hypertension) Heart disease Family/Other Hailey's thyroiditis Social History Household Members: None Housing: House Alcohol intake: never Patient Tobacco Use Status: Former Tobacco user Years Smoked: 35 yrs e-Cigarette/Vaping Use: Never Used Advance Directives Date on File: 08/19/22 service: No Current occupational status: retired Cognitive needs: No Hearing needs: No Vision needs: Yes Questionnaire Thrive Questionnaire Date Thrive assessed: 10/30/24 I am a: Patient What is your living situation today?: I have a steady place to live Within the past 12 months, did the food you bought not last and you didn't have the money to get more?: Never true Within the past 12 months, did you worry whether your food would run out before you got money to buy more?: Never true Do you have trouble paying for medicines?: No Do you have trouble getting transportation to medical appointments?: I choose not to answer this question Do you have trouble paying your heating and electricity bill?: No Do you have trouble taking care of your child, family member or friend?: No Do you have trouble with day-to-day activities such as bathing, preparing meals, shopping, managing finances, etc.?: No Are you currently unemployed and looking for a job?: No Are you interested in more education?: No Please select the resources that you would like help with: None Currently or been in a relationship where the following occur: No concerns reported THRIVE Score: 0 KIANA-7 AMB Questionnaire KIANA-7 Date KIANA - 7 assessed: 10/30/24 Source: Developed by Drs. Hoang Marie, [place] Pete, Jed Strauss and colleagues, with an educational esteban from [employer]. Review of Systems Const All systems reviewed & are unremarkable except as noted in HPI and below Eyes Denies change in vision Card Denies chest pain at rest, Denies chest pain with activity, Denies palpitations and Denies dyspnea Resp Denies chest congestion, Denies cough and Denies dyspnea GI Reports early satiety, Reports dyspepsia and Reports nausea Reports no additional complaints Psych Reports no additional complaints Endo Denies palpitations Physical exam (Primary Care) Vital Signs: Last Vital Signs Temp 98.5 F 06/05/25 15:16 Pulse 77 06/05/25 15:16 Resp 16 06/05/25 15:16 BP 118/66 06/05/25 15:16 Pulse Ox 93 06/05/25 15:16 Oxygen Delivery Method Room Air 06/05/25 15:16 BMI result Body Mass Index 26.2 Tobacco/Smoking Status: Tobacco use Status Tobacco use date assessed 06/05/25 06/05/25 15:23 Patient Tobacco Use Status Former Tobacco user 06/05/25 15:23 e-Cigarette/Vaping Use Never Used 06/05/25 15:23 Thrive Assessment: Date of Thrive Assessment Date Thrive assessed 10/30/24 06/05/25 15:23 Currently or been in a relationship where the following occur: No concerns reported ACP: Const General: comfortable, no acute distress and alert Nutritional Appearance: overweight Orientation/consciousness: patient oriented x3 Limitations: ambulation with cane and ambulation with walker HENMT Ears: external ears normal General nose exam: Normal external nose present and No nasal discharge present Mouth: Normal oral and palatal mucosa present, oropharynx normal and moist mucous membranes Eyes General: appearance normal, both eyes and all related structures Neck Neck: Yes full ROM, Yes no lymphadenopathy and Yes supple Resp Effort & Inspection: normal respiratory effort and able to speak in complete sentences Auscultation: clear to auscultation bilaterally Cardio Rhythm: regular rhythm Heart sounds: S1 normal heart sound present and S2 normal heart sound present GI Palpation (GI): Soft to palpation, nontender and no masses Auscultation: normal bowel sounds Skin Other: Healing ecchymosis noted over right cheek in right shoulder and elbow Neuro General: patient oriented x3, tone normal, moves all extremities (With limited abduction in right shoulder joint due to pain), Normal light touch and pain sensation and no focal motor deficits Cranial nerves: Yes CN's II-XII intact bilaterally Cognition (Neuro): normal cognition Gait exam (Neuro): Assisted gait required (Walker) Extrem General: Yes full ROM, Yes no joint enlargement and Yes no calf tenderness Psych Appearance: grossly normal and well kempt Mental Status: mental status grossly normal Speech and movement: Normal speech and movement present Affect: normal affect Coding Level of Care Code Est Pt Level 4 (17972) Diagnoses Chronic kidney disease (CKD) N18.9 Apical mural thrombus following TN I23.6 Ischemic cardiomyopathy I25.5 Anemia in stage 3a chronic kidney disease N18.31; D63.1 Chronic kidney disease stage: stage 3 (moderate) Chronic kidney disease stage 3 subtype: stage 3a (GFR 45-59) History of recent fall Z91.81 Multiple bruises T07.XXXA Weight loss, abnormal R63.4 Loss of appetite R63.0 Dyspepsia R10.13 Assessment & Plan Assessment & Plan (1) Chronic kidney disease (CKD): Comment: followed by Dr. Foote Code(s): N18.9 - Chronic kidney disease, unspecified Category: Medical (2) Apical mural thrombus following TN: Code(s): I23.6 - Thrombosis of atrium, auricular appendage, 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 Category: Medical (3) Ischemic cardiomyopathy: Code(s): I25.5 - Ischemic cardiomyopathy Category: Medical (4) Anemia in chronic kidney disease: Code(s): N18.9 - Chronic kidney disease, unspecified; D63.1 - Anemia in chronic kidney disease Category: Medical Qualifiers: Chronic kidney disease stage: stage 3 (moderate) Chronic kidney disease stage 3 subtype: stage 3a (GFR 45-59) Qualified Code(s): N18.31 - Chronic kidney disease, stage 3a; D63.1 - Anemia in chronic kidney disease (5) History of recent fall: Code(s): Z91.81 - History of falling (6) Multiple bruises: Code(s): T07.XXXA - Unspecified multiple injuries, initial encounter (7) Weight loss, abnormal: Code(s): R63.4 - Abnormal weight loss (8) Loss of appetite: Code(s): R63.0 - Anorexia (9) Dyspepsia: Code(s): R10.13 - Epigastric pain Plan Started on famotidine 40 mg per tablet to take 1 tablet today and at least an hour before eating, prescription also sent for Megestrol 40 mg per tablet to take twice a day to stimulate appetite, and refilled prescription for metoclopramide 5 mg to take 1 tablet every 8 hours as needed for intermittent nausea. Advised to supplement her food intake with either boost or ensure instead of [place] drinks, try giving bone broth soup mixed in with vegetables and rice, with small frequent feedings at least 6 times during the day. Dry yogurt mixed with foods or oatmeal in a.m. together with adds.. Currently followed by Dr. Foote for her chronic kidney disease and anemia of chronic disease. Continued on Coumadin 2 mg daily Will see her back for follow-up in 4 weeks Medications: New famotidine TAKE MEDICATION AT LEAST AN HOUR BEFORE EATING 40 mg PO DAILY 30 tabs 0RF Changed From megestrol 20 mg PO BID 60 tabs 0RF R63.0 - Anorexia, R63.4 - Abnormal weight loss To megestrol 20 mg (1/2 x 40 mg) PO BID 30 tabs 0RF 30 days R63.0 - Anorexia, R63.4 - Abnormal weight loss Refilled metoclopramide HCl (Reglan) 5 mg PO Q8H PRN 30 tabs 1RF nausea and vomiting Discontinued dronabinol Start with 1 capsule an hour before breakfast Discontinued Reason: Order 2.5 mg PO DAILY 30 caps 0RF R63.0 - Anorexia
== END 2025-06-05 16:33 | disposition home or self-care (01) ==
LOC: HO.HMCC 15:09
PROVIDERS: PCP Internal Medicine; Visit Provider Internal Medicine
DX: N18.9 Chronic kidney disease, unspecified (principal); I23.6 Thrombosis of atrium, auricular appendage, 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; I25.5 Ischemic cardiomyopathy; N18.31 Chronic kidney disease, stage 3a; D63.1 Anemia in chronic kidney disease; Z91.81 History of falling; T07.XXXA Unspecified multiple injuries, initial encounter; R63.4 Abnormal weight loss; R63.0 Anorexia; R10.13 Epigastric pain

== ENCOUNTER → 2025-06-05 15:09 | Outpatient (BNVA) | payer MEDICARE, SELFPAY | PROVIDERS: PCP Internal Medicine; Visit Provider Internal Medicine | DX: I12.9 Hypertensive chronic kidney disease with stage 1 through stage 4 chronic kidney disease, or unspecified chronic kidney disease (principal); E78.5 Hyperlipidemia, unspecified; N18.9 Chronic kidney disease, unspecified; R42 Dizziness and giddiness; I25.5 Ischemic cardiomyopathy; N18.31 Chronic kidney disease, stage 3a; D63.1 Anemia in chronic kidney disease; R63.4 Abnormal weight loss; R63.0 Anorexia; R10.13 Epigastric pain; T07.XXXA Unspecified multiple injuries, initial encounter; W19.XXXA Unspecified fall, initial encounter; Y93.9 Activity, unspecified; Y92.9 Unspecified place or not applicable; Y99.9 Unspecified external cause status; Z91.81 History of falling; Z79.01 Long term (current) use of anticoagulants; Z95.810 Presence of automatic (implantable) cardiac defibrillator | CPT/HCPCS: 99212 ==

== ENCOUNTER 2025-06-13 09:28 | Inpatient (IN) | payer MEDICARE, SELFPAY ==
[2025-06-13] VITALS (12 sets, daily range): BP systolic 68–132; BP diastolic 35–70; PULSE 66–78; RESP 12–18; TEMP 36.8–37.1; O2SAT 97–99; BMI 29.1
--- NOTE | ~2025-06-13 | CT_ITS ---
EXAMINATION: CT ABDOMEN AND PELVIS WITHOUT CONTRAST CLINICAL INFORMATION: Rule out peritoneal carcinomatosis. Abnormal chest CT. COMPARISON: Chest CT performed 06/15/2025. Remote CT abdomen and pelvis 01/04/2013. TECHNIQUE: Multidetector volumetric imaging was performed from the superior aspect of the liver through the pubic symphysis. Sagittal and coronal reformatted images were obtained on the technologist's workstation. This CT examination was performed using dose optimization techniques as appropriate, variously including the following: *Automated exposure control *Adjustment of mA and/or kV according to patient size (this includes techniques or standardized protocols for targeted exams where dose is matched to indication/reason for exam; i.e. extremities or head) *Use of iterative reconstruction technique FINDINGS: Study is significantly limited without the benefit of IV contrast. This limits the sensitivity of the study. LUNG BASES: There is mild to moderate cardiac enlargement. There are AICD leads present. There is no pericardial effusion. There are changes of COPD and scarring in the lung bases. There is no effusion or consolidation. The distal esophagus appears thickened and patulous. LIVER, GALLBLADDER, AND BILIARY TREE: The unenhanced liver is normal in size, shape, and attenuation. No focal hepatic lesion or biliary ductal dilatation is present. There is perihepatic ascites present. The gallbladder demonstrates layering hyperdense gallstones. No definite wall thickening. There is ascitic fluid within the wesley hepatis. PANCREAS: Moderate atrophy. SPLEEN: Normal unenhanced appearance. There is perisplenic ascites. ADRENAL GLANDS: There is bilateral nodularity of both adrenal glands, likely hyperplasia. Neoplasia not excluded. KIDNEYS AND URETERS: There is a solid-appearing 2.8 cm mass arising from the inferior pole of the right kidney. This is a suspicious finding. No additional renal abnormality. BLADDER: Unremarkable. GASTROINTESTINAL TRACT: Evaluation of the stomach is limited without contrast material. There appears to be thickening of the distal body and gastric antrum. A mass in this region cannot be excluded. The duodenum appears normal. The small bowel is normal in caliber and course. No gross abnormality allowing for noncontrast exam. The colon demonstrates mild to moderate diverticulosis. There is no CT evidence of appendicitis. The rectum is unremarkable. PERITONEUM: There is mild to moderate volume intraperitoneal ascites. Mild infiltrative changes of the central mesentery are noted. ABDOMINAL WALL: No significant hernia is appreciated. LYMPH NODES: No definite pathologic lymphadenopathy is evident. VASCULAR: There is heavy atheromatous calcification of the aorta, iliac arteries, and their branches. There is no aneurysm. PELVIC VISCERA: The uterus and adnexa are unremarkable. OSSEOUS STRUCTURES: There is no suspicious lytic or blastic bone lesion. There is moderate degenerative spondylosis of the spine. CT/CT abdomen pelvis wo IV con IMPRESSION: Study is significantly limited without the benefit of IV contrast. 1. Distal esophagus appears thickened and patulous. 2. There is a small to moderate volume intraperitoneal ascites with findings of nodularity of the superior omentum suggestive of peritoneal carcinomatosis. 3. There is wall thickening of the distal gastric body and gastric antrum, for which underlying neoplasm is a consideration. Cannot characterize further without the benefit of contrast. 4. There is a solid appearing renal lesion arising from the superior right kidney measuring 2.8 cm in diameter, suspicious. Recommend correlating with ultrasound. 5. There is cholelithiasis. 6. Numerous additional ancillary findings as discussed in the body of report. Electronically signed by: Porter Epps MD 06/17/2025 10:45 AM EDT RP
--- NOTE | ~2025-06-13 | US_ITS ---
EXAMINATION: US RETROPERITONEAL LIMITED (RENAL ONLY) CLINICAL INFORMATION: 2.8 cm mass, right kidney.. COMPARISON: Correlated to CT abdomen dated June 17, 2025. TECHNIQUE: Real-time ultrasound kidneys using grayscale and color Doppler technique. FINDINGS: Limited examination. RIGHT KIDNEY: 10 x 5 x 5 cm (SAG x AP x TRV). Renal cortical thinning. Normal echotexture. No hydronephrosis. There is a 3.7 cm exophytic hypoechoic/solid lesion centered in the lower pole. LEFT KIDNEY: 9 x 4 x 3 cm (SAG x AP x TRV). Renal cortical thinning. Normal echotexture. No hydronephrosis. There is a 5 mm exophytic anechoic lesion, lower pole. US/US renal BI IMPRESSION: 3.7 cm exophytic lesion/mass, lower pole right kidney. Concerning for malignancy. 0.5 cm cyst, left kidney. No hydronephrosis.. Electronically signed by: Daniel Ballesteros MD 06/19/2025 10:33 AM EDT
--- NOTE | ~2025-06-13 | XR_ITS ---
EXAMINATION: XR CHEST CLINICAL INFORMATION: weakness COMPARISON: November 21, 2019 TECHNIQUE: Frontal view of the chest was obtained. FINDINGS: Patient is rotated to the right. There is cardiomegaly. There is a pacemaker projecting over the left chest wall with leads in right atrium and right ventricle. Pulmonary vessels are mildly prominent in right upper lung. Lungs are otherwise clear. XR/XR chest 1V IMPRESSION: Cardiomegaly and mild pulmonary vascular congestion. Electronically signed by: Catracho Guillaume MD 06/13/2025 12:00 PM EDT
--- NOTE | ~2025-06-13 | US_ITS ---
CLINICAL HISTORY: elevated lfts US abdomen limited Comparison: None provided Findings: The visualized pancreas is normal. The aorta and inferior vena cava are normal caliber. The liver is normal in size and echotexture. There is no mild intrahepatic biliary ductal dilation. The common duct is 4 mm in diameter. The gallbladder contains numerous shadowing stones with wall thickening and pericholecystic fluid. The document clerk reports a negative sonographic Deleon's sign. The main portal vein is antegrade. IMPRESSION: Cholelithiasis with gallbladder wall thickening and pericholecystic fluid. Despite the negative sonographic Deleon's sign, findings are concerning for acute cholecystitis. Given the mild intrahepatic biliary ductal dilation, MRCP, ERCP or intraoperative cholangiogram could be considered. This document has been electronically signed by: Alyse Willams MD on 06/21/2025 08:50:00
--- NOTE | ~2025-06-13 | CT_ITS ---
CLINICAL HISTORY: difficulty swallowing, concerned for mass effect CT chest without contrast Comparison: None provided Findings: Cardiomegaly. Calcification of the coronary vasculature. Left-sided pacer. Mild fusiform dilatation of the ascending thoracic aorta measuring 40 mm. Moderate hiatal hernia. Thickening of the distal esophagus. The lungs are clear. Visualized portions of the upper abdomen demonstrate cholelithiasis, moderate ascites, as well as peritoneal nodularity and fat stranding. No acute fractures. IMPRESSION: 1. Hiatal hernia with distal esophageal thickening. Endoscopy is recommended to exclude underlying neoplasm. 2. Ascites associated with peritoneal nodularity and fat stranding, possibly indicating peritoneal carcinomatosis or peritonitis. 3. Cholelithiasis. 4. Coronary artery disease. 5. Mild dilatation of the ascending thoracic aorta. This document has been electronically signed by: Dick Pineda MD on 06/15/2025 20:09:59
--- NOTE | 2025-06-13 09:54 | PC.NURSE ---
80 F presents to ED following a fall this morning when walking, did not trip but felt weak, dizzy, and light headed. Pt denies any injuries from the fall, denies head strike or LOC. A+Ox4, calm, cooperative. RR even and unlabored, denies CP or SOB. Pt has bruising around R eye from previous fall, bandage to LFA and R wrist area, bruises all over body. Lungs sound clear bilat. Pt ambulatess with a cane and walker at baseline, lives alone.
--- NOTE | 2025-06-13 09:58 | ECG_ITS ---
Test Reason : fall Blood Pressure : */* mmHG Vent. Rate : 72 BPM Atrial Rate : 72 BPM P-R Int : 158 ms QRS Dur : 144 ms QT Int : 434 ms P-R-T Axes : 8 -67 77 degrees QTcB Int : 475 ms Normal sinus rhythm Right bundle branch block Left anterior fascicular block Bifascicular block Left ventricular hypertrophy with repolarization abnormality ( R in aVL , Romhilt-Briseno ) When compared with ECG of 02-Jun-2025 16:59, No significant changes seen Referred By: Generic ED Physician Electronically Signed By: RADHA CHERY
--- NOTE | 2025-06-13 10:44 | ED_ITS ---
HPI - Fall General Chief Complaint: Fall Stated Complaint: DIZZINESS Time Seen by Provider: 06/13/25 10:34 Source: patient and family Mode of arrival: EMS Limitations: no limitations History of Present Illness ED Provider: HPI Narrative: 80-year-old woman finished a course of antibiotics for UTI with a history of CKD, pacemaker, AFib on warfarin, presenting with her granddaughter in-law, lives by herself has had multiple falls, denies vertigo she has thighs that her legs give out, ambulates with a cane and a walker, fell in the morning, but recent falls as well, multiple bruising over her knees there was a facial bruising, and skin lacerations. Related Data Home Medications ?Medication ?Instructions ?Recorded ?Confirmed cyanocobalamin (vitamin B-12) 1,000 mcg PO DAILY 05/1606/13/25 1,000 mcg tablet acetaminophen 650 mg 650 mg PO Q12H 10/30/2405/17 tablet,extended release (Tylenol Arthritis Pain) ascorbic acid (vitamin C) 250 mg 250 mg PO MOWEFR 10/1606/13/25 tablet furosemide 20 mg tablet 20 mg PO DAILY PRN Edema 06/13/25 Previous Rx's ?Medication ?Instructions ?Recorded atorvastatin 40 mg tablet 40 mg PO DAILY 90 days #90 t abs 09/01/24 Held on 04/16/25. Instructions: Doctor's Order warfarin 2 mg tablet 2 mg PO .COMPLEX #90 tabs metoprolol succinate 25 mg 25 mg PO DAILY #30 tabs 08/09 tablet,extended release 24 hr aspirin 81 mg tablet 81 mg PO DAILY #1 tab famotidine 40 mg tablet 40 mg PO DAILY #30 tabs 05/17 11/09 megestrol 40 mg tablet 20 mg (1/2 x 40 mg) PO BID 3 0 days 06/05/25 #30 tabs metoclopramide HCl 5 mg tablet 5 mg PO Q8H PRN nausea and 06/05/25 (Reglan) vomiting #30 tabs Allergies Allergy/AdvReac Type Severity Reaction Status Date / Time GALILEO Inhibitors Allergy Severe Cough Verified 06/13/25 09:47 Review of Systems 2 Constitutional: Constitutional: Reports as per [facility] Past Medical History Medical History Erythema intertrigo Pacemaker History of syncope Cardiac defibrillator in place Anemia in chronic kidney disease Localized swelling of both lower legs Sinus bradycardia Bifascicular block Intermittent lightheadedness Bilateral knee pain Impaired fasting glucose Osteopenia of left femoral neck Colonoscopy refused Postmenopausal Osteoarthritis Dyslipidemia Essential hypertension Chronic kidney disease (CKD) Surgical History S/P cardiac cath History of cataract surgery Family History Family History Father HTN (hypertension) Mother CKD (chronic kidney disease) HTN (hypertension) Heart disease Family/Other Hailey's thyroiditis Social History Social History Household Members: None Housing: House Alcohol intake: never Patient Tobacco Use Status: Former Tobacco user Years Smoked: 35 yrs e-Cigarette/Vaping Use: Never Used Advance Directives Date on File: 08/19/22 service: No Current occupational status: retired Cognitive needs: No Hearing needs: No Vision needs: Yes Physical Exam 2 Vital Signs: Vital Signs: Last Vital Signs Temp 98.4 F 06/17/25 14:04 Pulse 69 06/17/25 14:04 Resp 14 06/17/25 14:04 BP 101/54 L 06/17/25 14:04 Pulse Ox 99 06/17/25 14:04 O2 Del Method Room Air 06/17/25 14:04 BMI result Body Mass Index 29.1 Const: Other: * Gen: Appears of stated age * HEENT: Right-sided facial bruising that is approximately 1-week-old * Neck: No tenderness along her neck * CV: Pacemaker in place, radial pulses +2 S1-S2 * Resp: ?No wheezing rales rhonchi no stridor moving air well * Abd: ?Bowel sounds are present, no tenderness no rebound no rigidity * MSK: FROM, strength 5/5 all extremities * Skin: Skin tears over the right forearm and left upper arm elbow and forearm, older bruising to bilateral knees, no bruising to the back of the spine * Neuro: ?Alert and oriented x3, moving upper and lower extremities symmetrically, no obvious facial asymmetry noted Course Course Course Narrative: _ 06/16/25 0802 Steve, LUDLOW MACHINE OPERATOR: Physician observation continued, no overnight events reported by nursing. Vitals stable. Awaiting possible placement at [facility] on [facility] following for disposition. Daughter updated on results of chest CT. Patient already has scheduled follow up with GI in July. Time: 08:11 /Date: 06/14/25 Provider: IVONNE Gomes/ Patient in physician observation for case management needs. No acute events reported overnight.? No current issues or complaints. VS stable. PT has evaluated patient, recommending STR. she is pending placement at [facility]/ . will continue to monitor 06/15/2025 Wendy Melo PA-C ---> Observation continues. Case management continues to follow. 1749 Wendy Melo PA-C---> Nursing staff relayed concerns to me regarding this patient. States that the family has informed the nurse that the patient has had a 20+ weight loss in the last few weeks with difficulty swallowing / eating / drinking. Family states that the patient has outpatient GI follow up scheduled for mid July. Family states that they are concerned the patient is dehydrated and that may be contributing to her falls. I reviewed the patient's labs and swallow study. There is no evidence of dehydration and the patient's swallow study showed an individual who can tolerate liquids and solids well. I explained to nursing and the patient's family that I will obtain a dry CT of the chest to rule out mass effect (CR won't tolerate contrast) and will re-check some basic labs to confirm no dehydration is occurring. Will make IVONNE Coe aware of these orders and have her follow up on them. Time: 07:20 Date: 06/17/25 Provider: IVONNE Pimentel Patient in physician observation for case management needs. No acute events reported overnight.? No current issues or complaints. Appears that a CT scan of the chest was ordered on June 15, 2025 due to difficulty swallowing, eating, drinking > Pt found to have a hiatal hernia with distal esophageal thickening, recommending endoscopy, ascites associated with peritoneal nodularity and fat stranding, possibly indicating peritoneal carcinomatosis or peritonitis, cholelithiasis, CAD, and mild dilatation of the ascending thoracic aorta. Assess patient, she has no abdominal pain, nausea, vomiting. Vital signs within normal limits. Abdomen is soft, nontender. Discussed with Dr. Ford, will obtain CT abd/pelvis to assess. 3:04 PM 06/17/2025 (Padmaja Lorenzo PA-C): CT abd/pelvis revleaing distal esophagus thickened and patulous, with small to moderate volume intraperitoneal sascites with finding of nodularity of the superior omentum suggestive of peritoneal carcinomatosis. Also showing wall thickening of the distal gastric body and gastric antrum underlying neoplasm is considered. Also revealing a renal lesion arising from the superior right kidney measuring 2.8 cm. I discussed this with my attending physician, Dr. Ford, no additional workup or consultation indicated I discussed these results with patient and daughter, pending at bedside. I will reach out to Dr. Doe, on-call heme/oncologist for recommendations. 4:47 PM 06/17/2025 (Padmaja Lorenzo PA-C): Dr. Doe reviewed case who recommends admission for further workup and management. Will discussed with hospitalist for possible transfer of care. 5:09 PM 06/17/2025 (Padmaja Lorenzo PA-C): Transfer of care initiated to the medical service for failure thrive and further workup. Medications Administered Generic Name Dose Route Start Last Admin Trade Name Catarina PRN Reason Stop Dose Admin Acetaminophen 650 mg 06/15/25 05:37 06/17/25 08:18 Acetaminophen 325 Mg Tablet PO 650 mg Q6H PRN Administration pain, mild Ascorbic Acid 250 mg 06/16/25 09:00 06/16/25 09:30 Ascorbic Acid 250 Mg Tablet PO 250 mg MoWeFr LOUIS Administration Aspirin 81 mg 06/14/25 09:00 06/17/25 08:17 Aspirin Enteric Coated 81 Mg Tablet.Dr PO 81 mg DAILY LOUIS Administration Atorvastatin Calcium 40 mg 06/14/25 09:00 06/17/25 08:17 Atorvastatin Calcium 40 Mg Tablet PO 40 mg DAILY LOUIS Administration Cyanocobalamin 1,000 mcg 06/14/25 09:00 06/17/25 08:17 Cyanocobalamin (Vitamin B-12) 1,000 Mcg Tablet PO 1,000 mcg DAILY LOUIS Administration Famotidine 40 mg 06/14/25 09:00 06/17/25 08:18 Famotidine 20 Mg Tablet PO 40 mg DAILY LOUIS Administration Megestrol Acetate 20 mg 06/13/25 21:00 06/17/25 08:24 Megestrol Acetate 20 Mg Tablet PO 20 mg BID LOUIS Administration Metoprolol Succinate 25 mg 06/14/25 09:00 06/17/25 08:17 Metoprolol Succinate Er 25 Mg Tab.Er.24h PO 25 mg DAILY LOUIS Administration Protocol Warfarin Sodium 2 mg 06/13/25 20:00 06/16/25 17:58 Warfarin Sodium 2 Mg Tablet PO 2 mg DAILY@1800 LOUIS Administration Discontinued Medications Generic Name Dose Route Start Last Admin Trade Name Catarina PRN Reason Stop Dose Admin Acetaminophen 325 mg 06/13/25 21:00 06/14/25 20:20 Acetaminophen 325 Mg Tablet PO 325 mg BID LOUIS Administration Sodium Chloride 500 mls @ 50 mls/hr 06/13/25 11:00 06/13/25 14:07 Ns IV 06/13/25 20:59 Infused .Q10H LOUIS Infusion Sodium Chloride 1,000 mls @ 999 mls/hr 06/13/25 16:15 06/13/25 19:28 Ns IV 06/13/25 17:15 Infused .Q1H1M LOUIS Infusion Medical Decision Making Medical Decision Making MDM Narrative: Multiple falls, concern involved in granddaughter at bedside, patient lives by herself, anticipate that patient will need case management rehab, recent a hospital visit and was discharged on antibiotics, she had E coli and was treated appropriately with cephalexin, also has CKD we will give gentle fluids retest urine, no evidence for any trauma to the extremities or the hips to necessitate further imaging or CT of the head and neck, we addressed her skin tears none of them appear to be infected Anticipate case management evaluation and rehab placement Differential Diagnosis Differential Diagnoses: The differential diagnosis associated with the presentation includes (Anemia, UTI, head injury, neck injury, elder abuse or neglect) Admission/Observation Consideration of admission/observation: Escalation of care including admission/observation considered 2022 Emergency Medicine Coding Guide from [employer] on 06/13/2025 All calculations should be rechecked by clinician prior to use RESULT SUMMARY: 5 Estimated Level of Service Problems: Moderate (4) Risk: High (5) Data: Extensive (5) NARRATIVE MDM: This patient's problem complexity is Moderate as patient: has a new undiagnosed problem with uncertain prognosis but that could be serious. This patient's risk is High due to: overall presentation requiring evaluation for a potentially High-risk process. This patient's data complexity is Extensive due to: -independent historian used to support history -independent interpretation of imaging or EKG -discussion of management/testing with external professional INPUTS: Number and Complexity ?> 5 = 4: undiagnosed new problem, uncertain outcome (e) Risk level ?> 4 = High Tests ordered ?> 1 = 1 Tests results reviewed (excluding labs) ?> 0 = 0 Prior external notes reviewed ?> 0 = 0 Assessment requiring and independent historian ?> 1 = Yes Independent interpretation of tests ?> 1 = Yes Discussed management/test interpretation w/external professional ?> 1 = Yes Lab Data MDM Lab Attestation statement: I reviewed the patient's lab results. 06/15/25 19:35 06/15/25 19:35 Labs: Lab Results 06/13/25 06/13/25 06/13/25 Range/Units 10:57 12:51 16:18 WBC 12.3 H (4.8-10.8) X10*3/uL RBC 3.20 L (4.20-5.50) X10*6/uL Hgb 10.3 L (12.0-16.0) g/dl Hct 31.2 L (37.0-47.0) % MCV 97.5 (80.0-98.0) fL MCH 32.2 (27.0-33.0) pg MCHC 33.0 (31.0-35.0) g/dl RDW 13.3 (11.0-16.0) % Plt Count 270 (160-400) X10*3/uL MPV 9.8 (9.4-12.3) fL Immature Gran % (Auto) 0.4 (0.0-0.4) % Neut % (Auto) 81.3 H (45-73) % Lymph % (Auto) 7.1 L (20-40) % Todd % (Auto) 9.4 (2-11) % Eos % (Auto) 1.3 (0-4) % Baso % (Auto) 0.5 (0-2) % Lymph # (Auto) 0.9 L (1.2-4.9) X10*3/uL Todd # (Auto) 1.2 (0.1-1.2) X10*3/uL Eos # (Auto) 0.2 (0.0-0.4) X10*3/uL Baso # (Auto) 0.1 (0.0-0.2) X10*3/uL Abs Immat Gran (auto) 0.05 H (0.00-0.03) X10*3/uL Absolute Neuts (auto) 10.0 H (2.0-8.3) x10*3/uL Absolute Nucleated RBC 0.000 (0.0-0.012) X10*3/uL Nucleated RBC % (auto) 0.0 (0.0-0.2) /100WBC PT 32.6 H (10.9-12.4) SEC INR 2.8 H (0.9-1.1) Sodium 138 (135-145) mmol/L Potassium 4.8 (3.3-5.1) mmol/L Chloride 106 (96-108) mmol/L Carbon Dioxide 21 L (22-29) mmol/L Anion Gap 16 (12-20) BUN 44 H (9-16) mg/dL Creatinine 2.03 H (0.5-1.4) mg/dL Estim Creat Clear Calc 16.8 Estimated GFR 24 Random Glucose 100 (60-115) mg/dL Calcium 9.1 (8.4-10.2) mg/dL Total Bilirubin 1.3 H (0.0-1.0) mg/dL AST 28 (5-31) U/L ALT 14 (0-31) U/L Alkaline Phosphatase 44 (39-117) U/L Troponin I High Sens 27.4 H (<3.5-17.0) ng/L B-Natriuretic Peptide 272 H (<100) pg/mL Total Protein 6.3 L (6.5-8.0) g/dL Albumin 3.3 L (3.5-5.0) g/dL Urine Color Yellow Urine Appearance Hazy Urine pH 5.5 (5.0-9.0) Ur Specific [place] 1.025 (1.005-1.025) Urine Protein Negative (Neg-Trace) mg/dL Urine Glucose (UA) Negative (Negative) mg/dL Urine Ketones Trace (Negative) mg/dL Urine Blood Negative (Negative) Urine Nitrite Negative (Negative) Ur Leukocyte Esterase Negative (Negative) Influenza Type A (PCR) NEGATIVE (Negative) Influenza Type B (PCR) NEGATIVE (Negative) RSV RNA Qual (PCR) NEGATIVE (Negative) SARS-CoV-2 RNA (RT-PCR) NEGATIVE (Negative) 06/13/25 06/14/25 06/15/25 Range/Units 16:38 11:13 10:32 WBC 10.7 (4.8-10.8) X10*3/uL RBC 3.02 L (4.20-5.50) X10*6/uL Hgb 9.9 L (12.0-16.0) g/dl Hct 29.3 L (37.0-47.0) % MCV 97.0 (80.0-98.0) fL MCH 32.8 (27.0-33.0) pg MCHC 33.8 (31.0-35.0) g/dl RDW 13.5 (11.0-16.0) % Plt Count 265 (160-400) X10*3/uL MPV 9.9 (9.4-12.3) fL Immature Gran % (Auto) 0.6 H (0.0-0.4) % Neut % (Auto) 74.1 H (45-73) % Lymph % (Auto) 11.6 L (20-40) % Todd % (Auto) 10.2 (2-11) % Eos % (Auto) 2.8 (0-4) % Baso % (Auto) 0.7 (0-2) % Lymph # (Auto) 1.2 (1.2-4.9) X10*3/uL Todd # (Auto) 1.1 (0.1-1.2) X10*3/uL Eos # (Auto) 0.3 (0.0-0.4) X10*3/uL Baso # (Auto) 0.1 (0.0-0.2) X10*3/uL Abs Immat Gran (auto) 0.06 H (0.00-0.03) X10*3/uL Absolute Neuts (auto) 7.9 (2.0-8.3) x10*3/uL Absolute Nucleated RBC 0.000 (0.0-0.012) X10*3/uL Nucleated RBC % (auto) 0.0 (0.0-0.2) /100WBC PT 34.5 H 37.7 H (10.9-12.4) SEC INR 3.0 H 3.3 H (0.9-1.1) Sodium 136 (135-145) mmol/L Potassium 4.0 (3.3-5.1) mmol/L Chloride 106 (96-108) mmol/L Carbon Dioxide 20 L (22-29) mmol/L Anion Gap 14 (12-20) BUN 43 H (9-16) mg/dL Creatinine 1.92 H (0.5-1.4) mg/dL Estim Creat Clear Calc 17.8 Estimated GFR 25 Random Glucose 108 (60-115) mg/dL Calcium 8.6 (8.4-10.2) mg/dL Total Bilirubin (0.0-1.0) mg/dL AST (5-31) U/L ALT (0-31) U/L Alkaline Phosphatase (39-117) U/L Troponin I High Sens (<3.5-17.0) ng/L B-Natriuretic Peptide (<100) pg/mL Total Protein (6.5-8.0) g/dL Albumin (3.5-5.0) g/dL Urine Color Urine Appearance Urine pH (5.0-9.0) Ur Specific [place] (1.005-1.025) Urine Protein (Neg-Trace) mg/dL Urine Glucose (UA) (Negative) mg/dL Urine Ketones (Negative) mg/dL Urine Blood (Negative) Urine Nitrite (Negative) Ur Leukocyte Esterase (Negative) Influenza Type A (PCR) (Negative) Influenza Type B (PCR) (Negative) RSV RNA Qual (PCR) (Negative) SARS-CoV-2 RNA (RT-PCR) (Negative) 06/15/25 06/16/25 06/17/25 Range/Units 19:35 09:14 11:52 WBC 9.3 (4.8-10.8) X10*3/uL RBC 2.97 L (4.20-5.50) X10*6/uL Hgb 9.7 L (12.0-16.0) g/dl Hct 29.8 L (37.0-47.0) % MCV 100.3 H (80.0-98.0) fL MCH 32.7 (27.0-33.0) pg MCHC 32.6 (31.0-35.0) g/dl RDW 13.6 (11.0-16.0) % Plt Count 209 (160-400) X10*3/uL MPV 9.8 (9.4-12.3) fL Immature Gran % (Auto) 0.4 (0.0-0.4) % Neut % (Auto) 72.8 (45-73) % Lymph % (Auto) 10.7 L (20-40) % Todd % (Auto) 10.1 (2-11) % Eos % (Auto) 5.2 H (0-4) % Baso % (Auto) 0.8 (0-2) % Lymph # (Auto) 1.0 L (1.2-4.9) X10*3/uL Todd # (Auto) 0.9 (0.1-1.2) X10*3/uL Eos # (Auto) 0.5 H (0.0-0.4) X10*3/uL Baso # (Auto) 0.1 (0.0-0.2) X10*3/uL Abs Immat Gran (auto) 0.04 H (0.00-0.03) X10*3/uL Absolute Neuts (auto) 6.8 (2.0-8.3) x10*3/uL Absolute Nucleated RBC 0.000 (0.0-0.012) X10*3/uL Nucleated RBC % (auto) 0.0 (0.0-0.2) /100WBC PT 38.6 H 36.7 H (10.9-12.4) SEC INR 3.4 H 3.2 H (0.9-1.1) Sodium 137 (135-145) mmol/L Potassium 4.7 (3.3-5.1) mmol/L Chloride 110 H (96-108) mmol/L Carbon Dioxide 20 L (22-29) mmol/L Anion Gap 12 (12-20) BUN 31 H (9-16) mg/dL Creatinine 1.66 H (0.5-1.4) mg/dL Estim Creat Clear Calc 20.6 Estimated GFR 30 Random Glucose 121 H (60-115) mg/dL Calcium 8.0 L D (8.4-10.2) mg/dL Total Bilirubin 1.2 H (0.0-1.0) mg/dL AST 72 H (5-31) U/L ALT 46 H (0-31) U/L Alkaline Phosphatase 110 (39-117) U/L Troponin I High Sens (<3.5-17.0) ng/L B-Natriuretic Peptide (<100) pg/mL Total Protein 5.2 L (6.5-8.0) g/dL Albumin 2.7 L (3.5-5.0) g/dL Urine Color Urine Appearance Urine pH (5.0-9.0) Ur Specific [place] (1.005-1.025) Urine Protein (Neg-Trace) mg/dL Urine Glucose (UA) (Negative) mg/dL Urine Ketones (Negative) mg/dL Urine Blood (Negative) Urine Nitrite (Negative) Ur Leukocyte Esterase (Negative) Influenza Type A (PCR) (Negative) Influenza Type B (PCR) (Negative) RSV RNA Qual (PCR) (Negative) SARS-CoV-2 RNA (RT-PCR) (Negative) Independent Interpretation I performed an independent interpretation of an: EKG (Seventy-two beats per minute, likely paced rhythm ventricular pacer) Radiology Impression Discussion of test interpretation with radiology: I have reviewed the radiologist's reading. Radiologist Impression: CT/CT abdomen pelvis wo IV con IMPRESSION: Study is significantly limited without the benefit of IV contrast. 1. Distal esophagus appears thickened and patulous. 2. There is a small to moderate volume intraperitoneal ascites with findings of nodularity of the superior omentum suggestive of peritoneal carcinomatosis. 3. There is wall thickening of the distal gastric body and gastric antrum, for which underlying neoplasm is a consideration. Cannot characterize further without the benefit of contrast. 4. There is a solid appearing renal lesion arising from the superior right kidney measuring 2.8 cm in diameter, suspicious. Recommend correlating with ultrasound. 5. There is cholelithiasis. 6. Numerous additional ancillary findings as discussed in the body of report. Electronically signed by: Porter Epps MD 06/17/2025 10:45 AM EDT Ordering Physician: Wendy Melo Date of Service: 06/15/25 Procedure(s): CT chest wo IV con Accession Number(s): [id number] cc: Shyla Fregoso MD; Wendy Melo~ Report Number: [id number]: Total DLP = 0.00 mGy-cm CLINICAL HISTORY: difficulty swallowing, concerned for mass effect CT chest without contrast Comparison: None provided Findings: Cardiomegaly. Calcification of the coronary vasculature. Left-sided pacer. Mild fusiform dilatation of the ascending thoracic aorta measuring 40 mm. Moderate hiatal hernia. Thickening of the distal esophagus. The lungs are clear. Visualized portions of the upper abdomen demonstrate cholelithiasis, moderate ascites, as well as peritoneal nodularity and fat stranding. No acute fractures. IMPRESSION: 1. Hiatal hernia with distal esophageal thickening. Endoscopy is recommended to exclude underlying neoplasm. 2. Ascites associated with peritoneal nodularity and fat stranding, possibly indicating peritoneal carcinomatosis or peritonitis. 3. Cholelithiasis. 4. Coronary artery disease. 5. Mild dilatation of the ascending thoracic aorta. This document has been electronically signed by: Dick Pineda MD on 06/15/2025 20:09:59 Dictated By: Dick Pineda MD Independent Historian Clinical information obtained from an independent historian. History obtained from or confirmed by: Other (Granddaughter) Tests considered The following testing was considered but not selected: CT head and neck Prescription Management I considered prescription management with: Pain Medication and Antibiotic Discharge Plan Discharge Clinical Impression: Fall, Adult failure to thrive Patient Disposition: Admitted As Inpatient
--- OUTSIDE RECORDS SUMMARY | 2025-06-13 10:54 | XMS_ITS | Clinical Summary ---
Author Organization [facility] Address [address] [place] [address] Phone Care Team Providers Care Coke Worker Name Role Phone Vanessa Fregoso MD Primary Care Provider [phone]- [phone] Allergies Active Allergy Reactions Criticality Noted Date [...] IV, or unspecified 03/17/2021 Vertigo 03/17/2021 Immunizations Immunization Administration Dates Next Due Pneumococcal Polysaccharide 10/22/2020 [...] Due Date Last Done Comments Pneumococcal Vaccine: 50+ Ye ars (2 of 2 - PCV) 10/22/2021 10/22/2020 Influenza Vaccine (#1) 2025 Pneumococcal Vaccine: Peds ( 0 to 5 Years) and At-Risk Patients (6 to 49 Years) Discontinued 10/22/2020 Hepatitis B Vaccine Aged Out No longe r eligible based on patient's age to complete this topic Insurance [place] [address] [facility] Care Teams Coke Worker Relationship Specialty Start Date End Date Vanessa Fregoso MD [address] [place], [place] [address] [address] PCP - General 10/26/20
--- OUTSIDE RECORDS SUMMARY | 2025-06-13 10:54 | XMS_ITS | Encounter Summary ---
Author Organization [facility] Address [address] [place] [address] Phone Care Team Providers Care President [employer] Name Role Phone Vanessa Fregoso MD Primary Care Provider [phone]- [phone] Reason for Visit * Reason Comments Med Refill Encounter Details Date Type Department Care Team (Late st Contact Info) Description 06/05/2023 Refill [facility] [address] [place] [address] Emil Foote MD Social History [...] on filedocumented in this encounter Care Teams President [place] Relationship Specialty Start Date End Date Vanessa Fregoso MD [facility] [place] [address] PCP - General 10/26/20 documented as of this encounter
[2025-06-13 11:02] LABS: MANUAL DIFF FLAG NO
[2025-06-13 11:08] LABS: INTERNATIONAL NORM RATIO 2.8 (0.9-1.1); Prothrombin Time 32.6 SEC (10.9-12.4)
[2025-06-13 11:10] LABS: Hematocrit 31.2 % (37.0-47.0); Hemoglobin 10.3 g/dl (12.0-16.0); Imm Gran Abs Auto 0.05 X10*3/uL (0.00-0.03); Imm Gran Pct Auto 0.4 % (0.0-0.4); Lymphocytes Absolute Auto 0.9 X10*3/uL (1.2-4.9); Mean Corpuscular HGB Conc 33.0 g/dl (31.0-35.0); Mean Corpuscular Hemoglobin 32.2 pg (27.0-33.0); Mean Corpuscular Volume 97.5 fL (80.0-98.0); NRBC Abs Auto 0.000 X10*3/uL (0.0-0.012); NRBC Pct Auto 0.0 /100WBC (0.0-0.2); Platelet Count 270 X10*3/uL (160-400); Red Blood Count 3.20 X10*6/uL (4.20-5.50); White Blood Count 12.3 X10*3/uL (4.8-10.8)
[2025-06-13 11:23] LABS: Alanine Aminotransferase 14 U/L (0-31); Albumin Level 3.3 g/dL (3.5-5.0); Alkaline Phosphatase 44 U/L (39-117); Anion Gap 16 (12-20); Aspartate Amino Transferase 28 U/L (5-31); Blood Urea Nitrogen 44 mg/dL (9-16); Calcium 9.1 mg/dL (8.4-10.2); Carbon Dioxide 21 mmol/L (22-29); Chloride 106 mmol/L (96-108); Creatinine Clr Calc Pharmacy 16.8; Estimated Glomerular Filt Rate 24; Potassium 4.8 mmol/L (3.3-5.1); Sodium 138 mmol/L (135-145); Total Protein 6.3 g/dL (6.5-8.0)
[2025-06-13 11:27] LABS: B Type Natriuretic Peptide 272 pg/mL (<100)
[2025-06-13 11:31] LABS: Troponin-I High Sensitivity 27.4 ng/L (<3.5-17.0)
--- NOTE | 2025-06-13 11:31 | PC.NURSE ---
xeroform, non-adhesive applied to the pt's large skin tears to the left forearm area and one to the right wrist area and wrapped with gauze per md verbal instructions. pt tolerated the procedure well
--- NOTE | 2025-06-13 13:00 | PC.NURSE ---
just spoke to the pt about her diet at home, states she has zero problems eating and has no modifications, juan díaz few min later informs this rn that pt reports that sometimes she had problems swallowing that it feels like food is getting stuck
--- NOTE | 2025-06-13 13:11 | PC.NURSE ---
called pharmacy to do a med/rec
[2025-06-13 14:00] LABS: Resp Syncy Virus RNA Qual PCR NEGATIVE (Negative); SARS COV2 PCR INHOUSE NEGATIVE (Negative)
--- NOTE | 2025-06-13 14:08 | PC.NURSE ---
MD wanted NS bolus wide open, IV infiltrated and was removed before pt recieved full bolus, warm blanket applied to site. Provider stated no further need for IV at this time.
--- NOTE | 2025-06-13 14:25 | MHC.CM.ED ---
Received case management consult from Dr Higuera. Patient came to the ER due to a fall. Physical therapy eval is ordered and pending. Met with patient and daughter, Triny, in regards to discharge planning. Patient lives alone, ambulates with walker/cane and had no services prior to coming to the hospital. PCP verified. Copy of HCP verified to be on file. Patient has been to [facility] in the past and is requesting referral there. If [facility] does not have a bed, patient and Brutus agreeable to referral being broadcasted locally and bed offers being presented. Patient has [employer] for insurance and it is Labor Day weekend. Patient and Brutus aware d/c is not anticipated before Monday. Continue to monitor for d/c needs.
--- NOTE | 2025-06-13 14:31 | PC.NURSE ---
report given to overflow rn
[2025-06-13 16:43] LABS: MANUAL DIFF FLAG NO
[2025-06-13 16:45] LABS: Hematocrit 29.3 % (37.0-47.0); Hemoglobin 9.9 g/dl (12.0-16.0); Imm Gran Abs Auto 0.06 X10*3/uL (0.00-0.03); Imm Gran Pct Auto 0.6 % (0.0-0.4); Lymphocytes Absolute Auto 1.2 X10*3/uL (1.2-4.9); Mean Corpuscular HGB Conc 33.8 g/dl (31.0-35.0); Mean Corpuscular Hemoglobin 32.8 pg (27.0-33.0); Mean Corpuscular Volume 97.0 fL (80.0-98.0); NRBC Abs Auto 0.000 X10*3/uL (0.0-0.012); NRBC Pct Auto 0.0 /100WBC (0.0-0.2); Platelet Count 265 X10*3/uL (160-400); Red Blood Count 3.02 X10*6/uL (4.20-5.50); White Blood Count 10.7 X10*3/uL (4.8-10.8)
[2025-06-13 16:47] LABS: Appearance Urine Hazy; Glucose Urine UA Negative (Negative); PH 5.5 (5.0-9.0); Specific Gravity - Urine 1.025 (1.005-1.025)
[2025-06-13 17:05] LABS: Anion Gap 14 (12-20); Blood Urea Nitrogen 43 mg/dL (9-16); Calcium 8.6 mg/dL (8.4-10.2); Carbon Dioxide 20 mmol/L (22-29); Chloride 106 mmol/L (96-108); Creatinine Clr Calc Pharmacy 17.8; Estimated Glomerular Filt Rate 25; Potassium 4.0 mmol/L (3.3-5.1); Sodium 136 mmol/L (135-145)
--- NOTE | 2025-06-13 17:05 | MHC.CM.ED ---
PT is recommending STR. Pt has [facility] medicare. [facility]. [facility], [facility] will no have a bed over the weekend, but will review again on Monday. [facility] is closed for the day weekend. Patient is aware. Will wait for [facility] possible bed offer.
--- NOTE | 2025-06-13 18:18 | PC.NURSE ---
Pt is alert and oriented, but forgetful. She has been very dizzy while standing for PT or orthostatic vitals. She reports that she does not drink much and has a poor appetite. Denies pain.
--- NOTE | 2025-06-13 18:24 | MHC.SL.SWA ---
Speech Pathologist Impression: Esophageal Dysphagia Liquid Consistency and Strategies for Safe Swallow: Liquid Intake Recommendation: Thin Solid Food Consistency: Dietary Recommendations: Regular Additional Modifications to Solid Foods: PHARMACEUTICAL SALES REPRESENTATIVE seen for bedside swallow evaluation this afternoon while in the overflow area. Patient was able to feed herself without difficulty. Oral and pharyngeal phases were overall unremarkable and patient tolerated liquid and solid consistencies well. Good oral preparation, complete clearance, timely swallow, and no overt s/s of aspiration. Patient did report consistently globus sensation at the mid-chest with all PO intake, things were slow to move through the pharynx, heart burn sensation, and displayed belching after PO intake. Patient's [id number] reports she has not been eating much the past few weeks since onset of these symptoms and has lost weight as a result of it. She also noticed patient's voice has gotten weaker the past few weeks as well. She is scheduled for outpatient GI workup, but is not able to get in for an appointment until mid-July. Patient's symptoms are consistent with esophageal dysphagia. PHARMACEUTICAL SALES REPRESENTATIVE recommended precautions: chew food finely, alternate with sips of liquid, ensure upright positioning during PO intake and for at least 90 minutes afterwards. Recommend GI consult while inpatient if possible to evaluate for reflux and/or esophageal pathologies. Oral Medication Intake: Whole with Liquid Please contact the pharmacy regarding appropriate crushable or liquid drug formulations that are available whenever modified delivery is recommended. Compensatory Strategies and Precautions to be Taken for Safe Swallow: Sitting Upright (90 deg) Small Bites and Sips Alternate Liquids/Solids Rate of Ingestion Change Supervision While Eating and Drinking for Safe Swallow: Intermittent Supervision Swallowing Recommended Treatments: Compens. Strategy Educat. Recommendation for Speech: Inpatient Speech Therapy Comment: PHARMACEUTICAL SALES REPRESENTATIVE to f/u pending GI Frequency/Duration: Date Range for Service Req: Timeline to reassess: Medical Attendant Clinican/Clinical Fellow: No Supervisory Statement: I have reviewed and agree with the student/clinical fellow's documentation: N/A Speech Language Pathologist: Radha Devlin M.A., [facility]-PHARMACEUTICAL SALES REPRESENTATIVE
[2025-06-14] VITALS: BP 120/59; PULSE 65; RESP 16; TEMP 37.1; O2SAT 98
[2025-06-14 04:00] VITALS: BP 116/59; PULSE 66; RESP 16; TEMP 36.8; O2SAT 98
[2025-06-14 08:00] VITALS: BP 91/42; PULSE 71; RESP 18; TEMP 36.9; O2SAT 100
[2025-06-14] MEDS: Aspirin Enteric Coated 81 MG TABLET.DR PO (08:08)
[2025-06-14] MEDS: Metoprolol Succinate ER 25 MG TAB.ER.24H PO (08:08)
--- NOTE | 2025-06-14 11:07 | PC.NURSE ---
Addendum entered by Yumiko Parnell RN 06/14/25 11:26: Patient is a 80-year-old woman finished a course of antibiotics for UTI with a history of CKD, pacemaker, AFib on warfarin lives by herself has had multiple falls, she states that her legs give out, ambulates with a cane and a walker. Multiple bruising over her knees there was a facial bruising, and skin lacerations. Dressings noted to bilat arms. Alert and oriented. Respirations even and non-labored. Abdomen soft. non-tender with positive bowel sounds. Purewick patent and draining clear savanah urine. Pending STR placement Original Note: Medical History Erythema intertrigo Pacemaker History of syncope Cardiac defibrillator in place Anemia in chronic kidney disease Localized swelling of both lower legs Sinus bradycardia Bifascicular block Intermittent lightheadedness Bilateral knee pain Impaired fasting glucose Osteopenia of left femoral neck Colonoscopy refused Postmenopausal Osteoarthritis Dyslipidemia Essential hypertension Chronic kidney disease (CKD)
[2025-06-14 11:32] LABS: INTERNATIONAL NORM RATIO 3.0 (0.9-1.1); Prothrombin Time 34.5 SEC (10.9-12.4)
--- NOTE | 2025-06-14 11:47 | MHC.EDTECH ---
the second order for the blue top was drawn, but the order for around 7am was not
[2025-06-14 15:49] VITALS: BP 108/59; PULSE 72; RESP 16; TEMP 37.3; O2SAT 98
[2025-06-14 23:14] VITALS: BP 93/61; PULSE 72; RESP 20; TEMP 36.7; O2SAT 98
--- NOTE | 2025-06-15 05:50 | PC.NURSE ---
Assumed care of patient at 1900. Patient remains in ED overflow awaiting news on bed placement at [facility]. She is alert and oriented x 3, makes needs known. Utilizing purewick/bedpan. Med compliant. Bed locked and in lowest setting, call iverson within reach.
--- NOTE | 2025-06-15 07:04 | PC.NURSE ---
This RN assumed care of patient @ 0700 Patient currently resting comfortably in bed. Purewick in place attatched to suction Dressings on rl arms in place, no strikethrough noted Bed alarm on, bed locked and in low position Patient is PT/CM, currently awaiting possible placement into [facility]
[2025-06-15 07:30] VITALS: BP 114/63; PULSE 65; RESP 14; TEMP 37.7; O2SAT 100
[2025-06-15 08:09] VITALS: BP 114/63; PULSE 65
[2025-06-15] MEDS: Metoprolol Succinate ER 25 MG TAB.ER.24H PO (08:09)
[2025-06-15] MEDS: Aspirin Enteric Coated 81 MG TABLET.DR PO (08:10)
[2025-06-15 10:46] LABS: INTERNATIONAL NORM RATIO 3.3 (0.9-1.1); Prothrombin Time 37.7 SEC (10.9-12.4)
[2025-06-15 15:07] VITALS: BP 112/60; PULSE 66; RESP 13; TEMP 37.2; O2SAT 99
[2025-06-15 19:07] VITALS: BP 106/65; PULSE 65; RESP 14; TEMP 36.8; O2SAT 100
[2025-06-15 19:42] LABS: MANUAL DIFF FLAG NO
[2025-06-15 19:43] LABS: Hematocrit 29.8 % (37.0-47.0); Hemoglobin 9.7 g/dl (12.0-16.0); Imm Gran Abs Auto 0.04 X10*3/uL (0.00-0.03); Imm Gran Pct Auto 0.4 % (0.0-0.4); Lymphocytes Absolute Auto 1.0 X10*3/uL (1.2-4.9); Mean Corpuscular HGB Conc 32.6 g/dl (31.0-35.0); Mean Corpuscular Hemoglobin 32.7 pg (27.0-33.0); Mean Corpuscular Volume 100.3 fL (80.0-98.0); NRBC Abs Auto 0.000 X10*3/uL (0.0-0.012); NRBC Pct Auto 0.0 /100WBC (0.0-0.2); Platelet Count 209 X10*3/uL (160-400); Red Blood Count 2.97 X10*6/uL (4.20-5.50); White Blood Count 9.3 X10*3/uL (4.8-10.8)
[2025-06-15 19:56] LABS: Alanine Aminotransferase 46 U/L (0-31); Albumin Level 2.7 g/dL (3.5-5.0); Alkaline Phosphatase 110 U/L (39-117); Anion Gap 12 (12-20); Aspartate Amino Transferase 72 U/L (5-31); Blood Urea Nitrogen 31 mg/dL (9-16); Calcium 8.0 mg/dL (8.4-10.2); Carbon Dioxide 20 mmol/L (22-29); Chloride 110 mmol/L (96-108); Creatinine Clr Calc Pharmacy 20.6; Estimated Glomerular Filt Rate 30; Potassium 4.7 mmol/L (3.3-5.1); Sodium 137 mmol/L (135-145); Total Protein 5.2 g/dL (6.5-8.0)
--- NOTE | 2025-06-15 20:00 | PC.NURSE ---
pt noted to only have eaten a few bites of dinner. She states she is unable to swallow and has been having this issue for a few months. She states she at times can eat small bits of food but at times cannot even swallow water. She and her family at bedside report recent greater than 20 LB weight loss. The state that they believe her falls are related to dehydration and lack of nutrition. Wendy Mckeon aware and down to see patient. Pt completed CT scan with out incident.
[2025-06-16 06:00] VITALS: BP 137/57; PULSE 66; RESP 18; TEMP 36.9; O2SAT 96
--- NOTE | 2025-06-16 06:18 | PC.NURSE ---
Assumed care of patient at 1900. Patient still residing in ED OVF awaiting placement. She is alert and oriented x 3, reporting mild back pain. Purewick in place. Makes needs known. No acute events overnight. No difficulty with swallowing fluids noted. Bed locked and in lowest setting, call iverson within reach.
[2025-06-16] MEDS: Aspirin Enteric Coated 81 MG TABLET.DR PO (08:03)
[2025-06-16] MEDS: Metoprolol Succinate ER 25 MG TAB.ER.24H PO (08:03)
--- NOTE | 2025-06-16 08:15 | MHC.EDTECH ---
pt ate 25% of her breakfast
--- NOTE | 2025-06-16 08:29 | MHC.CM.PN ---
PT IN NEED OF STR, [facility] IS CLOSED DUE TO HOLIDAY PT WILL REMAIN UNTIL TOMORROW AT WHICH TIME, BED OFFERS WILL BE REVIEWED AND INSURANCE AUTH REQUESTED
--- NOTE | 2025-06-16 08:51 | MHC.EDTECH ---
went to assisted pt to wash up and patient stated she got wash up this morning by one of the night aids
--- NOTE | 2025-06-16 09:15 | MHC.EDTECH ---
pt was a setup with denture care
--- NOTE | 2025-06-16 09:15 | MHC.EDTECH ---
pt was a stand and pivot to the commode and had a large brown loose bowel movement
[2025-06-16 09:28] LABS: INTERNATIONAL NORM RATIO 3.4 (0.9-1.1); Prothrombin Time 38.6 SEC (10.9-12.4)
--- NOTE | 2025-06-16 12:33 | MHC.EDTECH ---
Addendum entered by Shreya Armstrong CNA 06/16/25 12:34: 25%lunch Original Note: pt ate 25% breakfast
--- NOTE | 2025-06-16 13:58 | PHA.MEDREC ---
Pharmacy Consult ? Medication Reconciliation Pharmacy has completed the medication reconciliation. Med rec completed by nursing, reviewed by pharmacy and matches claims
[2025-06-16 14:00] VITALS: BP 106/59; PULSE 79; RESP 20; TEMP 36.9; O2SAT 94
--- NOTE | 2025-06-16 14:29 | MHC.SLORD ---
Addendum entered and electronically signed by Lia Rosado MS, CCC-ECONOMIC RESEARCH ANALYST 06/16/25 14:31: See CXR results. Original Note: Speech Language Pathology Order Status: Pt not seen today; endoscopy pending as recc. ECONOMIC RESEARCH ANALYST continues to follow.
--- NOTE | 2025-06-16 14:42 | MHC.EDTECH ---
pt voided 200 ml on a purwick
[2025-06-16 21:02] VITALS: BP 103/58; PULSE 75; RESP 18; TEMP 37.4; O2SAT 99
[2025-06-17 05:47] VITALS: BP 101/55; PULSE 67; RESP 16; TEMP 36.1; O2SAT 100
[2025-06-17] MEDS: Metoprolol Succinate ER 25 MG TAB.ER.24H PO (08:17)
[2025-06-17] MEDS: Aspirin Enteric Coated 81 MG TABLET.DR PO (08:17)
[2025-06-17 08:36] VITALS: BP 110/59; PULSE 81; RESP 16; TEMP 36.8; O2SAT 100
--- NOTE | 2025-06-17 10:27 | MHC.CM.ED ---
Patient remains in ER overflow. Angélica Foster is reviewing for bed availability. Requesting updated physical therapy note for [facility] auth. Physical therapy aware and will update PT note. Continue to monitor for d/c needs.
[2025-06-17 12:46] LABS: INTERNATIONAL NORM RATIO 3.2 (0.9-1.1); Prothrombin Time 36.7 SEC (10.9-12.4)
[2025-06-17 14:04] VITALS: BP 101/54; PULSE 69; RESP 14; TEMP 36.9; O2SAT 99
--- NOTE | 2025-06-17 16:52 | P.CNHO_ITS ---
Subjective - Subjective Chief complaint: Consult for: Widespread malignancy. Patient: new to practice Consult date: 06/17/25 Requesting Physician: Shyla Fregoso MD. Primary Care Provider: Shyla Fregoso MD Family Provider: Shyla Fregoso MD Medical Summary: DIAGNOSIS: DYSPHAGIA. PERITONEAL CARCINOMATOSIS. RIGHT RENAL MASS. Procurement Representative Utilized?: No - Amharic Speaking HPI - Consult Narrative Reason for consult: Consult for: 1. Dysphagia. 2. Peritoneal carcinomatosis. 3. Renal mass Narrative: [place] Cline is a 80 year old unfortunate lady presented on 06/13 with failure to thrive. Patient's condition has been gradually declining over the past couple of months. She has had difficulty swallowing, initially to solids but more recently to liquids as well. She complains of nausea and heartburn, no vomiting yet. She had a bout with diarrhea, about a week ago which was rather severe. She has headache and dizziness. She has fallen 7 times at home. Fortunately she calls her daughter and grandson, who are able to pick her up. She has been trying to get into GI, but next appointment available was 07/30. DATABASE: Chest x-ray from 06/13: Cardiomegaly and mild pulmonary vascular congestion. CT chest from 06/15: 1. Hiatal hernia with distal esophageal thickening. Endoscopy is recommended to exclude underlying neoplasm. 2. Ascites associated with peritoneal nodularity and fat stranding, possibly indicating peritoneal carcinomatosis or peritonitis. 3. Cholelithiasis. 4. Coronary artery disease. 5. Mild dilatation of the ascending thoracic aorta. CAT scan of the abdomen pelvis from today: 1. Distal esophagus appears thickened and patulous. 2. There is a small to moderate volume intraperitoneal ascites with findings of nodularity of the superior omentum suggestive of peritoneal carcinomatosis. 3. There is wall thickening of the distal gastric body and gastric antrum, for which underlying neoplasm is a consideration. Cannot characterize further without the benefit of contrast. 4. There is a solid appearing renal lesion arising from the superior right kidney measuring 2.8 cm in diameter, suspicious. Recommend correlating with ultrasound. 5. There is cholelithiasis. 6. Numerous additional ancillary findings as discussed in the body of report. Labs: CBC: WBC 9.3, HGB 9.7, HCT 29.8, PLT 209. LFTs: 1.2/110/72/46. Albumin: 2.7. INR: 3.2. 8/31:BUN 31, HANDLE SANDER OPERATOR 1.66. 8/29; BUN 44, HANDLE SANDER OPERATOR 2.03. Medical History: Erythema intertrigo Pacemaker History of syncope Cardiac defibrillator in place Anemia in chronic kidney disease Localized swelling of both lower legs Sinus bradycardia Bifascicular block Intermittent lightheadedness Bilateral knee pain Impaired fasting glucose Osteopenia of left femoral neck Colonoscopy refused Postmenopausal Osteoarthritis Dyslipidemia Essential hypertension Chronic kidney disease (CKD) Surgical History:) Recent apical thrombus. On warfarin. S/P cardiac cath History of cataract surgery FAMILY HISTORY: Mom of ovarian carcinoma. Dad of prostate cancer. 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 She is . of lung cancer. She has a daughter. She smoking 40 years ago with the of her daughter. Denies alcohol. ROS: She has felt progressively increasing fatigue over the last couple of months. Denies any fever but she gets chills , no night sweats. Her appetite is not that great. She has lost 20 lbs She gets headaches and dizziness. Denies any chest pain, she gets short of breath on exertion. She complains of abdominal pain. Nausea but not vomiting, she has heartburn and indigestion. Bowels are regular now but a week ago she had severe diarrhea. Denies dysuria or hematuria. Complains of joint pains. She feels weak all over. No depression. No skin rashes no pruritus. Review of Systems - Constitutional Reports system reviewed and no additional complaints, except as documented, Reports body ache(s), Reports fatigue, Reports frequent falls, Reports lack of energy, Reports malaise, Reports poor appetite, Reports weakness, Reports weight loss - Eyes Reports system reviewed and no additional complaints, except as documented - ENT Reports system reviewed and no additional complaints, except as documented - Cardiovascular Reports system reviewed and no additional complaints, except as documented - Respiratory Reports no additional respiratory complaints - Gastrointestinal Reports system reviewed and no additional complaints, except as documented, Reports abdominal pain, Reports bloating, Reports feeling full early, Reports dyspepsia, Reports heartburn, Reports diarrhea, Reports nausea - Genitourinary Reports no additional female genitourinary complaints - Musculoskeletal Reports system reviewed and no additional complaints, except as documented - Integumentary/Breasts Skin/Breast: Reports no additional skin complaints - Neurologic Reports system reviewed and no additional complaints, except as documented - Psychiatric Reports system reviewed and no additional complaints, except as documented - Endocrine Reports no additional endocrine complaints - Hematologic/Lymphatic Reports system reviewed and no additional complaints, except as documented - Allergic/Immunologic Reports system reviewed and no additional complaints, except as documented Oncology Screenings - ECOG Performance Status ECOG Performance Status: 2 [facility] Medical History: Medical History (Last Reviewed 06/17/25 @ 17:36 by Lacho De Jesus MD) Anemia in chronic kidney disease Bifascicular block Bilateral knee pain Cardiac defibrillator in place Chronic kidney disease (CKD) Colonoscopy refused Dyslipidemia Erythema intertrigo Essential hypertension History of syncope Impaired fasting glucose Intermittent lightheadedness Localized swelling of both lower legs Osteoarthritis Osteopenia of left femoral neck Pacemaker Postmenopausal Sinus bradycardia Functional capacity: wheelchair bound Patient : No Family History: Family History (Last Reviewed 06/17/25 @ 17:36 by Lacho De Jesus MD) Father HTN (hypertension) Mother CKD (chronic kidney disease) HTN (hypertension) Heart disease Family/Other Hailye's thyroiditis Surgical History: Surgical History (Last Reviewed 06/17/25 @ 17:36 by Lacho De Jesus MD) History of cataract surgery S/P cardiac cath Social History: Social History (Last Reviewed 06/17/25 @ 17:36 by Lacho De Jesus MD) Living Situation History: Household Members: None Housing: House Tobacco History: Patient Tobacco Use Status: Former Tobacco user Years Smoked: 35 yrs e-Cigarette/Vaping Use: Never Used Advance Directives: Advance Directives Date on File: 08/19/22 Occupation Assessmet: service: No Current occupational status: retired Home Medications and Allergies Current Medications: Current Medications Acetaminophen (Acetaminophen 325 Mg Tablet) 650 mg PO Q6H PRN PRN Reason: pain, mild Last Admin: 06/17/25 08:18 Dose: 650 mg Ascorbic Acid (Ascorbic Acid 250 Mg Tablet) 250 mg PO MoWeFr [facility] Last Admin: 06/16/25 09:30 Dose: 250 mg Aspirin (Aspirin Enteric Coated 81 Mg Tablet.) 81 mg PO DAILY [facility] Last Admin: 06/17/25 08:17 Dose: 81 mg Atorvastatin Calcium (Atorvastatin Calcium 40 Mg Tablet) 40 mg PO DAILY [facility] Last Admin: 06/17/25 08:17 Dose: 40 mg Cyanocobalamin (Cyanocobalamin (Vitamin B-12) 1,000 Mcg Tablet) 1,000 mcg PO DAILY [facility] Last Admin: 06/17/25 08:17 Dose: 1,000 mcg Famotidine (Famotidine 20 Mg Tablet) 40 mg PO DAILY [facility] Last Admin: 06/17/25 08:18 Dose: 40 mg Furosemide (Furosemide 20 Mg Tablet) 20 mg PO DAILY PRN; Protocol PRN Reason: Edema Megestrol Acetate (Megestrol Acetate 20 Mg Tablet) 20 mg PO BID [facility] Last Admin: 06/17/25 08:24 Dose: 20 mg Metoclopramide HCl (Metoclopramide Hcl 5 Mg Tablet) 5 mg PO Q8H PRN PRN Reason: Nausea and Vomiting Metoprolol Succinate (Metoprolol Succinate Er 25 Mg Tab.Er.24h) 25 mg PO DAILY [facility]; Protocol Last Admin: 06/17/25 08:17 Dose: 25 mg Warfarin Sodium (Warfarin Sodium 2 Mg Tablet) 2 mg PO DAILY@1800 [facility] Last Admin: 06/16/25 17:58 Dose: 2 mg Home Medications ?Medication ?Instructions ?Recorded ?Confirmed ?Type cyanocobalamin (vitamin B-12) 1,000 mcg PO DAILY 05/16/24 06/13/25 His tory 1,000 mcg tablet acetaminophen 650 mg 650 mg PO Q12H 10/30/24 06/13/25 History tablet,extended release (Tylenol Arthritis Pain) ascorbic acid (vitamin C) 250 mg 250 mg PO MOWEFR 10/30/24 06/13/25 Histo ry tablet furosemide 20 mg tablet 20 mg PO DAILY PRN Edema 06/13/25 History Allergies Allergy/AdvReac Type Severity Reaction Status Date / Time GALILEO Inhibitors Allergy Severe Cough Verified 06/13/25 09:47 Physical Exam Vital signs: Vital Signs Temp 98.4 F 06/17/25 14:04 Pulse 69 06/17/25 14:04 Resp 14 06/17/25 14:04 BP 101/54 L 06/17/25 14:04 Pulse Ox 99 06/17/25 14:04 O2 Del Method Room Air 06/17/25 14:04 Weight 61 kg - Constitutional Present: moderate distress, severe distress, cachectic, chronically ill appearing - Routine HEENT Exam Head: Present: normocephalic ENT: Present: mucous membranes dry - Routine Neck Exam Present: supple - Routine Respiratory Exam Present: CTAB - Routine Abdominal Exam Present: distended, rebound, tenderness - Routine Extremities Exam Present: nontender - Routine Skin Exam Present: intact, cyanosis, normal turgor Hem/Onc Consult Result - Labs CBC & Chem 7: 06/18/25 04:25 06/18/25 04:25 Assessment and Plan Patient Active problem list reviewed?: Yes (1) GI malignancy Status: Acute Assessment and plan: This is an very pleasant unfortunate 80-year-old lady, who is admitted with a 2 months' history of dysphagia and generalized weakness. This has progressed to the point that she can hardly swallow liquids. She is extremely weak and has fallen [address] chest from 06/15: 1. Hiatal hernia with distal esophageal thickening. Endoscopy is recommended to exclude underlying neoplasm. 2. Ascites associated with peritoneal nodularity and fat stranding, possibly indicating peritoneal carcinomatosis or peritonitis. 3. Cholelithiasis. 4. Coronary artery disease. 5. Mild dilatation of the ascending thoracic aorta. CAT scan of the abdomen pelvis from today: 1. Distal esophagus appears thickened and patulous. 2. There is a small to moderate volume intraperitoneal ascites with findings of nodularity of the superior omentum suggestive of peritoneal carcinomatosis. 3. There is wall thickening of the distal gastric body and gastric antrum, for which underlying neoplasm is a consideration. Cannot characterize further without the benefit of contrast. 4. There is a solid appearing renal lesion arising from the superior right kidney measuring 2.8 cm in diameter, suspicious. Recommend correlating with ultrasound. 5. There is cholelithiasis. 6. Numerous additional ancillary findings as discussed in the body of report. Labs: CBC: WBC 9.3, HGB 9.7, HCT 29.8, PLT 209. LFTs: 1.2/110/72/46. Albumin: 2.7. INR: 3.2. 06/15:BUN 31, HANDLE SANDER OPERATOR 1.66. 8/29; BUN 44, HANDLE SANDER OPERATOR 2.03. DIFFERENTIAL DIAGNOSIS: 1. Carcinoma of the esophagus. 2. Gastric carcinoma. 3. Ovarian cancer. 4. Renal cell carcinoma. PLAN: Will admit patient to the hospital to expedite the workup. Will request GI consultation to proceed with upper endoscopy. Will hold Coumadin, INR is supratherapeutic. She will have an echocardiogram tomorrow, to assess the recent apical thrombus. Will then decide about timing of the endoscopy. Will get baseline tumor markers.cea: 5.20. Will get renal ultrasound to follow-up on the solid appearing right renal mass. Will get urology consult if needed. All this was explained to the patient and her daughter Amara, cell: [phone]. Thank you for this consult, I will follow along with you. CC: Dr. Fregoso. - Time Spent With Patient Time Spent with Patient (in minutes): 30
--- OUTSIDE RECORDS SUMMARY | 2025-06-17 17:10 | XMS_ITS | Encounter Summary ---
Author Organization [facility] Address [address] [place] [address] Phone Care Team Providers Care Veneer Glue Jointer Feedback Name Role Phone Vanessa Fregoso MD Primary Care Provider [phone]- [phone] Reason for Visit * Reason Comments Med Refill Encounter Details Date Type Department Care Team (Late st Contact Info) Description 06/05/2023 Refill [facility] [address] [place] [address] Emil Foote MD Social History [...] on filedocumented in this encounter Care Teams Veneer Glue Jointer Feedback Relationship Specialty Start Date End Date Vanessa Fregoso MD [facility] [place] [address] PCP - General 10/26/20 documented as of this encounter
--- OUTSIDE RECORDS SUMMARY | 2025-06-17 17:10 | XMS_ITS | Clinical Summary ---
Author Organization [facility] Address [address] [facility] [address] [place] [address] Phone Care Team Providers Care Child Daycare Worker Name Role Phone Vanessa Fregoso MD Primary Care Provider [phone]- [phone] Allergies Active Allergy Reactions Criticality Noted Date [...] patient's age to complete this topic [place] [address] [facility] Care Teams Child Daycare Worker Relationship Specialty Start Date End Date Vanessa Fregoso MD [address] [place], [place] [address] [id number] PCP - General 10/26/20
--- NOTE | 2025-06-17 17:31 | P.HPHOSP_ITS ---
History of Present Illness Date of Service: 06/17/25 Chief Complaint: weight loss 80F PMH CKD III, hld, hfref aicd, lv thrombus on warfarin, presented to ED 06/13/25 for frequent falls, was placement for SNF, but noted 20lbs weight loss so underwent CT chest and abd which showed distal esophagus thickening, small to moderate intraperitoneal ascites with nodularity suggestive of peritoneal carcinomatosis, distal gastric body and gastric antrum thickening concerning for malignancy. Patient also reports dysphagia to solids and liquids. Review of Systems 2 Review of Systems: Yes all other systems are reviewed and are negative [facility] Medical History Erythema intertrigo Pacemaker History of syncope Cardiac defibrillator in place Anemia in chronic kidney disease Localized swelling of both lower legs Sinus bradycardia Bifascicular block Intermittent lightheadedness Bilateral knee pain Impaired fasting glucose Osteopenia of left femoral neck Colonoscopy refused Postmenopausal Osteoarthritis Dyslipidemia Essential hypertension Chronic kidney disease (CKD) Functional capacity: wheelchair bound Family History Father HTN (hypertension) Mother CKD (chronic kidney disease) HTN (hypertension) Heart disease Family/Other Hailey's thyroiditis Surgical History S/P cardiac cath History of cataract surgery Social History Household Members: None Housing: House Alcohol intake: never Patient Tobacco Use Status: Former Tobacco user Years Smoked: 35 yrs Smoked in Last 30 Days: No e-Cigarette/Vaping Use: Never Used Use of substances other than those prescribed or required for medical reasons: No Advance Directives: Yes Advance Directives on File: Yes Advance Directives Date on File: 08/19/22 Do you have a plan to hurt others: No Plan Patient : No service: No Current occupational status: retired Cognitive needs: No Hearing needs: No Vision needs: Yes Meds Allergies Allergy/AdvReac Type Severity Reaction Status Date / Time GALILEO Inhibitors Allergy Severe Cough Verified 06/13/25 09:47 Active Medications: Current Medications Acetaminophen (Acetaminophen 325 Mg Tablet) 650 mg PO Q6H PRN PRN Reason: pain, mild Last Admin: 06/17/25 08:18 Dose: 650 mg Ascorbic Acid (Ascorbic Acid 250 Mg Tablet) 250 mg PO MoWe [facility] Last Admin: 06/16/25 09:30 Dose: 250 mg Aspirin (Aspirin Enteric Coated 81 Mg Tablet.) 81 mg PO DAILY [facility] Last Admin: 06/17/25 08:17 Dose: 81 mg Atorvastatin Calcium (Atorvastatin Calcium 40 Mg Tablet) 40 mg PO DAILY [facility] Last Admin: 06/17/25 08:17 Dose: 40 mg Cyanocobalamin (Cyanocobalamin (Vitamin B-12) 1,000 Mcg Tablet) 1,000 mcg PO DAILY [facility] Last Admin: 06/17/25 08:17 Dose: 1,000 mcg Famotidine (Famotidine 20 Mg Tablet) 40 mg PO DAILY [facility] Last Admin: 06/17/25 08:18 Dose: 40 mg Furosemide (Furosemide 20 Mg Tablet) 20 mg PO DAILY PRN; Protocol PRN Reason: Edema Megestrol Acetate (Megestrol Acetate 20 Mg Tablet) 20 mg PO BID [facility] Last Admin: 06/17/25 08:24 Dose: 20 mg Metoclopramide HCl (Metoclopramide Hcl 5 Mg Tablet) 5 mg PO Q8H PRN PRN Reason: Nausea and Vomiting Metoprolol Succinate (Metoprolol Succinate Er 25 Mg Tab.Er.24h) 25 mg PO DAILY [facility]; Protocol Last Admin: 06/17/25 08:17 Dose: 25 mg Warfarin Sodium (Warfarin Sodium 2 Mg Tablet) 2 mg PO DAILY@1800 [facility] Last Admin: 06/16/25 17:58 Dose: 2 mg Home Medications ?Medication ?Instructions ?Recorded ?Confirmed ?Last Taken ?Type cyanocobalamin (vitamin B-12) 1,000 mcg PO DAILY 05/1606/13/25 Unknown History 1,000 mcg tablet acetaminophen 650 mg 650 mg PO Q12H 10/30/2405/17 Unknown History tablet,extended release (Tylenol Arthritis Pain) ascorbic acid (vitamin C) 250 mg 250 mg PO MOWEFR 10/1606/13/25 Unknown History tablet furosemide 20 mg tablet 20 mg PO DAILY PRN Edema 06/13/25 Unknown History Physical Exam 2 Vital Signs and Narrative: Vital Signs: Last Vital Signs Temp 98.4 F 06/17/25 14:04 Pulse 69 06/17/25 14:04 Resp 14 06/17/25 14:04 BP 101/54 L 06/17/25 14:04 Pulse Ox 99 06/17/25 14:04 O2 Del Method Room Air 06/17/25 14:04 BMI result Body Mass Index 29.1 General: AO X 3, no acute distress Resp: CTA bilateral, no accessory muscles used CVS: S1,S2,RRR GI: soft, non tender, non distended Neuro: motor grossly intact, alert Psych: appropriate affect, appropriate insight Results Labs 06/15/25 19:35 06/15/25 19:35 Labs: Laboratory Results - last 24 hr 06/17/25 11:52 PT 36.7 H INR 3.2 H Imaging Radiologist's Impressions: Impressions Abdomen/Pelvis CT 06/17/25 09:41 IMPRESSION: Study is significantly limited without the benefit of IV contrast. 1. Distal esophagus appears thickened and patulous. 2. There is a small to moderate volume intraperitoneal ascites with findings of nodularity of the superior omentum suggestive of peritoneal carcinomatosis. 3. There is wall thickening of the distal gastric body and gastric antrum, for which underlying neoplasm is a consideration. Cannot characterize further without the benefit of contrast. 4. There is a solid appearing renal lesion arising from the superior right kidney measuring 2.8 cm in diameter, suspicious. Recommend correlating with ultrasound. 5. There is cholelithiasis. 6. Numerous additional ancillary findings as discussed in the body of report. Electronically signed by: Porter Epps MD 06/17/2025 10:45 AM EDT RP Assessment and Plan (1) Ischemic cardiomyopathy: Status: Acute Plan 80F PMH CKD III, hld, hfref aicd, lv thrombus on warfarin, presented to ED 06/13/25 for frequent falls Moderate protein calorie malnutrition and failure to thrive with frequent falls due to suspected GI malignancy with metastases GI eval for EGD/biopsy History of LV thrombus Discussed with Cardiology, check repeat echo, if LV thrombus no longer present okay to reverse, otherwise would just hold Coumadin HFrEF - ischemic Aspirin and statin CKD 3 Stable DVT prophylaxis - INR is currently therapeutic Full code Quality Stroke Does the patient have a stroke diagnosis?: No VTE Prior VTE?: Yes VTE Risk Level:: Medical - moderate - high VTE Device Contraindication: Treatment Not Indicated VTE Drug Contraindication: N/A - Med Ordered
[2025-06-17 18:07] LABS: Carcinoembryonic Antigen 5.20 ng/mL
[2025-06-17 22:00] VITALS: BP 94/50; PULSE 63; RESP 14; TEMP 36.7; O2SAT 99
[2025-06-18 05:06] LABS: Hematocrit 24.7 % (37.0-47.0); Hemoglobin 8.4 g/dl (12.0-16.0); Mean Corpuscular HGB Conc 34.0 g/dl (31.0-35.0); Mean Corpuscular Hemoglobin 33.1 pg (27.0-33.0); Mean Corpuscular Volume 97.2 fL (80.0-98.0); NRBC Abs Auto 0.000 X10*3/uL (0.0-0.012); NRBC Pct Auto 0.0 /100WBC (0.0-0.2); Platelet Count 235 X10*3/uL (160-400); Red Blood Count 2.54 X10*6/uL (4.20-5.50); White Blood Count 7.9 X10*3/uL (4.8-10.8)
[2025-06-18 05:19] VITALS: BP 114/57; PULSE 65; RESP 16; TEMP 36.9; O2SAT 100
[2025-06-18 05:33] LABS: Anion Gap 13 (12-20); Blood Urea Nitrogen 31 mg/dL (9-16); Calcium 8.0 mg/dL (8.4-10.2); Carbon Dioxide 18 mmol/L (22-29); Chloride 110 mmol/L (96-108); Creatinine Clr Calc Pharmacy 23.1; Estimated Glomerular Filt Rate 34; Magnesium 2.0 mg/dL (1.6-2.6); Potassium 3.9 mmol/L (3.3-5.1); Sodium 137 mmol/L (135-145)
[2025-06-18 05:50] LABS: INTERNATIONAL NORM RATIO 3.4 (0.9-1.1); Prothrombin Time 38.7 SEC (10.9-12.4)
--- NOTE | 2025-06-18 06:34 | PC.NURSE ---
Assumed care of pt at 1900. Awaiting Med Surg bed. Pt A&O x 3. Pt able to make needs known. Meds administered per MAR. See flowsheets for more information. Purewik in place. PIV placed during shift, pt tolerated this well. Call iverson in reach. All safety measures in place. Pt able to self reposition throughout the night.?
--- NOTE | 2025-06-18 06:48 | MHC.CM.ED ---
Received notification patient was admitted to the hospital. Angélica Foster made aware so they can follow for d/c needs.
--- NOTE | 2025-06-18 07:00 | CA_ITS ---
Transthoracic Echocardiogram Patient (Last, First, Middle): [place] Cline D Gender: Female Date of : 1945 Age: 80 Procedure Date: 06/18/2025 Procedure Type: Transthoracic Echocardiogram Location: ER Height: 144.78 cm Weight: 60.78 kg BSA: 1.52 m2 Heart Rate: 75 bpm BP: 114 / 57 mmHg Service Worker Helper: MINISTERIO Referring MD: Lacho De Jesus MD Symptoms: Dyspnea, eval lv thrombus Study Quality: Adequate ECG Rhythm: Paced Conclusions: - Normal left ventricular cavity size. The left ventricular systolic function is moderately decreased. The visually estimated ejection fraction is between 30-35%. - Small apical thrombus noted. - The apical anterior segment is hypokinetic. - The mid anteroseptal segment is akinetic. - The apex segment is dyskinetic Findings Procedure Information Contrast agent, definity, is being given per protocol without apparent complications. Left Ventricle Normal left ventricular cavity size. The left ventricular systolic function is moderately decreased. The visually estimated ejection fraction is between 30-35%. There is evidence of regional wall motion abnormalities. There is paradoxical septal motion consistent with a right ventricular pacemaker. Diastolic function is indeterminate on the basis of available data. Small apical thrombus noted. Wall Motion Rest Echo Findings The apical anterior segment is hypokinetic. The mid anteroseptal segment is akinetic. The apex segment is dyskinetic. Right Ventricle Normal right ventricular cavity size and systolic function. There is a pacemaker wire seen in the right ventricle. Atria The left atrium is normal in size. The right atrium was not well visualized. Aortic Valve Normal aortic valve structure and function. There is no aortic valve stenosis. There is trace (trivial) aortic valve regurgitation. Mitral Valve The mitral valve appears normal. There is trace mitral valve regurgitation. There is no mitral valve stenosis. Pulmonic Valve The pulmonic valve was not well visualized. Tricuspid Valve Normal tricuspid valve structure. There is no tricuspid valve regurgitation. Normal right atrial pressure. There is no evidence of pulmonary hypertension. Great Vessels There is mild dilatation of the ascending aorta measuring 3.90 cm. Venous The inferior vena cava is normal in size and collapses greater than 50% with inspiration. Pericardium/Pleural There is no evidence of pericardial effusion. Prior Study Comparison Changes noted compared to prior study dated: 10/01/2024. EF 30-35%, RWMA. Small apical thrombus. Measurements 2D Linear Measurements IVSd: 1.03 0.6-0.9/0.6-1.0 cm LVIDd: 4.77 3.9-5.3/4.2-5.9 cm LVIDd Index: 3.14 2.4-3.2/2.2-3.1 cm/m2 LVIDs: 4.25 2.0-3.6 cm LVPWd: 0.75 0.7-1.1 cm LA Diam: 3.10 2.7-3.8/3.0-4.0 cm LAIDs Index: 2.04 1.5-2.3 cm/m2 LV Mass: 178.84 67-162/88-224 g LV Mass Index: 117.66 43-95/49-115 g/m2 LVOT Diam: 2.30 3.0+(-)1.3 cm 2D Systolic Function EF 4C: 45.00 >55% EF 2C: 40.60 >55% EF BiP: 42.70 >55% Mitral Valve MV Pk E: 0.36 MV PK A: 0.90 MV Decel Time: 152.00 E/A: 0.40 E'Lateral: 4.46 E'Medial: 2.61 E/E' Med: 13.60 E/E' Lat: 8.00 PHT: 44.00 MVA PHT: 5.00 Decel [place]: 2.35 Aortic Valve AoV Pk Raul: 1.46 AoV Pk Grad: 9.00 HELADIO: 3.34 AI Pk Raul: 4.00 AI [place]: 2.39 LVOT LVOT Pk Raul: 1.05 LVOT Mn Raul: 0.69 LVOT VTI: 0.17 LVOT Pk Grad: 4.00 LVOT Mn Grad: 2.00 LVOT Diam: 2.30 LVOT Area: 4.15 Diastolic Function MV Pk E: 0.36 MV Pk A: 0.90 E/A: 0.40 E'Medial: 2.61 E/E' Med: 13.60 E' Laterial: 4.46 E/E' Lat: 8.00 Right Ventricle TAPSE (mm): 17.10 TVS' Raul: 8.00 Tricuspid Valve TR Pk Raul: 2.26 TR Pk Grad: 20.00 RA Press: 3.00 RVSP: 23.00 Great Vessels Aorta Sinus of Valsalva: 3.00 2.0-3.5 cm Ao Asc: 3.90 2.1-3.4 cm Pulmonary Valve PV Pk Rual: 1.07 Peak PV Grad: 5.00 Updated in Other Vendor System with Status of Final Jason Her MD electronically signed on 06/18/2025 2:50:36 PM with status of Final
[2025-06-18] MEDS: Aspirin Enteric Coated 81 MG TABLET.DR PO (09:24)
[2025-06-18 09:25] VITALS: BP 100/61; PULSE 73
[2025-06-18] MEDS: Metoprolol Succinate ER 25 MG TAB.ER.24H PO (09:25)
[2025-06-18] MEDS: 0.9 % Sodium Chloride Flush 3 ML SYRINGE IVFLUSH ×3 (09:35→22:16)
--- NOTE | 2025-06-18 09:45 | MHC.CM.PN ---
CM met with Patient at bedside, in ED Over, and addressed IMM with her, providing Patient with the original and a copy will be placed on the chart. PT is recommending STR and [facility] is first choice. CM has initiated and will follow for dc planning. PCP is Dr. Fregoso and Patient will require BLS transport to SNF/STR. HCP is Daughter/Triny.Patient lives alone, has a ramp, and uses a walker.
--- NOTE | 2025-06-18 10:19 | P.CONCA_ITS ---
History of Present Illness History of Present Illness Date of Service: 06/18/25 Requesting physician: Ursula Leone Chief complaint: Weight loss, GI malignancy Narrative: [age] year female presenting for failure to thrive and poor appetite and weight loss. She is being worked up for GI malignancy and we will need endoscopy. She has known history of coronary disease and presented previously with syncope when she was noticed to have bifascicular block and underwent ICD placement. At that time she had LV dysfunction and apical thrombus discovered and she was started on Coumadin. She underwent cardiac catheterization which showed severe LAD and right coronary artery stenosis which were medically managed. She was started on guideline directed medical therapy but had poor tolerance of medications. In between she has fallen multiple times and more recently she had multiple falls back to back. She had imaging done which is raising concern for esophageal thickening and she needs biopsy of the lesion for diagnosis. Denying any chest discomfort shortness of breath. Overall just frail and progressively declining. [facility] Past Medical History Medical History Erythema intertrigo Pacemaker History of syncope Cardiac defibrillator in place Anemia in chronic kidney disease Localized swelling of both lower legs Sinus bradycardia Bifascicular block Intermittent lightheadedness Bilateral knee pain Impaired fasting glucose Osteopenia of left femoral neck Colonoscopy refused Postmenopausal Osteoarthritis Dyslipidemia Essential hypertension Chronic kidney disease (CKD) Family History Family History Father HTN (hypertension) Mother CKD (chronic kidney disease) HTN (hypertension) Heart disease Family/Other Hailey's thyroiditis Surgical History Surgical History S/P cardiac cath History of cataract surgery Social History Social History Household Members: None Housing: House Alcohol intake: never Patient Tobacco Use Status: Former Tobacco user Years Smoked: 35 yrs Smoked in Last 30 Days: No e-Cigarette/Vaping Use: Never Used Use of substances other than those prescribed or required for medical reasons: No Advance Directives: Yes Advance Directives on File: Yes Advance Directives Date on File: 08/19/22 Do you have a plan to hurt others: No Plan Patient : No service: No Current occupational status: retired Cognitive needs: No Hearing needs: No Vision needs: Yes Meds Allergies Allergy/AdvReac Type Severity Reaction Status Date / Time GALILEO Inhibitors Allergy Severe Cough Verified 06/13/25 09:47 Active Medications: Current Medications Acetaminophen (Acetaminophen 325 Mg Tablet) 650 mg PO Q6H PRN PRN Reason: pain, mild Last Admin: 06/17/25 21:28 Dose: 650 mg Acetaminophen (Acetaminophen 325 Mg Tablet) 650 mg PO Q6H PRN PRN Reason: Pain, Mild 1-3,fever,headache Ascorbic Acid (Ascorbic Acid 250 Mg Tablet) 250 mg PO MoWeFr [facility] Last Admin: 06/18/25 09:40 Dose: 250 mg Aspirin (Aspirin Enteric Coated 81 Mg Tablet.Dr) 81 mg PO DAILY [facility] Last Admin: 06/18/25 09:24 Dose: 81 mg Atorvastatin Calcium (Atorvastatin Calcium 40 Mg Tablet) 40 mg PO DAILY [facility] Last Admin: 06/18/25 09:24 Dose: 40 mg Calcium Carbonate (Calcium Carbonate 750 Mg Tab.Chew) 750 mg PO Q4H PRN PRN Reason: Heartburn Cyanocobalamin (Cyanocobalamin (Vitamin B-12) 1,000 Mcg Tablet) 1,000 mcg PO DAILY [facility] Last Admin: 06/18/25 09:25 Dose: 1,000 mcg Famotidine (Famotidine 20 Mg Tablet) 40 mg PO DAILY [facility] Last Admin: 06/18/25 09:25 Dose: 40 mg Furosemide (Furosemide 20 Mg Tablet) 20 mg PO DAILY PRN; Protocol PRN Reason: Edema Magnesium Hydroxide (Milk Of Magnesia 30 Ml Oral.Susp) 30 ml PO DAILY PRN PRN Reason: Constipation Megestrol Acetate (Megestrol Acetate 20 Mg Tablet) 20 mg PO BID [facility] Last Admin: 06/18/25 09:25 Dose: 20 mg Melatonin (Melatonin 3 Mg Tablet) 6 mg PO BEDTIME PRN PRN Reason: Insomnia Metoclopramide HCl (Metoclopramide Hcl 5 Mg Tablet) 5 mg PO Q8H PRN PRN Reason: Nausea and Vomiting Metoprolol Succinate (Metoprolol Succinate Er 25 Mg Tab.Er.24h) 25 mg PO DAILY [facility]; Protocol Last Admin: 06/18/25 09:25 Dose: 25 mg Sodium Chloride (0.9 % Sodium Chloride Flush 3 Ml Syringe) 3 ml IVFLUSH QSHIFT [facility] Last Admin: 06/18/25 09:35 Dose: 3 ml Home Medications ?Medication ?Instructions ?Recorded ?Confirmed ?Last Taken ?Type cyanocobalamin (vitamin B-12) 1,000 mcg PO DAILY 05/1606/13/25 Unknown History 1,000 mcg tablet acetaminophen 650 mg 650 mg PO Q12H 10/30/2405/17 Unknown History tablet,extended release (Tylenol Arthritis Pain) ascorbic acid (vitamin C) 250 mg 250 mg PO MOWEFR 10/1606/13/25 Unknown History tablet furosemide 20 mg tablet 20 mg PO DAILY PRN Edema 06/13/25 Unknown History Physical Exam 2 Vital Signs: Vital Signs: Last Vital Signs Temp 98.4 F 06/18/25 05:19 Pulse 73 06/18/25 09:25 Resp 16 06/18/25 05:19 BP 100/61 06/18/25 09:25 Pulse Ox 100 06/18/25 05:19 O2 Del Method Room Air 06/18/25 05:19 BMI result Body Mass Index 29.1 GENERAL APPEARANCE: Frail. bruising on face. NECK: no carotid bruit, no jugular venous distention. SKIN: no suspicious lesions, warm and dry. HEART: no murmurs, regular rate and rhythm. LUNGS: clear to auscultation bilaterally. ABDOMEN: soft, nontender. EXTREMITIES: no edema. PERIPHERAL PULSES: equal. NEUROLOGIC: No gross deficits, AAO X 3 Objective Labs and Meds 06/18/25 04:25 06/18/25 04:25 Lab results: Laboratory Results - last 24 hr 06/15/25 06/17/25 06/17/25 19:35 11:52 19:21 WBC RBC Hgb Hct MCV MCH MCHC RDW Plt Count MPV Absolute Nucleated RBC Nucleated RBC % (auto) Hold Purple Top SEE NOTE PT 36.7 H INR 3.2 H Sodium Potassium Chloride Carbon Dioxide Anion Gap BUN Creatinine Estim Creat Clear Calc Estimated GFR Random Glucose Calcium Magnesium Carcinoembryonic Ag 5.20 06/18/25 04:25 WBC 7.9 RBC 2.54 L Hgb 8.4 L Hct 24.7 L MCV 97.2 MCH 33.1 H MCHC 34.0 RDW 13.8 Plt Count 235 MPV 10.1 Absolute Nucleated RBC 0.000 Nucleated RBC % (auto) 0.0 Hold Purple Top PT 38.7 H INR 3.4 H Sodium 137 Potassium 3.9 Chloride 110 H Carbon Dioxide 18 L Anion Gap 13 BUN 31 H Creatinine 1.48 H Estim Creat Clear Calc 23.1 Estimated GFR 34 Random Glucose 90 Calcium 8.0 L Magnesium 2.0 Carcinoembryonic Ag Imaging Radiologist's impression: Impressions Abdomen/Pelvis CT 06/17/25 09:41 IMPRESSION: Study is significantly limited without the benefit of IV contrast. 1. Distal esophagus appears thickened and patulous. 2. There is a small to moderate volume intraperitoneal ascites with findings of nodularity of the superior omentum suggestive of peritoneal carcinomatosis. 3. There is wall thickening of the distal gastric body and gastric antrum, for which underlying neoplasm is a consideration. Cannot characterize further without the benefit of contrast. 4. There is a solid appearing renal lesion arising from the superior right kidney measuring 2.8 cm in diameter, suspicious. Recommend correlating with ultrasound. 5. There is cholelithiasis. 6. Numerous additional ancillary findings as discussed in the body of report. Electronically signed by: Porter Epps MD 06/17/2025 10:45 AM EDT Assessment and Plan (1) Ischemic cardiomyopathy: Status: Acute (2) Apical mural thrombus following NE: Status: Acute Plan Pleasant 80 year female with previous history of coronary artery disease and ischemic cardiomyopathy. She was medically treated because she had no anginal symptoms and also was quite frail and falling frequently. She continues to have frequent falls and has dizziness during some of the episodes. Other times she has no idea how she falls. She is denying any palpitations. Blood pressure is low and she previously was taken off medications 2. Her echocardiography is showing EF of 30 35% in his some views I can not rule out a small apical thrombus. She has known history of apical thrombus and was on aspirin and Coumadin before. I think with the frequent falls and falling on her face in particular we can not continue warfarin anymore. She has very small apical thrombus if any and I think the risk of her falling and hitting her head is higher than risk of thromboembolism. In terms of reversing her INR-I still believe that we should let her come down on her own and not use vitamin K on her. She is at least intermediate risk for perioperative complications. If in fact she has malignancy I do not know what sort of options she has given significant frailty and this should be considered before attempting any biopsies on her. Thank you for allowing me to participate in the care of your patient. Please feel free to contact me if you have any questions. Procedures Date of Service Date of Service: 06/18/25
--- NOTE | 2025-06-18 13:47 | P.CNGI_ITS ---
History of Present Illness Data of Consult Service Date: 06/18/25 Primary Care Provider: Shyla Fregoso MD HPI Reason for consult: dysphagia 80 yr old f with Lv thrombus, CKD III, hld, hfref aicd who I am seeing for dysphagia Over the last one month patient has noted difficulties with swallowing solids and liquids with nausea. She also noted 20# weight loss since March. Denies melena, rectal bleeding, reflux symptoms. She has also been feeling weak for 1 week with frequent falls with weakness but no LOC> she had CT imaging with distal esophagus thickening, small to moderate intraperitoneal ascites with nodularity suggestive of peritoneal carcinomatosis, distal gastric body and gastric antrum thickening concerning for malignancy along with renal lesion noted. Review of Systems 2 Review of Systems: Constitutional : + Weight loss, + Fever, No Chills ENT/Mouth : No sore throat, No Rhinorrhea Eyes: No Swelling, No Redness Cardiovascular : No Chest Pain, No SOB, No Edema Respiratory : No Cough, No Sputum, No Wheezing Gastrointestinal : see HPI Genitourinary : NO Dysuria, No Urinary Frequency, No Hematuria, No Urgency Musculoskeletal : no joint pain, No Myalgias, No Joint Swelling Skin : No Skin Lesions, No rash Neuro : No Weakness, No Numbness, No Dizziness, No Headache Psych : No Anxiety/Panic, No Depression Heme/Lymph: No Bruising, No Lymphadenopathy Endocrine : No Polyuria, No Polydipsia All other systems reviewed and are negative. [facility] Past Medical History Medical History Erythema intertrigo Pacemaker History of syncope Cardiac defibrillator in place Anemia in chronic kidney disease Localized swelling of both lower legs Sinus bradycardia Bifascicular block Intermittent lightheadedness Bilateral knee pain Impaired fasting glucose Osteopenia of left femoral neck Colonoscopy refused Postmenopausal Osteoarthritis Dyslipidemia Essential hypertension Chronic kidney disease (CKD) Family History Family History Father HTN (hypertension) Mother CKD (chronic kidney disease) HTN (hypertension) Heart disease Family/Other Hailey's thyroiditis Surgical History Surgical History S/P cardiac cath History of cataract surgery Social History Social History Household Members: None Housing: House Alcohol intake: never Patient Tobacco Use Status: Former Tobacco user Years Smoked: 35 yrs Smoked in Last 30 Days: No e-Cigarette/Vaping Use: Never Used Use of substances other than those prescribed or required for medical reasons: No Advance Directives: Yes Advance Directives on File: Yes Advance Directives Date on File: 08/19/22 Do you have a plan to hurt others: No Plan Patient : No service: No Current occupational status: retired Cognitive needs: No Hearing needs: No Vision needs: Yes Meds Allergies Allergy/AdvReac Type Severity Reaction Status Date / Time GALILEO Inhibitors Allergy Severe Cough Verified 06/13/25 09:47 Active Medications: Current Medications Acetaminophen (Acetaminophen 325 Mg Tablet) 650 mg PO Q6H PRN PRN Reason: pain, mild Last Admin: 06/17/25 21:28 Dose: 650 mg Acetaminophen (Acetaminophen 325 Mg Tablet) 650 mg PO Q6H PRN PRN Reason: Pain, Mild 1-3,fever,headache Ascorbic Acid (Ascorbic Acid 250 Mg Tablet) 250 mg PO MoWeFr [facility] Last Admin: 06/18/25 09:40 Dose: 250 mg Aspirin (Aspirin Enteric Coated 81 Mg Tablet.Dr) 81 mg PO DAILY [facility] Last Admin: 06/18/25 09:24 Dose: 81 mg Atorvastatin Calcium (Atorvastatin Calcium 40 Mg Tablet) 40 mg PO DAILY [facility] Last Admin: 06/18/25 09:24 Dose: 40 mg Calcium Carbonate (Calcium Carbonate 750 Mg Tab.Chew) 750 mg PO Q4H PRN PRN Reason: Heartburn Cyanocobalamin (Cyanocobalamin (Vitamin B-12) 1,000 Mcg Tablet) 1,000 mcg PO DAILY [facility] Last Admin: 06/18/25 09:25 Dose: 1,000 mcg Famotidine (Famotidine 20 Mg Tablet) 40 mg PO DAILY [facility] Last Admin: 06/18/25 09:25 Dose: 40 mg Furosemide (Furosemide 20 Mg Tablet) 20 mg PO DAILY PRN; Protocol PRN Reason: Edema Magnesium Hydroxide (Milk Of Magnesia 30 Ml Oral.Susp) 30 ml PO DAILY PRN PRN Reason: Constipation Megestrol Acetate (Megestrol Acetate 20 Mg Tablet) 20 mg PO BID [facility] Last Admin: 06/18/25 09:25 Dose: 20 mg Melatonin (Melatonin 3 Mg Tablet) 6 mg PO BEDTIME PRN PRN Reason: Insomnia Metoclopramide HCl (Metoclopramide Hcl 5 Mg Tablet) 5 mg PO Q8H PRN PRN Reason: Nausea and Vomiting Metoprolol Succinate (Metoprolol Succinate Er 25 Mg Tab.Er.24h) 25 mg PO DAILY [facility]; Protocol Last Admin: 06/18/25 09:25 Dose: 25 mg Sodium Chloride (0.9 % Sodium Chloride Flush 3 Ml Syringe) 3 ml IVFLUSH QSHIFT [facility] Last Admin: 06/18/25 09:35 Dose: 3 ml Warfarin Sodium (Warfarin Sodium 2 Mg Tablet) 2 mg PO DAILY@1800 [facility] Home Medications ?Medication ?Instructions ?Recorded ?Confirmed ?Last Taken ?Type cyanocobalamin (vitamin B-12) 1,000 mcg PO DAILY 05/1606/13/25 Unknown History 1,000 mcg tablet acetaminophen 650 mg 650 mg PO Q12H 10/30/2405/17 Unknown History tablet,extended release (Tylenol Arthritis Pain) ascorbic acid (vitamin C) 250 mg 250 mg PO MOWEFR 10/1606/13/25 Unknown History tablet furosemide 20 mg tablet 20 mg PO DAILY PRN Edema 06/13/25 Unknown History Physical Exam 2 Exam: Exam: EXAM: GENERAL: The patient is frail, few bruises noted on face VITAL SIGNS:see workflow HEENT: Nonicteric sclerae, PERRLA, EOMI. Oropharynx clear. Moist mucous membranes. Conjunctivae appear well perfused. No thyroid mass. CHEST: Chest wall is nontender. HEART: Regular rate and rhythm without murmurs. LUNGS: Clear to auscultation bilaterally. ABDOMEN: Soft, positive bowel sounds, nontender, no organomegaly.no flank tenderness SKIN: No rash, no excessive bruising, petechiae, or purpura. NEUROLOGIC: Cranial nerves II-XII intact without motor/sensory deficit. Psych: normal affect Vital Signs: Vital Signs: Last Vital Signs Temp 98.4 F 06/18/25 05:19 Pulse 73 06/18/25 09:25 Resp 16 06/18/25 05:19 BP 100/61 06/18/25 09:25 Pulse Ox 100 06/18/25 05:19 O2 Del Method Room Air 06/18/25 05:19 BMI result Body Mass Index 29.1 Results Labs 06/18/25 04:25 06/18/25 04:25 Labs: Short CBC 06/18/25 Range/Units 04:25 WBC 7.9 (4.8-10.8) X10*3/uL Hgb 8.4 L (12.0-16.0) g/dl Hct 24.7 L (37.0-47.0) % Plt Count 235 (160-400) X10*3/uL BMP 06/18/25 04:25 Sodium 137 Potassium 3.9 Chloride 110 H Carbon Dioxide 18 L BUN 31 H Creatinine 1.48 H Calcium 8.[address] scan - abdomen: Attestation: I personally reviewed and interpreted this imaging study as follows: (right renal mass, mesenteric stranding, thickening of proximal stomach and esophagus ) Assessment and Plan (1) GI malignancy: Status: Acute Plan 1/Dysphagia with concern for malignant lesion in esophagus, also with renal lesion noted on the kidney as well-uncertain fi 2 seperate lesions or one with mets PLAN: 1/ awaiting cards eval, also INR high 2/ EGD once cards evaluation completed and INR <2 , may need renal bx as well Procedures Date of Service Date of Service: 06/18/25
[2025-06-18 14:00] VITALS: BP 113/56; PULSE 82; RESP 17; TEMP 36.9; O2SAT 99
--- NOTE | 2025-06-18 15:18 | MHC.SLORD ---
Speech Language Pathology Order Status: Pt seen for dysphagia treatment, pt reported she ate some fish for lunch and had some chocolate ice cream. Pt endorses experiencing nausea today. Pt continues on regular diet to allow for choices. RN reported pt took meds crushed in puree but endorsed sensation of residual taste. GI and cardiology consults pending. DESIGN INSERTER to followup when indicated.
--- NOTE | 2025-06-18 15:38 | MHC.EDTECH ---
patient repositioned and purewick changed
--- NOTE | 2025-06-18 19:03 | HO.PM.IMPN ---
Subjective Subjective Date of Service: 06/19/25 Interval History: LV thrombus, suspected GI malignancy with metastases Review of Systems seems similar Physical Exam Exam: Exam: Appearance: Alert.? Oriented X3.? . cvs: rrr, [id number] , no murmur res: clear to auscultation ,no rhonchii or wheezing abd: no rebound or guarding ,nt, bs present. ext pulses present , no cyanosis . neuro: axo3 , nonfocal. Vital Signs: Vital Signs: Last Vital Signs Temp 98.5 F 06/18/25 14:00 Pulse 82 06/18/25 14:00 Resp 17 06/18/25 14:00 BP 113/56 L 06/18/25 14:00 Pulse Ox 99 06/18/25 14:00 O2 Del Method Room Air 06/18/25 14:00 BMI result Body Mass Index 29.1 Objective Data Active Medications Acetaminophen (Acetaminophen 325 Mg Tablet) 650 mg PO Q6H PRN PRN Reason: pain, mild Last Admin: 06/17/25 21:28 Dose: 650 mg Documented By: ELANA Acetaminophen (Acetaminophen 325 Mg Tablet) 650 mg PO Q6H PRN PRN Reason: Pain, Mild 1-3,fever,headache Ascorbic Acid (Ascorbic Acid 250 Mg Tablet) 250 mg PO MoWeFr [facility] Last Admin: 06/18/25 09:40 Dose: 250 mg Documented By: ROCIO Aspirin (Aspirin Enteric Coated 81 Mg Tablet.) 81 mg PO DAILY [facility] Last Admin: 06/18/25 09:24 Dose: 81 mg Documented By: ROCIO Atorvastatin Calcium (Atorvastatin Calcium 40 Mg Tablet) 40 mg PO DAILY [facility] Last Admin: 06/18/25 09:24 Dose: 40 mg Documented By: ROCIO Calcium Carbonate (Calcium Carbonate 750 Mg Tab.Chew) 750 mg PO Q4H PRN PRN Reason: Heartburn Cyanocobalamin (Cyanocobalamin (Vitamin B-12) 1,000 Mcg Tablet) 1,000 mcg PO DAILY [facility] Last Admin: 06/18/25 09:25 Dose: 1,000 mcg Documented By: ROCIO Famotidine (Famotidine 20 Mg Tablet) 40 mg PO DAILY [facility] Last Admin: 06/18/25 09:25 Dose: 40 mg Documented By: HO.DOBROB Furosemide (Furosemide 20 Mg Tablet) 20 mg PO DAILY PRN; Protocol PRN Reason: Edema Magnesium Hydroxide (Milk Of Magnesia 30 Ml Oral.Susp) 30 ml PO DAILY PRN PRN Reason: Constipation Megestrol Acetate (Megestrol Acetate 20 Mg Tablet) 20 mg PO BID [facility] Last Admin: 06/18/25 09:25 Dose: 20 mg Documented By: ROCIO Melatonin (Melatonin 3 Mg Tablet) 6 mg PO BEDTIME PRN PRN Reason: Insomnia Metoclopramide HCl (Metoclopramide Hcl 5 Mg Tablet) 5 mg PO Q8H PRN PRN Reason: Nausea and Vomiting Last Admin: 06/18/25 14:04 Dose: 5 mg Documented By: DAMIEN Metoprolol Succinate (Metoprolol Succinate Er 25 Mg Tab.Er.24h) 25 mg PO DAILY [facility]; Protocol Last Admin: 06/18/25 09:25 Dose: 25 mg Documented By: ROCIO Sodium Chloride (0.9 % Sodium Chloride Flush 3 Ml Syringe) 3 ml IVFLUSH QSHIFT [facility] Last Admin: 06/18/25 16:38 Dose: 3 ml Documented By: ROCIO Warfarin Sodium (Warfarin Sodium 2 Mg Tablet) 2 mg PO DAILY@1800 [facility] Labs 06/18/25 04:25 06/18/25 04:25 Labs: Laboratory Results - last 24 hr 06/17/25 06/18/25 19:21 04:25 MCV 97.2 MCH 33.1 H MCHC 34.0 RDW 13.8 Plt Count 235 MPV 10.1 Absolute Nucleated RBC 0.000 Nucleated RBC % (auto) 0.0 Hold Purple Top SEE NOTE PT 38.7 H INR 3.4 H Anion Gap 13 Estim Creat Clear Calc 23.1 Estimated GFR 34 Random Glucose 90 Calcium 8.0 L Magnesium 2.0 Assessment and Plan (1) GI malignancy: Status: Acute Plan 80F PMH CKD III, hld, hfref aicd, lv thrombus on warfarin, presented to ED 06/13/25 for frequent falls Moderate protein calorie malnutrition and failure to thrive with frequent falls due to suspected GI malignancy with metastases GI eval for EGD/biopsy-will be scheduled once inr below 2 History of LV thrombus echo pending Discussed with Cardiology, check repeat echo, if LV thrombus no longer present okay to reverse, otherwise would just hold Coumadin HFrEF - ischemic Aspirin and statin CKD 3 Stable DVT prophylaxis - INR is currently therapeutic Full code Quality Stroke Does the patient have a stroke diagnosis?: No VTE Prior VTE?: Yes VTE Risk Level:: Medical - moderate - high VTE Device Contraindication: Treatment Not Indicated VTE Drug Contraindication: N/A - Med Ordered
[2025-06-18 19:30] VITALS: BP 106/57; PULSE 76; RESP 18; TEMP 36.8; O2SAT 93
[2025-06-18 21:55] VITALS: BMI 28.6
[2025-06-19 03:38] VITALS: BP 113/59; PULSE 70; RESP 18; TEMP 36.2; O2SAT 96
[2025-06-19 05:59] LABS: INTERNATIONAL NORM RATIO 3.2 (0.9-1.1); Prothrombin Time 36.5 SEC (10.9-12.4)
[2025-06-19 07:40] VITALS: BP 127/62; PULSE 70; RESP 16; TEMP 36.6; O2SAT 98
[2025-06-19] MEDS: 0.9 % Sodium Chloride Flush 3 ML SYRINGE IVFLUSH ×2 (08:08→20:41)
[2025-06-19 09:02] LABS: CA-125 125 U/mL (<35)
[2025-06-19 10:51] VITALS: BP 126/57; PULSE 75; RESP 16
[2025-06-19] MEDS: Metoprolol Succinate ER 25 MG TAB.ER.24H PO (11:16)
[2025-06-19] MEDS: Aspirin Enteric Coated 81 MG TABLET.DR PO (11:16)
--- NOTE | 2025-06-19 11:30 | MHC.CM.PN ---
Addendum entered by Ioana Horton RN 06/19/25 16:20: Per financial counselor, she reached out to dtr and offered assistance w/ [employer]. Daughter declined at this time, stating she plans to bring patient home after STR. Original Note: Met with daughter/HCP to discuss dc plan. Patient is awaiting endoscopy, ? of malignancy. Daughter expressing concerns re: ability to care for patient at home. Reviewed PT recommendation of STR. She understands patient will not be able to have certain tx while in STR. First choice is [facility]. When discussing plan for after STR, she reports she and patient may be interested in eventual LTC. Reports small amount of private funds (did not elaborate), but not enough to pay for LTC. She would like to start a [employer] yamil. Referral sent to financial services to assist. CM will continue to follow.
[2025-06-19 12:15] LABS: HBS Num1 0.00 mIU/mL (0-7.99); HBc Num1 0.16 S/CO (0.00-0.79); HBsAGNum1 0.57 S/CO (0.00-0.99); Hepatitis A Antibody IgM 0.42 Index (0-0.79); Hepatitis B Surface Antigen Negative (Negative); ~HepC Num1 0.27 S/CO (0.00-0.79); ~Hepatitis A Antibody IgM Nonreactive (Nonreactive); ~Hepatitis B Surface Antibody NONREACTIVE (Nonreactive); ~Hepatitis C Antibody Nonreactive (Nonreactive)
[2025-06-19 13:38] VITALS: BMI 28.6
--- NOTE | 2025-06-19 13:42 | MHC.CLN ---
PT IS MODERATELY MALNOURISHED PT WITH MILDLY DEPLETED SUBCUTANEOUS FAT AND MUSCLE MASS WITH 23% SIGNIFICANT WT LOSS X1 YEAR WITH CHRONIC POOR PO INTAKE R/T DYSPHAGIA PO INTAKE 25/50% X 2MEALS DIET RX: PUREED RECOMMEND ADDING MAGIC CUP AND ENSURE BID WITH MEALS MAGIC CUP PROVIDES 870KCALS, 27G PROTEIN ENSURE PROVIDES 700KCALS, 40G PROTEIN MONITOR PO INTAKE AND ENCOURAGE SUPPLEMENTS SEE FULL ASSESSMENT
[2025-06-19 13:44] VITALS: BP 126/57; PULSE 75
[2025-06-19 13:53] LABS: Alanine Aminotransferase 355 U/L (0-31); Albumin Level 2.6 g/dL (3.5-5.0); Alkaline Phosphatase 613 U/L (39-117); Aspartate Amino Transferase 406 U/L (5-31); Total Protein 5.1 g/dL (6.5-8.0)
--- NOTE | 2025-06-19 15:37 | HO.WOUND ---
Wound Consult: Initial 80 yr old female admitted to [facility] [place] [facility] on 06/17/25 - See progress notes and H&P for detailed history. Wound consult placed for buttocks/coccyx. Patient agreeable to assessment and photo documentation. Patient stood with walker and assistance for assessment. Patient reports multiple falls recently, multiple bruises to body in various stages of healing, face, legs, back, arms. Patient with bony coccyx, noted with small pressure injury with surrounding hyperpigmentation and superficial epidermal peeling. Etiology: Coccyx/sacrum stage 2 pressure injury Present on Admission Measurements: 0.2cm x 0.2cm x 0.1cm Wound Bed: superifical pink Drainage / Odor: none Edges: ? open Salma wound: ? No Induration, Fluctuance or Warmth noted, noted with areas of hypopigmentation, and hyperpigmentation extending down gluteal cleft. noted with bruising to upper sacrum Pain: none Goals of Treatment: ? offloading and pressure redistribution with foam dressing Recommendations: 1. Turn and Reposition every 2 hours and as needed for patient comfort. Use pillows or wedges to support off loading positions. 2. Off Load all bony prominences with use of pillows and heel boots if needed. Apply Preventative foams where needed. 3. Monitor for incontinence and moisture control, use barrier creams when needed for prevention and treatment. 4. Provide adequate and supplemental nutrition. 5. Order or Continue low air loss mattress. 6. When applicable maintain blood glucose levels per Providers order. Coccyx/sacrum: Off Load Pressure with Q2 hr turns and use of pillows - Routine cleansing. Apply skin prep allow to dry. Cover with foam dressing to aid in off loading and protection from friction. Change every 3 days and PRN. Re-consult wound care Nurse for wound deterioration or wound changes.
[2025-06-19 15:40] VITALS: BP 121/57; PULSE 73; RESP 18; TEMP 36.2; O2SAT 97
--- NOTE | 2025-06-19 16:32 | HO.PM.IMPN ---
Subjective Subjective Date of Service: 06/19/25 Interval History: LV thrombus, suspected GI malignancy Review of Systems seems similar dec po intake -encouraged for p.o. intake and hydration Review of Systems: Yes all other systems are reviewed and are negative Physical Exam Exam: Exam: Appearance: Alert.? Oriented X3.? . cvs: rrr, [id number] , no murmur res: clear to auscultation ,no rhonchii or wheezing abd: no rebound or guarding ,nt, bs present. ext pulses present , no cyanosis . neuro: axo3 , nonfocal Vital Signs: Vital Signs: Last Vital Signs Temp 97.1 F 06/19/25 15:40 Pulse 73 06/19/25 15:40 Resp 18 06/19/25 15:40 BP 121/57 L 06/19/25 15:40 Pulse Ox 97 06/19/25 15:40 O2 Del Method Room Air 06/19/25 15:40 BMI result Body Mass Index 28.6 Objective Data Active Medications Acetaminophen (Acetaminophen 325 Mg Tablet) 650 mg PO Q6H PRN PRN Reason: Pain, Mild 1-3,fever,headache Ascorbic Acid (Ascorbic Acid 250 Mg Tablet) 250 mg PO MoWeFr [facility] Last Admin: 06/18/25 09:40 Dose: 250 mg Documented By: ROCIO Aspirin (Aspirin Enteric Coated 81 Mg Tablet.) 81 mg PO DAILY [facility] On Hold: 06/19/25 15:36 Last Admin: 06/19/25 11:16 Dose: 81 mg Documented By: DANA Atorvastatin Calcium (Atorvastatin Calcium 40 Mg Tablet) 40 mg PO DAILY [facility] Last Admin: 06/19/25 11:17 Dose: Not Given Documented By: DANA Non-Admin Reason: Patient Refused Calcium Carbonate (Calcium Carbonate 750 Mg Tab.Chew) 750 mg PO Q4H PRN PRN Reason: Heartburn Cyanocobalamin (Cyanocobalamin (Vitamin B-12) 1,000 Mcg Tablet) 1,000 mcg PO DAILY [facility] Last Admin: 06/19/25 11:17 Dose: Not Given Documented By: DANA Non-Admin Reason: Patient Refused Famotidine (Famotidine 20 Mg Tablet) 40 mg PO DAILY [facility] Last Admin: 06/19/25 08:06 Dose: 40 mg Documented By: DANA Furosemide (Furosemide 20 Mg Tablet) 20 mg PO DAILY PRN; Protocol PRN Reason: Edema Last Admin: 06/19/25 16:29 Dose: 20 mg Documented By: DANA Sodium Chloride (Ns) 250 mls @ 75 mls/hr IVCONT .Q3H20M ONE Stop: 06/19/25 19:39 Magnesium Hydroxide (Milk Of Magnesia 30 Ml Oral.Susp) 30 ml PO DAILY PRN PRN Reason: Constipation Megestrol Acetate (Megestrol Acetate 20 Mg Tablet) 20 mg PO BID [facility] Last Admin: 06/19/25 11:16 Dose: 20 mg Documented By: DANA Melatonin (Melatonin 3 Mg Tablet) 6 mg PO BEDTIME PRN PRN Reason: Insomnia Metoclopramide HCl (Metoclopramide Hcl 5 Mg Tablet) 5 mg PO Q8H PRN PRN Reason: Nausea and Vomiting Last Admin: 06/18/25 14:04 Dose: 5 mg Documented By: DAMIEN Metoprolol Succinate (Metoprolol Succinate Er 25 Mg Tab.Er.24h) 25 mg PO DAILY [facility]; Protocol Last Admin: 06/19/25 11:16 Dose: 25 mg Documented By: DANA Ondansetron HCl (Ondansetron Hcl 4 Mg/2 Ml Vial) 4 mg IVPUSH Q6H PRN PRN Reason: Nausea and Vomiting Last Admin: 06/19/25 09:36 Dose: 4 mg Documented By: DANA Sodium Chloride (0.9 % Sodium Chloride Flush 3 Ml Syringe) 3 ml IVFLUSH QSHIFT [facility] Last Admin: 06/19/25 08:08 Dose: 3 ml Documented By: DANA Labs 06/18/25 04:25 06/18/25 04:25 Labs: Laboratory Results - last 24 hr 06/17/25 06/19/25 06/19/25 19:21 05:32 11:15 Hold Purple Top SEE NOTE PT 36.5 H INR 3.2 H Total Bilirubin 3.7 H Direct Bilirubin 2.6 H AST 406 H ALT 355 H Alkaline Phosphatase 613 H Total Protein 5.1 L Albumin 2.6 L CA 19-9 Antigen <3 CA 125 Antigen 125 H Hepatitis A IgM Ab Nonreactive Hep Bs Antigen Negative Hep Bs Antibody NONREACTIVE Hep B Core Total Ab Nonreactive Hepatitis C Ab (EIA) Nonreactive Assessment and Plan (1) GI malignancy: Status: Acute Plan 80F PMH CKD III, hld, hfref aicd, lv thrombus on warfarin, presented to ED 06/13/25 for frequent falls Moderate protein calorie malnutrition and failure to thrive with frequent falls due to 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 The left ventricular systolic function is moderately decreased. The visually estimated ejection fraction is between 30-35%. Small apical thrombus noted. The apical anterior segment is hypokinetic. The mid anteroseptal segment is akinetic. The apex segment is dyskinetic Discussed with Cardiology, check repeat echo, if LV thrombus no longer present okay to reverse, otherwise would just hold Coumadin HFrEF - ischemic Aspirin and statin CKD 3 mild dec in po inntake /urinary ouput added 250 ml ivf also encouraged for p.o. hydration and intake Stable DVT prophylaxis - INR is currently therapeutic Full code Quality Stroke Does the patient have a stroke diagnosis?: No VTE Prior VTE?: Yes VTE Risk Level:: Medical - moderate - high VTE Device Contraindication: Treatment Not Indicated VTE Drug Contraindication: N/A - Med Ordered
[2025-06-19 19:23] VITALS: BP 112/58; PULSE 65; RESP 16; TEMP 36.4; O2SAT 98
[2025-06-20 03:24] VITALS: BP 104/55; PULSE 60; RESP 16; TEMP 36.3; O2SAT 97
[2025-06-20 06:47] LABS: INTERNATIONAL NORM RATIO 3.0 (0.9-1.1); Prothrombin Time 34.2 SEC (10.9-12.4)
[2025-06-20 07:39] VITALS: BP 110/55; PULSE 71; RESP 16; TEMP 36.4; O2SAT 99
[2025-06-20 09:31] VITALS: BP 114/55; PULSE 78
[2025-06-20] MEDS: Metoprolol Succinate ER 25 MG TAB.ER.24H PO (09:31)
[2025-06-20 09:59] LABS: Alanine Aminotransferase 304 U/L (0-31); Albumin Level 2.8 g/dL (3.5-5.0); Alkaline Phosphatase 648 U/L (39-117); Anion Gap 13 (12-20); Aspartate Amino Transferase 290 U/L (5-31); Blood Urea Nitrogen 30 mg/dL (9-16); Calcium 8.4 mg/dL (8.4-10.2); Carbon Dioxide 20 mmol/L (22-29); Chloride 109 mmol/L (96-108); Creatinine Clr Calc Pharmacy 21.4; Estimated Glomerular Filt Rate 32; Potassium 4.7 mmol/L (3.3-5.1); Sodium 137 mmol/L (135-145); Total Protein 5.6 g/dL (6.5-8.0)
--- NOTE | 2025-06-20 12:45 | P.CONAN_ITS ---
Documented by User: Sosa Schwartz NP 06/20/25 13:01 HPI - Anesthesia Eval Consult details Narrative: 80 yr old female for upper endoscopy DNR/DNI *At least intermediate risk for cardiac complications during procedure per cardiology consult 06/18/25. Ischemic cardiomyopathy: see 06/18/25 echo below; per cardiology consult no anginal symptoms Apical mural thrombus following AK: small apical thrombus on echo 06/18/[address]: device check 03/2025 [facility] Active Problems Active Problems: All Active Problems (Updated 06/17/25 @ 17:22 by Delmi Doe MD) GI malignancy (Acute) Adult failure to thrive (Acute) Fall (Acute) Weight loss (Acute) Erythema intertrigo (Acute) Coronary atherosclerosis (Acute) S/P cardiac cath (Acute) Contusion (Acute) Cardiac defibrillator in place (Acute) Frequent falls (Acute) Orthostatic hypotension (Acute) Hypercalcemia (Acute) STEPHEN (acute kidney injury) (Acute) Apical mural thrombus following AK (Acute) Ischemic cardiomyopathy (Acute) Anemia in chronic kidney disease (Acute) Localized swelling of both lower legs (Acute) CKD (chronic kidney disease) stage 3, GFR 30-59 ml/min (Acute) Polyarthralgia (Acute) Osteoarthritis of glenohumeral joints, bilateral (Acute) Cervical osteoarthritis (Acute) Osteoarthritis of knees, bilateral (Acute) Sinus bradycardia (Acute) Bifascicular block (Acute) Lumbar degenerative disc disease (Acute) Lumbar spondylosis (Acute) Impaired fasting glucose (Acute) Osteopenia of left femoral neck (Acute) Colonoscopy refused (Acute) Postmenopausal (Acute) Dyslipidemia (Acute) Essential hypertension (Acute) Chronic kidney disease (CKD) (Acute) Past Medical History Medical History Erythema intertrigo Pacemaker History of syncope Cardiac defibrillator in place Anemia in chronic kidney disease Localized swelling of both lower legs Sinus bradycardia Bifascicular block Intermittent lightheadedness Bilateral knee pain Impaired fasting glucose Osteopenia of left femoral neck Colonoscopy refused Postmenopausal Osteoarthritis Dyslipidemia Essential hypertension Chronic kidney disease (CKD) Functional capacity: wheelchair bound Family History Family History Father HTN (hypertension) Mother CKD (chronic kidney disease) HTN (hypertension) Heart disease Family/Other Hailey's thyroiditis Surgical History Surgical History S/P cardiac cath History of cataract surgery Social History Social History Household Members: None Housing: House Do you presently have visiting nurse or other home services: No Alcohol intake: never Patient Tobacco Use Status: Former Tobacco user Years Smoked: 35 yrs e-Cigarette/Vaping Use: Never Used Advance Directives Date on File: 08/19/22 service: No Current occupational status: retired Cognitive needs: No Hearing needs: No Vision needs: Yes Meds Allergies Allergy/AdvReac Type Severity Reaction Status Date / Time GALILEO Inhibitors Allergy Severe Cough Verified 06/13/25 09:47 Active Medications: Current Medications Ascorbic Acid (Ascorbic Acid 250 Mg Tablet) 250 mg PO MoWeFr [facility] Last Admin: 06/20/25 11:27 Dose: Not Given Aspirin (Aspirin Enteric Coated 81 Mg Tablet.Dr) 81 mg PO DAILY [facility] On Hold: 06/19/25 15:36 Last Admin: 06/19/25 11:16 Dose: 81 mg Calcium Carbonate (Calcium Carbonate 750 Mg Tab.Chew) 750 mg PO Q4H PRN PRN Reason: Heartburn Cyanocobalamin (Cyanocobalamin (Vitamin B-12) 1,000 Mcg Tablet) 1,000 mcg PO DAILY [facility] Last Admin: 06/20/25 11:28 Dose: Not Given Famotidine (Famotidine 20 Mg Tablet) 40 mg PO DAILY [facility] Last Admin: 06/20/25 11:30 Dose: Not Given Furosemide (Furosemide 20 Mg Tablet) 20 mg PO DAILY PRN; Protocol PRN Reason: Edema Last Admin: 06/19/25 16:29 Dose: 20 mg Magnesium Hydroxide (Milk Of Magnesia 30 Ml Oral.Susp) 30 ml PO DAILY PRN PRN Reason: Constipation Megestrol Acetate (Megestrol Acetate 20 Mg Tablet) 20 mg PO BID [facility] Last Admin: 06/20/25 11:31 Dose: Not Given Melatonin (Melatonin 3 Mg Tablet) 6 mg PO BEDTIME PRN PRN Reason: Insomnia Metoclopramide HCl (Metoclopramide Hcl 5 Mg Tablet) 5 mg PO Q8H PRN PRN Reason: Nausea and Vomiting Last Admin: 06/18/25 14:04 Dose: 5 mg Metoprolol Succinate (Metoprolol Succinate Er 25 Mg Tab.Er.24h) 25 mg PO DAILY [facility]; Protocol Last Admin: 06/20/25 09:31 Dose: 25 mg Ondansetron HCl (Ondansetron Hcl 4 Mg/2 Ml Vial) 4 mg IVPUSH Q6H PRN PRN Reason: Nausea and Vomiting Last Admin: 06/20/25 09:48 Dose: 4 mg Sodium Chloride (0.9 % Sodium Chloride Flush 3 Ml Syringe) 3 ml IVFLUSH QSHIFT [facility] Last Admin: 06/20/25 09:09 Dose: Not Given Home Medications ?Medication ?Instructions ?Recorded ?Confirmed ?Last Taken ?Type cyanocobalamin (vitamin B-12) 1,000 mcg PO DAILY 05/1606/13/25 Unknown History 1,000 mcg tablet acetaminophen 650 mg 650 mg PO Q12H 10/30/2405/17 Unknown History tablet,extended release (Tylenol Arthritis Pain) ascorbic acid (vitamin C) 250 mg 250 mg PO MOWEFR 10/1606/13/25 Unknown History tablet furosemide 20 mg tablet 20 mg PO DAILY PRN Edema 06/13/25 Unknown History Exam Height,Weight and Vital Signs: Height 4 ft 9 in Weight 60 kg Last Vital Signs Temp 97.5 F 06/20/25 07:39 Pulse 78 06/20/25 09:31 Resp 16 06/20/25 07:39 BP 114/55 L 06/20/25 09:31 Pulse Ox 99 06/20/25 07:39 O2 Del Method Room Air 06/20/25 07:39 Pertinent Lab Results Pertinent Lab Results: Laboratory Tests 06/13/25 06/13/25 06/13/25 10:57 12:51 16:18 WBC 12.3 H RBC 3.20 L Hgb 10.3 L Hct 31.2 L MCV 97.5 MCH 32.2 MCHC 33.0 RDW 13.3 Plt Count 270 MPV 9.8 Immature Gran % (Auto) 0.4 Neut % (Auto) 81.3 H Lymph % (Auto) 7.1 L [place] % (Auto) 9.4 Eos % (Auto) 1.3 Baso % (Auto) 0.5 Lymph # (Auto) 0.9 L [place] # (Auto) 1.2 Eos # (Auto) 0.2 Baso # (Auto) 0.1 Abs Immat Gran (auto) 0.05 H Absolute Neuts (auto) 10.0 H Absolute Nucleated RBC 0.000 Nucleated RBC % (auto) 0.0 Hold Purple Top PT 32.6 H INR 2.8 H Sodium 138 Potassium 4.8 Chloride 106 Carbon Dioxide 21 L Anion Gap 16 BUN 44 H Creatinine 2.03 H Estim Creat Clear Calc 16.8 Estimated GFR 24 Random Glucose 100 Calcium 9.1 Magnesium Total Bilirubin 1.3 H Direct Bilirubin AST 28 ALT 14 Alkaline Phosphatase 44 Total Creatine Kinase Troponin I High Sens 27.4 H B-Natriuretic Peptide 272 H Total Protein 6.3 L Albumin 3.3 L Carcinoembryonic Ag CA 19-9 Antigen CA 125 Antigen Urine Color Yellow Urine Appearance Hazy Urine pH 5.5 Ur Specific Mingus 1.025 Urine Protein Negative Urine Glucose (UA) Negative Urine Ketones Trace Urine Blood Negative Urine Nitrite Negative Ur Leukocyte Esterase Negative Hepatitis A IgM Ab Hep Bs Antigen Hep Bs Antibody Hep B Core Total Ab Hepatitis C Ab (EIA) Influenza Type A (PCR) NEGATIVE Influenza Type B (PCR) NEGATIVE RSV RNA Qual (PCR) NEGATIVE SARS-CoV-2 RNA (RT-PCR) NEGATIVE 06/13/25 06/14/25 06/15/25 16:38 11:13 10:32 WBC 10.7 RBC 3.02 L Hgb 9.9 L Hct 29.3 L MCV 97.0 MCH 32.8 MCHC 33.8 RDW 13.5 Plt Count 265 MPV 9.9 Immature Gran % (Auto) 0.6 H Neut % (Auto) 74.1 H Lymph % (Auto) 11.6 L [place] % (Auto) 10.2 Eos % (Auto) 2.8 Baso % (Auto) 0.7 Lymph # (Auto) 1.2 [place] # (Auto) 1.1 Eos # (Auto) 0.3 Baso # (Auto) 0.1 Abs Immat Gran (auto) 0.06 H Absolute Neuts (auto) 7.9 Absolute Nucleated RBC 0.000 Nucleated RBC % (auto) 0.0 Hold Purple Top PT 34.5 H 37.7 H INR 3.0 H 3.3 H Sodium 136 Potassium 4.0 Chloride 106 Carbon Dioxide 20 L Anion Gap 14 BUN 43 H Creatinine 1.92 H Estim Creat Clear Calc 17.8 Estimated GFR 25 Random Glucose 108 Calcium 8.6 Magnesium Total Bilirubin Direct Bilirubin AST ALT Alkaline Phosphatase Total Creatine Kinase Troponin I High Sens B-Natriuretic Peptide Total Protein Albumin Carcinoembryonic Ag CA 19-9 Antigen CA 125 Antigen Urine Color Urine Appearance Urine pH Ur Specific Mingus Urine Protein Urine Glucose (UA) Urine Ketones Urine Blood Urine Nitrite Ur Leukocyte Esterase Hepatitis A IgM Ab Hep Bs Antigen Hep Bs Antibody Hep B Core Total Ab Hepatitis C Ab (EIA) Influenza Type A (PCR) Influenza Type B (PCR) RSV RNA Qual (PCR) SARS-CoV-2 RNA (RT-PCR) 06/15/25 06/16/25 06/17/25 19:35 09:14 11:52 WBC 9.3 RBC 2.97 L Hgb 9.7 L Hct 29.8 L MCV 100.3 H MCH 32.7 MCHC 32.6 RDW 13.6 Plt Count 209 MPV 9.8 Immature Gran % (Auto) 0.4 Neut % (Auto) 72.8 Lymph % (Auto) 10.7 L [place] % (Auto) 10.1 Eos % (Auto) 5.2 H Baso % (Auto) 0.8 Lymph # (Auto) 1.0 L [place] # (Auto) 0.9 Eos # (Auto) 0.5 H Baso # (Auto) 0.1 Abs Immat Gran (auto) 0.04 H Absolute Neuts (auto) 6.8 Absolute Nucleated RBC 0.000 Nucleated RBC % (auto) 0.0 Hold Purple Top PT 38.6 H 36.7 H INR 3.4 H 3.2 H Sodium 137 Potassium 4.7 Chloride 110 H Carbon Dioxide 20 L Anion Gap 12 BUN 31 H Creatinine 1.66 H Estim Creat Clear Calc 20.6 Estimated GFR 30 Random Glucose 121 H Calcium 8.0 L D Magnesium Total Bilirubin 1.2 H Direct Bilirubin AST 72 H ALT 46 H Alkaline Phosphatase 110 Total Creatine Kinase Troponin I High Sens B-Natriuretic Peptide Total Protein 5.2 L Albumin 2.7 L Carcinoembryonic Ag 5.20 CA 19-9 Antigen CA 125 Antigen Urine Color Urine Appearance Urine pH Ur Specific Mingus Urine Protein Urine Glucose (UA) Urine Ketones Urine Blood Urine Nitrite Ur Leukocyte Esterase Hepatitis A IgM Ab Hep Bs Antigen Hep Bs Antibody Hep B Core Total Ab Hepatitis C Ab (EIA) Influenza Type A (PCR) Influenza Type B (PCR) RSV RNA Qual (PCR) SARS-CoV-2 RNA (RT-PCR) 06/17/25 06/18/25 06/19/25 19:21 04:25 05:32 WBC 7.9 RBC 2.54 L Hgb 8.4 L Hct 24.7 L MCV 97.2 MCH 33.1 H MCHC 34.0 RDW 13.8 Plt Count 235 MPV 10.1 Immature Gran % (Auto) Neut % (Auto) Lymph % (Auto) Rosebud % (Auto) Eos % (Auto) Baso % (Auto) Lymph # (Auto) [place] # (Auto) Eos # (Auto) Baso # (Auto) Abs Immat Gran (auto) Absolute Neuts (auto) Absolute Nucleated RBC 0.000 Nucleated RBC % (auto) 0.0 Hold Purple Top SEE NOTE SEE NOTE PT 38.7 H 36.5 H INR 3.4 H 3.2 H Sodium 137 Potassium 3.9 Chloride 110 H Carbon Dioxide 18 L Anion Gap 13 BUN 31 H Creatinine 1.48 H Estim Creat Clear Calc 23.1 Estimated GFR 34 Random Glucose 90 Calcium 8.0 L Magnesium 2.0 Total Bilirubin 3.7 H Direct Bilirubin 2.6 H AST 406 H ALT 355 H Alkaline Phosphatase 613 H Total Creatine Kinase Troponin I High Sens B-Natriuretic Peptide Total Protein 5.1 L Albumin 2.6 L Carcinoembryonic Ag CA 19-9 Antigen <3 CA 125 Antigen 125 H Urine Color Urine Appearance Urine pH Ur Specific Mingus Urine Protein Urine Glucose (UA) Urine Ketones Urine Blood Urine Nitrite Ur Leukocyte Esterase Hepatitis A IgM Ab Hep Bs Antigen Hep Bs Antibody Hep B Core Total Ab Hepatitis C Ab (EIA) Influenza Type A (PCR) Influenza Type B (PCR) RSV RNA Qual (PCR) SARS-CoV-2 RNA (RT-PCR) 06/19/25 06/20/25 06/20/25 11:15 05:59 09:19 WBC RBC Hgb Hct MCV MCH MCHC RDW Plt Count MPV Immature Gran % (Auto) Neut % (Auto) Lymph % (Auto) Rosebud % (Auto) Eos % (Auto) Baso % (Auto) Lymph # (Auto) [place] # (Auto) Eos # (Auto) Baso # (Auto) Abs Immat Gran (auto) Absolute Neuts (auto) Absolute Nucleated RBC Nucleated RBC % (auto) Hold Purple Top SEE NOTE PT 34.2 H INR 3.0 H Sodium 137 Potassium 4.7 D Chloride 109 H Carbon Dioxide 20 L Anion Gap 13 BUN 30 H Creatinine 1.58 H Estim Creat Clear Calc 21.4 Estimated GFR 32 Random Glucose 101 Calcium 8.4 Magnesium Total Bilirubin 3.3 H Direct Bilirubin AST 290 H ALT 304 H Alkaline Phosphatase 648 H Total Creatine Kinase 17 L Troponin I High Sens B-Natriuretic Peptide Total Protein 5.6 L Albumin 2.8 L Carcinoembryonic Ag CA 19-9 Antigen CA 125 Antigen Urine Color Urine Appearance Urine pH Ur Specific Ming[place] Urine Protein Urine Glucose (UA) Urine Ketones Urine Blood Urine Nitrite Ur Leukocyte Esterase Hepatitis A IgM Ab Nonreactive Hep Bs Antigen Negative Hep Bs Antibody NONREACTIVE Hep B Core Total Ab Nonreactive Hepatitis C Ab (EIA) Nonreactive Influenza Type A (PCR) Influenza Type B (PCR) RSV RNA Qual (PCR) SARS-CoV-2 RNA (RT-PCR) Narrative Narrative: ECHO 06/18/25 Conclusions: - Normal left ventricular cavity size. The left ventricular systolic function is moderately decreased. The visually estimated ejection fraction is between 30-35%. - Small apical thrombus noted. - The apical anterior segment is hypokinetic. - The mid anteroseptal segment is akinetic. - The apex segment is dyskinetic EKG 06/13/25 Vent. Rate : 72 BPM Atrial Rate : 72 BPM P-R Int : 158 ms QRS Dur : 144 ms QT Int : 434 ms P-R-T Axes : 8 -67 77 degrees QTcB Int : 475 ms Normal sinus rhythm Right bundle branch block Left anterior fascicular block Bifascicular block Left ventricular hypertrophy with repolarization abnormality ( R in aVL , Romhilt-Briseno ) When compared with ECG of 02-Jun-2025 16:59, No significant changes seen Documented by User: Linden Ruth MD 06/23/25 18:29 HPI - Anesthesia Eval Consult details Narrative: 80 yr old female for upper endoscopy -- suspected metastatic cancer, looking to make a tissue dx. DNR/DNI *At least intermediate risk for cardiac complications during procedure per cardiology consult 06/18/25. Ischemic cardiomyopathy: see 06/18/25 echo below; per cardiology consult no anginal symptoms Apical mural thrombus following AK: small apical thrombus on echo 06/18/[address]: device check 03/2025 [facility] Past Medical History Medical History Erythema intertrigo Pacemaker History of syncope Cardiac defibrillator in place Anemia in chronic kidney disease Localized swelling of both lower legs Sinus bradycardia Bifascicular block Intermittent lightheadedness Bilateral knee pain Impaired fasting glucose Osteopenia of left femoral neck Colonoscopy refused Postmenopausal Osteoarthritis Dyslipidemia Essential hypertension Chronic kidney disease (CKD) Family History Family History Father HTN (hypertension) Mother CKD (chronic kidney disease) HTN (hypertension) Heart disease Family/Other Hailey's thyroiditis Family history of problems with anesthesia: No Surgical History Surgical History S/P cardiac cath History of cataract surgery History of Problems with Anesthesia: No Social History Social History Household Members: None Housing: House Do you presently have visiting nurse or other home services: No Alcohol intake: never Patient Tobacco Use Status: Former Tobacco user Years Smoked: 35 yrs e-Cigarette/Vaping Use: Never Used Advance Directives Date on File: 08/19/22 service: No Current occupational status: retired Cognitive needs: No Hearing needs: No Vision needs: Yes Meds Allergies Allergy/AdvReac Type Severity Reaction Status Date / Time GALILEO Inhibitors Allergy Severe Cough Verified 06/13/25 09:47 Home Medications ?Medication ?Instructions ?Recorded ?Confirmed ?Last Taken ?Type cyanocobalamin (vitamin B-12) 1,000 mcg PO DAILY 05/1606/13/25 Unknown Hist ory 1,000 mcg tablet acetaminophen 650 mg 650 mg PO Q12H 10/30/2405/17 Unknown History tablet,extended release (Tylenol Arthritis Pain) ascorbic acid (vitamin C) 250 mg 250 mg PO MOWEFR 10/1606/13/25 Unknown History tablet furosemide 20 mg tablet 20 mg PO DAILY PRN Edema 06/13/25 Unknown History Exam Airway Mallampati Class: III TM Dist: >3cm Neck ROM: Full Denture: Upper and Lower Heart: see above Lungs: ok Assessment and Plan Assessment Anesthesia Assessment: Anesthesia Plan Discussed and Chart Reviewed Final Anesthetic Review Family History of Problems with Anesthesia: No History of Problems with Anesthesia: No NPO: Yes ASA Class: IV and V Final Preanesthetic Review: No Changes in Pt Med Stat, Meds/Allgs Chart Reviewed, Consent Obtained/Reviewed, Anes Risks/Benef Reviewed and DNR Form (If Appl.) Patient Risk: High Procedure Risk: Intermediate Anesthetic Plan Anesthetic Plan: Agree w/ Assess. and Plan and TIVA Disposition: Standard PACU
--- NOTE | 2025-06-20 13:14 | MHC.CM.PN ---
Patient not medically cleared for d/c @ this time. CM will continue to follow for d/c planning needs.
--- NOTE | 2025-06-20 13:42 | MHC.SL.SWA ---
Speech Pathologist Impression: Esophageal Dysphagia Dysphasia Diet Status: Advance to NDD2 Liquid Consistency and Strategies for Safe Swallow: Liquid Intake Recommendation: Thin Liquid Intake Strategies: Small Sips Solid Food Consistency: Dietary Recommendations: Grnd/Mech Altered (NDD2) Additional Modifications to Solid Foods: Suspected GI malignancy Per GI, patient to have soft foods until she can have her EGD. Recommend GROUND/MECH ALTERED (NDD2) diet and THIN liquids, pills WHOLE w/ LIQUID. Oral Medication Intake: Whole with Liquid Please contact the pharmacy regarding appropriate crushable or liquid drug formulations that are available whenever modified delivery is recommended. Compensatory Strategies and Precautions to be Taken for Safe Swallow: Sitting Upright (90 deg) Double Swallow Small Bites and Sips Alternate Liquids/Solids Rate of Ingestion Change Supervision While Eating and Drinking for Safe Swallow: Intermittent Supervision Swallowing Recommended Treatments: Compens. Strategy Educat. Recommendation for Speech: Inpatient Speech Therapy Department Of Sociology Chair Clinican/Clinical Fellow: No Supervisory Statement: I have reviewed and agree with the student/clinical fellow's documentation: N/A Speech Language Pathologist: Radha Devlin M.A., CCC-SALES CENTER MANAGER
[2025-06-20 14:22] VITALS: BMI 28.6
--- NOTE | 2025-06-20 14:26 | MHC.CLN ---
F/U PT IS MODERATELY MALNOURISHED DIET RX: GROUND ADDING MAGIC CUP TID AND ENSURE BID MAGIC CUP PROVIDES 870KCALS, 27G PROTEIN ENSURE PROVIDES 700KCALS, 40G PROTEIN SKIN WITH STAGE II PRESSURE INJURY TO COCCYX/SACRUM. SUPPLEMENT PROVIDING ADDITIONAL PROTEIN TO PROMOTE WOUND HEALING MONITOR PO INTAKE AND ENCOURAGE SUPPLEMENTS
[2025-06-20 15:34] VITALS: BP 101/59; PULSE 77; RESP 16; TEMP 36.3; O2SAT 94
--- NOTE | 2025-06-20 18:56 | P.PNIM_ITS ---
Subjective Subjective Date of Service: 06/20/25 Interval History: jaundice mild nausea Review of Systems nausea iproving this afternoon lfts slightly improving Physical Exam 2 Exam: Exam: Appearance: Alert.? Oriented X3.? . cvs: rrr, [id number] , no murmur res: clear to auscultation ,no rhonchii or wheezing abd: no rebound or guarding ,nt, bs present. ext pulses present , no cyanosis . neuro: axo3 , nonfocal Vital Signs: Vital Signs: Last Vital Signs Temp 97.4 F 06/20/25 15:34 Pulse 77 06/20/25 15:34 Resp 16 06/20/25 15:34 BP 101/59 L 06/20/25 15:34 Pulse Ox 94 06/20/25 15:34 O2 Del Method Room Air 06/20/25 15:34 BMI result Body Mass Index 28.6 Objective Data Active Medications Ascorbic Acid (Ascorbic Acid 250 Mg Tablet) 250 mg PO MoWeFr [facility] Last Admin: 06/20/25 11:27 Dose: Not Given Documented By: DANA Non-Admin Reason: Patient Refused Aspirin (Aspirin Enteric Coated 81 Mg Tablet.) 81 mg PO DAILY [facility] On Hold: 06/19/25 15:36 Last Admin: 06/19/25 11:16 Dose: 81 mg Documented By: DANA Calcium Carbonate (Calcium Carbonate 750 Mg Tab.Chew) 750 mg PO Q4H PRN PRN Reason: Heartburn Cyanocobalamin (Cyanocobalamin (Vitamin B-12) 1,000 Mcg Tablet) 1,000 mcg PO DAILY [facility] Last Admin: 06/20/25 11:28 Dose: Not Given Documented By: DANA Non-Admin Reason: Patient Refused Famotidine (Famotidine 20 Mg Tablet) 40 mg PO DAILY [facility] Last Admin: 06/20/25 11:30 Dose: Not Given Documented By: DANA Non-Admin Reason: Patient Refused Furosemide (Furosemide 20 Mg Tablet) 20 mg PO DAILY PRN; Protocol PRN Reason: Edema Last Admin: 06/19/25 16:29 Dose: 20 mg Documented By: DANA Magnesium Hydroxide (Milk Of Magnesia 30 Ml Oral.Susp) 30 ml PO DAILY PRN PRN Reason: Constipation Megestrol Acetate (Megestrol Acetate 20 Mg Tablet) 20 mg PO BID [facility] Last Admin: 06/20/25 11:31 Dose: Not Given Documented By: DANA Non-Admin Reason: Patient Refused Melatonin (Melatonin 3 Mg Tablet) 6 mg PO BEDTIME PRN PRN Reason: Insomnia Metoclopramide HCl (Metoclopramide Hcl 5 Mg Tablet) 5 mg PO Q8H PRN PRN Reason: Nausea and Vomiting Last Admin: 06/18/25 14:04 Dose: 5 mg Documented By: DAMIEN Metoprolol Succinate (Metoprolol Succinate Er 25 Mg Tab.Er.24h) 25 mg PO DAILY [facility]; Protocol Last Admin: 06/20/25 09:31 Dose: 25 mg Documented By: DANA Ondansetron HCl (Ondansetron Hcl 4 Mg/2 Ml Vial) 4 mg IVPUSH Q6H PRN PRN Reason: Nausea and Vomiting Last Admin: 06/20/25 09:48 Dose: 4 mg Documented By: DANA Sodium Chloride (0.9 % Sodium Chloride Flush 3 Ml Syringe) 3 ml IVFLUSH QSHIFT [facility] Last Admin: 06/20/25 17:51 Dose: Not Given Documented By: DANA Non-Admin Reason: Previously Administered Labs 06/18/25 04:25 06/20/25 09:19 Labs: Laboratory Results - last 24 hr 06/20/25 06/20/25 05:59 09:19 Hold Purple Top SEE NOTE PT 34.2 H INR 3.0 H Anion Gap 13 Estim Creat Clear Calc 21.4 Estimated GFR 32 Random Glucose 101 Calcium 8.4 Total Bilirubin 3.3 H AST 290 H ALT 304 H Alkaline Phosphatase 648 H Total Creatine Kinase 17 L Total Protein 5.6 L Albumin 2.8 L Assessment and Plan (1) GI malignancy: Status: Acute Plan 80F PMH CKD III, hld, hfref aicd, lv thrombus on warfarin, presented to ED 06/13/25 for frequent falls Moderate protein calorie malnutrition and failure to thrive with frequent falls due to 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 The left ventricular systolic function is moderately decreased. The visually estimated ejection fraction is between 30-35%. Small apical thrombus noted. The apical anterior segment is hypokinetic. The mid anteroseptal segment is akinetic. The apex segment is dyskinetic Discussed with Cardiology, hold Coumadin elevated lft's: teddy manzano hold statin cpk seems fine,hepatitis A,B,C screen fine. abd us HFrEF - ischemic hold Aspirin and statin CKD 3 mild dec in po inntake /urinary ouput added 250 ml ivf also encouraged for p.o. hydration and intake Stable DVT prophylaxis - INR is currently therapeutic Full code d/w her daughter in detail as well as patient -they decided dnr/dni Quality Stroke Does the patient have a stroke diagnosis?: No VTE Prior VTE?: Yes VTE Risk Level:: Medical - moderate - high VTE Device Contraindication: Treatment Not Indicated VTE Drug Contraindication: N/A - Med Ordered
--- NOTE | 2025-06-20 19:00 | W.MHC.ACPN ---
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 Total time spent 35min. Problems Discussed (1) GI malignancy:
[2025-06-20 19:35] VITALS: BP 115/55; PULSE 70; RESP 18; TEMP 36.3; O2SAT 100
[2025-06-21] MEDS: 0.9 % Sodium Chloride Flush 3 ML SYRINGE IVFLUSH ×3 (00:06→20:50)
[2025-06-21 03:23] VITALS: BP 108/56; PULSE 69; RESP 18; TEMP 36.9; O2SAT 98
[2025-06-21 06:22] LABS: INTERNATIONAL NORM RATIO 2.7 (0.9-1.1); Prothrombin Time 31.1 SEC (10.9-12.4)
[2025-06-21 07:56] VITALS: BP 130/63; PULSE 67; RESP 18; TEMP 37; O2SAT 98
--- NOTE | 2025-06-21 08:09 | HO.PM.IMPN ---
Subjective Subjective Date of Service: 06/21/25 Interval History: jaundice mild nausea Review of Systems nausea improved tolerating diet lft's similar Review of Systems: Yes all other systems are reviewed and are negative Physical Exam Exam: Exam: Appearance: Alert.? Oriented X3. eyes: has sclera icteric. cvs: rrr, [id number] , no murmur res: clear to auscultation ,no rhonchii or wheezing abd: no rebound or guarding ,nt, bs present. ext pulses present , no cyanosis . neuro: axo3 , nonfocal Vital Signs: Vital Signs: Last Vital Signs Temp 98.6 F 06/21/25 07:56 Pulse 67 06/21/25 07:56 Resp 18 06/21/25 07:56 BP 130/63 06/21/25 07:56 Pulse Ox 98 06/21/25 07:56 O2 Del Method Room Air 06/21/25 07:56 BMI result Body Mass Index 28.6 Objective Data Active Medications Ascorbic Acid (Ascorbic Acid 250 Mg Tablet) 250 mg PO MoWeFr [facility] Last Admin: 06/20/25 11:27 Dose: Not Given Documented By: DANA Non-Admin Reason: Patient Refused Aspirin (Aspirin Enteric Coated 81 Mg Tablet.) 81 mg PO DAILY [facility] On Hold: 06/19/25 15:36 Last Admin: 06/19/25 11:16 Dose: 81 mg Documented By: DANA Calcium Carbonate (Calcium Carbonate 750 Mg Tab.Chew) 750 mg PO Q4H PRN PRN Reason: Heartburn Cyanocobalamin (Cyanocobalamin (Vitamin B-12) 1,000 Mcg Tablet) 1,000 mcg PO DAILY [facility] Last Admin: 06/20/25 11:28 Dose: Not Given Documented By: DANA Non-Admin Reason: Patient Refused Famotidine (Famotidine 20 Mg Tablet) 40 mg PO DAILY [facility] Last Admin: 06/20/25 11:30 Dose: Not Given Documented By: DANA Non-Admin Reason: Patient Refused Furosemide (Furosemide 20 Mg Tablet) 20 mg PO DAILY PRN; Protocol PRN Reason: Edema Last Admin: 06/19/25 16:29 Dose: 20 mg Documented By: DANA Magnesium Hydroxide (Milk Of Magnesia 30 Ml Oral.Susp) 30 ml PO DAILY PRN PRN Reason: Constipation Megestrol Acetate (Megestrol Acetate 20 Mg Tablet) 20 mg PO BID [facility] Last Admin: 06/20/25 20:15 Dose: 20 mg Documented By: ALEXEY Melatonin (Melatonin 3 Mg Tablet) 6 mg PO BEDTIME PRN PRN Reason: Insomnia Metoclopramide HCl (Metoclopramide Hcl 5 Mg Tablet) 5 mg PO Q8H PRN PRN Reason: Nausea and Vomiting Last Admin: 06/18/25 14:04 Dose: 5 mg Documented By: DAMIEN Metoprolol Succinate (Metoprolol Succinate Er 25 Mg Tab.Er.24h) 25 mg PO DAILY [facility]; Protocol Last Admin: 06/20/25 09:31 Dose: 25 mg Documented By: DANA Ondansetron HCl (Ondansetron Hcl 4 Mg/2 Ml Vial) 4 mg IVPUSH Q6H PRN PRN Reason: Nausea and Vomiting Last Admin: 06/20/25 09:48 Dose: 4 mg Documented By: DANA Sodium Chloride (0.9 % Sodium Chloride Flush 3 Ml Syringe) 3 ml IVFLUSH [facility] Last Admin: 06/21/25 00:06 Dose: 3 ml Documented By: ALEXEY Labs 06/18/25 04:25 06/21/25 09:03 Labs: Laboratory Results - last 24 hr 06/20/25 06/20/25 06/21/25 05:59 09:19 05:38 PT 31.1 H INR 2.7 H Anion Gap 13 Estim Creat Clear Calc 21.4 Estimated GFR 32 Random Glucose 101 Calcium 8.4 Total Bilirubin 3.3 H AST 290 H ALT 304 H Alkaline Phosphatase 648 H Total Creatine Kinase 17 L Total Protein 5.6 L Albumin 2.8 L Assessment and Plan (1) GI malignancy: Status: Acute Plan 80F PMH CKD III, hld, hfref aicd, lv thrombus on warfarin, presented to ED 06/13/25 for frequent falls Moderate protein calorie malnutrition and failure to thrive with frequent falls due to 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 The left ventricular systolic function is moderately decreased. The visually estimated ejection fraction is between 30-35%. Small apical thrombus noted. The apical anterior segment is hypokinetic. The mid anteroseptal segment is akinetic. The apex segment is dyskinetic Discussed with Cardiology, hold Coumadin elevated lft's: moniter closely nausea improivng abd us:Cholelithiasis with gallbladder wall thickening and pericholecystic fluid. Despite the negative sonographic Deleon's sign, findings are concerning for acute cholecystitis. Given the mild intrahepatic biliary ductal dilation, MRCP, ERCP or intraoperative cholangiogram could be considered. hold statin cpk seems fine,hepatitis A,B,C screen fine. Abdominal ultrasound reviewed with GI: Gallbladder fluid/thickening possibly related to hypoalbuminemic state. Patient does not have any symptoms of abdominal pain, nausea also resolved. We will continue to monitor if any new changes then we will consider surgery evaluation. Currently high-risk for ERCP. HFrEF - ischemic hold Aspirin and statin CKD 3 mild dec in po inntake /urinary ouput added 250 ml ivf also encouraged for p.o. hydration and intake Stable DVT prophylaxis - INR is currently therapeutic d/w her daughter in detail as well as patient -they decided dnr/dni Quality Stroke Does the patient have a stroke diagnosis?: No VTE Prior VTE?: Yes VTE Risk Level:: Medical - moderate - high VTE Device Contraindication: Treatment Not Indicated VTE Drug Contraindication: N/A - Med Ordered
[2025-06-21] MEDS: Metoprolol Succinate ER 25 MG TAB.ER.24H PO (08:25)
[2025-06-21 10:08] LABS: Alanine Aminotransferase 275 U/L (0-31); Albumin Level 2.7 g/dL (3.5-5.0); Alkaline Phosphatase 660 U/L (39-117); Anion Gap 11 (12-20); Aspartate Amino Transferase 257 U/L (5-31); Blood Urea Nitrogen 29 mg/dL (9-16); Calcium 8.5 mg/dL (8.4-10.2); Carbon Dioxide 19 mmol/L (22-29); Chloride 109 mmol/L (96-108); Creatinine Clr Calc Pharmacy 22.6; Estimated Glomerular Filt Rate 33; Potassium 4.1 mmol/L (3.3-5.1); Sodium 135 mmol/L (135-145); Total Protein 5.6 g/dL (6.5-8.0)
--- NOTE | 2025-06-21 11:56 | PM.PNCARD ---
Subjective Subjective Date of Service: 06/21/25 Interval history: Seen examined at bedside. Complaining of some nausea today. INR is coming down slowly. Physical Exam Vital Signs: Last Vital Signs Temp 98.6 F 06/21/25 07:56 Pulse 67 06/21/25 07:56 Resp 18 06/21/25 07:56 BP 130/63 06/21/25 07:56 Pulse Ox 98 06/21/25 07:56 O2 Del Method Room Air 06/21/25 07:56 BMI result Body Mass Index 28.6 GENERAL APPEARANCE: Frail. bruising on face. NECK: no carotid bruit, no jugular venous distention. SKIN: no suspicious lesions, warm and dry. HEART: no murmurs, regular rate and rhythm. LUNGS: clear to auscultation bilaterally. ABDOMEN: soft, nontender. EXTREMITIES: no edema. PERIPHERAL PULSES: equal. NEUROLOGIC: No gross deficits, AAO X 3 Objective Labs and Meds 06/18/25 04:25 06/21/25 09:03 Lab results: Laboratory Results - last 24 hr 06/21/25 06/21/25 06/21/25 05:38 09:03 09:44 Hold Purple Top SEE NOTE PT 31.1 H INR 2.7 H Sodium 135 Potassium 4.1 Chloride 109 H Carbon Dioxide 19 L Anion Gap 11 L BUN 29 H Creatinine 1.50 H Estim Creat Clear Calc 22.6 Estimated GFR 33 Random Glucose 96 Calcium 8.5 Total Bilirubin 2.6 H AST 257 H ALT 275 H Alkaline Phosphatase 660 H Total Protein 5.6 L Albumin 2.7 L Progress Note: A&P Assessment and plan (1) Ischemic cardiomyopathy: Status: Acute (2) Apical mural thrombus following MS: Status: Acute Plan Pleasant 80 year female with background history of ischemic cardiomyopathy and apical thrombus on Coumadin with frequent falls including fall on her face recently. She has failure to thrive and unfortunately there is concern about GI malignancy. Her Coumadin has been held and INR is slowly coming down. I would avoid vitamin K in her. Given her multiple falls I think Coumadin should not be resumed and I have discussed this with the patient. She is quite frail and has gone downhill significantly over the last year. Not sure she will be a candidate for any aggressive treatments like surgery or chemotherapy based on her significant frailty currently. I have asked the patient to discuss with her daughter about utility of doing a biopsy because even if this is cancer the options maybe quite limited. Thank you for allowing me to participate in the care of your patient. Please feel free to contact me if you have any questions. Time Spent With Patient Time: Total time managing care of this patient today ____ minutes. Progress Note: Quality Stroke Does the patient have a stroke diagnosis?: No Procedures Date of Service Date of Service: 06/21/25
[2025-06-21 16:00] VITALS: BP 127/61; PULSE 70; RESP 19; TEMP 36.1; O2SAT 99
[2025-06-21 20:00] VITALS: BP 147/63; PULSE 72; RESP 16; TEMP 36.3; O2SAT 98
[2025-06-22 04:00] VITALS: BP 123/60; PULSE 63; RESP 18; TEMP 36.6; O2SAT 95
[2025-06-22 07:15] LABS: INTERNATIONAL NORM RATIO 2.0 (0.9-1.1); Prothrombin Time 22.8 SEC (10.9-12.4)
[2025-06-22 07:47] VITALS: BP 125/56; PULSE 69; RESP 16; TEMP 36.3; O2SAT 98
[2025-06-22] MEDS: Metoprolol Succinate ER 25 MG TAB.ER.24H PO (07:53)
[2025-06-22] MEDS: 0.9 % Sodium Chloride Flush 3 ML SYRINGE IVFLUSH ×2 (07:54→16:02)
--- NOTE | 2025-06-22 08:02 | HO.PM.IMPN ---
Subjective Subjective Date of Service: 06/22/25 Interval History: possible Gi malaignancy Review of Systems seems similar denies abd pain or nausea Review of Systems: Yes all other systems are reviewed and are negative Physical Exam Exam: Exam: Appearance: Alert.? Oriented X3. eyes: has sclera icteric. cvs: [id number], [id number] res: clear to auscultation ,no rhonchii or wheezing abd: no rebound or guarding ,nt, bs present. ext pulses present , no cyanosis . neuro: axo3 , nonfocal Vital Signs: Vital Signs: Last Vital Signs Temp 97.4 F 06/22/25 07:47 Pulse 69 06/22/25 07:47 Resp 16 06/22/25 07:47 BP 125/56 L 06/22/25 07:47 Pulse Ox 98 06/22/25 07:47 O2 Del Method Room Air 06/22/25 07:47 BMI result Body Mass Index 28.6 GENERAL APPEARANCE: Frail. bruising on face. NECK: no carotid bruit, no jugular venous distention. SKIN: no suspicious lesions, warm and dry. HEART: no murmurs, regular rate and rhythm. LUNGS: clear to auscultation bilaterally. ABDOMEN: soft, nontender. EXTREMITIES: no edema. PERIPHERAL PULSES: equal. NEUROLOGIC: No gross deficits, AAO X 3 Objective Data Active Medications Ascorbic Acid (Ascorbic Acid 250 Mg Tablet) 250 mg PO MoWeFr [facility] Last Admin: 06/20/25 11:27 Dose: Not Given Documented By: DANA Non-Admin Reason: Patient Refused Aspirin (Aspirin Enteric Coated 81 Mg Tablet.) 81 mg PO DAILY [facility] On Hold: 06/19/25 15:36 Last Admin: 06/19/25 11:16 Dose: 81 mg Documented By: DANA Calcium Carbonate (Calcium Carbonate 750 Mg Tab.Chew) 750 mg PO Q4H PRN PRN Reason: Heartburn Cyanocobalamin (Cyanocobalamin (Vitamin B-12) 1,000 Mcg Tablet) 1,000 mcg PO DAILY [facility] Last Admin: 06/22/25 07:53 Dose: 1,000 mcg Documented By: MAGEN Famotidine (Famotidine 20 Mg Tablet) 40 mg PO DAILY [facility] Last Admin: 06/22/25 07:53 Dose: 40 mg Documented By: MAGEN Furosemide (Furosemide 20 Mg Tablet) 20 mg PO DAILY PRN; Protocol PRN Reason: Edema Last Admin: 06/19/25 16:29 Dose: 20 mg Documented By: DANA Magnesium Hydroxide (Milk Of Magnesia 30 Ml Oral.Susp) 30 ml PO DAILY PRN PRN Reason: Constipation Megestrol Acetate (Megestrol Acetate 20 Mg Tablet) 20 mg PO BID [facility] Last Admin: 06/22/25 07:53 Dose: 20 mg Documented By: MAGEN Melatonin (Melatonin 3 Mg Tablet) 6 mg PO BEDTIME PRN PRN Reason: Insomnia Metoclopramide HCl (Metoclopramide Hcl 5 Mg Tablet) 5 mg PO Q8H PRN PRN Reason: Nausea and Vomiting Last Admin: 06/18/25 14:04 Dose: 5 mg Documented By: DAMIEN Metoprolol Succinate (Metoprolol Succinate Er 25 Mg Tab.Er.24h) 25 mg PO DAILY [facility]; Protocol Last Admin: 06/22/25 07:53 Dose: 25 mg Documented By: MAGEN Ondansetron HCl (Ondansetron Hcl 4 Mg/2 Ml Vial) 4 mg IVPUSH Q6H PRN PRN Reason: Nausea and Vomiting Last Admin: 06/21/25 09:37 Dose: 4 mg Documented By: SUDHA Sodium Chloride (0.9 % Sodium Chloride Flush 3 Ml Syringe) 3 ml IVFLUSH QSHIFT [facility] Last Admin: 06/22/25 07:54 Dose: 3 ml Documented By: MAGEN Labs 06/18/25 04:25 06/21/25 09:03 Labs: Laboratory Results - last 24 hr 06/21/25 06/21/25 06/22/25 09:03 09:44 06:07 Hold Purple Top SEE NOTE PT 22.8 H D INR 2.0 H Anion Gap 11 L Estim Creat Clear Calc 22.6 Estimated GFR 33 Random Glucose 96 Calcium 8.5 Total Bilirubin 2.6 H AST 257 H ALT 275 H Alkaline Phosphatase 660 H Total Protein 5.6 L Albumin 2.7 L 06/22/25 06:08 Hold Purple Top SEE NOTE PT INR Anion Gap Estim Creat Clear Calc Estimated GFR Random Glucose Calcium Total Bilirubin AST ALT Alkaline Phosphatase Total Protein Albumin Assessment and Plan (1) GI malignancy: Status: Acute Plan 80F PMH CKD III, hld, hfref aicd, lv thrombus on warfarin, presented to ED 06/13/25 for frequent falls Moderate protein calorie malnutrition and failure to thrive with frequent falls due to 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 The left ventricular systolic function is moderately decreased. The visually estimated ejection fraction is between 30-35%. Small apical thrombus noted. The apical anterior segment is hypokinetic. The mid anteroseptal segment is akinetic. The apex segment is dyskinetic Discussed with Cardiology, hold Coumadin. elevated lft's: moniter closely nausea improivng abd us:Cholelithiasis with gallbladder wall thickening and pericholecystic fluid. Despite the negative sonographic Deleon's sign, findings are concerning for acute cholecystitis. Given the mild intrahepatic biliary ductal dilation, MRCP, ERCP or intraoperative cholangiogram could be considered. hold statin cpk seems fine,hepatitis A,B,C screen fine. Abdominal ultrasound reviewed with GI: Gallbladder fluid/thickening possibly related to hypoalbuminemic state. Patient does not have any symptoms of abdominal pain, nausea also resolved. We will continue to monitor if any new changes then we will consider surgery evaluation. Currently high-risk for ERCP. today she is saying -they will not persue biopsy , added hospice eval. HFrEF - ischemic hold Aspirin and statin CKD 3 mild dec in po inntake /urinary ouput added 250 ml ivf also encouraged for p.o. hydration and intake Stable DVT prophylaxis - INR is currently 2 range d/w her daughter in detail as well as patient -they decided dnr/dni Quality Stroke Does the patient have a stroke diagnosis?: No VTE Prior VTE?: Yes VTE Risk Level:: Medical - moderate - high VTE Device Contraindication: Treatment Not Indicated VTE Drug Contraindication: N/A - Med Ordered
[2025-06-22] MEDS: Lidocaine 4 % Patch ADH..PATCH 2 PATCH TRANSDERMA (08:39)
[2025-06-22 15:34] VITALS: BP 142/65; PULSE 72; RESP 16; TEMP 36.3; O2SAT 98
[2025-06-22 18:37] LABS: Glucose, Whole Blood 165 mg/dL (60-115)
[2025-06-22 18:39] VITALS: BP 129/62; PULSE 89; RESP 18; TEMP 36.3; O2SAT 98
[2025-06-22 19:34] VITALS: BP 133/59; PULSE 72; RESP 16; TEMP 36.6; O2SAT 98
[2025-06-23] VITALS (10 sets, daily range): BP systolic 65–142; BP diastolic 38–71; PULSE 65–83; RESP 16–20; TEMP 36.1–36.9; O2SAT 96–99
[2025-06-23] MEDS: 0.9 % Sodium Chloride Flush 3 ML SYRINGE IVFLUSH ×2 (00:18→20:30)
[2025-06-23 06:53] LABS: INTERNATIONAL NORM RATIO 1.7 (0.9-1.1); Prothrombin Time 19.5 SEC (10.9-12.4)
[2025-06-23 07:06] LABS: Hematocrit 28.9 % (37.0-47.0); Hemoglobin 9.5 g/dl (12.0-16.0)
[2025-06-23 07:09] LABS: Anion Gap 11 (12-20); Blood Urea Nitrogen 26 mg/dL (9-16); Calcium 8.5 mg/dL (8.4-10.2); Carbon Dioxide 22 mmol/L (22-29); Chloride 112 mmol/L (96-108); Creatinine Clr Calc Pharmacy 26.3; Estimated Glomerular Filt Rate 40; Potassium 4.8 mmol/L (3.3-5.1); Sodium 140 mmol/L (135-145)
--- NOTE | 2025-06-23 08:01 | HO.PM.IMPN ---
Subjective Subjective Date of Service: 06/24/25 Interval History: gi maliganancy Review of Systems feels generalised weak no new c/o Physical Exam Exam: Exam: Appearance: Alert.? Oriented X3. eyes: has sclera icteric. cvs: rrr, [id number] res: clear to auscultation ,no rhonchii or wheezing abd: no rebound or guarding ,nt, bs present. ext pulses present , no cyanosis . neuro: axo3 , nonfoca Vital Signs: Vital Signs: Last Vital Signs Temp 97.4 F 06/23/25 07:17 Pulse 65 06/23/25 07:17 Resp 16 06/23/25 07:17 BP 136/64 06/23/25 07:17 Pulse Ox 99 06/23/25 07:17 O2 Del Method Room Air 06/23/25 07:17 BMI result Body Mass Index 28.6 Objective Data Active Medications Ascorbic Acid (Ascorbic Acid 250 Mg Tablet) 250 mg PO MoWeFr [facility] Last Admin: 06/20/25 11:27 Dose: Not Given Documented By: DANA Non-Admin Reason: Patient Refused Aspirin (Aspirin Enteric Coated 81 Mg Tablet.) 81 mg PO DAILY [facility] On Hold: 06/19/25 15:36 Last Admin: 06/19/25 11:16 Dose: 81 mg Documented By: DANA Calcium Carbonate (Calcium Carbonate 750 Mg Tab.Chew) 750 mg PO Q4H PRN PRN Reason: Heartburn Capsaicin (Capsaicin 0.025% Cream 60 Gm Tube) 1 appl TOPICAL TID PRN; Protocol PRN Reason: Pain, Moderate(Pain Scale 4-6) Cyanocobalamin (Cyanocobalamin (Vitamin B-12) 1,000 Mcg Tablet) 1,000 mcg PO DAILY [facility] Last Admin: 06/22/25 07:53 Dose: 1,000 mcg Documented By: MAGEN Famotidine (Famotidine 20 Mg Tablet) 40 mg PO DAILY [facility] Last Admin: 06/22/25 07:53 Dose: 40 mg Documented By: MAGEN Furosemide (Furosemide 20 Mg Tablet) 20 mg PO DAILY PRN; Protocol PRN Reason: Edema Last Admin: 06/19/25 16:29 Dose: 20 mg Documented By: DANA Lidocaine (Lidocaine 4 % Patch Adh..Patch) 2 patch TRANSDERMA DAILY [facility]; Protocol Last Admin: 06/22/25 08:39 Dose: 2 patch Documented By: MAGEN Magnesium Hydroxide (Milk Of Magnesia 30 Ml Oral.Susp) 30 ml PO DAILY PRN PRN Reason: Constipation Megestrol Acetate (Megestrol Acetate 20 Mg Tablet) 20 mg PO BID [facility] Last Admin: 06/22/25 21:09 Dose: 20 mg Documented By: ELANA Melatonin (Melatonin 3 Mg Tablet) 6 mg PO BEDTIME PRN PRN Reason: Insomnia Metoclopramide HCl (Metoclopramide Hcl 5 Mg Tablet) 5 mg PO Q8H PRN PRN Reason: Nausea and Vomiting Last Admin: 06/18/25 14:04 Dose: 5 mg Documented By: DAMIEN Metoprolol Succinate (Metoprolol Succinate Er 25 Mg Tab.Er.24h) 25 mg PO DAILY [facility]; Protocol Last Admin: 06/22/25 07:53 Dose: 25 mg Documented By: MAGEN Ondansetron HCl (Ondansetron Hcl 4 Mg/2 Ml Vial) 4 mg IVPUSH Q6H PRN PRN Reason: Nausea and Vomiting Last Admin: 06/21/25 09:37 Dose: 4 mg Documented By: SUDHA Sodium Bicarbonate (Sodium Bicarbonate 650 Mg Tablet) 650 mg PO BID [facility] Last Admin: 06/22/25 20:56 Dose: 650 mg Documented By: ELANA Sodium Chloride (0.9 % Sodium Chloride Flush 3 Ml Syringe) 3 ml IVFLUSH QSHIFT [facility] Last Admin: 06/23/25 00:18 Dose: 3 ml Documented By: ELANA Labs 06/23/25 06:15 06/23/25 06:15 Labs: Laboratory Results - last 24 hr 06/22/25 06/23/25 18:33 06:15 PT 19.5 H INR 1.7 H Anion Gap 11 L Estim Creat Clear Calc 26.3 Estimated GFR 40 POC Glucose 165 H Random Glucose 96 Calcium 8.5 Assessment and Plan (1) GI malignancy: Status: Acute Plan 80F PMH CKD III, hld, hfref aicd, lv thrombus on warfarin, presented to ED 06/13/25 for frequent falls Moderate protein calorie malnutrition and failure to thrive with frequent falls due to 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 The left ventricular systolic function is moderately decreased. The visually estimated ejection fraction is between 30-35%. Small apical thrombus noted. The apical anterior segment is hypokinetic. The mid anteroseptal segment is akinetic. The apex segment is dyskinetic Discussed with Cardiology, hold Coumadin. elevated lft's: moniter closely nausea improivng abd us:Cholelithiasis with gallbladder wall thickening and pericholecystic fluid. Despite the negative sonographic Deleon's sign, findings are concerning for acute cholecystitis. Given the mild intrahepatic biliary ductal dilation, MRCP, ERCP or intraoperative cholangiogram could be considered. hold statin cpk seems fine,hepatitis A,B,C screen fine. Abdominal ultrasound reviewed with GI: Gallbladder fluid/thickening possibly related to hypoalbuminemic state. Patient does not have any symptoms of abdominal pain, nausea also resolved. We will continue to monitor if any new changes then we will consider surgery evaluation. Currently high-risk for ERCP. going for egd :Friable gastric mucosa with a polypoidal and ulcerated mass involving the entire stomach with decreased distensibility. The stomach was deformed with narrowing of the gastric lumen with some retained food in the proximal stomach. A mid sized upper endoscope was passed into the pylorus with mild resistance. HFrEF - ischemic hold Aspirin and statin CKD 3 mild dec in po inntake /urinary ouput added 250 ml ivf also encouraged for p.o. hydration and intake Stable Coccyx/sacrum stage 2 pressure injury Present on Admission : Recommendations: 1. Turn and Reposition every 2 hours and as needed for patient comfort. Use pillows or wedges to support off loading positions. 2. Off Load all bony prominences with use of pillows and heel boots if needed. Apply Preventative foams where needed. 3. Monitor for incontinence and moisture control, use barrier creams when needed for prevention and treatment. 4. Provide adequate and supplemental nutrition. 5. Order or Continue low air loss mattress. 6. When applicable maintain blood glucose levels per Providers order. Coccyx/sacrum: Off Load Pressure with Q2 hr turns and use of pillows - Routine cleansing. Apply skin prep allow to dry. Cover with foam dressing to aid in off loading and protection from friction. Change every 3 days and PRN. DVT prophylaxis - INR is currently 2 range d/w her daughter in detail as well as patient -they decided dnr/dni Quality Stroke Does the patient have a stroke diagnosis?: No VTE Prior VTE?: Yes VTE Risk Level:: Medical - moderate - high VTE Device Contraindication: Treatment Not Indicated VTE Drug Contraindication: N/A - Med Ordered
[2025-06-23 09:16] LABS: Platelet Count 223 X10*3/uL (160-400)
[2025-06-23 09:20] LABS: Alanine Aminotransferase 222 U/L (0-31); Albumin Level 2.6 g/dL (3.5-5.0); Alkaline Phosphatase 562 U/L (39-117); Aspartate Amino Transferase 186 U/L (5-31); Total Protein 5.5 g/dL (6.5-8.0)
[2025-06-23] MEDS: Metoprolol Succinate ER 25 MG TAB.ER.24H PO (10:45)
[2025-06-23] MEDS: Lidocaine 4 % Patch ADH..PATCH 2 PATCH TRANSDERMA (10:49)
--- NOTE | 2025-06-23 12:28 | MHC.CM.PN ---
Patient not medically cleared for dc at this time, plan for EGD today. CM met with patient bedside and daughter via telephone. Goal remains STR. [facility] not offered a bed. Patient prefers [facility] or [facility]. Updates sent. Will sent updated PT when available. CM will continue to follow.
--- NOTE | 2025-06-23 13:55 | MHC.CLN ---
F/U NPO TODAY FOR UPPER ENDOSCOPY. RESUME DIET WITH SUPPLEMENTS WHEN ABLE. SKIN WITH STAGE II PRESSURE INJURY TO COCCYX/SACRUM. RESUME SUPPLEMENTS WHEN ABLE TO PROMOTE WOUND HEALING. FOLLOW FOR DIET ADVANCEMENT, PO INTAKE AND SKIN INTEGRITY.
--- NOTE | 2025-06-23 14:24 | MHC.SLORD ---
Speech Language Pathology Order Status: Pt not seen today, NPO for procedure. [employer]MENT [employer]PER[employer] to follow up as indicated.
--- NOTE | 2025-06-23 15:15 | P.PNGI_ITS ---
Subjective Subjective Date of Service: 06/23/25 Interval History: generalize weakenss, no pain poor PO intake. Critical Care Time (minutes): 0 Physical Exam 2 Exam: Exam: EXAM: GENERAL: The patient is frail, bruises noted VITAL SIGNS:see workflow HEENT: Nonicteric sclerae, PERRLA, EOMI. Oropharynx clear. Moist mucous membranes. Conjunctivae appear well perfused. No thyroid mass. CHEST: Chest wall is nontender. HEART: Regular rate and rhythm without murmurs. LUNGS: Clear to auscultation bilaterally. ABDOMEN: Soft, positive bowel sounds, nontender, no organomegaly.no flank tenderness SKIN: No rash, + excessive bruising, petechiae, or purpura. NEUROLOGIC: Cranial nerves II-XII intact without motor/sensory deficit. Psych: normal affect Vital Signs: Vital Signs: Last Vital Signs Temp 98.4 F 06/23/25 14:04 Pulse 74 06/23/25 14:04 Resp 16 06/23/25 14:04 BP 119/57 L 06/23/25 14:04 Pulse Ox 99 06/23/25 14:04 O2 Del Method Room Air 06/23/25 14:04 BMI result Body Mass Index 28.6 Objective Data Labs 06/23/25 06:15 06/23/25 06:15 Labs: Laboratory Results - last 24 hr 06/22/25 06/23/25 18:33 06:15 Hgb 9.5 L Hct 28.9 L Plt Count 223 PT 19.5 H INR 1.7 H Sodium 140 Potassium 4.8 Chloride 112 H Carbon Dioxide 22 Anion Gap 11 L BUN 26 H Creatinine 1.29 Estim Creat Clear Calc 26.3 Estimated GFR 40 POC Glucose 165 H Random Glucose 96 Calcium 8.5 Total Bilirubin 2.2 H Direct Bilirubin 1.4 H AST 186 H ALT 222 H Alkaline Phosphatase 562 H Total Protein 5.5 L Albumin 2.6 L Procedures Date of Service Date of Service: 06/23/25 Progress Note: A&P Assessment and plan (1) GI malignancy: Status: Acute Plan 1/ Esophageal mass with mets, uncertain if one tumour with mets or more than one tumour site PLAN: 1/ EGD today, biopsies, Dr Garcia will kindly perform Time Spent With Patient Time: Total time managing care of this patient today ____ minutes. Quality Stroke Does the patient have a stroke diagnosis?: No VTE Prior VTE?: Yes VTE Risk Level:: Medical - moderate - high VTE Device Contraindication: Treatment Not Indicated VTE Drug Contraindication: N/A - Med Ordered
--- NOTE | 2025-06-23 15:35 | P.CDIM_ITS ---
PROVIDER RESPONSE TEXT: To clarify, the appropriate diagnosis supported by the clinical indicators: Pressure injury coccyx/sacrum Stage 2: cocyx pressure injury stage 2 QUERY TEXT: PHYSICIAN'S DOCUMENTATION REQUEST Date of Query: 06/23/2025 07:22 AM EDT Patient Name: [place] Cline Admit Date: 06/17/2025 Dear Ursula Leone MD, A review of the medical record indicates additional documentation may be needed. Please review below and update the documentation accordingly. Clinical Indicators: Wound care notes dated 06/19/25 - Pressure injury coccyx/sacrum Stage 2 - Present on admission. Offloading and pressure redistribution with foam dressing. Based on the above, could you please provide further information regarding the ulcer/wound/injury: Pressure injury coccyx/sacrum Stage 2 possible, probable, suspected, cannot rule out etc. Diabetic ulcer Please include the stage of the ulcer and specify the location and laterality of the ulcer/wound Non-healing surgical wound Please specify the location and laterality of the ulcer/wound Other (explain) Clinically unable to determine (explain) Thank you, Petra Kapadia, CCS, CDIS Use of terms such as suspected, likely, concern for, or probable (associated with a specific diagnosis that is being evaluated, monitored, or treated as if it exists) are acceptable and can be coded in the inpatient setting, when documented at the time of discharge. Please use your independent medical judgment in providing your response. THIS QUERY IS PART OF THE PERMANENT MEDICAL RECORD
--- NOTE | 2025-06-23 16:25 | MHC.SHP ---
Pre-Procedural Eval Section A - 24 Hr Update-Section A only Date of Service: 06/23/25 The patient is an INPATIENT: Yes Changes since office visit: Yes New Medical Problems, Yes Changes in Medication and Yes Patient answered all questions; No Cold of Flu in the past 2 weeks The patient has been examined within 24 hours of the surgical procedure. The History & Physical has been completed within 30 days and I have reviewed it.: Yes Section B - Complete if H&P > 30 days Chief Complaint: Weight loss, GI malignancy Allergies: Allergies Allergy/AdvReac Type Severity Reaction Status Date / Time GALILEO Inhibitors Allergy Severe Cough Verified 06/13/25 09:47 Plan Diagnosis/Plan: Unchanged I have reviewed the history and physical and performed a pertinent physical examination on my patient. No changes have occurred unless specified. Time Spent With Patient Time: Total time managing care of this patient today ____ minutes.
--- NOTE | 2025-06-23 18:44 | PC.NURSE ---
Change of shift report given to on-coming nurse. Patient still off unit for surgical procedure at this time. Unable to perform afternoon shift assessment.
--- NOTE | 2025-06-23 19:08 | W.PM.OPN ---
Operative Note Operative Note Date of Service: 06/23/25 Narrative: FLEXIBLE TRANSORAL UPPER GASTROINTESTINAL ENDOSCOPY WITH BIOPSIES Pre-op diagnosis: Abnormal CT scan of esophagus and stomach Post-op diagnosis: Diffuse gastric mass Endoscopist:? iKmberly Garcia MD Anesthesia:?MAC UPPER ENDOSCOPY Consent: Indications for the procedure and potential complications of bleeding, perforation, reaction to medications and missed diagnosis were discussed with the patient and informed consent was obtained. Instrument: Olympus GIF H 190 mid size upper endoscope Monitoring: Vital signs and clinical assessment, continuous EKG monitoring, Pulse oximetry, Carbon Dioxide monitoring and blood pressure monitoring were done throughout the procedure. Procedure: The patient was placed in the left lateral decubitis position and pre-procedure medications were administered and a bite block was placed. The endoscope was inserted into the mouth and advanced under direct vision to the third part of duodenum. A careful inspection was made as the upper endoscope was withdrawn including a retroflexed examination of the proximal stomach; Findings and interventions are described below. Findings: Larynx: Normal Esophagus: GE junction at 35 cms. Tortuous esophagus without stricture or ring Stomach: Friable gastric mucosa with a polypoidal and ulcerated mass involving the entire stomach with decreased distensibility. The stomach was deformed with narrowing of the gastric lumen with some retained food in the proximal stomach. A mid sized upper endoscope was passed into the pylorus with mild resistance. A retroflexed examination of the cardia could not be performed.. Duodenum: Normal bulb and descending duodenum Intervention: Biopsies as noted above Impression and Post Procedure Diagnosis: Endoscopy Findings: ESOPHAGUS: Tortuous esophagus without stricture or ring STOMACH: Friable gastric mucosa with a polypoidal and ulcerated mass involving the entire stomach with decreased distensibility. The stomach was deformed with narrowing of the gastric lumen with some retained food in the proximal stomach. A mid sized upper endoscope was passed into the pylorus with mild resistance. DUODENUM: Normal Plan: Resume warfarin in the am Full liquid diet tonight and advance to a blenderized diet in the a.m.. Await biopsy results Above findings were reviewed with the patient. BIOPSIES SHOWED: A. Gastric antrum, biopsy: Superficial gastric antral mucosa with minimal chronic inactive gastritis; negative for H. pylori, intestinal metaplasia and dysplasia. B. Gastric body, biopsy: Poorly-differentiated carcinoma, and superficial fragments of reactive gastric mucosa with minimal chronic inactive gastritis and detached fragments of ulcer. Comment: (B): The tumor is compatible with a gastric or other upper GI primary, and clinical and imaging correlation is necessary. Additional immunostains for HER2 and mismatch repair defect-related tumor will be attempted; addendum to follow. Addendum #1 (B): Immunostain results as follows: - MLH1: PRESERVED (Intact nuclear expression) - MSH2: PRESERVED (Intact nuclear expression) - MSH6: PRESERVED (Intact nuclear expression) - PMS2: PRESERVED (Intact nuclear expression) -HER2: NEGATIVE ( 0 ) (Control is appropriate; Staining evaluation: ToGA trial for scoring HER2) NOTE: Results are NEGATIVE for Mismatch repair defect/ Irvin Syndrome-related tumor, however a small percentage of this form of heritable cancer may not be identified by this technique. HER2 shows cytoplasmic staining. As these tumors are known to have a high degree of heterogeneity with Her2 staining, repeat testing on any excisional specimen is recommended. HOSPITAL COURSE: Patient was admitted for moderate protein calorie malnutrition and failure to thrive with frequent falls due to suspected gastric malignancy with metastases. Due to poor prognosis patient likely to pursue hospice care, was evaluated by PT who felt patient would benefit for STR to which she will be discharged, she is expected to require less than 30 days. Disease directed treamtents for LV thrombus, ischemic cardiomyopathy, CKD 3 have been discontinued.
[2025-06-24 03:21] VITALS: BP 124/59; PULSE 76; RESP 17; TEMP 36.9; O2SAT 97
[2025-06-24 06:53] LABS: INTERNATIONAL NORM RATIO 1.6 (0.9-1.1); Prothrombin Time 18.1 SEC (10.9-12.4)
[2025-06-24 07:28] VITALS: BP 114/58; PULSE 77; RESP 16; TEMP 36.8; O2SAT 97
--- NOTE | 2025-06-24 08:07 | P.PNIM_ITS ---
Subjective Subjective Date of Service: 07/02/25 Interval History: gastric mass Review of Systems generalised weak denies new c/o Review of Systems: Yes all other systems are reviewed and are negative Physical Exam 2 Exam: Exam: Appearance: Alert.? Oriented X3. eyes: has sclera icteric. cvs: rrr, [id number] res: clear to auscultation ,no rhonchii or wheezing abd: no rebound or guarding ,nt, bs present. ext pulses present , no cyanosis . neuro: axo3 , nonfoca Vital Signs: Vital Signs: Last Vital Signs Temp 98.3 F 06/24/25 07:28 Pulse 77 06/24/25 07:28 Resp 16 06/24/25 07:28 BP 114/58 L 06/24/25 07:28 Pulse Ox 97 06/24/25 07:28 O2 Del Method Room Air 06/24/25 07:28 BMI result Body Mass Index 28.6 Objective Data Active Medications Ascorbic Acid (Ascorbic Acid 250 Mg Tablet) 250 mg PO MoWeFr [facility] Last Admin: 06/23/25 11:34 Dose: Not Given Documented By: DANA Non-Admin Reason: Physician Approved Calcium Carbonate (Calcium Carbonate 750 Mg Tab.Chew) 750 mg PO Q4H PRN PRN Reason: Heartburn Capsaicin (Capsaicin 0.025% Cream 60 Gm Tube) 1 appl TOPICAL TID PRN; Protocol PRN Reason: Pain, Moderate(Pain Scale 4-6) Cyanocobalamin (Cyanocobalamin (Vitamin B-12) 1,000 Mcg Tablet) 1,000 mcg PO DAILY [facility] Last Admin: 06/23/25 11:34 Dose: Not Given Documented By: DANA Non-Admin Reason: Physician Approved Famotidine (Famotidine 20 Mg Tablet) 40 mg PO DAILY [facility] Last Admin: 06/23/25 10:46 Dose: 40 mg Documented By: DANA Furosemide (Furosemide 20 Mg Tablet) 20 mg PO DAILY PRN; Protocol PRN Reason: Edema Last Admin: 06/19/25 16:29 Dose: 20 mg Documented By: DANA Lidocaine (Lidocaine 4 % Patch Adh..Patch) 2 patch TRANSDERMA DAILY [facility]; Protocol Last Admin: 06/23/25 10:49 Dose: 2 patch Documented By: DANA Magnesium Hydroxide (Milk Of Magnesia 30 Ml Oral.Susp) 30 ml PO DAILY PRN PRN Reason: Constipation Megestrol Acetate (Megestrol Acetate 20 Mg Tablet) 20 mg PO BID [facility] Last Admin: 06/23/25 20:29 Dose: 20 mg Documented By: ARIAS Melatonin (Melatonin 3 Mg Tablet) 6 mg PO BEDTIME PRN PRN Reason: Insomnia Metoclopramide HCl (Metoclopramide Hcl 5 Mg Tablet) 5 mg PO Q8H PRN PRN Reason: Nausea and Vomiting Last Admin: 06/18/25 14:04 Dose: 5 mg Documented By: DAMIEN Metoprolol Succinate (Metoprolol Succinate Er 25 Mg Tab.Er.24h) 25 mg PO DAILY [facility]; Protocol Last Admin: 06/23/25 10:45 Dose: 25 mg Documented By: DANA Naloxone HCl (Naloxone Hcl 0.4 Mg/Ml Vial) 0.04 mg IVPUSH Q5M PRN PRN Reason: Excessive sedation or RR < 8 Ondansetron HCl (Ondansetron Hcl 4 Mg/2 Ml Vial) 4 mg IVPUSH Q6H PRN PRN Reason: Nausea and Vomiting Last Admin: 06/21/25 09:37 Dose: 4 mg Documented By: SUDHA Sodium Bicarbonate (Sodium Bicarbonate 650 Mg Tablet) 650 mg PO BID [facility] Last Admin: 06/23/25 20:29 Dose: 650 mg Documented By: ARIAS Sodium Chloride (0.9 % Sodium Chloride Flush 3 Ml Syringe) 3 ml IVFLUSH QSHIFT [facility] Last Admin: 06/23/25 20:30 Dose: 3 ml Documented By: ARIAS Labs 06/23/25 06:15 06/23/25 06:15 Labs: Laboratory Results - last 24 hr 06/23/25 06/24/25 06/24/25 06:15 06:01 06:02 Plt Count 223 Hold Purple Top SEE NOTE PT 18.1 H INR 1.6 H Total Bilirubin 2.2 H Direct Bilirubin 1.4 H AST 186 H ALT 222 H Alkaline Phosphatase 562 H Total Protein 5.5 L Albumin 2.6 L Assessment and Plan (1) GI malignancy: Status: Acute Plan 80F PMH CKD III, hld, hfref aicd, lv thrombus on warfarin, presented to ED 06/13/25 for frequent falls Moderate protein calorie malnutrition and failure to thrive with frequent falls due to 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 The left ventricular systolic function is moderately decreased. The visually estimated ejection fraction is between 30-35%. Small apical thrombus noted. The apical anterior segment is hypokinetic. The mid anteroseptal segment is akinetic. The apex segment is dyskinetic Discussed with Cardiology, hold Coumadin( please see cardiology note for more details :multiple falls /Coumadin should not be resumed ). elevated lft's: moniter closely nausea improivng abd us:Cholelithiasis with gallbladder wall thickening and pericholecystic fluid. Despite the negative sonographic Deleon's sign, findings are concerning for acute cholecystitis. Given the mild intrahepatic biliary ductal dilation, MRCP, ERCP or intraoperative cholangiogram could be considered. hold statin cpk seems fine,hepatitis A,B,C screen fine. Abdominal ultrasound reviewed with GI: Gallbladder fluid/thickening possibly related to hypoalbuminemic state. Patient does not have any symptoms of abdominal pain, nausea also resolved. We will continue to monitor if any new changes then we will consider surgery evaluation. Currently high-risk for ERCP. egd :Friable gastric mucosa with a polypoidal and ulcerated mass involving the entire stomach with decreased distensibility. The stomach was deformed with narrowing of the gastric lumen with some retained food in the proximal stomach. A mid sized upper endoscope was passed into the pylorus with mild resistance. family d/w oncology-they want to wait on hospice until biopsy comes back. daughter asking for swallow eval . Ischemic cardiomyopathy: Aspirin if family agrees and hold statin(due to elevated lft's) CKD 3 mild dec in po inntake /urinary ouput added 250 ml ivf also encouraged for p.o. hydration and intake Stable Coccyx/sacrum stage 2 pressure injury Present on Admission : Recommendations: 1. Turn and Reposition every 2 hours and as needed for patient comfort. Use pillows or wedges to support off loading positions. 2. Off Load all bony prominences with use of pillows and heel boots if needed. Apply Preventative foams where needed. 3. Monitor for incontinence and moisture control, use barrier creams when needed for prevention and treatment. 4. Provide adequate and supplemental nutrition. 5. Order or Continue low air loss mattress. 6. When applicable maintain blood glucose levels per Providers order. Coccyx/sacrum: Off Load Pressure with Q2 hr turns and use of pillows - Routine cleansing. Apply skin prep allow to dry. Cover with foam dressing to aid in off loading and protection from friction. Change every 3 days and PRN. DVT prophylaxis - scd ongoing need :awaiting placement Quality Stroke Does the patient have a stroke diagnosis?: No VTE Prior VTE?: Yes VTE Risk Level:: Medical - moderate - high VTE Device Contraindication: Treatment Not Indicated VTE Drug Contraindication: N/A - Med Ordered
--- NOTE | 2025-06-24 08:28 | HO.POSTANES ---
Post Anesthesia Evaluation Post Anesthesia Evaluation Date of Service: 06/24/25 Vital Signs: Vital Signs Temp Pulse Resp BP Pulse Ox O2 Del Method 06/24/25 07:28 98.3 F 77 16 114/58 L 97 Room Air 06/24/25 03:21 98.5 F 76 17 124/59 L 97 Room Air Anesthesia: TIVA Mental Status: Awake Pain Control: Satisfactory Nausea/Vomiting: None Hydration: Adequate Anesthesia-Related Issues: No Anes. Related Issues
[2025-06-24 09:05] VITALS: BP 130/53; PULSE 80
[2025-06-24] MEDS: Metoprolol Succinate ER 25 MG TAB.ER.24H PO (09:41)
[2025-06-24] MEDS: Lidocaine 4 % Patch ADH..PATCH 2 PATCH TRANSDERMA (09:42)
[2025-06-24 15:41] VITALS: BP 143/63; PULSE 78; RESP 16; TEMP 37; O2SAT 98
--- NOTE | 2025-06-24 16:38 | P.PNGI_ITS ---
Subjective Subjective Date of Service: 06/24/25 Interval History: egd with Dr boswell reviewed with pt and daughter stomach with dense tumour deposits, she has satiety denies abdominal pain Critical Care Time (minutes): 0 Physical Exam 2 Exam: Exam: EXAM: GENERAL: The patient is frail VITAL SIGNS:see workflow HEENT: Nonicteric sclerae, PERRLA, EOMI. Oropharynx clear. Moist mucous membranes. Conjunctivae appear well perfused. No thyroid mass. CHEST: Chest wall is nontender. HEART: Regular rate and rhythm without murmurs. LUNGS: Clear to auscultation bilaterally. ABDOMEN: Soft, positive bowel sounds, nontender, no organomegaly.no flank tenderness SKIN: No rash, + bruising, petechiae, or purpura. NEUROLOGIC: Cranial nerves II-XII intact without motor/sensory deficit. Psych: normal affect Vital Signs: Vital Signs: Last Vital Signs Temp 98.6 F 06/24/25 15:41 Pulse 78 06/24/25 15:41 Resp 16 06/24/25 15:41 BP 143/63 H 06/24/25 15:41 Pulse Ox 98 06/24/25 15:41 O2 Del Method Room Air 06/24/25 15:41 BMI result Body Mass Index 28.6 Objective Data Labs 06/23/25 06:15 06/23/25 06:15 Labs: Laboratory Results - last 24 hr 06/24/25 06/24/25 06:01 06:02 Hold Purple Top SEE NOTE PT 18.1 H INR 1.6 H Procedures Date of Service Date of Service: 06/24/25 Progress Note: A&P Assessment and plan (1) GI malignancy: Status: Acute Assessment and Plan: 1/ Suspect patient may have Ovarian ca with stomach mets, Kruckenberg tumour ddx: primary GI tumour with mets, RCC PLAN: 1/ allow PO diet as tolerated 2/ she is unsure if she wants treatment --can f/u with primary team and oncology Time Spent With Patient Time: Total time managing care of this patient today ____ minutes. Quality Stroke Does the patient have a stroke diagnosis?: No VTE Prior VTE?: Yes VTE Risk Level:: Medical - moderate - high VTE Device Contraindication: Treatment Not Indicated VTE Drug Contraindication: N/A - Med Ordered
--- NOTE | 2025-06-24 17:27 | MHC.SLORD ---
Speech Language Pathology Order Status: Patient advanced to full liquid diet per GI. Per initial swallow evaluation, patient tolerates thin liquids w/o difficulty. ECHO TECH unable to see patient today, will assess at meal 9/10 for toleration.
[2025-06-24 20:00] VITALS: BP 129/59; PULSE 75; RESP 18; TEMP 36.7; O2SAT 100
[2025-06-25 03:58] VITALS: BP 135/63; PULSE 69; RESP 18; TEMP 36.3; O2SAT 97
[2025-06-25 06:21] LABS: INTERNATIONAL NORM RATIO 1.3 (0.9-1.1); Prothrombin Time 15.3 SEC (10.9-12.4)
[2025-06-25 07:53] VITALS: BP 120/59; PULSE 70; RESP 18; TEMP 36.4; O2SAT 97
[2025-06-25] MEDS: Lidocaine 4 % Patch ADH..PATCH 2 PATCH TRANSDERMA (08:38)
[2025-06-25] MEDS: Metoprolol Succinate ER 25 MG TAB.ER.24H PO (08:38)
--- NOTE | 2025-06-25 10:52 | HO.PM.IMPN ---
Subjective Subjective Date of Service: 06/25/25 Interval History: would like to change to regular diet Physical Exam Exam: Exam: EXAM: GENERAL: The patient is frail VITAL SIGNS:see workflow HEENT: Nonicteric sclerae, PERRLA, EOMI. Oropharynx clear. Moist mucous membranes. Conjunctivae appear well perfused. No thyroid mass. CHEST: Chest wall is nontender. HEART: Regular rate and rhythm without murmurs. LUNGS: Clear to auscultation bilaterally. ABDOMEN: Soft, positive bowel sounds, nontender, no organomegaly.no flank tenderness SKIN: No rash, + bruising, petechiae, or purpura. NEUROLOGIC: Cranial nerves II-XII intact without motor/sensory deficit. Psych: normal affect Vital Signs: Vital Signs: Last Vital Signs Temp 97.6 F 06/25/25 07:53 Pulse 70 06/25/25 07:53 Resp 18 06/25/25 07:53 BP 120/59 L 06/25/25 07:53 Pulse Ox 97 06/25/25 07:53 O2 Del Method Room Air 06/25/25 07:53 BMI result Body Mass Index 28.6 Objective Data Active Medications Ascorbic Acid (Ascorbic Acid 250 Mg Tablet) 250 mg PO MoWeFr [facility] Last Admin: 06/25/25 08:40 Dose: 250 mg Documented By: ADRIEL Calcium Carbonate (Calcium Carbonate 750 Mg Tab.Chew) 750 mg PO Q4H PRN PRN Reason: Heartburn Capsaicin (Capsaicin 0.025% Cream 60 Gm Tube) 1 appl TOPICAL TID PRN; Protocol PRN Reason: Pain, Moderate(Pain Scale 4-6) Cyanocobalamin (Cyanocobalamin (Vitamin B-12) 1,000 Mcg Tablet) 1,000 mcg PO DAILY [facility] Last Admin: 06/25/25 08:38 Dose: 1,000 mcg Documented By: ADRIEL Famotidine (Famotidine 20 Mg Tablet) 20 mg PO Q48H [place] Furosemide (Furosemide 20 Mg Tablet) 20 mg PO DAILY PRN; Protocol PRN Reason: Edema Last Admin: 06/19/25 16:29 Dose: 20 mg Documented By: DANA Lidocaine (Lidocaine 4 % Patch Adh..Patch) 2 patch TRANSDERMA DAILY [facility]; Protocol Last Admin: 06/25/25 08:38 Dose: 2 patch Documented By: ADRIEL Magnesium Hydroxide (Milk Of Magnesia 30 Ml Oral.Susp) 30 ml PO DAILY PRN PRN Reason: Constipation Megestrol Acetate (Megestrol Acetate 20 Mg Tablet) 20 mg PO BID [facility] Last Admin: 06/25/25 08:38 Dose: 20 mg Documented By: ADRIEL Melatonin (Melatonin 3 Mg Tablet) 6 mg PO BEDTIME PRN PRN Reason: Insomnia Metoclopramide HCl (Metoclopramide Hcl 5 Mg Tablet) 5 mg PO Q8H PRN PRN Reason: Nausea and Vomiting Last Admin: 06/18/25 14:04 Dose: 5 mg Documented By: DAMIEN Metoprolol Succinate (Metoprolol Succinate Er 25 Mg Tab.Er.24h) 25 mg PO DAILY [facility]; Protocol Last Admin: 06/25/25 08:38 Dose: 25 mg Documented By: ADRIEL Naloxone HCl (Naloxone Hcl 0.4 Mg/Ml Vial) 0.04 mg IVPUSH Q5M PRN PRN Reason: Excessive sedation or RR < 8 Ondansetron HCl (Ondansetron Hcl 4 Mg/2 Ml Vial) 4 mg IVPUSH Q6H PRN PRN Reason: Nausea and Vomiting Last Admin: 06/21/25 09:37 Dose: 4 mg Documented By: SUDHA Sodium Bicarbonate (Sodium Bicarbonate 650 Mg Tablet) 650 mg PO BID [facility] Last Admin: 06/25/25 08:38 Dose: 650 mg Documented By: ADRIEL Sodium Chloride (0.9 % Sodium Chloride Flush 3 Ml Syringe) 3 ml IVFLUSH QSHIFT [facility] Last Admin: 06/25/25 08:39 Dose: Not Given Documented By: ADRIEL Non-Admin Reason: No Access Labs 06/23/25 06:15 06/23/25 06:15 Labs: Laboratory Results - last 24 hr 06/25/25 05:43 PT 15.3 H INR 1.3 H Assessment and Plan (1) GI malignancy: Status: Acute Plan 80F PMH CKD III, hld, hfref aicd, lv thrombus on warfarin, presented to ED 06/13/25 for frequent falls found to have new finding of GI malignancy Moderate protein calorie malnutrition and failure to thrive with frequent falls due to suspected gastric malignancy with metastases EGD 06/23/25 with friable gastric mass - path pending patient planning to pursue hospice care would like to change to regular diet LV thrombus cardio appreciated, will dc warfarin Ischemic cardiomyopathy: s/p AICD, when on hospice should deactivate CKD 3 stable Coccyx/sacrum stage 2 pressure injury Present on Admission : Recommendations: 1. Turn and Reposition every 2 hours and as needed for patient comfort. Use pillows or wedges to support off loading positions. 2. Off Load all bony prominences with use of pillows and heel boots if needed. Apply Preventative foams where needed. 3. Monitor for incontinence and moisture control, use barrier creams when needed for prevention and treatment. 4. Provide adequate and supplemental nutrition. 5. Order or Continue low air loss mattress. 6. When applicable maintain blood glucose levels per Providers order. Coccyx/sacrum: Off Load Pressure with Q2 hr turns and use of pillows - Routine cleansing. Apply skin prep allow to dry. Cover with foam dressing to aid in off loading and protection from friction. Change every 3 days and PRN. DVT prophylaxis - scd ongoing need :awaiting placement Quality Stroke Does the patient have a stroke diagnosis?: No VTE Prior VTE?: Yes VTE Risk Level:: Medical - moderate - high VTE Device Contraindication: Treatment Not Indicated VTE Drug Contraindication: N/A - Med Ordered
--- NOTE | 2025-06-25 11:04 | W.MHC.ACPN ---
Advanced Care Planning Note Advanced Care Planning Note Discussed with: patient and family member(s) Time spent (in minutes): 16 Narrative: discussed at bedside with patient and daughter regarding diagnosis of likely metastatic gastric CA. mathieu made to pursue hospice care, requested to turn of ICD to avoid shock. Problems Discussed (1) GI malignancy:
--- NOTE | 2025-06-25 12:07 | MHC.SL.SWA ---
Speech Pathologist Impression: Esophageal Dysphagia Risk of Aspiration Due to: Dysphasia Diet Status: Regular diet with thin consistencies Liquid Consistency and Strategies for Safe Swallow: Liquid Intake Recommendation: Thin Liquid Intake Strategies: Small Sips Solid Food Consistency: Dietary Recommendations: Additional Modifications to Solid Foods: GI following, refer to GI report for additional information Oral Medication Intake: Whole with Liquid Please contact the pharmacy regarding appropriate crushable or liquid drug formulations that are available whenever modified delivery is recommended. Compensatory Strategies and Precautions to be Taken for Safe Swallow: Sitting Upright (90 deg) Double Swallow Small Bites and Sips Alternate Liquids/Solids Rate of Ingestion Change Supervision While Eating and Drinking for Safe Swallow: Intermittent Supervision Foods to Avoid: Swallowing Recommended Treatments: Compens. Strategy Educat. Recommendation for Speech: Inpatient Speech Therapy Comment: New order placed for requested [employer] re-assessment. Pt alert, pleasant, daughter at bedside. Pt put in dentures for re-evaluation. daughter noting lower denture is now loose d/t pt weight loss. Pt used denture adhesive to keep dentures in place. GI has seen patient, had EGD and was on clear liquid diet post procedure. Pt re-evaluated for solids and thins. Oropharyngeal coordination WNL. No overt s/s of aspiration during trials. Education provided to pt and pt daughter on physiological function of swallow, airway protection, overt s/s of aspiration and involvement of esophageal phase. Pt and daughter verbalize understanding and agree with [employer] recc. MD notified, RN consulted. Recc regular diet with thin liquids, [employer] to followup as indicated. Frequency/Duration: Date Range for Service Req: Timeline to reassess: Online Marketing Strategist Clinican/Clinical Fellow: No Supervisory Statement: I have reviewed and agree with the student/clinical fellow's documentation: N/A Speech Language Pathologist: Lia Rosado M.S., [facility] [employer] [facility] [facility]
--- NOTE | 2025-06-25 12:33 | PM.DS ---
DS: Providers Provider Date of Service: 06/26/25 Date of admission: 06/17/25 16:57 Date of discharge: 06/26/25 Primary care physician: Shyla Fregoso MD Consults: 06/13/25 11:11 Consult to Case Management Stat Comment: 06/17/25 17:00 Consult to Cardiology Routine Consulting Provider: [facility] Reason for consultation: risk strat for EGD, hfref Has provider been notified: Yes 06/17/25 17:01 Consult to Hematology / Oncology Routine Consulting Provider: [facility] Reason for consultation: wegiht loss, carcinomatosis 06/17/25 17:14 Consult to Gastroenterology Routine Consulting Provider: [facility] Reason for consultation: upper gi malignancy 06/18/25 21:46 Consult to Wound Care Routine Reason for consultation: buttocks 06/19/25 11:47 Consult to Cardiology Routine Consulting Provider: [facility] Reason for consultation: preop assessment Has provider been notified: Yes 06/23/25 14:54 Consult to Wound Care Routine Reason for consultation: cocyx pressure Has provider been notified: Yes DS: Diagnosis Discharge Diagnosis (1) GI malignancy: Status: Acute DS: Summary Hospital Course Hospital Course: from initial hpi: 80F PMH CKD III, hld, hfref aicd, lv thrombus on warfarin, presented to ED 06/13/25 for frequent falls, was placement for SNF, but noted 20lbs weight loss so underwent CT chest and abd which showed distal esophagus thickening, small to moderate intraperitoneal ascites with nodularity suggestive of peritoneal carcinomatosis, distal gastric body and gastric antrum thickening concerning for malignancy. Patient also reports dysphagia to solids and liquids. hospital course: Patient was admitted for moderate protein calorie malnutrition and failure to thrive with frequent falls due to suspected gastric malignancy with metastases. She underwent EGD on 06/23/2025 with friable gastric mass found biopsy taken pathology still pending. due to poor prognosis patient likely to pursue hospice care, was evaluated by PT who felt patient would benefit for STR to which she will be discharged, she is expected to require less than 30 days. disease directed treamtents for LV thrombus, ischemic cardiomyopathy, CKD 3 have been discontinued. Time Attestation Discharge Coordination Time (in mins): 35 Quality: Safe Use of Opioids Does Pt have an Active Cancer Diagnosis on the Problem List?: Yes Opioid Measure Date for [facility] Report: 05/27/25 Opioid Measure Time for [facility] Report: 10:25 Quality: Stroke Does the patient have a stroke diagnosis?: No Physical Exam Exam: Exam: EXAM: GENERAL: The patient is frail VITAL SIGNS:see workflow HEENT: Nonicteric sclerae, PERRLA, EOMI. Oropharynx clear. Moist mucous membranes. Conjunctivae appear well perfused. No thyroid mass. CHEST: Chest wall is nontender. HEART: Regular rate and rhythm without murmurs. LUNGS: Clear to auscultation bilaterally. ABDOMEN: Soft, positive bowel sounds, nontender, no organomegaly.no flank tenderness SKIN: No rash, + bruising, petechiae, or purpura. NEUROLOGIC: Cranial nerves II-XII intact without motor/sensory deficit. Psych: normal affect Vital Signs: Vital Signs: Last Vital Signs Temp 97.6 F 06/25/25 07:53 Pulse 70 06/25/25 07:53 Resp 18 06/25/25 07:53 BP 120/59 L 06/25/25 07:53 Pulse Ox 97 06/25/25 07:53 O2 Del Method Room Air 06/25/25 07:53 BMI result Body Mass Index 28.6 DS: Data Data Completed and Pending Completed studies during hospitalization [Text1]: Procedures Repair Scalp Skin, External Approach (02/21/24) Pending studies at discharge: Pending at discharge 06/23/25 19:13 Surgical [PTH] Routine Labs on day of discharge: Laboratory Results - last 24 hr 06/25/25 05:43 PT 15.3 H INR 1.3 H Discharge Plan Discharge Anticipated Discharge Date/Time: 06/25/25 12:31 Patient Disposition: Xfer SNF Discharge Diagnosis: gastric cancer Referrals: Shyla Fregoso MD [Primary Care Provider, Internal Medicine] - 1 Week Discharge Medications: Continued furosemide 20 mg Tablet 20 mg PO DAILY PRN (Reason: Edema) acetaminophen [Tylenol Arthritis Pain] 650 mg tablet extended release 650 mg PO Q12H metoclopramide HCl [Reglan] 5 mg tablet 5 mg PO Q8H PRN (Reason: nausea and vomiting) Qty: 30 1RF famotidine 40 mg tablet 40 mg PO DAILY Qty: 30 0RF Rx Instructions: TAKE MEDICATION AT LEAST AN HOUR BEFORE EATING megestrol 40 mg tablet 20 mg PO BID 30 Days Qty: 30 0RF ascorbic acid (vitamin C) 250 mg tablet 250 mg PO MOWEFR Rx Instructions: M,W, F cyanocobalamin (vitamin B-12) 1,000 mcg tablet 1,000 mcg PO DAILY Discontinued atorvastatin 40 mg tablet 40 mg PO DAILY 90 Days Qty: 90 3RF metoprolol succinate 25 mg tablet extended release 24 hr 25 mg PO DAILY Qty: 30 5RF warfarin 2 mg tablet 2 mg PO .COMPLEX Qty: 90 5RF Patient Comments: Pt report she took all her meds today, except coumadin Rx Instructions: takes warfarin 2 mg once a day aspirin 81 mg tablet 81 mg PO DAILY Qty: 1 0RF Discharge Orders: Discharge Order (Routine); Ordered 06/26/25 Ordered By: Lacho De Jesus Diet: Advance to usual diet Activity on Discharge: As tolerated Stand Alone Forms: Patient Portal Discharge page Print Language: Urdu Care Plan Goals: manage symptoms Health Concerns: metastatic gastric cancer Plan of Treatment: PT, then possible transition to hospice Assessment: see above
--- NOTE | 2025-06-25 14:07 | MHC.CLN ---
F/U DIET RX REGULAR. PO INTAKE APPEARS TO BE LIMITED WITH DX GASTRIC CANCER. SKIN WITH STAGE 2 PRESSURE INJURY TO COCCYX/SACRUM. ADD ENSURE BID TO PROMOTE SKIN INTEGRITY AND NUTRITIONAL STATUS. SUPPLEMENT PROVIDES 700 KCALS, 40 G PROTEIN. CONTINUE CURRENT DIET. FOLLOW FOR PLAN OF CARE.
[2025-06-25 15:19] VITALS: BP 117/59; PULSE 71; RESP 18; TEMP 37.2; O2SAT 98
--- NOTE | 2025-06-25 15:46 | MHC.CM.PN ---
Addendum entered by Beatriz Milan 06/25/25 15:55: [facility] referrals have been sent to agencies that accept [facility]. The were instructed that the patient will go to [facility] for STR prior to home with services. A referral has been sent to [facility] for [facility] MACHINE OPERATOR services at home. Original Note: Patients dtr toured [facility] and [facility]. The bed offered by [facility] has been accepted. The SNF has initiated the insurance authorization process. DP to [facility] via BLS, pending insurance auth.
[2025-06-25 19:25] VITALS: BP 132/58; PULSE 75; RESP 18; TEMP 36.7; O2SAT 98
[2025-06-26 03:15] VITALS: BP 116/57; PULSE 69; RESP 18; TEMP 36.8; O2SAT 97
[2025-06-26 08:33] VITALS: BP 132/69; PULSE 74; RESP 18; TEMP 36.2; O2SAT 97
[2025-06-26] MEDS: Metoprolol Succinate ER 25 MG TAB.ER.24H PO (08:39)
[2025-06-26] MEDS: Lidocaine 4 % Patch ADH..PATCH 2 PATCH TRANSDERMA (08:41)
--- NOTE | 2025-06-26 12:50 | MHC.SL.SWA ---
Speech Pathologist Impression: Esophageal Dysphagia Risk of Aspiration Due to: Dysphasia Diet Status: Continue on Regular Diet with THIN liquids, pills whole in puree. Encourage patient to elect softer foods from regular menu. Liquid Consistency and Strategies for Safe Swallow: Liquid Intake Recommendation: Thin Liquid Intake Strategies: Small Sips Solid Food Consistency: Dietary Recommendations: Regular Additional Modifications to Solid Foods: GI following, refer to GI report for additional information Oral Medication Intake: Whole with Liquid Please contact the pharmacy regarding appropriate crushable or liquid drug formulations that are available whenever modified delivery is recommended. Compensatory Strategies and Precautions to be Taken for Safe Swallow: Sitting Upright (90 deg) Small Bites and Sips Alternate Liquids/Solids Rate of Ingestion Change Supervision While Eating and Drinking for Safe Swallow: None Needed Foods to Avoid: Swallowing Recommended Treatments: Compens. Strategy Educat. Recommendation for Speech: Inpatient Speech Therapy Comment: Patient seen at breakfast this morning, with patient's diet now advanced back to regular with thin liquids. Patient had ordered for her self ha and eggs this morning, with a blueberry muffin and tea. BUSINESS OWNER/ENGINEER queried if she had dentures in to manage ha, she reported and demonstrated she had her top denture in, but that the bottom denture is too loose due to her weight loss. Patient took bite of ha, then masticated for prolonged time, eventually swallowing this piece of ha, but noting that she felt it was too tough to chew with her gum. Patient took sips of juice from straw and tea from cup, producing a normal swallow with no clinical signs of aspiration. Patient has been consistently observed as being able to tolerate regular textures and thin liquids, with oral pharyngeal swallow WFL. However, given dental/denture issue, patient should be encouraged to elect softer foods from the regular menu for oral management. At this time, no further Speech service/therapy is indicated. BUSINESS OWNER/ENGINEER will discharge in expanse. Please re-contact if any additional concerns arise during this inpatient stay. Frequency/Duration: Date Range for Service Req: Timeline to reassess: Passenger Service Agent Clinican/Clinical Fellow: No Supervisory Statement: I have reviewed and agree with the student/clinical fellow's documentation: N/A Speech Language Pathologist: Roshni Carlin M.A., CCC-BUSINESS OWNER/ENGINEER
[2025-06-26 15:44] VITALS: BP 138/66; PULSE 63; RESP 18; TEMP 36.4; O2SAT 99
--- NOTE | 2025-06-26 16:03 | MHC.CM.PN ---
IMM 06/26/25 Patient is discharged today to [facility]. Transportation is set for 4pm machine operator hop picker. She will transfer via [facility]. Referrals have been sent to [facility] and [facility] for dc from SNF. [facility] has been notified a WC will go with the patient to [facility]. The WC is Labled. If [facility] can not take. A familiy member with machine operator hop picker the chair and transport it to the SNF.
== END 2025-06-26 16:04 | disposition skilled nursing facility (03) | DRG 375 ==
LOC: HO.ED 06-17 16:51 → HO.EDOVER 06-17 17:01 → HO.S3 06-18 19:26
PROVIDERS: Internal Medicine; Internal Medicine Gastroenterology; Internal Medicine Medical Oncology; Physician Assistant Medical; Admitting Provider Internal Medicine; Emergency Provider Emergency Medicine; PCP Internal Medicine; Visit Provider Internal Medicine
PROC: 0DJ08ZZ Inspection of Upper Intestinal Tract, Via Natural or Artificial Opening Endoscopic (ICD-10-PCS; CPT 43235; principal; 2025-06-23 14:30)
DX: C16.8 Malignant neoplasm of overlapping sites of stomach (principal); C78.6 Secondary malignant neoplasm of retroperitoneum and peritoneum; I50.22 Chronic systolic (congestive) heart failure; E44.0 Moderate protein-calorie malnutrition; I25.5 Ischemic cardiomyopathy; R29.6 Repeated falls; Z91.81 History of falling; I25.10 Atherosclerotic heart disease of native coronary artery without angina pectoris; Z66 Do not resuscitate; I51.3 Intracardiac thrombosis, not elsewhere classified; L89.152 Pressure ulcer of sacral region, stage 2; R79.1 Abnormal coagulation profile; N18.30 Chronic kidney disease, stage 3 unspecified; R62.7 Adult failure to thrive; Z68.28 Body mass index [BMI] 28.0-28.9, adult; Z20.822 Contact with and (suspected) exposure to COVID-19; Z95.810 Presence of automatic (implantable) cardiac defibrillator; Z79.01 Long term (current) use of anticoagulants; Z79.899 Other long term (current) drug therapy
CPT/HCPCS: 36415; 71045; 71250; 74176; 76705; 76775; 80048; 80053; 80076; 81003; 82378; 82550; 82947; 83735; 83880; 84484; 85014; 85018; 85025; 85027; 85049; 85610; 86301; 86304; 86704; 86706; 86709; 86803; 87340; 87637; 88305; 88341; 88342; 88360; 92526; 93005; 93306; 97110; 97162; 97530; 99285; J2003; J2371; J2405; J2704

== ENCOUNTER → 2025-06-13 09:58 | Outpatient (BNV) | payer MEDICARE, SELFPAY | PROVIDERS: Emergency Provider Emergency Medicine; PCP Internal Medicine; Visit Provider Internal Medicine | DX: I45.2 Bifascicular block (principal); I51.7 Cardiomegaly | CPT/HCPCS: 93010 ==

== ENCOUNTER → 2025-06-13 10:00 | Outpatient (BNV) | payer MEDICARE, SELFPAY | PROVIDERS: Emergency Provider Emergency Medicine; PCP Internal Medicine; Visit Provider Radiology Diagnostic Radiology | DX: I51.7 Cardiomegaly (principal) | CPT/HCPCS: 71045 ==

== ENCOUNTER → 2025-06-15 18:00 | Outpatient (BNV) | payer MEDICARE, SELFPAY | PROVIDERS: Emergency Provider Emergency Medicine; PCP Internal Medicine; Visit Provider Radiology Diagnostic Radiology | DX: R13.10 Dysphagia, unspecified (principal); I25.10 Atherosclerotic heart disease of native coronary artery without angina pectoris; R18.8 Other ascites; K80.20 Calculus of gallbladder without cholecystitis without obstruction; K44.9 Diaphragmatic hernia without obstruction or gangrene | CPT/HCPCS: 71250 ==

== ENCOUNTER → 2025-06-17 08:15 | Outpatient (BNV) | payer MEDICARE, SELFPAY | PROVIDERS: Emergency Provider Emergency Medicine; PCP Internal Medicine; Visit Provider Radiology Diagnostic Radiology | DX: K80.20 Calculus of gallbladder without cholecystitis without obstruction (principal); K31.89 Other diseases of stomach and duodenum; R18.8 Other ascites | CPT/HCPCS: 74176 ==

== ENCOUNTER 2025-06-17 16:57 | Outpatient (BNV) | payer MEDICARE, SELFPAY | END 2025-06-19 09:40 | PROVIDERS: Admitting Provider Internal Medicine; Emergency Provider Emergency Medicine; PCP Internal Medicine; Visit Provider Radiology Diagnostic Radiology | DX: N28.1 Cyst of kidney, acquired (principal) | CPT/HCPCS: 76775 ==

== ENCOUNTER 2025-06-17 16:57 | Outpatient (BNV) | payer MEDICARE, SELFPAY | END 2025-06-21 08:12 | PROVIDERS: Admitting Provider Internal Medicine; Emergency Provider Emergency Medicine; PCP Internal Medicine; Visit Provider Radiology Diagnostic Radiology | DX: K80.20 Calculus of gallbladder without cholecystitis without obstruction (principal) | CPT/HCPCS: 76705 ==

== ENCOUNTER 2025-06-17 16:57 | Outpatient (BNV) | payer MEDICARE, SELFPAY | END 2025-06-18 07:00 | PROVIDERS: Admitting Provider Internal Medicine; Emergency Provider Emergency Medicine; PCP Internal Medicine; Visit Provider Internal Medicine Cardiovascular Disease | DX: I51.3 Intracardiac thrombosis, not elsewhere classified (principal); Z95.0 Presence of cardiac pacemaker | CPT/HCPCS: 93306 ==

== ENCOUNTER → 2025-06-17 16:57 | Outpatient (BNV) | payer MEDICARE, SELFPAY | PROVIDERS: Admitting Provider Internal Medicine; Emergency Provider Emergency Medicine; PCP Internal Medicine; Visit Provider Internal Medicine Medical Oncology | DX: C26.9 Malignant neoplasm of ill-defined sites within the digestive system (principal) | CPT/HCPCS: 99222 ==

== ENCOUNTER → 2025-06-17 16:57 | Outpatient (BNV) | payer MEDICARE, SELFPAY | PROVIDERS: Admitting Provider Internal Medicine; Emergency Provider Emergency Medicine; PCP Internal Medicine; Visit Provider Internal Medicine Cardiovascular Disease | DX: I25.5 Ischemic cardiomyopathy (principal); I23.6 Thrombosis of atrium, auricular appendage, 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 | CPT/HCPCS: 99223; 99232 ==

== ENCOUNTER → 2025-06-17 16:57 | Outpatient (BNV) | payer MEDICARE, SELFPAY | PROVIDERS: Admitting Provider Internal Medicine; Emergency Provider Emergency Medicine; PCP Internal Medicine; Visit Provider Internal Medicine Gastroenterology | DX: C26.9 Malignant neoplasm of ill-defined sites within the digestive system (principal); R13.10 Dysphagia, unspecified | CPT/HCPCS: 99223 ==

== ENCOUNTER → 2025-06-17 16:57 | Outpatient (BNV) | payer MEDICARE, SELFPAY | PROVIDERS: Admitting Provider Internal Medicine; Emergency Provider Emergency Medicine; PCP Internal Medicine; Visit Provider Internal Medicine | DX: C26.9 Malignant neoplasm of ill-defined sites within the digestive system (principal) | CPT/HCPCS: 99223; 99231 ==

== ENCOUNTER → 2025-07-18 23:59 | Outpatient (BNV) | payer MEDICARE, SELFPAY ==
--- NOTE | 2025-08-11 21:32 | MHC.OFFVIS ---
Intake Visit Reasons: Remote ICD check- [facility] Allergies GALILEO Inhibitors Allergy (Severe, Verified 06/13/25 09:47) Cough PFSH Medical History Erythema intertrigo Pacemaker History of syncope Cardiac defibrillator in place Anemia in chronic kidney disease Localized swelling of both lower legs Sinus bradycardia Bifascicular block Intermittent lightheadedness Bilateral knee pain Impaired fasting glucose Osteopenia of left femoral neck Colonoscopy refused Postmenopausal Osteoarthritis Dyslipidemia Essential hypertension Chronic kidney disease (CKD) Surgical History S/P cardiac cath History of cataract surgery Family History Father HTN (hypertension) Mother CKD (chronic kidney disease) HTN (hypertension) Heart disease Family/Other Hailey's thyroiditis Social History Household Members: None Housing: House Do you presently have visiting nurse or other home services: No Alcohol intake: never Patient Tobacco Use Status: Former Tobacco user Years Smoked: 35 yrs e-Cigarette/Vaping Use: Never Used Advance Directives Date on File: 08/19/22 service: No Current occupational status: retired Cognitive needs: No Hearing needs: No Vision needs: Yes Office Procedures Cardiac Device Check Cardiac Device Check Details: ICD Good battery PMT episodes noted. [id number] Cardiac Device Interrogation, pacemaker or defibrillator Procedure code (CPT) selection complete Assessment & Plan Assessment & Plan (1) Cardiac defibrillator in place: Code(s): Z95.810 - Presence of automatic (implantable) cardiac defibrillator Category: Medical Plan Coding Level of Care Code Procedure Only Diagnoses Cardiac defibrillator in place Z95.810 CPT Codes Cardiac Device Check - Cardiac Device 14: [id number] Cardiac Device Interrogation, pacemaker or defibrillator ([id number])
== END ==
PROVIDERS: PCP Internal Medicine; Visit Provider Internal Medicine Cardiovascular Disease
DX: R00.0 Tachycardia, unspecified (principal); Z95.810 Presence of automatic (implantable) cardiac defibrillator
CPT/HCPCS: 93295